=== PATIENT | female | born 1960 | race Caucasian/White ===

== ENCOUNTER → 2020-12-27 09:37 | Outpatient (CLI) | payer OTHER, SELFPAY ==
[2020-12-27 09:00] VITALS: BMI 38.2
[2020-12-27 12:27] LABS: Absolute Lymphocyte Count 1.72 X10^3/uL (0.83-4.51); Absolute Neutrophil Count 3.2 X10^3/uL (2.0-7.7); Basophil# 0.05 X10^3/uL; Basophil% 0.9 % (0-1); Eosinophil# 0.16 X10^3/uL; Eosinophils% 2.9 % (0-5); Hematocrit 40.9 % (37-47); Hemoglobin 12.9 g/dL (12.0-15.0); Lymphocyte # 1.72 X10^3/ul (4.0); Lymphocyte % 31.7 % (19-41); Mean Corp Hgb Conc 31.5 g/dL (32-36); Mean Corpuscular Hgb 28.5 pg (27.0-32.0); Mean Corpuscular Volume 90.3 fL (81-99); Monocyte# 0.29 X10^3/uL; Monocyte% 5.3 % (0-10); NRBC Flagged by Analyzer 0 % (0-5); Platelet Count 280 K/mm3 (150-450); RBC Distribution Width CV 13.6 % (11.6-14.6); RBC Distribution Width SD 45.6 fl (35.1-43.9); Red Blood Count 4.53 M/mm3 (4.2-5.4); White Blood Count 5.4 K/mm3 (4.4-11.0)
[2020-12-27 12:46] LABS: ALB/GLOB Ratio 0.9 RATIO (0.9-2.4); AST(SGOT) 40 U/L (15-37); Alanine Aminotransfer ALT/SGPT 67 U/L (13-56); Albumin, Serum 3.7 g/dL (3.2-5.0); Alkaline Phosphatase 114 U/L (45-117); Anion Gap 5 (5-15); BUN 12 mg/dL (7-18); BUN/Creat Ratio 16.4 RATIO (10-20); Calcium,Total 9.3 mg/dL (8.5-10.1); Chloride 104 mmol/L (98-107); Cholesterol 201 mg/dL (200); Creatinine, Serum 0.73 mg/dL (0.55-1.02); EST Glomerular Filtration Rate 86 mL/min (>60); Est Glom Filt Rate - Afr Amer 104 mL/min (>60); Globulin 4.3 g/dL (2.2-4.2); Glucose 92 mg/dL (74-106); High Density Lipoprotein 61 mg/dL; Potassium 3.9 mmol/L (3.5-5.1); Sodium Level 138 mmol/L (136-145); Triglycerides 152 mg/dL; Very Low Density Lipoprotein 30 mg/dL (5-40)
== END ==
PROVIDERS: PCP Internal Medicine; Visit Provider Internal Medicine
DX: I10 Essential (primary) hypertension (principal); K22.70 Barrett's esophagus without dysplasia
CPT/HCPCS: 36415; 80053; 80061; 85025

== ENCOUNTER → 2021-01-24 07:02 | Outpatient (CLI) | payer OTHER, BC, SELFPAY ==
[2020-12-27 09:00] VITALS: BMI 38.2
--- NOTE | 2021-01-24 07:10 | BI_ITS ---
MAMMOGRAPHY - BILATERAL SCREENING REASON FOR EXAM: Screening mammogram., 60 years old. Routine annual screening examination. PERTINENT HISTORY: Non-contributory. TECHNIQUE: Digital bilateral breast elenita (3D mammographic acquisition) in the CC and MLO projections. 2-D mediolateral oblique (MLO) and craniocaudad (CC) views of both breasts were obtained. CAD: Full Field Digital Mammography with Computer Added Detection was performed. COMPARISON: Comparison is made with prior abdomen examination dated 10/23/2019 and 08/14/2018. FINDINGS: Breast Composition: The breasts are heterogeneously dense, which may obscure small masses. There are no dominant masses or suspicious calcifications. Stable benign-appearing bilateral axillary lymph nodes. No other significant abnormalities are identified. There has been no significant change since the prior study. BI/SCRN MAMM (CAD)W/ELENITA BILAT IMPRESSION: Stable bilateral screening mammogram. Yearly follow-up mammogram recommended. (A) ASSESSMENT CATEGORY: BIRADS Category 2: Benign. A letter regarding these results will be sent to the patient by the facility within 30 days. Approximately 10% of breast cancers are not detected by mammography. A normal mammogram should not delay biopsy of a clinically suspicious abnormality. [id number] Electronically Signed: Etienne Fernando MD at 8:14 EDT , Service support ,
== END ==
PROVIDERS: PCP Internal Medicine; Referring Provider Internal Medicine; Visit Provider Internal Medicine
DX: Z12.31 Encounter for screening mammogram for malignant neoplasm of breast (principal)
CPT/HCPCS: 77063; 77067

== ENCOUNTER → 2021-02-02 09:13 | Outpatient (CLI) | payer OTHER, BC, SELFPAY ==
[2021-02-02 08:55] VITALS: BMI 38.2
--- NOTE | 2021-02-02 10:10 | EKG12_ITS ---
Test Reason : HYPERTENSION Blood Pressure : / mmHG Vent. Rate : 100 BPM Atrial Rate : 100 BPM P-R Int : 148 ms QRS Dur : 094 ms QT Int : 360 ms P-R-T Axes : 061 032 057 degrees QTc Int : 464 ms Normal sinus rhythm Low voltage QRS Incomplete right bundle branch block Nonspecific T wave abnormality Abnormal ECG Confirmed by KEILA PARISI, MARCY ([id number]), online editor KUSUM HARVEY ([id number]) on 02/04/2021 11:08:44 AM Referred By: Maria Elena Abdalla Confirmed By:MARCY PEDRAZA MD
== END ==
PROVIDERS: PCP Internal Medicine; Referring Provider Internal Medicine; Visit Provider Internal Medicine
DX: I10 Essential (primary) hypertension (principal); R06.02 Shortness of breath
CPT/HCPCS: 36415; 83880; 93005

== ENCOUNTER → 2021-02-17 06:20 | Outpatient (CLI) | payer OTHER, BC, SELFPAY ==
[2021-02-02 08:55] VITALS: BMI 38.2
--- NOTE | 2021-02-17 13:43 | STRESSREP_ITS ---
Stress Test Report Date: 02/17/2021 Procedure: Exercise tolerance test/imaging study Indications: Abnormal EKG Consent: Per the patient Procedure: The patient exercised on a Oscar protocol for 5 minutes and 32 seconds achieving a peak heart rate of 173 bpm (108% predicted maximal heart rate) with a peak blood pressure 159 mmHg and a peak MET capacity of 7 METs. The baseline ECG demonstrated normal sinus rhythm, poor R wave progression in the anterior leads. The peak exercise ECG demonstrated no significant ischemic changes. EKG during recovery revealed no significant ischemic changes [There were no cardiac dysrhythmias pretest, during exercise, or recovery]. The functional capacity was considered normal for age. There was [no complaint of chest discomfort during exercise or recovery]. The examination was discontinued secondary to shortness of breath. Impression: 1. Technically adequate (percent predicted maximal heart rate greater than 85%) exercise tolerance test 2. Stress test is negative for exercise-induced EKG changes of ischemia 3. The test test is negative for exercise-induced chest pain 4. Functional capacity is normal for age 5. Nuclear images pending Myocardial perfusion imaging study: Technique: The patient was injected with 14.2 mCi of technetium 99m Cardiolite and subsequently rest SPECT Cardiolite nuclear imaging was obtained in the horizontal long, vertical long, and short axis views. The patient exercised on a Oscar protocol. Please see above for details. The patient was injected with 44.6 mCi of technetium 99m Cardiolite and subsequently stress SPECT Cardiolite nuclear imaging was obtained in the horizontal long, vertical long, and short axis views. A gated Cardiolite study at peak stress was obtained. Interpretation: Rest and stress SPECT Cardiolite nuclear imaging status post realignment, normalization, and attenuation correction, demonstrates overall normal myocardial radioisotope uptake. The gated Cardiolite study demonstrates no significant regional wall motion abnormalities. The reported LVEF is 66%. Impression: 1. There is no evidence of significant ischemia or infarction. 2. The gated Cardiolite study reports an LVEF of 66%. This note was generated with [employer] software. It may contain incorrect words, spelling, and punctuation that were not noted in checking the note before signing.
== END ==
PROVIDERS: PCP Internal Medicine; Referring Provider Internal Medicine; Visit Provider Internal Medicine
DX: I10 Essential (primary) hypertension (principal); R94.31 Abnormal electrocardiogram [ECG] [EKG]
CPT/HCPCS: 78452; 93017; A9500; A4216

== ENCOUNTER → 2021-03-08 16:24 | Outpatient (CLI) | payer OTHER, BC, SELFPAY ==
[2021-03-08 15:27] VITALS: BMI 38.5
--- NOTE | 2021-03-08 16:28 | RAD_ITS ---
STUDY: X-RAY CHEST REASON FOR EXAM: Female, 60 years old. Shortness of breath TECHNIQUE: PA and lateral views of the chest. COMPARISON: None. FINDINGS: The lungs are clear and expanded. There is no demonstrated pleural abnormality. Normal size heart. Normal mediastinum and pino. Normal visualized pulmonary arteries. There is atherosclerotic tortuosity of the aortic arch and descending thoracic aorta. There are diffuse degenerative changes of the visualized thoracic spine. Normal visualized ribs, clavicles, and shoulders. There is no demonstrated abnormality of the visualized soft tissue structures of the upper abdomen. RAD/Chest PA and Lateral IMPRESSION: Degenerative changes, as described above. No demonstrated acute cardiopulmonary process. Electronically Signed: Ayah Hughes MD at 5:43 EDT Tel , Service support ,
== END ==
PROVIDERS: PCP Internal Medicine; Referring Provider Internal Medicine; Visit Provider Internal Medicine
DX: R06.02 Shortness of breath (principal)
CPT/HCPCS: 71046

== ENCOUNTER → 2021-03-10 09:13 | Outpatient (CLI) | payer OTHER, BC, SELFPAY ==
[2021-02-02 08:55] VITALS: BMI 38.2
== END ==
PROVIDERS: PCP Internal Medicine; Referring Provider Internal Medicine; Visit Provider Internal Medicine
DX: G47.10 Hypersomnia, unspecified (principal)
CPT/HCPCS: 95806

== ENCOUNTER → 2021-03-17 09:00 | Outpatient (CLI) | payer OTHER, BC, SELFPAY ==
[2021-03-08 15:27] VITALS: BMI 38.5
== END ==
PROVIDERS: PCP Internal Medicine; Visit Provider Nurse Practitioner Family
DX: Z46.89 Encounter for fitting and adjustment of other specified devices (principal)

== ENCOUNTER → 2021-04-12 | Outpatient (CLI) | payer OTHER, BC, SELFPAY ==
[2021-04-12 15:30] VITALS: BMI 38.5
[2021-04-12 16:13] LABS: Bacteria 0 SEEN /hpf (None Seen); Mucous, Urine 0 SEEN /hpf (<or=2+); Red Blood Cells-Urine 0 SEEN /hpf (0-5); Squamous Epithelial Cells - UA 0 SEEN /hpf (5-10)
[2021-04-12 17:13] LABS: Color, Urine Yellow (Yellow); Glucose, Dipstick Normal (Normal); Ketone-Dipstick Negative (Negative); Leukocyte Esterase-Dipstick 100 /ul (Negative); Nitrite-Dipstick Negative (Negative); Occult Blood-Urine Negative /ul (Negative); Protein-Dipstick Negative (Negative); Specific Gravity, Urine 1.005 (1.002-1.030); Urine Bilirubin Dipstick Negative (Negative); Urine Clarity Clear (Clear); Urine Urobilinogen Normal (Normal)
[2021-04-12 17:22] LABS: White Blood Cells 10-25 SEEN /hpf (0-5)
== END | disposition home or self-care (01) ==
LOC: LABSPEC 16:12
PROVIDERS: PCP Internal Medicine; Referring Provider Internal Medicine; Visit Provider Internal Medicine
DX: R30.0 Dysuria (principal)
CPT/HCPCS: 81001

== ENCOUNTER → 2021-05-16 07:43 | Outpatient (CLI) | payer OTHER, BC, SELFPAY ==
[2021-05-16 10:23] LABS: Anion Gap 4 (5-15); BUN 12 mg/dL (7-18); BUN/Creat Ratio 19.1 RATIO (10-20); Calcium,Total 9.3 mg/dL (8.5-10.1); Chloride 107 mmol/L (98-107); Creatinine, Serum 0.63 mg/dL (0.55-1.02); EST Glomerular Filtration Rate 102 mL/min (>60); Est Glom Filt Rate - Afr Amer 124 mL/min (>60); Glucose 93 mg/dL (74-106); Potassium 4.1 mmol/L (3.5-5.1); Sodium Level 139 mmol/L (136-145)
== END ==
PROVIDERS: PCP Internal Medicine; Referring Provider Internal Medicine; Visit Provider Internal Medicine
DX: I10 Essential (primary) hypertension (principal)
CPT/HCPCS: 36415; 80048

== ENCOUNTER → 2021-07-23 10:55 | Outpatient (CLI) | payer OTHER, BC, SELFPAY ==
[2021-07-23 11:41] LABS: Absolute Lymphocyte Count 2.01 X10^3/uL (0.83-4.51); Absolute Neutrophil Count 2.9 X10^3/uL (2.0-7.7); Basophil# 0.06 X10^3/uL; Basophil% 1.1 % (0-1); Eosinophil# 0.14 X10^3/uL; Eosinophils% 2.5 % (0-5); Hematocrit 40.7 % (37-47); Hemoglobin 13.8 g/dL (12.0-15.0); Lymphocyte # 2.01 X10^3/ul (0.83-4.51); Lymphocyte % 36.3 % (19-41); Mean Corp Hgb Conc 33.9 g/dL (32-36); Mean Corpuscular Hgb 29.9 pg (27.0-32.0); Mean Corpuscular Volume 88.1 fL (81-99); Mean Platelet Vol. 9.2 fl (6.2-12.0); Monocyte# 0.36 X10^3/uL; Monocyte% 6.5 % (0-10); NRBC Flagged by Analyzer 0 % (0-5); Neutrophil # 2.93 X10^3/uL (2.7-7.7); Neutrophil % 53.1 % (47-70); Platelet Count 265 K/mm3 (150-450); RBC Distribution Width CV 13.5 % (11.6-14.6); RBC Distribution Width SD 43.6 fl (35.1-43.9); Red Blood Count 4.62 M/mm3 (4.2-5.4); White Blood Count 5.5 K/mm3 (4.4-11.0)
[2021-07-23 11:47] LABS: ALB/GLOB Ratio 0.9 RATIO (0.9-2.4); AST(SGOT) 21 U/L (15-37); Alanine Aminotransfer ALT/SGPT 43 U/L (13-56); Albumin, Serum 3.7 g/dL (3.2-5.0); Alkaline Phosphatase 102 U/L (45-117); Anion Gap 6 (5-15); BUN 9 mg/dL (7-18); Calcium,Total 9.5 mg/dL (8.5-10.1); Chloride 107 mmol/L (98-107); Creatinine, Serum 0.69 mg/dL (0.55-1.02); EST Glomerular Filtration Rate 91 mL/min (>60); Est Glom Filt Rate - Afr Amer 111 mL/min (>60); Globulin 4.2 g/dL (2.2-4.2); Glucose 92 mg/dL (74-106); Lipase 158 U/L (73-393); Potassium 3.9 mmol/L (3.5-5.1); Protein, Total 7.9 g/dL (6.4-8.2); Sodium Level 141 mmol/L (136-145)
== END ==
PROVIDERS: PCP Internal Medicine
DX: R10.11 Right upper quadrant pain (principal); R11.0 Nausea
CPT/HCPCS: 36415; 80053; 83690; 85025

== ENCOUNTER → 2021-08-04 08:22 | Outpatient (CLI) | payer OTHER, BC, SELFPAY ==
--- NOTE | 2021-08-04 08:24 | CT_ITS ---
STUDY: CT ABDOMEN AND PELVIS WITH CONTRAST REASON FOR EXAM: Female, 60 years old. 2-3 year history of right upper quadrant abdominal pain. RADIATION DOSAGE (If Supplied By Facility): CTDIvol = ( 15.57 ) mGy, DLP = ( 1009.16 ) mGycm TECHNIQUE: Transaxial images were obtained from the dome of the diaphragm to the symphysis pubis with oral contrast. Oral and amp; IV Readi-CAT and amp; 100mL Isovue-300 was administered. Sagittal and coronal images were reconstructed. Individualized dose optimization techniques were used for this CT. COMPARISON: None. FINDINGS: Minimal increased markings in the posterior medial segment of the right lower lobe suggestive of a either atelectasis and/or scarring. The visualized portions of the heart are within normal limits. There is decreased attenuation of the liver consistent with steatosis. Normal gallbladder and extrahepatic biliary system. Normal spleen. Normal pancreas. Normal bilateral adrenal glands. Normal right kidney. Normal left kidney. Normal visualized stomach. Normal small intestine. Normal colon. The appendix is visualized and appears normal. There is scattered atherosclerotic calcification of the abdominal aorta, without a demonstrated aneurysm. Normal inferior vena cava. Normal retroperitoneum. Normal urinary bladder. There is a small umbilical hernia containing fat. Normal osseous structures. CT/Abdomen/Pelvis WITH Contrast IMPRESSION: Diffuse fatty infiltration of the liver. Electronically Signed: Etienne Fernando MD at 9:50 EST , Service support ,
== END ==
PROVIDERS: PCP Internal Medicine; Referring Provider Internal Medicine Gastroenterology; Visit Provider Internal Medicine Gastroenterology
DX: R10.84 Generalized abdominal pain (principal); R14.0 Abdominal distension (gaseous)
CPT/HCPCS: 74177; Q9967

== ENCOUNTER → 2022-01-25 | Outpatient (CLI) | payer OTHER, BC, SELFPAY ==
--- NOTE | 2022-01-25 08:21 | BI_ITS ---
MAMMOGRAPHY - BILATERAL SCREENING REASON FOR EXAM: Female, 61 years old. Routine annual screening examination. PERTINENT HISTORY: Grandmother with breast cancer. TECHNIQUE: Digital bilateral breast elenita (3D mammographic acquisition) in the CC and MLO projections. 2-D mediolateral oblique (MLO) and craniocaudad (CC) views of both breasts were obtained. CAD: Full Field Digital Mammography with Computer Added Detection was performed. COMPARISON: Comparison is made with prior study dated 01/24/2021. FINDINGS: Breast Composition: The breasts are heterogeneously dense, which may obscure small masses. There are no dominant masses or suspicious calcifications. Stable small benign-appearing bilateral axillary lymph nodes. No other significant abnormalities are identified. There has been no significant change since the prior study. BI/SCRN MAMM (CAD)W/ELENITA BILAT IMPRESSION: Stable bilateral screening mammogram. Yearly follow-up mammogram recommended. (A) ASSESSMENT CATEGORY: BIRADS Category 2: Benign. A letter regarding these results will be sent to the patient by the facility within 30 days. Approximately 10% of breast cancers are not detected by mammography. A normal mammogram should not delay biopsy of a clinically suspicious abnormality. [id number] Electronically Signed: Etienne Fernando MD at 9:25 EDT ,
== END | disposition home or self-care (01) ==
LOC: OPBI 08:20
PROVIDERS: PCP Internal Medicine; Visit Provider Internal Medicine
DX: Z12.31 Encounter for screening mammogram for malignant neoplasm of breast (principal)
CPT/HCPCS: 77063; 77067

== ENCOUNTER → 2022-06-14 | Outpatient (CLI) | payer OTHER, BC, SELFPAY ==
[2022-06-14 12:42] LABS: Absolute Lymphocyte Count 1.65 X10^3/uL (0.83-4.51); Absolute Neutrophil Count 2.9 X10^3/uL (2.0-7.7); Basophil# 0.05 X10^3/uL; Eosinophil# 0.12 X10^3/uL; Eosinophils% 2.4 % (0-5); Hematocrit 42.8 % (37-47); Hemoglobin 14.2 g/dL (12.0-15.0); Lymphocyte # 1.65 X10^3/ul (0.83-4.51); Lymphocyte % 32.8 % (19-41); Mean Corp Hgb Conc 33.2 g/dL (32-36); Mean Corpuscular Hgb 30.7 pg (27.0-32.0); Mean Corpuscular Volume 92.4 fL (81-99); Mean Platelet Vol. 9.2 fl (6.2-12.0); Monocyte# 0.33 X10^3/uL; Monocyte% 6.6 % (0-10); NRBC Flagged by Analyzer 0 % (0-5); Neutrophil # 2.86 X10^3/uL (2.7-7.7); Neutrophil % 56.8 % (47-70); Platelet Count 257 K/mm3 (150-450); RBC Distribution Width CV 13.9 % (11.6-14.6); RBC Distribution Width SD 46.7 fl (35.1-43.9); Red Blood Count 4.63 M/mm3 (4.2-5.4)
[2022-06-14 13:02] LABS: ALB/GLOB Ratio 0.9 RATIO (0.9-2.4); AST(SGOT) 12 U/L (15-37); Alanine Aminotransfer ALT/SGPT 35 U/L (13-56); Albumin, Serum 3.9 g/dL (3.2-5.0); Alkaline Phosphatase 94 U/L (45-117); Anion Gap 8 (5-15); BUN 10 mg/dL (7-18); BUN/Creat Ratio 14.7 RATIO (10-20); Calcium,Total 9.9 mg/dL (8.5-10.1); Chloride 104 mmol/L (98-107); Cholesterol 235 mg/dL (200); Creatinine, Serum 0.68 mg/dL (0.55-1.02); EST Glomerular Filtration Rate 93 mL/min (>60); Est Glom Filt Rate - Afr Amer 112 mL/min (>60); Globulin 4.2 g/dL (2.2-4.2); Glucose 98 mg/dL (74-106); High Density Lipoprotein 60 mg/dL; Potassium 4.3 mmol/L (3.5-5.1); Protein, Total 8.1 g/dL (6.4-8.2); Sodium Level 139 mmol/L (136-145); Triglycerides 175 mg/dL; Very Low Density Lipoprotein 35 mg/dL (5-40)
== END | disposition home or self-care (01) ==
LOC: BIMLAB 10:26
PROVIDERS: PCP Internal Medicine; Referring Provider Internal Medicine; Visit Provider Internal Medicine
DX: I10 Essential (primary) hypertension (principal)
CPT/HCPCS: 36415; 80053; 80061; 85025

== ENCOUNTER → 2022-08-07 | Outpatient (CLI) | payer OTHER, BC, SELFPAY ==
[2022-08-07 13:13] LABS: Thyroid Stim Hormone (TSH) 2.22 uIU/mL (0.358-3.74)
[2022-08-08 15:55] LABS: ANTINUCLEAR ANTIBODIES DIRECT Negative (Negative)
== END | disposition home or self-care (01) ==
PROVIDERS: PCP Internal Medicine; Visit Provider Internal Medicine
DX: K58.9 Irritable bowel syndrome, unspecified (principal); L85.3 Xerosis cutis; Z13.29 Encounter for screening for other suspected endocrine disorder
CPT/HCPCS: 36415; 84439; 84443; 86038; 86225; 86235

== ENCOUNTER → 2022-10-25 | Outpatient (CLI) | payer OTHER, BC, SELFPAY ==
[2022-10-25 12:16] LABS: Absolute Lymphocyte Count 1.42 X10^3/uL (0.83-4.51); Absolute Neutrophil Count 3.1 X10^3/uL (2.0-7.7); Basophil# 0.05 X10^3/uL; Hematocrit 42.1 % (37-47); Hemoglobin 13.9 g/dL (12.0-15.0); Lymphocyte # 1.42 X10^3/ul (0.83-4.51); Lymphocyte % 28.7 % (19-41); Mean Corpuscular Hgb 30.3 pg (27.0-32.0); Mean Corpuscular Volume 91.7 fL (81-99); Mean Platelet Vol. 9.2 fl (6.2-12.0); Monocyte% 6.1 % (0-10); NRBC Flagged by Analyzer 0 % (0-5); Neutrophil # 3.07 X10^3/uL (2.7-7.7); Platelet Count 277 K/mm3 (150-450); RBC Distribution Width CV 13.4 % (11.6-14.6); RBC Distribution Width SD 45.8 fl (35.1-43.9); Red Blood Count 4.59 M/mm3 (4.2-5.4)
[2022-10-25 12:30] LABS: Anion Gap 6 (5-15); BUN 14 mg/dL (7-18); BUN/Creat Ratio 19.1 RATIO (10-20); Calcium,Total 9.7 mg/dL (8.5-10.1); Chloride 106 mmol/L (98-107); Creatinine, Serum 0.73 mg/dL (0.55-1.02); EST Glomerular Filtration Rate 85 mL/min (>60); Est Glom Filt Rate - Afr Amer 103 mL/min (>60); Glucose 102 mg/dL (74-106); Potassium 4.2 mmol/L (3.5-5.1); Sodium Level 139 mmol/L (136-145)
== END | disposition home or self-care (01) ==
LOC: BIMLAB 08:56
PROVIDERS: PCP Internal Medicine; Referring Provider Internal Medicine; Visit Provider Internal Medicine
DX: I10 Essential (primary) hypertension (principal)
CPT/HCPCS: 36415; 80048; 85025

== ENCOUNTER → 2023-03-15 | Outpatient (CLI) | payer OTHER, BC, SELFPAY ==
--- NOTE | 2023-03-15 10:00 | BI_ITS ---
MAMMOGRAPHY - BILATERAL SCREENING REASON FOR EXAM: Female, 62 years old. Routine annual screening examination. PERTINENT HISTORY: Grandmother with breast cancer. TECHNIQUE: Digital bilateral breast elenita (3D mammographic acquisition) in the CC and MLO projections. 2-D mediolateral oblique (MLO) and craniocaudad (CC) views of both breasts were obtained. CAD: Full Field Digital Mammography with Computer Added Detection was performed. COMPARISON: Comparison is made with prior study January 25, 2022 and January 24, 2021. FINDINGS: Breast Composition: The breasts are heterogeneously dense, which may obscure small masses. There are no dominant masses or suspicious calcifications. Stable benign appearing bilateral axillary lymph nodes. No other significant abnormalities are identified. There has been no significant change since the prior study. BI/SCRN MAMM (CAD)W/ELENITA BILAT IMPRESSION: Stable bilateral screening mammogram. Yearly follow-up mammogram recommended. (A) ASSESSMENT CATEGORY: BIRADS Category 2: Benign. A letter regarding these results will be sent to the patient by the facility within 30 days. Approximately 10% of breast cancers are not detected by mammography. A normal mammogram should not delay biopsy of a clinically suspicious abnormality. [id number] Electronically Signed: Etienne Fernando MD at 12:20 EDT ,
--- NOTE | 2023-03-15 10:06 | BD_ITS ---
STUDY: DUAL ENERGY X-RAY ABSORPTIOMETRY / DXA REASON FOR EXAM: Female, 62 years old. Post menopausal TECHNIQUE: Bone Mineral Density (BMD) measurements of lumbar spine and bilateral hips were obtained. COMPARISON: None. FINDINGS: Lumbar Spine (L1-L4): g/cm2 (1.028) / T-score (-0.2) / Z-score (1.5) Findings are suggestive of normal bone density with a low fracture risk. Left Femur Total: g/cm2 (0.927) / T-score (-0.1) / Z-score (1.0) Left Femoral Neck: g/cm2 (0.736) / T-score (-1.0) / Z-score (0.4) Right Femur Total: g/cm2 (0.962) / T-score (0.2) / Z-score (1.3) Right Femoral Neck: g/cm2 (0.795) / T-score (-0.5) / Z-score (1.0) BD/Dexa Bone Density Study IMPRESSION: The patient is considered normal as outlined below according to World Morales Organization (WHO) criteria with a low fracture risk. Reference Information: The T-score is the number of standard deviations above or below the standard which is normal for young adults at their peak bone mineral density. The World Health Organization (WHO) interprets the T-scores as follows: Above -1 Normal bone density Between -1 and -2.5 Osteopenia Equal to / or below -2.5 Osteoporosis As a practical clinical guideline, osteopenia may be graded as follows: Mild -1 through -1.5 Moderate -1.6 through -2.0 Severe -2.1 through -2.4 The Z-score is the number of standard deviations above or below age-matched controls. A Z-score of less than -1.5 would be considered abnormal. References: 1. NIH Osteoporosis and Related Bone Diseases www osteo.org 2. International Society for Clinical Densitometry www iscd.org 3. National Osteoporosis Foundation www nof.org Electronically Signed: Etienne Fernando MD at 10:00 EDT ,
== END | disposition home or self-care (01) ==
LOC: OPBD 09:58
PROVIDERS: PCP Internal Medicine; Referring Provider Internal Medicine; Visit Provider Internal Medicine
DX: Z12.31 Encounter for screening mammogram for malignant neoplasm of breast (principal); Z78.0 Asymptomatic menopausal state
CPT/HCPCS: 77063; 77067; 77080

== ENCOUNTER → 2023-06-14 | Outpatient (CLI) | payer OTHER, BC, SELFPAY ==
[2023-06-14 10:07] LABS: Absolute Lymphocyte Count 1.71 X10^3/uL (0.83-4.51); Absolute Neutrophil Count 3.5 X10^3/uL (2.0-7.7); Basophil# 0.06 X10^3/uL; Eosinophil# 0.14 X10^3/uL; Eosinophils% 2.4 % (0-5); Hematocrit 40.2 % (37-47); Lymphocyte # 1.71 X10^3/ul (0.83-4.51); Lymphocyte % 29.6 % (19-41); Mean Corp Hgb Conc 32.3 g/dL (32-36); Mean Corpuscular Hgb 29.8 pg (27.0-32.0); Mean Corpuscular Volume 92.2 fL (81-99); Mean Platelet Vol. 9.3 fl (6.2-12.0); Monocyte# 0.37 X10^3/uL; Monocyte% 6.4 % (0-10); NRBC Flagged by Analyzer 0 % (0-5); Neutrophil # 3.49 X10^3/uL (2.7-7.7); Neutrophil % 60.4 % (47-70); Platelet Count 265 K/mm3 (150-450); RBC Distribution Width CV 13.6 % (11.6-14.6); RBC Distribution Width SD 46.5 fl (35.1-43.9); Red Blood Count 4.36 M/mm3 (4.2-5.4); White Blood Count 5.8 K/mm3 (4.4-11.0)
[2023-06-14 11:34] LABS: AST(SGOT) 16 U/L (15-37); Alanine Aminotransfer ALT/SGPT 35 U/L (13-56); Albumin, Serum 3.8 g/dL (3.2-5.0); Alkaline Phosphatase 91 U/L (45-117); Anion Gap 6 (5-15); BUN 16 mg/dL (7-18); BUN/Creat Ratio 23.8 RATIO (10-20); Calcium,Total 9.3 mg/dL (8.5-10.1); Chloride 107 mmol/L (98-107); Cholesterol 212 mg/dL (200); Creatinine, Serum 0.67 mg/dL (0.55-1.02); EST Glomerular Filtration Rate 94 mL/min (>60); Est Glom Filt Rate - Afr Amer 114 mL/min (>60); Globulin 3.9 g/dL (2.2-4.2); Glucose 102 mg/dL (74-106); High Density Lipoprotein 61 mg/dL; Protein, Total 7.7 g/dL (6.4-8.2); Sodium Level 139 mmol/L (136-145); Triglycerides 165 mg/dL; Very Low Density Lipoprotein 33 mg/dL (5-40)
== END | disposition home or self-care (01) ==
LOC: MTLAB 07:39
PROVIDERS: PCP Internal Medicine; Referring Provider Internal Medicine; Visit Provider Internal Medicine
DX: I10 Essential (primary) hypertension (principal)
CPT/HCPCS: 36415; 80053; 80061; 85025

== ENCOUNTER → 2023-09-19 | Outpatient (CLI) | payer OTHER, SELFPAY ==
--- OUTSIDE RECORDS SUMMARY | 2023-09-19 07:59 | XMS RPT_ITS | CCD ---
Author Name Unknown Address [address] [place] [address] Organization [facility] Care Team Providers Care Supervisor Uranium Processing Name Role Phone Amanda Alvarado Unavailable Unavailable Benita Valencia Unavailable Unavailable Jasiel Mann Attending Unavailable Benita Valencia Primary Care Unavailable Maria Elena Abdalla MD Primary Care Provider [phone] LONNY ACEVEDO Referring Unavailable MARIA ELENA ABDALLA Primary Care Unavailable LONNY ACEVEDO Referring Unavailable MARIA ELENA ABDALLA Primary Care Unavailable Allergies Allergy Classification Reported Allergen(s) Allergy Type Date of Onset Reaction(s) Facility (3 sources) Sulfonamides (Antibiotic); Translations: [SULFA (SULFONAMIDE ANTIBIOTICS)] Propensity to adverse reactions to drug 0 [facility] Work Phone: Medications Completed/Discontinued Medications Medication Drug Class(es) Dates Sig (Normalized) Sig (Original) [id number] 200 actuat albuterol 0.09 mg/actuat metered dose inhaler (2 sources) beta2-Adrenergic Agonist Start: 02-21-2021 take 2 puff(s) by inhalation every four hours as needed albuterol HFA (PROVENTIL HFA, VENTOLIN HFA) 90 mcg/actuation inhaler Indications: Mild intermittent asthma with acute exacerbation Inhale 2 Puffs as instructed every 4 hours as needed. 8 g 0 02/21/2021 Active Problems Active Problems Problem Classification Problem Date Documented Da te Episodic/Chronic Anxiety disorders (2 sources) Mixed anxiety and depressive disorder; Translations: [Anxiety disorder, unspecified] 07-30-2013 Chronic Esophageal disorders (2 sources) Woodall's esophagus; Translations: [Woodall's esophagus without dysplasia] Onset: 05-18-2019 06-21-2020 Chronic Genitourinary symptoms and ill-defined conditions (2 sources) Female stress incontinence; Translations: [Stress incontinence (female) (male)] 08-12-2018 Chronic Menopausal disorders (2 sources) Menopausal symptom; Translations: [Menopausal and female climacteric states] Onset: 08-12-2018 08-12-2018 Chronic Miscellaneous mental health disorders (4 sources) Lack or loss of sexual desire; Translations: [Hypoactive sexual desire disorder] Onset: 10-17-2019 08-12-2018 Chronic Nutritional deficiencies (2 sources) Vitamin D deficiency; Translations: [Vitamin D deficiency, unspecified] Onset: 07-18-2018 08-12-2018 Chronic Other gastrointestinal disorders (1 source) Dysphagia; Translations: [Dysphagia, unspecified] Episodic Other gastrointestinal disorders (2 sources) Dysphagia, unspecified; Translations: [Dysphagia, unspecified type] Onset: 10-19-2022 Episodic Other nutritional; endocrine; and metabolic disorders (2 sources) Obesity; Translations: [Other obesity due to excess calories] Onset: 03-23-2019 03-23-2019 Chronic Other nutritional; endocrine; and metabolic disorders (2 sources) Weight gain; Translations: [Abnormal weight gain] 08-12-2018 Episodic Unclassified (3 sources) Encntr screen mammogram for malignant neoplasm of breast / Z12.31(ICD-10) Onset: 07-27-2017 Past or Other Problems Problem Classification Problem Date Documented Date Episodic/Chronic Other connective tissue disease (2 sources) Tibialis posterior tendinitis ; Translations: [Posterior tibial tendinitis, unspecified leg] Onset: 11-13-2011 11-13-2011 Episodic Other lower respiratory disease (2 sources) Snoring; Translations: [Snoring] Onset: 08-12-2018 08-12-2018 Episodic Other screening for suspected conditions (not mental disorders or infectious disease) (5 sources) Encounter for screening for cardiovascular disorders; Translations: [Patient encounter status] Onset: 08-06-2018 08-06-2018 Episodic Unclassified (1 source) Encntr screen mammogram for malignant neoplasm of breast; Translations: [Encntr screen mammogram for malignant neoplasm of breast] Onset: 07-27-2017 Results Test Name Value Interpretation Reference Range Facil ity Encounters Encounter Date Encounter Type Care Provider Facility Start: 10-19-2022 End: 10-20-2022 ambulatory Reba Dumont [facility] [employer] [employer]PER[employer] Work Phone: [facility] Speech Therapy Procedures Date Procedure Procedure Detail Performing Clinician Start: 10-19-2022 End: 10-19-2022 Radiologic exam swallow function contrast study Lonny Acevedo MD Work Phone: Start: 10-23-2019 Mammography Reba Guadalupe ana lilia Dumont [facility]-[employer] SUPERVIS[employer] Work Phone: Start: 06-04-2019 Colonoscopy Reba Yimedhat ana lilia Dumont [facility] Work Phone: Plan of Treatment Date Care Activity Detail Author Start: 08-12-2028 Urine microalbumin profile DTA P,TDAP,TD (2 - Td or Tdap) [facility] Start: 04-19-2025 HPV TESTING HPV TESTING [facility] Start: 04-19-2023 PAP TESTING PAP TESTING [facility] Start: 06-04-2022 Colonoscopy COLONOSCOPY [facility] Start: 06-04-2022 COLORECTAL CANCER SCREENING COLORECTAL CANCER SCREENING [facility] Start: 05-18-2022 Influenza vaccination INFLUENZA (#1) [facility] Start: 05-16-2022 DIABETES SCREEN DIABETES SCREEN [facility] Start: 03-31-2022 LIPID SCREEN LIPID SCREEN [facility] Start: 10-23-2021 Mammography MAMMOGRAM [facility] Start: 2009 SHINGRIX VACCINE (1 of 2) SHINGRIX V ACCINE (1 of 2) [facility] Start: 2004 COLOGUARD (FIT-DNA) COLOGUARD (FIT-D NA) [facility] Start: [address] [facility] Start: 2004 FECAL OCCULT BLOOD FECAL OCCULT BLOO D [facility] Start: 2004 SIGMOIDOSCOPY SIGMOIDOSCOPY [facility] Start: 1977 HIV SCREENING HIV SCREENING [facility] Immunizations Immunization Date Immunization Notes Care Provider Latisha reed 08-12-2018 influenza, injectabl e, quadrivalent, contains preservative Reba Dumont [facility]PER[employer] Work Phone: [facility] 08-12-2018 tetanus toxoid, redu nghia diphtheria toxoid, and acellular pertussis vaccine, adsorbed Reba Dumont [facility] Work Phone: [facility] 12-28-2011 hepatitis B vaccine, adult dosage Reba Dumont [facility] Work Phone: [facility] Work Phone: 08-17-2009 pneumococcal polysaccharide vaccine, 23 valent eRba Dumont [facility] Work Phone: [facility] Work Phone: 09-17-2007 hepatitis A vaccine, pediatric/adolescent dosage, 2 dose schedule Reba Dumont [facility] Work Phone: [facility] Work Phone: 09-17-2007 hepatitis B vaccine, adult dosage Reba Dumont [facility] Work Phone: [facility] Work Phone: Payers Date Payer Category Payer Unknown [employer] [id number] 2020-Present [phone] [facility] [id number] [place] [address] PPO [id number] 2020 Unknown [id number] 1960 Unknown [id number] Unknown [id number] Unknown [id number] Social History Date Type Detail Facility Start: 05-02-2019 [facility] Work Phone: End: 09-17-1977 History of tobacco use Current smoker [facility] Work Phone: End: 09-17-1977 History of tobacco use Cigarette Smoker [facility] Work Phone: Start: 05-02-2019 Tobacco use and exposure Smokeless tobacco non-user [facility] Work Phone: Start: 09-07-2020 Alcohol intake Current drinke r of alcohol (finding) [facility] Start: 05-02-2019 Tobacco Comment 1/2 year in her teen s [facility] Start: 04-11-2011 Alcohol Comment social Reyes [facility] Start: 1960 Sex Assigned At Not on file C [facility] Clinical Notes 08-12-2018 to 10-19-2022 RT Jorge(R) - 10/19/2022 1:00 PM Tucker Dumont CCC-PIPE FITTER SUPERVISOR - 10/19/2022 12:59 PM EST Note Date & Type Note Facility 10-19-2022 Note HNO ID: [id number] Author: EDUARDO Patel) Service: Radiology Author Type: Technologist Type: Progress Notes Filed: 10/19/2022 3:03 PM Note Text: Radiology Service Progress Note PATIENT NAME: Renetta Gill DATE OF SERVICE: October 19, 2022 TIME: 3:02 PM PATIENT IDENTITY VERIFICATION COMPLETED USING TWO (2) IDENTIFIERS: Name and Date of confirmed by patient verbally. FALL SCREENING: Has the patient had 2 falls in the last year or 1 fall with injury or currently using an Ambulatory Assistive Device (Walker, Cane, Wheelchair, Crutches, etc.)? No PATIENT GENDER DATA: Female. status: : No status: NO. PATIENT RELEVANT IMPLANT DATA REVIEWED: Not Applicable RADIOLOGY DEPARTMENT: General X-ray: Exam(s) Completed: GI/ Procedure(s): Esophogram with barium contrast and Modified barium swallow with barium contrast PERIPHERAL IV DATA: Not applicable SIGNED BY: RT Jorge(Vega) October 19, 2022 3:02 PM [facility] 10-19-2022 Note HNO ID: [id number] Author: Reba Dumont CCC-PIPE FITTER SUPERVISOR Service: ? Author Type: Speech Language Pathologist Type: Progress Notes Filed: 10/19/2022 1:57 PM Note Text: Start of Care Date: 10/19/22 Onset Date: 09/17/22 Patient Identified by Name and Date of : Yes [facility] MODIFIED BARIUM SWALLOW PLAN OF CARE: Impression: Evidence of: -Functional oropharyngeal phases of swallow, without identified risk for aspiration An elevated risk for aspiration: No Swallow Efficiency: Preserved Esophagram completed this date. Please see radiological report for complete details. RECOMMENDATION: Diet Recommendations: Regular Consistency, Thin Liquids IDDSI Level 0 Swallowing Precautions Recommendations: -Self-monitoring, -Anti-Reflux precautions Results and Recommendations Discussed With: Patient SUBJECTIVE: Renetta Gill is a 62 year old female seen today for a Modified Barium Swallow (MBS) Study. dysphagia -pt is reporting choking at 'odd times' -admits to intermittent choking episodes throughout the day with / without PO intake -denies the following: reflux symptoms, emesis, heartburn (medicated), unexpected weight loss -admits to frequent / consistent nausea; Woodall's Esophagus -s/p EGD X1 year per patient Patient Goals: Determine current swallowing skills OBJECTIVE: MEASURES WITH LEVEL OF FUNCTION: Swallow Position Of Patient During Assessment: Standing Consistencies Presented: Thin Liquids IDDSI Level 0, Pureed IDDSI Level 4, Soft and Bite-Sized IDDSI Level 6, Solid Instrumental Swallow Assessment Type: Modified Barium Swallow Study Modified Barium Swallow Views: Lateral position MBS Consistencies Tested: Thin Barium Liquids, Pureed with Barium Paste, Soft and Bite-Sized with Barium Paste, Solid with Barium Paste Oral Phase: Lip Closure: No labial escape/anterior loss of bolus Tongue Control During Bolus Hold: Cohesive bolus between tongue to palatal seal Bolus Preparation/Mastication: Timely and efficient mastication skills Bolus Transport/Lingual Motion: Brisk tongue motion for A-P movement of the bolus Oral Residue: Trace residue lining oral structures Initiation Of Pharyngeal Swallow: Bolus head at posterior angle of ramus Pharyngeal Phase: Soft Palate Elevation: No bolus between soft palate/pharyngeal wall Laryngeal Elevation: Complete superior movement of thyroid cartilage with contact of arytenoids to epiglottic petiole Anterior Hyoid Excursion: Complete anterior movement Epiglottic Movement: Complete inversion Laryngeal Vestibular Closure/Height of the Swallow: Complete - no air/contrast in laryngeal vestibule Pharyngeal Stripping Wave: Complete Pharyngoesophageal Segment Opening: Complete distension and complete duration/no obstruction of flow of bolus Tongue Base Retraction: No bolus between tongue base and posterior pharyngeal wall Pharyngeal Residue: Complete pharyngeal clearance Esophageal Clearance In An Upright Position: Esophageal retention (mildly delayed; appears to clear with additional 'dry' swallow while in an upright position) Penetration-Aspiration Scale for MBSS: Level 1-Material does not enter airway Education: Education Learning Preferences: Explanation Barriers: None Learning/Educational Needs: MBSs results Education Provided: Yes, see treatment interventions for education provided Education Provided To: Patient Education Mode/Type: Explanation/Discussion, Video Response to Education/Teach Back: States/Identifies TREATMENT: Performed Modified Barium Swallowing Study (06446). -Education regarding findings from today's Modified Barium Swallowing study (fluoroscopic study) were provided to the patient through verbal / written instruction, images and/or demonstration. Patient appeared to be able to demonstrate understanding of education provided this date. Billing: Modified Barium Swallow ([id number]) Total time: 30 minutes Reba Dumont CCC-PIPE FITTER SUPERVISOR [facility] 10-19-2022 History of Present illness Narrative Radiology Service Progress Note PATIENT NAME: Renetta Gill DATE OF SERVICE: October 19, 2022 TIME: 3:02 PM PATIENT IDENTITY VERIFICATION COMPLETED USING TWO (2) IDENTIFIERS: Name and Date of confirmed by patient verbally. FALL SCREENING: Has the patient had 2 falls in the last year or 1 fall with injury or currently using an Ambulatory Assistive Device (Walker, Cane, Wheelchair, Crutches, etc.)? No PATIENT GENDER DATA: Female. status: : No status: NO. PATIENT RELEVANT IMPLANT DATA REVIEWED: Not Applicable RADIOLOGY DEPARTMENT: General X-ray: Exam(s) Completed: GI/ Procedure(s): Esophogram with barium contrast and Modified barium swallow with barium contrast PERIPHERAL IV DATA: Not applicable SIGNED BY: RT Jorge(R) October 19, 2022 3:02 PM documented in this encounter [facility] 10-19-2022 History of Present illness Narrative Start of Care Date: 10/19/22 Onset Date: 09/17/22 Patient Identified by Name and Date of : Yes [facility] MODIFIED BARIUM SWALLOW PLAN OF CARE: Impression: Evidence of: -Functional oropharyngeal phases of swallow, without identified risk for aspiration An elevated risk for aspiration: No Swallow Efficiency: Preserved Esophagram completed this date. Please see radiological report for complete details. RECOMMENDATION: Diet Recommendations: Regular Consistency, Thin Liquids IDDSI Level 0 Swallowing Precautions Recommendations: -Self-monitoring, -Anti-Reflux precautions Results and Recommendations Discussed With: Patient SUBJECTIVE: Renetta Gill is a 62 year old female seen today for a Modified Barium Swallow (MBS) Study. dysphagia -pt is reporting choking at 'odd times' -admits to intermittent choking episodes throughout the day with / without PO intake -denies the following: reflux symptoms, emesis, heartburn (medicated), unexpected weight loss -admits to frequent / consistent nausea; Woodall's Esophagus -s/p EGD X1 year per patient Patient Goals: Determine current swallowing skills OBJECTIVE: MEASURES WITH LEVEL OF FUNCTION: Swallow Position Of Patient During Assessment: Standing Consistencies Presented: Thin Liquids IDDSI Level 0, Pureed IDDSI Level 4, Soft and Bite-Sized IDDSI Level 6, Solid Instrumental Swallow Assessment Type: Modified Barium Swallow Study Modified Barium Swallow Views: Lateral position MBS Consistencies Tested: Thin Barium Liquids, Pureed with Barium Paste, Soft and Bite-Sized with Barium Paste, Solid with Barium Paste Oral Phase: Lip Closure: No labial escape/anterior loss of bolus Tongue Control During Bolus Hold: Cohesive bolus between tongue to palatal seal Bolus Preparation/Mastication: Timely and efficient mastication skills Bolus Transport/Lingual Motion: Brisk tongue motion for A-P movement of the bolus Oral Residue: Trace residue lining oral structures Initiation Of Pharyngeal Swallow: Bolus head at posterior angle of ramus Pharyngeal Phase: Soft Palate Elevation: No bolus between soft palate/pharyngeal wall Laryngeal Elevation: Complete superior movement of thyroid cartilage with contact of arytenoids to epiglottic petiole Anterior Hyoid Excursion: Complete anterior movement Epiglottic Movement: Complete inversion Laryngeal Vestibular Closure/Height of the Swallow: Complete - no air/contrast in laryngeal vestibule Pharyngeal Stripping Wave: Complete Pharyngoesophageal Segment Opening: Complete distension and complete duration/no obstruction of flow of bolus Tongue Base Retraction: No bolus between tongue base and posterior pharyngeal wall Pharyngeal Residue: Complete pharyngeal clearance Esophageal Clearance In An Upright Position: Esophageal retention (mildly delayed; appears to clear with additional 'dry' swallow while in an upright position) Penetration-Aspiration Scale for MBSS: Level 1-Material does not enter airway Education: Education Learning Preferences: Explanation Barriers: None Learning/Educational Needs: MBSs results Education Provided: Yes, see treatment interventions for education provided Education Provided To: Patient Education Mode/Type: Explanation/Discussion, Video Response to Education/Teach Back: States/Identifies TREATMENT: Performed Modified Barium Swallowing Study (60426). -Education regarding findings from today's Modified Barium Swallowing study (fluoroscopic study) were provided to the patient through verbal / written instruction, images and/or demonstration. Patient appeared to be able to demonstrate understanding of education provided this date. Billing: Modified Barium Swallow ([id number]) Total time: 30 minutes Reba Dumont CCC-PIPE FITTER SUPERVISOR documented in this encounter [facility] 08-18-2021 Note Patient Outreach (AM [facility]) RENETTA GILL ([id number]) 1960 F Date Time Provider Department 08/18/21 CAROL ORELLANAG During your visit today, we recorded the following information about you: Carol Orellana MA 08/18/2021 10:22 AM Signed POPULATION HEALTH NAVIGATION OUTREACH Action/FYI pcp field updated Contact made with patient or family member? NO Pt identified by name and : NO Outreach Outcome/Action PCP field updated Reason for Outreach Attribution: Provider Off-boarding Carol Orellana MA August 18, 2021 10:21 AM Allergies As of Date: 08/18/2021 Noted Allergy Reaction SULFA (SULFONAMIDE ANTIBIOTICS) 08/25/2010 4 - Hives Date Reviewed: 02/21/2021 Reviewed by: Lisa Navas APRN.ELECTRONIC EQUIPMENT REPAIRER - Fully Assessed Reason for Visit: Population Health Navigation Outreach [0900] Cmt: Offboarding Dashboard Refresh [id number] Prescriptions as of 08/18/2021 - triamterene-hydroCHLOROthiazide 37.5-25 mg per capsule Take 1 capsule by mouth once daily. - ipratropium bromide (ATROVENT) 42 mcg (0.06 %) nasal spray Use 2 Sprays in the nose twice daily. for 1 week - albuterol HFA (PROVENTIL HFA, VENTOLIN HFA) 90 mcg/actuation inhaler Inhale 2 Puffs as instructed every 4 hours as needed. - sertraline (ZOLOFT) 25 mg tablet Take 1 tablet by mouth once daily. - traZODone (DESYREL) 50 mg tablet Take 1 tablet by mouth daily at bedtime. TAKE ONE(1) TABLET AT BEDTIME PO PRN INSOMNIA - hyoscyamine SR (LEVBID) 0.375 mg 12 hr tablet Take 1 tablet by mouth twice daily. - cholecalciferol (VITAMIN D) 1,000 unit tab tablet Take 2 tablets by mouth once daily. - pantoprazole DR (PROTONIX) 40 mg tablet Take 40 mg by mouth twice daily. - magnesium oxide (MAG-OX) 400 mg (241.3 mg magnesium) tablet Take 1 tablet by mouth once daily. - ubidecarenone Q-10 (CO Q-10) 10 mg cap Take 1 capsule by mouth once daily. - Niacin-Inositol 400 mg niacin (500 mg) cap Take 1 tablet by mouth once daily. Problem List As Of Date 08/18/2021 Noted Resolved Posterior tibial tendinitis [M76.829] 11/13/2011 Hypercholesteremia [E78.00] 08/12/2018 Anxiety and depression [F41.9, F32.A] Pain in joint, pelvic region and thigh [M25.559]10/19/2014 11/05/2014 Symptomatic menopausal or female climacteric st* 08/12/2018 Encounter for screening mammogram for malignant*08/06/2018 menopause clinically in her 50s [N95.1] 08/12/2018 Weight gain [R63.5] Snoring [R06.83] 08/12/2018 HSDD [F52.0] Female genuine stress incontinence [N39.3] Hormone replacement therapy (HRT) [Z79.890] 08/12/2018 03/25/2019 Vitamin D deficiency [E55.9] 07/18/2018 Class 2 obesity due to excess calories without *03/23/2019 Woodall esophagus [K22.70] 05/2019 Chronic insomnia [F51.04] 10/17/2019 Encounter Status:Closed by CAROL ORELLANA on 08/18/21 [facility] 08-18-2021 Note HNO ID: [id number] Author: Carol Orellana MA Service: ? Author Type: Dba Developer Type: Progress Notes Filed: 08/18/2021 10:22 AM Note Text: POPULATION HEALTH NAVIGATION OUTREACH Action/FYI pcp field updated Contact made with patient or family member? NO Pt identified by name and : NO Outreach Outcome/Action PCP field updated Reason for Outreach Attribution: Provider Off-boarding Carol Orellana MA August 18, 2021 10:21 AM [facility] 07-21-2021 Note HNO ID: [id number] Author: Asia Tello RDMS Service: ? Author Type: Talent Development Consultant Type: Progress Notes Filed: 07/21/2021 8:34 AM Note Text: Radiology Service Progress Note PATIENT NAME: Renetta Gill DATE OF SERVICE: July 21, 2021 TIME: 8:34 AM PATIENT IDENTITY VERIFICATION COMPLETED USING TWO (2) IDENTIFIERS: Name and Date of confirmed by patient verbally. FALL SCREENING: Has the patient had 2 falls in the last year or 1 fall with injury or currently using an Ambulatory Assistive Device (Walker, Cane, Wheelchair, Crutches, etc.)? No PATIENT GENDER DATA: Female. status: : No status: N/A PATIENT RELEVANT IMPLANT DATA REVIEWED: Not Applicable RADIOLOGY DEPARTMENT: Ultrasound PERIPHERAL IV DATA: Not applicable SIGNED BY: Asia Tello RDMS RVT July 21, 2021 8:34 AM [facility] 02-21-2021 Note HNO ID: [id number] Author: Lisa Navas APRN.CNP Service: ? Author Type: Nurse Practitioner Type: Progress Notes Filed: 02/21/2021 9:56 AM Note Text: Subjective The history is provided by the patient. No japanese interpreter was used. URI She complains of chest tightness, cough, difficulty breathing, frequent throat clearing, hoarse voice and shortness of breath. There is no wheezing. This is a new problem. The current episode started in the past 7 days. The problem occurs constantly. The problem has been gradually worsening. The cough is productive of sputum and productive. Associated symptoms include ear pain, malaise/fatigue, nasal congestion, postnasal drip, rhinorrhea, sneezing, a sore throat and trouble swallowing. Pertinent negatives include no appetite change, dyspnea on exertion, ear congestion, fever or headaches. Her symptoms are aggravated by any activity and change in weather. Her symptoms are alleviated by nothing. She reports no improvement on treatment. Risk factors: denies exposure to ill persons, COVID vaccinated Her past medical history is significant for asthma. There is no history of COPD, emphysema or pneumonia. Review of Systems Constitutional: Positive for fatigue and malaise/fatigue. Negative for activity change, appetite change, chills, diaphoresis and fever. HENT: Positive for congestion, ear pain, hoarse voice, postnasal drip, rhinorrhea, sneezing, sore throat and trouble swallowing. Negative for sinus pressure and sinus pain. Eyes: Positive for discharge (watery) and itching. Negative for photophobia, pain and redness. Respiratory: Positive for cough and shortness of breath. Negative for wheezing. Cardiovascular: Negative for dyspnea on exertion. Gastrointestinal: Negative. Neurological: Negative for dizziness, light-headedness, numbness and headaches. All other systems reviewed and are negative. triamterene-hydroCHLOROthiazide 37.5-25 mg per capsule Take 1 capsule by mouth once daily. ipratropium bromide (ATROVENT) 42 mcg (0.06 %) nasal spray Use 2 Sprays in the nose twice daily. for 1 week amoxicillin-clavulanic acid (AUGMENTIN) 875-125 mg per tablet Take 1 tablet by mouth every 12 hours for 10 days. albuterol HFA (PROVENTIL HFA, VENTOLIN HFA) 90 mcg/actuation inhaler Inhale 2 Puffs as instructed every 4 hours as needed. sertraline (ZOLOFT) 25 mg tablet Take 1 tablet by mouth once daily. traZODone (DESYREL) 50 mg tablet Take 1 tablet by mouth daily at bedtime. TAKE ONE(1) TABLET AT BEDTIME PO PRN INSOMNIA hyoscyamine SR (LEVBID) 0.375 mg 12 hr tablet Take 1 tablet by mouth twice daily. cholecalciferol (VITAMIN D) 1,000 unit tab tablet Take 2 tablets by mouth once daily. pantoprazole DR (PROTONIX) 40 mg tablet Take 40 mg by mouth twice daily. magnesium oxide (MAG-OX) 400 mg (241.3 mg magnesium) tablet Take 1 tablet by mouth once daily. ubidecarenone Q-10 (CO Q-10) 10 mg cap Take 1 capsule by mouth once daily. Niacin-Inositol 400 mg niacin (500 mg) cap Take 1 tablet by mouth once daily. ALLERGIES Allergen Reactions - Sulfa (Sulfonamide * Hives ACTIVE PROBLEM LIST Posterior Tibial Tendinitis Anxiety and Depression Encounter for Screening Mammogram for Malignant Neoplasm of Breast menopause clinically in her 50s Weight Gain Snoring HSDD Female Genuine Stress Incontinence Vitamin D Deficiency Class 2 Obesity Due to Excess Calories Without Serious Comorbidity With Body Mass Index (Bmi) of 37.0 to 37.9 in Adult [place] Esophagus Chronic Insomnia BP 123/90 Pulse 112 Temp 36.7 ?C (98.1 ?F) (Tympanic) Resp 18 Wt 88.5 kg (195 lb) SpO2 94% BMI 38.08 kg/m2 Physical Exam Vitals reviewed. Constitutional: Appearance: Normal appearance. She is well-developed. She is not toxic-appearing. Comments: HENT: Head: Normocephalic. Right Ear: Hearing, ear canal and external ear normal. Tympanic membrane is erythematous. Tympanic membrane is not injected, retracted or bulging. Left Ear: Hearing, ear canal and external ear normal. Tympanic membrane is erythematous. Tympanic membrane is not injected, retracted or bulging. Nose: Mucosal edema, congestion and rhinorrhea present. Right Sinus: No maxillary sinus tenderness or frontal sinus tenderness. Left Sinus: No maxillary sinus tenderness or frontal sinus tenderness. Mouth/Throat: Mouth: Mucous membranes are moist. Pharynx: Uvula midline. Posterior oropharyngeal erythema present. No oropharyngeal exudate. Tonsils: No tonsillar exudate or tonsillar abscesses. 2+ on the right. 2+ on the left. Eyes: Conjunctiva/sclera: Conjunctivae normal. Cardiovascular: Rate and Rhythm: Normal rate. Pulmonary: Effort: Pulmonary effort is normal. Breath sounds: Normal breath sounds. Abdominal: Palpations: Abdomen is soft. Musculoskeletal: General: Normal range of motion. Cervical back: Normal range of motion. Lymphadenopathy: Head: Right side of h (more content not included)... [facility] documented as of this encounter (statuses as of 10/19/2022) [facility]11-[facility] History of Past illness Narrative* Problem Noted Date Resolved Date Hormone replacement therapy (HRT) 08/12/2018 03/25/2019 Pain in joint, pelvic region and thigh 5 11/05/2014 Hypercholesteremia 08/12/2018 Symptomatic menopausal or female climacteric sta [place] 08/12/2018 documented as of this encounter (statuses as of 10/20/2022) [facility] Dysphagia, unspecified type- Primary documented in this encounter [facility] Summary Purpose Family History No Family History Records FoundNo Family History Records FoundNo Family History Records FoundNo Family History Records FoundNo Family History Records Found Advance Directives No Advanced Directives Records FoundNo Advanced Directives Records FoundNo Advanced Directives Records FoundNo Advanced Directives Records FoundNo Advanced Directives Records Found Additional Source Comments INFORMATION SOURCE (unrecogn ized section and content) DATE CREATED AUTHOR AUTHOR'S ORGANIZ ATION 01/13/2019 [facility] DATE CREATED AUTHOR AUTHOR'S ORGANIZ ATION 06/21/2019 [facility] DATE CREATED AUTHOR AUTHOR'S ORGANIZ ATION 11/05/2021 [facility] DATE CREATED AUTHOR AUTHOR'S ORGANIZ ATION 10/20/2022 [facility] Source Comments (unrecognize d section and content) In the event this informatio n is protected by the Federal Confidentiality of Alcohol and Drug Abuse Patient Records regulations: The Federal rules restrict any use of the information to criminally investigate or prosecute any alcohol or drug abuse patient.[facility] the event this information is protected by the Federal Confidentiality of Alcohol and Drug Abuse Patient Records regulations: The Federal rules restrict any use of the information to criminally investigate or prosecute any alcohol or drug abuse patient.[facility] Reason for Visit (unrecogniz ed section and content) Specialty Diagnoses / Procedures Referred By Contac t Referred To Contact Radiology / SPEECH THERAPY Diagnoses MODIFIED BARIUM SWALLOW W SPEECH, Procedures TX SPEECH LANG VOICE COMMJ &/AUDITORY PROC IND SPEECH THERAPISTS Lonny Jefferson MD [address] [place] [address] Hosp, Speech [place] [address] [place] [address] Referral ID Status Reason Start Date Expiration Date V isits Requested Visits Authorized [id number] Authorized 10/19/2022 09/16/2023 60 60 Care Teams (unrecognized sec tion and content) 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 [place] [address] PCP - General Internal Medicine 08/16/21 FOR RECORDS PERTAINING TO PATIENTS WHO ARE OR HAVE BEEN ENROLLED IN A CHEMICAL DEPENDENCY/SUBSTANCEABUSE PROGRAM, SOME INFORMATION MAY BE OMITTED. This clinical summary was aggregated from multiple sources. Caution should be exercised in using it in the provision of clinical care. This summary normalizes information from multiple sources, and as a consequence, information in this document may materially change the coding, format and clinical context of patient data. In addition, data may be omitted in some cases. CLINICAL DECISIONS SHOULD BE BASED ON THE PRIMARY CLINICAL RECORDS. [email or web address] [facility]. provides no warranty or guarantee of the accuracy or completeness of information in this document.
[2023-09-19 10:56] LABS: Erythrocyte Sedimentation Rate 15 mm/hr (0-30)
[2023-09-19 10:58] LABS: Absolute Lymphocyte Count 1.84 X10^3/uL (0.83-4.51); Absolute Neutrophil Count 3.5 X10^3/uL (2.0-7.7); Basophil# 0.05 X10^3/uL; Basophil% 0.8 % (0-1); Eosinophil# 0.13 X10^3/uL; Eosinophils% 2.2 % (0-5); Hematocrit 41.1 % (37-47); Hemoglobin 13.4 g/dL (12.0-15.0); Lymphocyte # 1.84 X10^3/ul (0.83-4.51); Mean Corp Hgb Conc 32.6 g/dL (32-36); Mean Corpuscular Hgb 29.4 pg (27.0-32.0); Mean Corpuscular Volume 90.1 fL (81-99); Mean Platelet Vol. 9.6 fl (6.2-12.0); Monocyte# 0.39 X10^3/uL; Monocyte% 6.6 % (0-10); NRBC Flagged by Analyzer 0 % (0-5); Neutrophil # 3.51 X10^3/uL (2.7-7.7); Neutrophil % 59.2 % (47-70); Platelet Count 296 K/mm3 (150-450); RBC Distribution Width CV 13.4 % (11.6-14.6); Red Blood Count 4.56 M/mm3 (4.2-5.4); White Blood Count 5.9 K/mm3 (4.4-11.0)
[2023-09-19 11:56] LABS: AST(SGOT) 18 U/L (15-37); Alanine Aminotransfer ALT/SGPT 36 U/L (13-56); Albumin, Serum 3.8 g/dL (3.2-5.0); Alkaline Phosphatase 98 U/L (45-117); Amylase 26 U/L (25-115); Anion Gap 6 (5-15); BUN 13 mg/dL (7-18); Calcium,Total 9.6 mg/dL (8.5-10.1); Chloride 106 mmol/L (98-107); Creatinine, Serum 0.68 mg/dL (0.55-1.02); EST Glomerular Filtration Rate 92 mL/min (>60); Est Glom Filt Rate - Afr Amer 111 mL/min (>60); Globulin 3.9 g/dL (2.2-4.2); Glucose 99 mg/dL (74-106); Protein, Total 7.7 g/dL (6.4-8.2); Sodium Level 138 mmol/L (136-145)
== END | disposition home or self-care (01) ==
PROVIDERS: PCP Internal Medicine; Referring Provider Internal Medicine Gastroenterology; Visit Provider Internal Medicine Gastroenterology
DX: R10.9 Unspecified abdominal pain (principal)
CPT/HCPCS: 36415; 80053; 82150; 85025; 85652

== ENCOUNTER → 2023-12-03 | Outpatient (CLI) | payer BC, SELFPAY ==
--- NOTE | 2023-12-03 08:36 | CT_ITS ---
STUDY: CT ABDOMEN AND PELVIS WITH CONTRAST REASON FOR EXAM: Female, 63 years old. Unspecified abdominal pain. Chronic right upper quadrant pain. RADIATION DOSAGE (If Supplied By Facility): CTDIvol = ( 16.05 ) mGy, DLP = ( 1064.13 ) mGycm TECHNIQUE: Transaxial images were obtained from the dome of the diaphragm to the symphysis pubis without oral contrast. 100ML ISOVUE 370 was administered. Sagittal and coronal images were reconstructed. Individualized dose optimization techniques were used for this CT. COMPARISON: Comparison is made with prior study dated August 04, 2021. FINDINGS: The visualized lung bases are unremarkable. The visualized portions of the heart are within normal limits. There is decreased attenuation of the liver consistent with steatosis. Normal gallbladder and extrahepatic biliary system. Normal spleen. Normal pancreas. Normal bilateral adrenal glands. Normal right kidney. Normal left kidney. Normal visualized stomach. Normal small intestine. Normal colon. The appendix is visualized and appears normal. There is scattered atherosclerotic calcification of the abdominal aorta, without a demonstrated aneurysm. Normal inferior vena cava. Normal retroperitoneum. Normal urinary bladder. There is a small umbilical hernia containing fat. There are mild degenerative changes of the visualized lumbar spine. Mild levoconvex scoliosis. CT/Abdomen/Pelvis WITH Contrast IMPRESSION: Fatty infiltration of the liver. Electronically Signed: Etienne Fernando MD at 13:45 EDT ,
--- OUTSIDE RECORDS SUMMARY | 2023-12-03 08:58 | XMS RPT_ITS | CCD ---
Author Name Unknown Address [address] [place] [address] Organization [facility] Care Team Providers Care [employer] Ins[employer] Supervisor Name Role Phone ChristianoAmanda Unavailable Unavailable Benita Valencia Unavailable Unavailable Jasiel Mann Attending Unavailable Benita Valencia Primary Care Unavailable Maria Elena Abdalla MD Primary Care Provider LONNY ACEVEDO Referring Unavailable MARIA ELENA ABDALLA Primary Care Unavailable LONNY ACEVEDO Referring Unavailable MARIA ELENA ABDALLA Primary Care Unavailable MARIA ELENA ABDALLA Primary Care Unavailable MARK ZAMORA Referring Unavailable NATY MILTON Attending Unavailable Allergies Allergy Classification Reported Allergen(s) Allergy Type Date of Onset Reaction(s) Facility (7 sources) Sulfonamides (Antibiotic); Translations: [SULFA (SULFONAMIDE ANTIBIOTICS)] Propensity to adverse reactions to drug 0 [facility] [place] [facility] Work Phone: Medications Completed/Discontinued Medications Medication Drug Class(es) Dates Sig (Normalized) Sig (Original) [id number] 200 actuat albuterol 0.09 mg/actuat metered dose inhaler (5 sources) beta2-Adrenergic Agonist Start: 02-21-2021 take 2 puff(s) by inhalation every four hours as needed albuterol HFA (PROVENTIL HFA, VENTOLIN HFA) 90 mcg/actuation inhaler Indications: Mild intermittent asthma with acute exacerbation Inhale 2 Puffs as instructed every 4 hours as needed. 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] Onset: 05-18-2019 06-21-2020 Chronic Genitourinary symptoms and ill-defined conditions (5 sources) Female stress incontinence; Translations: [Stress incontinence (female) (male)] 08-12-2018 Chronic Menopausal disorders (5 sources) Menopausal symptom; Translations: [Menopausal and female climacteric states] Onset: 08-12-2018 08-12-2018 Chronic Miscellaneous mental health disorders (10 sources) Lack or loss of sexual desire; Translations: [Hypoactive sexual desire disorder] Onset: 10-17-2019 08-12-2018 Chronic Nutritional deficiencies (5 sources) Vitamin D deficiency; Translations: [Vitamin D deficiency, unspecified] Onset: 07-18-2018 08-12-2018 Chronic Other and unspecified benign neoplasm (2 sources) Gastric polyp; Translations: [Polyp of stomach and duodenum] 09-24-2023 Episodic Other and unspecified benign neoplasm (1 source) Polyp of stomach and duodenum; Translations: [Gastric polyp] Onset: 11-29-2023 Episodic Other gastrointestinal disorders (1 source) Dysphagia; Translations: [Dysphagia, unspecified] Episodic Other gastrointestinal disorders (2 sources) Dysphagia, unspecified; Translations: [Dysphagia, unspecified type] Onset: 10-19-2022 Episodic Other nutritional; endocrine; and metabolic disorders (2 sources) Obesity; Translations: [Other obesity due to excess calories] Onset: 03-23-2019 03-23-2019 Chronic Other nutritional; endocrine; and metabolic disorders (3 sources) Obesity caused by energy imbalance; Translations: [Other obesity due to excess calories] Onset: 03-23-2019 03-23-2019 Chronic Other nutritional; endocrine; and metabolic disorders (5 sources) Weight gain; Translations: [Abnormal weight gain] 08-12-2018 Episodic Unclassified (3 sources) Encntr screen mammogram for malignant neoplasm of breast / Z12.31(ICD-10) Onset: 07-27-2017 Past or Other Problems Problem Classification Problem Date Documented Date Episodic/Chronic Other connective tissue disease (5 sources) Tibialis posterior tendinitis ; Translations: [Posterior tibial tendinitis, unspecified leg] Onset: 11-13-2011 11-13-2011 Episodic Other lower respiratory disease (5 sources) Snoring; Translations: [Snoring] Onset: 08-12-2018 08-12-2018 Episodic Other screening for suspected conditions (not mental disorders or infectious disease) (8 sources) Encounter for screening for cardiovascular disorders; Translations: [Patient encounter status] Onset: 08-06-2018 08-06-2018 Episodic Unclassified (1 source) Encntr screen mammogram for malignant neoplasm of breast; Translations: [Encntr screen mammogram for malignant neoplasm of breast] Onset: 07-27-2017 Results Test Name Value Interpretation Reference Range Facil ity Vital Signs Date Time Vital Sign Value Performing Clinician Lisa litsol 11-29-2023 14:20-0400 Body temperature 96.8 [degF] Mark Zamora MD Work Phone: [facility] 11-29-2023 14:20-0400 Diastolic blood pressure 84 mm[Hg] Mark Zamora MD Work Phone: [facility] 11-29-2023 14:20-0400 Heart rate 100 /min Mark Zamora MD Work Phone: [facility] 11-29-2023 14:20-0400 Respiratory rate 17 /min Mark Zamora MD Work Phone: [facility] 11-29-2023 14:20-0400 SaO2% (BldA) [Mass fraction] 96 % Mark Zamora MD Work Phone: [facility] 11-29-2023 14:20-0400 Systolic blood pressure 134 mm[Hg] Mark Zamora MD Work Phone: [facility] Encounters Encounter Date Encounter Type Care Provider Facility Start: 11-29-2023 ambulatory MARIA ELENA Gonzalez lity:[facility] Start: 11-29-2023 End: 11-29-2023 Subsequent hospital visit by physician Mark Zamora MD Work Phone: [facility] Endoscopy - ENDO Procedures Date Procedure Procedure Detail Performing Clinician Start: 10-19-2022 End: 10-19-2022 Radiologic exam swallow function contrast study Lonny Acevedo MD Work Phone: Start: 10-23-2019 Mammography Reba sung Tim [facility] Work Phone: Start: 06-04-2019 Colonoscopy Reba sung Tim [facility] Work Phone: Start: 03-31-2017 Lipid 1996 panel - S seda or Plasma Mark Zamora MD Work Phone: Plan of Treatment Date Care Activity Detail Author Start: 08-12-2028 Urine microalbumin profile [facility] Start: 04-19-2025 HPV TESTING HPV TESTING [facility] Start: 04-19-2025 Screening for malignant neoplasm of cervix HPV Testing [facility] Start: 05-18-2023 Covid-19 Vaccine () Covid-19 Vaccine () [facility] Start: 05-18-2023 Influenza vaccination [facility] Start: 04-19-2023 PAP TESTING PAP TESTING [facility] Start: 04-19-2023 Screening for malignant neoplasm of cervix Pap Testing [facility] Start: 06-04-2022 Colonoscopy COLONOSCOPY [facility] Start: 06-04-2022 COLORECTAL CANCER SCREENING COLORECTAL CANCER SCREENING [facility] Start: 06-04-2022 Screening for malignant neoplasm of colon [facility] Start: 05-18-2022 Influenza vaccination INFLUENZA (#1) [facility] Start: 05-16-2022 DIABETES SCREEN DIABETES SCREEN [facility] Start: 05-16-2022 Diabetes Screening Diabetes Screening [facility] Start: 03-31-2022 Lipid panel Lipid Screening [facility] Start: 03-31-2022 LIPID SCREEN LIPID SCREEN [facility] Start: 10-23-2021 Mammography MAMMOGRAM [facility] Start: 10-23-2021 Screening for malignant neoplasm of breast Mammogram Screening [facility] Start: 2019 RSV Vaccine (1 - 1-dose 60+ series) RSV Vaccine (1 - 1-dose 60+ series) [facility] Start: 2009 SHINGRIX VACCINE (1 of 2) SHINGRIX VACCINE (1 of 2) [facility] Start: 2004 COLOGUARD (FIT-DNA) COLOGUARD (FIT-DNA) [facility] Start: [address] COLONOGRAPHY [facility] Start: 2004 FECAL OCCULT BLOOD FECAL OCCULT BLOOD [facility] Start: 2004 Screening for malignant neoplasm of colon [facility] Start: 2004 SIGMOIDOSCOPY SIGMOIDOSCOPY [facility] Start: 1977 HIV SCREENING HIV SCREENING [facility] Start: 1977 HIV screening HIV Screening [facility] End: 09-24-2024 EGD - THERAPEUTIC, EUS, OR TUBE INTERVENTIONS EGD - THERAPEUTIC, EUS, OR TUBE INTERVENTIONS Endoscopy Routine Gastric polyp 1 Occurrences starting 09/24/2023 until 09/24/2024 [place] Work Phone: Immunizations Immunization Date Immunization Notes Care Provider Latisha reed 08-22-2020 influenza virus vacc ine, unspecified formulation Mark Zamora MD Work Phone: [facility] 08-12-2018 influenza, injectabl e, quadrivalent, contains preservative Reba Dumont [facility] Work Phone: [facility] 08-12-2018 tetanus toxoid, redu nghia diphtheria toxoid, and acellular pertussis vaccine, adsorbed Reba Dumont [facility] Work Phone: [facility] 12-28-2011 hepatitis B vaccine, adult dosage Reba Dumont [facility] Work Phone: [facility] Work Phone: 08-17-2009 pneumococcal polysaccharide vaccine, 23 valent Reba Dumont [facility] Work Phone: [facility] Work Phone: 09-17-2007 hepatitis A vaccine, pediatric/adolescent dosage, 2 dose schedule Reba Dumont [facility] Work Phone: [facility] Work Phone: 09-17-2007 hepatitis B vaccine, adult dosage Reba Dumont [facility] Work Phone: [facility] Work Phone: Payers Date Payer Category Payer Private Health Insurance [facility] SELECT [id number] 2022-2023 [address] [place] [address] EPO [id number] 2020 Unknown [employer] PPO [id number] 2020-Present [phone] [address] [place] [address] PPO [id number] 2020 Unknown [id number] 1960 Unknown [id number] Unknown [id number] Unknown [id number] Social History Date Type Detail Facility Start: 05-02-2019 [facility] Work Phone: End: 09-17-1977 History of tobacco use Current smoker [facility] Work Phone: End: 09-17-1977 History of tobacco use Cigarette Smoker [facility] Work Phone: Start: 05-02-2019 Tobacco use and exposure Smokeless tobacco non-user [facility] Work Phone: Start: 09-07-2020 Alcohol intake Current drinke r of alcohol (finding) [facility] Start: 05-02-2019 Tobacco Comment 1/2 year in her teen s [facility] Start: 04-11-2011 Alcohol Comment social Clerajendra [facility] Start: 1960 Sex Assigned At Not on file C [facility] Start: 08-21-2020 End: 09-07-2020 History of Social function [facility] Start: 08-21-2020 End: 09-07-2020 Tobacco use panel [facility] Adult Depression Screening Assessment 0 [facility] Start: 06-07-2020 Sexual orientation Heterosexual (erik stubbs) [facility] Clinical Notes 08-12-2018 to 11-29-2023 Mark Zamora MD - 11/29/2023 3:00 PM Silva Juarez RN - 11/29/2023 2:15 PM EDTTelephone Encounter - FelixTracy sanfordfrancois Ferrari - 11/08/2023 2:57 PM Denton De La Cruz RT(R) - 10/19/2022 1:00 PM EST Note Date & Type Note Facility 11-29-2023 History and physi janneth note PROCEDURAL SEDATION HISTORY AND PHYSICAL EXAM SERVICE DATE: 11/29/2023 SERVICE TIME: 2:23 PM Subjective HPI: This is a 63 year old female who presents for Endoscopic Ultrasound PAST ANESTHESIA HISTORY: No history of adverse event PAST MEDICAL HISTORY Diagnosis Date 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 Acevedo - repeat EGD May 2020 Female genuine stress incontinence Hormone replacement therapy (HRT) 08/12/2018 HSDD 07/2018 try vag DHEA Hypercholesteremia 2014 nomal in 2016 menopause age 49 after ablation 07/2010 high FSH and E2 under 25 Migraines Other and unspecified hyperlipidemia Hyperlipidemia, 2013 normal in 2016 Other forms of migraine, without mention of intractable migraine without mention of status migrainosus Ocular migraine Snoring 08/12/2018 Vitamin D deficiency 07/2018 28.6 Weight gain PAST SURGICAL HISTORY Procedure Laterality Date CESSAREAN DELIVERY ONLY x3, 1984, 1985, 1990 COLONOSCOPY COLONOSCOPY 06/04/2019 Dr. Acevedo; tubular adenoma x 2; repeat may 2022 IRIDOTOMY/IRIDECTOMY BY LASER 08/03/2014 Laser Peripheral Iridotomy (LPI) ou LAPAROSCOPIC TUBAL LIGATION/RING/CLIP 2002 JAYY 2006 PAST SURGICAL HISTORY OF 2009 uterine ablation for heavy bleeding at [facility] TOOTH EXTRACTION x4 of 3rd molar TREATMENT - MISSED D&C x2 Prior to Admission medications as of 11/29/23 1419 Medication Sig Last Dose Taking amlodipine besylate (AMLODIPINE ORAL) Take by mouth. 11/28/2023 Yes LISINOPRIL ORAL Take by mouth. 11/28/2023 Yes sertraline (ZOLOFT) 25 mg tablet Take 1 tablet by mouth once daily. 11/28/2023 Yes traZODone (DESYREL) 50 mg tablet Take 1 tablet by mouth daily at bedtime. TAKE ONE(1) TABLET AT BEDTIME PO PRN INSOMNIA 11/28/2023 Yes hyoscyamine SR (LEVBID) 0.375 mg 12 hr tablet Take 1 tablet by mouth twice daily. 11/28/2023 at [address] (PROTONIX) 40 mg tablet Take 40 mg by mouth twice daily. 11/28/2023 Yes triamterene-hydroCHLOROthiazide 37.5-25 mg per capsule Take 1 capsule by mouth once daily. ipratropium bromide (ATROVENT) 42 mcg (0.06 %) nasal spray Use 2 Sprays in the nose twice daily. for 1 week albuterol HFA (PROVENTIL HFA, VENTOLIN HFA) 90 mcg/actuation inhaler Inhale 2 Puffs as instructed every 4 hours as needed. Unknown cholecalciferol (VITAMIN D) 1,000 unit tab tablet Take 2 tablets by mouth once daily. magnesium oxide (MAG-OX) 400 mg (241.3 mg magnesium) tablet Take 1 tablet by mouth once daily. ubidecarenone Q-10 (CO Q-10) 10 mg cap Take 1 capsule by mouth once daily. Niacin-Inositol 400 mg niacin (500 mg) cap Take 1 tablet by mouth once daily. ALLERGIES Allergen Reactions Sulfa (Sulfonamide * Hives Objective PHYSICAL EXAM: The remainder of the physical exam is noncontributory. AIRWAY: Airway Visualization of Uvula: Yes Mouth opening greater than 2 fingerbreadths: Yes Neck Full Range of Motion: Yes LUNGS: Lungs clear to auscultation CARDIAC: Regular rhythm,Regular rate Assessment/Plan ASA Class: ASA Class:: Patient with mild systemic disease - Emergency Procedure Active Problems: * No active hospital problems. * Resolved Problems: * No resolved hospital problems. * Medication and Non-Pharmacologic VTE Prophylaxis/Anticoagulants VTE Prophylaxis: VTE prophylaxis appropriate Provisional Diagnosis/Treatment Plan: Submucosal gastric lesion SEDATION GOAL: Anesthesia SIGNATURE: Mark Zamora MD PATIENT NAME: Renetta Gill DATE: November 29, 2023 TIME: 2:23 PM documented in this encounter [facility] 11-29-2023 Nurse Note PATIENT EDUCATION TOPIC: PROCEDURE / SURGERY: Pre Procedure Teaching: Protocols PATIENT NAME: Renetta Gill PATIENT LOCATION: Room/bed info not found READINESS TO LEARN COGNITIVE ABILITY: Alert and oriented MOTIVATION TO LEARN: Interested FAMILY SUPPORT: None - Unavailable/disinterested INSTRUCTION PROVIDED TO: Patient PATIENT LEARNS BEST BY: Individual Instruction FACTORS AFFECTING LEARNING: None PHYSICAL LIMITATIONS AFFECTING LEARNING: None LEARNING RESPONSE DIAGNOSIS: ADULT: gastric polyp PATIENT/FAMILY RESPONSE: Verbalizes understanding of: PRE-PROCEDURE INSTRUCTIONS-Correct action to take to follow pre-procedure instructions METHOD OF INSTRUCTION: Individual instruction FOLLOW-UP PLAN: Complete - No need for follow-up Patient instructed to call with any further issues INSTRUCTIONAL AIDS USED: NA SUPPLEMENTAL MATERIAL PROVIDED TO PATIENT: None REFERRAL (RECOMMENDATION): None documented in this encounter [facility] 11-08-2023 Miscellaneous Notes Formattin g of this note might be different from the original. Spoke to patient, appointment scheduled. Instructions sent on [employer]. Attempted to call patient regarding scheduling EUS, no answer, left message for patient to call back to schedule. Lorin Tyson Asst II Spoke with pt. EGD/EUS procedure explained in details. Patient verbalized understanding and agreed to proceed. Spoke with Merari at Dr. Acevedo, she will fax most recent OV note which will be scanned into pt's chart. Lorin, please schedule EUS as indicated below. Thank you, Linette Nugent, MICHELLE Schedule patient for EGD and radial EUS in 2 months. Explain the procedure to the patient in detail including potential complications. Mark Zamora MD Pt referred for EUS to evaluate gastric submucosal structure. 09/13/[address] Acevedo: A single 3 mm benign appearing polyp in gastric body. 1.5-2 cm submucosal mild prominence in the greater curve of the mid body. Pathology NA. Pt does not take Anticoagulation. Dr. Zamora, please advise regarding EUS. Thank you, Linette Nugent, RN Linette, Do you have any information on this patient for EUS from Dr. Acevedo office? Lorin Hernandez Adm Asst II Voicemail received from patient to schedule her EUS with Dr. Zamora. Please call her at [phone]. documented in this encounter [facility] 10-19-2022 Note HNO ID: [id number] Author: RT Jorge(R) Service: Radiology Author Type: Technologist Type: Progress [...] RT Jorge(R) October 19, 2022 3:02 PM [facility] 10-19-2022 Note HNO ID: [id number] Author: Reba Alexis Gilbert, CCC-TRIM M[facility]TER Service: ? Author Type: Speech Language Pathologist Type: Progress Notes Filed: 10/19/2022 1:57 PM Note Text: Start of Care Date: 10/19/22 Onset Date: 09/17/22 Patient Identified by Name and Date of : Yes [facility] MODIFIED BARIUM SWALLOW [...] States/Identifies TREATMENT: Performed Modified Barium Swallowing Study (22103). -Education regarding findings from today's Modified Barium Swallowing study (fluoroscopic study) were provided to the patient through verbal / written instruction, images and/or demonstration. Patient appeared to be able to demonstrate understanding of education provided this date. Billing: Modified Barium Swallow ([id number]) Total time: 30 minutes Reba Dumont CCC-[facility] 10-19-2022 History of Presen t illness Narrative Radiology Service Progress Note PATIENT [...] 2022 3:02 PM documented in this encounter [facility] 10-19-2022 History of Presen t illness Narrative Start of Care Date: 10/19/22 Onset Date: 09/17/22 Patient Identified by Name and Date of : Yes [facility] MODIFIED BARIUM SWALLOW [...] States/Identifies TREATMENT: Performed Modified Barium Swallowing Study (82784). -Education regarding findings from today's Modified Barium Swallowing study (fluoroscopic study) were provided to the patient through verbal / written instruction, images and/or demonstration. Patient appeared to be able to demonstrate understanding of education provided this date. Billing: Modified Barium Swallow ([id number]) Total time: 30 minutes Reba Dumont CCC-[facility] documented in this encounter [facility] documented as of this encounter (statuses as of 10/19/2022) [facility]11-26-2018 History of Past illness Narrative* Problem Noted Date Resolved Date Hormone replacement therapy (HRT) 08/12/2018 03/25/2019 Pain in joint, pelvic region and thigh 5 11/05/2014 Hypercholesteremia 08/12/2018 Symptomatic menopausal or female climacteric sta delroy 08/12/2018 documented as of this encounter (statuses as of 10/20/2022) [facility] History of Past illness Narrative* Problem Noted Date Diagnosed Date Resolved Date Hormone replacement therapy (HRT) 08/12/2018 03/25/2019 Pain in joint, pelvic region and thigh 10/19/2014 11/05/2014 Hypercholesteremia 8 Symptomatic menopausal or fe male climacteric states 08/12/2018 documented as of this encounter (statuses as of 11/08/2023) [facility] History of Past illness Narrative* Problem Noted Date Diagnosed Date Resolved Date Hormone replacement therapy (HRT) 08/12/2018 03/25/2019 Pain in joint, pelvic region and thigh 10/19/2014 11/05/2014 Hypercholesteremia 8 Symptomatic menopausal or fe male climacteric states 08/12/2018 documented as of this encounter (statuses as of 11/22/2023) [facility] History of Past illness Narrative* Problem Noted Date Diagnosed Date Resolved Date Hormone replacement therapy (HRT) 08/12/2018 03/25/2019 Pain in joint, pelvic region and thigh 10/19/2014 11/05/2014 Hypercholesteremia 8 Symptomatic menopausal or fe male climacteric states 08/12/2018 documented as of this encounter (statuses as of 11/30/2023) [facility] Diagnosis Dysphagia, unspecified type- Primary documented in this encounter [facility] note* Diagnosis Gastric polyp- Primary Benign neoplasm of stomach documented in this encounter [facility] note* Diagnosis Gastric polyp Benign neoplasm of stomach documented in this encounter [facility] for referral (narrative)* Outpatient Procedure (Routine) - Pending Review Specialty Diagnoses / Procedures Referred By Contjonathan Referred To Contact [facility] Diagnoses Gastric polyp Procedures EGD - THERAPEUTIC, EUS, OR TUBE INTERVENTIONS EDG US EXAM SURGICAL ALTER STOM DUODENUM/[place] [address] [place] [address] [address] Referral ID Status Reason Start Date Expiration Date Visits Requested Visits Authorized [id number] Pending Review Auto-Generat ed Referral 09/24/2023 09/24/2024 1 1 [facility] for visit Narrative* Outpatient Procedure (Routine) - Authorized Specialty Diagnoses / Procedures Referred By Contjonathan guy Referred To Contact [facility] Diagnoses Gastric polyp Procedures EGD - THERAPEUTIC, EUS, OR TUBE INTERVENTIONS EDG US EXAM SURGICAL ALTER STOM DUODENUM/[place] [address] [place] [address] [facility] [address] [place] [id number] Referral ID Status Reason Start Date Expiration Date Visits Requested Visits Authorized [id number] Authorized Auto-Generat ed Referral 11/10/2023 09/16/2024 1 1 [facility] Summary Purpose Family History No Family History [...] DATE CREATED AUTHOR AUTHOR'S ORGANIZ ATION 01/13/2019 [facility] DATE CREATED AUTHOR AUTHOR'S ORGANIZ ATION 06/21/2019 [facility] Reference Lab DATE CREATED AUTHOR AUTHOR'S ORGANIZ ATION 10/20/2022 [facility] DATE CREATED AUTHOR AUTHOR'S ORGANIZ ATION 11/16/2023 [facility] DATE CREATED AUTHOR AUTHOR'S ORGANIZ ATION 12/01/2023 [facility] Source Comments (unrecognize d section and content) In the event this informatio n is protected by the Federal Confidentiality of Alcohol and Drug Abuse Patient Records regulations: The Federal rules restrict any use of the information to criminally investigate or prosecute any alcohol or drug abuse patient.[facility] the event this information is protected by the Federal Confidentiality of Alcohol and Drug Abuse Patient Records regulations: The Federal rules restrict any use of the information to criminally investigate or prosecute any alcohol or drug abuse patient.[facility] the event this information is protected by the Federal Confidentiality of Alcohol and Drug Abuse Patient Records regulations: The Federal rules restrict any use of the information to criminally investigate or prosecute any alcohol or drug abuse patient.[facility] the event this information is protected by the Federal Confidentiality of Alcohol and Drug Abuse Patient Records regulations: The Federal rules restrict any use of the information to criminally investigate or prosecute any alcohol or drug abuse patient.[facility] the event this information is protected by the Federal Confidentiality of Alcohol and Drug Abuse Patient Records regulations: The Federal rules restrict any use of the information to criminally investigate or prosecute any alcohol or drug abuse patient.[facility] Reason for Visit (unrecogniz ed section and content) Specialty Diagnoses / Procedures Referred By Contac t Referred To Contact Radiology / SPEECH THERAPY Diagnoses MODIFIED BARIUM SWALLOW W SPEECH, Procedures TX SPEECH LANG VOICE COMMJ &/AUDITORY PROC IND SPEECH THERAPISTS Lonny Jefferson MD [address] [facility] [address] [place] [address] Hosp, Speech [facility] [address] [place] [address] Referral ID Status Reason Start Date Expiration Date V isits Requested Visits Authorized [id number] Authorized 10/19/2022 09/16/2023 60 60 Reason Comments Appointment EUS Care Teams (unrecognized sec tion and content) [employer] Supervisor Relationship Specialty Start Date End Date Maria Elena Abdalla MD [address] [place] [address] PCP - General Internal Medicine 08/16/21 [employer] Supervisor Relationship Specialty Start Date End Date Maria Elena Abdalla MD [address] [place] [address] PCP - General Internal Medicine 08/16/21 [employer] Supervisor Relationship Specialty Start Date End Date Maria Elena Abdalla MD [address] [place], [place] [address] PCP - General Internal Medicine 08/16/21 [employer] Supervisor Relationship Specialty Start Date End Date Maria Elena Abdalla MD [address] [place], [place] [id number] PCP - General Internal Medicine 08/16/21 FOR [...] BE BASED ON THE PRIMARY CLINICAL RECORDS. [employer] provides no warranty or guarantee of the accuracy or completeness of information in this document.
[2023-12-03 09:02] LABS: CREATININE FINGERSTICK < 1.0 mg/dL (0.55-1.02); EGFR FINGERSTICK > 60.0000 mL/min (>60)
== END | disposition home or self-care (01) ==
LOC: CT 08:35
PROVIDERS: PCP Internal Medicine; Referring Provider Internal Medicine Gastroenterology; Visit Provider Internal Medicine Gastroenterology
DX: R10.9 Unspecified abdominal pain (principal)
CPT/HCPCS: 74177; Q9967

== ENCOUNTER 2024-02-19 10:30 | Outpatient (RCR) | payer BC, SELFPAY ==
--- NOTE | 2024-01-01 14:06 | HP.PTEVAL ---
Patient's Visit Information Visit Information Visit Information: SARA HILL is a 63 year old F referred to Physical Therapy by Dr. Maria Elena Abdalla MD with a diagnosis of L gluteal pain. Date of Evaluation: 01/01/24 Physical Therapist: Joshua Roberts, PT, ATC Visit Plan Frequency: 2x /Week Duration: 4-6 Weeks Plan: L hamstring DTR, stick rollout, graston, stretching, strengthening, core stab ex's, bike, and HEP Subjective Subjective: Pt reports she was cleaning her house approximately one month ago when experienced a severe pain in her L lower glute region near the bone she sits on. Pt notes she was given a muscle relaxant to take which she started last night, and has not noticed any improvements at this time. Pt reports the pain starts near my butt bone and extends down the posterior aspect of her left thigh. Pt reports tingling and numbness down the back of her L leg as well that has been present since last summer when she was attempting to climb into a bunk bed and injured her L IT band. Pt denies any diagnostic tests recently. Pt reports occasional sleep difficulty secondary to pain. Pt denies LBP at this time. Pt reports she has stairs at home that she must negotiate in order to feed her dog. Pt reports she has to negotiate them one step at a time secondary to pain and feeling like she doesnt have the control in her L LE. 6/10 pain while sitting here at rest. 10/10 pain at worst (when she is performing house duties or laundry). Pain L glute pain: Pain Intensity (Out of 10): 6 Pain Intensity Range: 10 Objective Objective: Neuro: L L4 dermatome is hyposensitive to light touch. B patellar reflex= 1/3 Palpation: Pt is very tender on the L ischial tuberosity, as well as along the distribution of L PEÑA and IT band regions ROM: R knee 0-135 degrees, L knee 0-125 degrees MMT: R knee flex= 43, ext= 50 #F; L knee flex= 12, ext= 30 #F Special tests: pos 90/90 test of L LE (45 degree lag) Balance/Special Test Scores Lower Extremity Functional Score: 23 Goals Goal 1:: Decrease L hamstring pain x 50% to aid with sleep Goal Time Frame: 4-6 Weeks Goal 2:: Increase L hamstring flexibility x 20 degrees to aid with decreasing pain Goal Time Frame: 4-6 Weeks Goal 3:: Increase L knee flexion strength x 10 #F to aid with stair negotiation Goal Time Frame: 4-6 Weeks Goal 4:: I with HEP Goal Time Frame: 4-6 Weeks Rehabilitation Potential Physical Therapy Diagnosis: Pt has L gluteal pain, limited knee flexion strength, and limited knee extension flexibility secondary to L hamstring strain. Rehabilitation Potential: Good Anticipated Interventions Patient/Client Instruction: Educate patient on: Condition and Plan of Care For the Purpose of:: To improve self management Therapeutic Exercise to Include: Strength training, Endurance training, Flexibilty training, Passive ROM, Active ROM and Dynamic Lumbar Stabilization For the Purpose of:: To decrease pain, To increase ROM and To improve muscle performance and motor function Manual Therapy Techniques to Include: Soft tissue mobilization For the Purpose of:: To decrease pain and To improve muscle performance and motor function Cryotherapy (ice pack, ice massage): Yes For the Purpose of:: To decrease pain Text: Thank you for the opportunity to evaluate your patient. For Medicare and Medicare HMO plans, please review the plan of care and approve it. It will need to be FAXED BACK to us at [phone] for Medicare purposes. For Medicare only, by signing this I certify the plan of care. Please let me know if there are questions or concerns regarding this plan of care. Physician Signature: Date:
--- NOTE | 2024-01-29 15:09 | HP.PTREVAL ---
Re-Evaluation Intro: Dr. Maria Elena Abdalla MD, It has been my pleasure to treat SARA HILL over the last 7 visits for L gluteal pain. Please see the progress note below for an update on the physical therapy plan of care! Subjective Subjective: PATIENT REPORTS THE PAIN ISN'T CONSTANT IT WAS BUT IT IS DEFINATELY STILL THERE. SHE REPORTS SHE IS VERY FRUSTRATED. SHE STATES SHE IS STILL WAKING UP IN A LOT OF PAIN. SHE STATES SHE DID SOME WEEDING SUNDAY AND A COUPLE HOURS LATER SHE HAD A LOT OF PAIN. Objective Objective/Function: Patient is making slow progress toward set PT goals and is appropriate and agreeable to continue PT per POC below. Upon exam, patient remains very tender on the L ischial tuberosity, as well as along the distribution of L Hamstrings and IT band regions ROM: L knee 0-126 degrees. L hip flex 115 deg compared to R 123 deg. Patient with c/o pain in the L buttock region with L knee and hip flexion ROM testing. MMT: R knee flex= 43, ext= 50 #F (From eval); L knee flex= 16.8, ext= 31 #F Special tests: pos 90/90 test of L LE (41 degree lag) Lumbar Mvmt Loss: flex - Mod ext - min R SG - Mod L SG - min patient c/o increased L buttock pain with lumbar flex and R SG testing. Core Strength: poor Plan Plan Plan: US TO L HS INSERTION REGION X 6 L HS DTR/GRASTON/STICK ROLLOUT L HIP STRETCHING AND STRENGTHENING DYNAMIC LUMBAR STABILIZATION/STRENGTHENING BIKE WRITTEN HEP WITH PICTURES Balance/Gait/Functional tests Balance/Special Test Scores Lower Extremity Functional Score: 23 Goals Goals Goal 1:: Decrease L hamstring pain x 50% to aid with sleep Goal Time Frame: 4-6 Weeks Goal 2:: Increase L hamstring flexibility x 20 degrees to aid with decreasing pain Goal Time Frame: 4-6 Weeks Goal 3:: Increase L knee flexion strength x 10 #F to aid with stair negotiation Goal Time Frame: 4-6 Weeks Goal 4:: I with HEP Goal Time Frame: 4-6 Weeks Anticipated Interventions Anticipated Interventions Patient/Client Instruction: Educate patient on: Condition and Plan of Care For the Purpose of:: To improve self management Therapeutic Exercise to Include: Strength training, Endurance training, Flexibilty training, Passive ROM, Active ROM and Dynamic Lumbar Stabilization For the Purpose of:: To decrease pain, To increase ROM and To improve muscle performance and motor function Manual Therapy Techniques to Include: Soft tissue mobilization For the Purpose of:: To decrease pain and To improve muscle performance and motor function Cryotherapy (ice pack, ice massage): Yes Thermo therapy (hot pack): Yes Ultrasound (thermal/non thermal): Yes (1.5 w/cm2 x 8 min to L buttock tender regions.) For the Purpose of:: To decrease pain Re-Evaluation Ending Re-evaluation ending: Please do not hesitate to contact me at [phone] by phone or if you have questions or concerns regarding this new plan of care! Sincerely, Lurdes Blanco, PT, Cert MDT
--- NOTE | 2024-02-19 11:45 | HP.PTREVAL ---
Re-Evaluation Intro: Dr. Maria Elena Couch MD, It has been my pleasure to treat SARA HILL over the last 11 visits for L gluteal pain. Please see the progress note below for an update on the physical therapy plan of care! Subjective Subjective: IT IS VERY MUCH IMPROVED. IT IS ISOLATED BUT WHEN IT HITS IT IS VERY PAINFUL. Sunday AT 3 AM THE PAIN HIT AND WOKE ME UP. I WAS UP FOR ABOUT AN HOUR. PATIENT RATES THAT PAIN 10/10. SHE STATES SHE RESTED SUNDAY AND YESTERDAY IT WASN'T TOO BAD - ABOUT 4/10 MOST OF THE DAY AND 3/10 TODAY. PATIENT REPORTS SHE LIKES THE EX'S BUT SHE ISN'T SURE IF PHYSICAL THERAPY IS ALL THAT SHE NEEDS. Objective Objective/Function: *Physician re-assessment recommended based on increased LLE weakness upon exam today and episode of 10/10 pain Sunday. Patient agreeable. Patient is reporting improvement and scored better on the LEFS questionnaire today but her L LE strength is worse/more pain limited today. Transfers sit to supine and reverse are painful and guarded. ROM: L knee 0-126 degrees. L hip flex 115 deg (same as last re-check). Patient with c/o pain in the L buttock region with L knee and hip flexion ROM testing. MMT: R knee flex= 43, ext= 50 #F (From eval); L knee flex= 5.9, ext= 18.9 #F Special tests: Patient is only able to flex knee through approx 45 deg in standing against gravity and with c/o pain. Lumbar Mvmt Loss: flex - Mod ext - min R SG - Mod L SG - min patient c/o increased L buttock pain with lumbar flex ROM testing only - and NW as a result. Core Strength: poor. Plan Plan Plan: HOLD PT PENDING RE-ASSESSMENT. PATIENT AGREEABLE. PATIENT PLANS TO CONTACT DR. COUCH FOR FOLLOW UP. Balance/Gait/Functional tests Balance/Special Test Scores Lower Extremity Functional Score: 33 Goals Goals Goal 1:: Decrease L hamstring pain x 50% to aid with sleep Goal Time Frame: 4-6 Weeks Goal Progress: Not Progressing Goal 2:: Increase L hamstring flexibility x 20 degrees to aid with decreasing pain Goal Time Frame: 4-6 Weeks Goal Progress: Not Progressing Goal 3:: Increase L knee flexion strength x 10 #F to aid with stair negotiation Goal Time Frame: 4-6 Weeks Goal Progress: Not Progressing Goal 4:: I with HEP Goal Time Frame: 4-6 Weeks Goal Progress: Progressing Anticipated Interventions Anticipated Interventions Patient/Client Instruction: Educate patient on: Condition and Plan of Care For the Purpose of:: To improve self management Therapeutic Exercise to Include: Strength training, Endurance training, Flexibilty training, Passive ROM, Active ROM and Dynamic Lumbar Stabilization For the Purpose of:: To decrease pain, To increase ROM and To improve muscle performance and motor function Manual Therapy Techniques to Include: Soft tissue mobilization For the Purpose of:: To decrease pain and To improve muscle performance and motor function Cryotherapy (ice pack, ice massage): Yes Thermo therapy (hot pack): Yes Ultrasound (thermal/non thermal): Yes (1.5 w/cm2 x 8 min to L buttock tender regions.) For the Purpose of:: To decrease pain Re-Evaluation Ending Re-evaluation ending: Please do not hesitate to contact me at [phone] by phone or if you have questions or concerns regarding this new plan of care! Sincerely, Lurdes Blanco, PT, Cert MDT
== END 2024-02-19 19:00 | disposition home or self-care (01) ==
LOC: PT 10:30
PROVIDERS: PCP Internal Medicine; Referring Provider Internal Medicine; Visit Provider Internal Medicine
DX: M79.18 Myalgia, other site (principal); M54.50 Low back pain, unspecified
CPT/HCPCS: 97110; 97161; 97530

== ENCOUNTER → 2024-03-21 | Outpatient (CLI) | payer BC, SELFPAY ==
--- NOTE | 2024-03-21 13:58 | MRI_ITS ---
STUDY: MRI LEFT HIP REASON FOR EXAM: Female, 63 years old. pain ischial tuberosity, rule out other concerns. -- patient concerned with cancer, son had NHL, LT HIP TECHNIQUE: Standardized fat and water weighted pulse sequences were obtained in all 3 orthogonal planes. COMPARISON: X-ray 03/04/2024 FINDINGS: Normal hip joint without articular joint space narrowing. Normal acetabulum. Normal labrum. Normal femoral head. Normal femoral neck and intratrochanteric region. Mild gluteal tendinosis and peritendinitis. There is no trochanteric, iliopsoas or iliopectineal bursitis. Normal superior and inferior pubic rami. Normal pubic symphysis. Normal ischial tuberosity. Moderate tendinosis and peritendinitis of the hamstring origins. Normal visualized iliac wing, sacroiliac joint, and sacral ala. Normal visualized soft tissue structures of the pelvis. MRI/Lower Ext Joint Only (Routine) IMPRESSION: Moderate tendinosis and peritendinitis of the hamstring origin. Electronically Signed: Nabil Clifton MD at 17:32 EDT ,
== END | disposition home or self-care (01) ==
LOC: MRI 13:54
PROVIDERS: PCP Internal Medicine; Referring Provider Orthopaedic Surgery Sports Medicine; Visit Provider Orthopaedic Surgery Sports Medicine
DX: S76.302A Unspecified injury of muscle, fascia and tendon of the posterior muscle group at thigh level, left thigh, initial encounter (principal)
CPT/HCPCS: 73721

== ENCOUNTER → 2024-05-09 | Outpatient (CLI) | payer BC, SELFPAY ==
[2024-05-09 15:12] LABS: Absolute Lymphocyte Count 1.77 X10^3/uL (0.83-4.51); Absolute Neutrophil Count 3.1 X10^3/uL (2.0-7.7); Basophil# 0.05 X10^3/uL; Basophil% 0.9 % (0-1); Eosinophil# 0.12 X10^3/uL; Eosinophils% 2.2 % (0-5); Hematocrit 37.9 % (37-47); Hemoglobin 12.6 g/dL (12.0-15.0); Lymphocyte # 1.77 X10^3/ul (0.83-4.51); Lymphocyte % 33.1 % (19-41); Mean Corp Hgb Conc 33.2 g/dL (32-36); Mean Corpuscular Hgb 30.2 pg (27.0-32.0); Mean Corpuscular Volume 90.9 fL (81-99); Mean Platelet Vol. 9.4 fl (6.2-12.0); Monocyte# 0.34 X10^3/uL; Monocyte% 6.4 % (0-10); NRBC Flagged by Analyzer 0 % (0-5); Neutrophil # 3.05 X10^3/uL (2.7-7.7); Neutrophil % 57.2 % (47-70); Platelet Count 248 K/mm3 (150-450); RBC Distribution Width CV 13.9 % (11.6-14.6); RBC Distribution Width SD 46.5 fl (35.1-43.9); Red Blood Count 4.17 M/mm3 (4.2-5.4); White Blood Count 5.3 K/mm3 (4.4-11.0)
[2024-05-09 15:50] LABS: AST(SGOT) 17 U/L (15-37); Alanine Aminotransfer ALT/SGPT 36 U/L (13-56); Albumin, Serum 3.8 g/dL (3.2-5.0); Alkaline Phosphatase 97 U/L (45-117); Anion Gap 7 (5-15); BUN 13 mg/dL (7-18); BUN/Creat Ratio 16.7 RATIO (10-20); Calcium,Total 9.4 mg/dL (8.5-10.1); Chloride 106 mmol/L (98-107); Cholesterol 224 mg/dL (200); Creatinine, Serum 0.78 mg/dL (0.55-1.02); EST Glomerular Filtration Rate 79 mL/min (>60); Est Glom Filt Rate - Afr Amer 96 mL/min (>60); Globulin 3.9 g/dL (2.2-4.2); Glucose 111 mg/dL (74-106); High Density Lipoprotein 61 mg/dL; Protein, Total 7.7 g/dL (6.4-8.2); Sodium Level 139 mmol/L (136-145); Triglycerides 268 mg/dL; Very Low Density Lipoprotein 54 mg/dL (5-40)
== END | disposition home or self-care (01) ==
LOC: BIMLAB 14:14
PROVIDERS: PCP Internal Medicine; Referring Provider Internal Medicine; Visit Provider Internal Medicine
DX: I10 Essential (primary) hypertension (principal)
CPT/HCPCS: 36415; 80053; 80061; 85025

== ENCOUNTER → 2024-08-08 | Outpatient (CLI) | payer BC, SELFPAY | END | disposition home or self-care (01) | LOC: OPBI 12:03 | PROVIDERS: PCP Internal Medicine; Referring Provider Internal Medicine; Visit Provider Internal Medicine | DX: Z12.31 Encounter for screening mammogram for malignant neoplasm of breast (principal) | CPT/HCPCS: 77063; 77067 ==

== ENCOUNTER → 2024-09-05 | Outpatient (CLI) | payer MEDICARE, SELFPAY ==
[2024-09-05 15:48] LABS: Anion Gap 5 (5-15); BUN 10 mg/dL (7-18); BUN/Creat Ratio 16.1 RATIO (10-20); Calcium,Total 9.6 mg/dL (8.5-10.1); Chloride 106 mmol/L (98-107); Cholesterol 217 mg/dL (200); Creatinine, Serum 0.62 mg/dL (0.55-1.02); EST Glomerular Filtration Rate 102 mL/min (>60); Est Glom Filt Rate - Afr Amer 124 mL/min (>60); Glucose 85 mg/dL (74-106); High Density Lipoprotein 62 mg/dL; Sodium Level 138 mmol/L (136-145); Triglycerides 117 mg/dL; Very Low Density Lipoprotein 23 mg/dL (5-40)
== END | disposition home or self-care (01) ==
LOC: BIMLAB 11:08
PROVIDERS: PCP Internal Medicine; Referring Provider Internal Medicine; Visit Provider Internal Medicine
DX: I10 Essential (primary) hypertension (principal); E78.5 Hyperlipidemia, unspecified
CPT/HCPCS: 36415; 80048; 80053; 80061

== ENCOUNTER 2025-03-03 09:00 | Outpatient (RCR) | payer MEDICARE, SELFPAY ==
--- NOTE | 2025-02-05 10:00 | HP.PTEVAL ---
Patient's Visit Information Visit Information Visit Information: SRAA HILL is a 64 year old F referred to Physical Therapy by CHIKA Saldaña with a diagnosis of R shoulder strain. Date of Evaluation: 02/05/25 Physical Therapist: Major Ervin DPT Visit Plan Frequency: 2x /Week Duration: 4 Weeks Plan: 1) wand/anahy AAROM progressing to AROM 2) US to anterior shoulder biceps/suprapinatus region, for initial visits 3)DFM to biceps as needed 4) once ROM as been restored add in iso progressing to concentric RTC/biceps strengthening, HEP at IE: wand chest press, wand flex, wand ER/ Subjective Subjective: Pt. is here today for her initial evaluation with diagnosis of R shoulder strain. Pt. reports being dragged down by her dog and had increased pain. Pt. reports having pain randomly throughout the day. Pt. reports not having much relief. No issues with sleeping. Pt. has not tried icing. She does go to an aquatic exercise class. She has been able to participate but at a reduced level. Pt. is hopeful to reduce symptoms in order to get back to all recreational activities without limitations. Pain R shoulder: Pain Intensity (Out of 10): 6 Pain Intensity Range: 0 and 8 Objective Objective: POSTURE: Pt. has fairly normal in stance. Normal head positioning. PALAPTION: pt. has marked tenderness along biceps in bicipial groove. No posterior shoulder pain noted. NEURO: Pt. has normal sensation throughout R UE, normal DTR noted. ROM: AROM: R shoulder: flexion 160deg mild increase NW, abd 90deg increase NE, functional ER C6 increase NW, ER L5 increase NW. Passively: flexion 170deg NE, abd 170deg NE, ER at 90deg 60deg increase NW, IR 50deg increase NW. MMT: Pt. has marked R sided weakness, not myotomal in nature. Pt. has increased pain with flexion and ER most notably. Special Tests R Shoulder Empty Can - SS: Positive R Shoulder Neer - Impingement: Positive R Shoulder Saldana Enrrique - Impingement: Positive R Shoulder Speeds Test - Labrum/Biceps: Positive Comments: + horn blowers Balance/Special Test Scores Quick DASH Score: 59.0900 Goals Goal 1:: LTG: Pt. to be I with HEP. Goal Time Frame: 4-6 Weeks Goal 2:: STG: Pt. to have decrease pain at rest to 0/10. Goal Time Frame: 2 Weeks Goal 3:: LTG: Pt. to have full R shoulder ROM with 0-2/10 pain. Goal Time Frame: 2-4 Weeks Goal 4:: LTG: Pt. to have symmetrical strength between BUEs. Goal Time Frame: 4-6 Weeks Goal 5:: LTG: pt. to complete all ADls without increase in symptoms. Goal Time Frame: 4-6 Weeks Rehabilitation Potential Physical Therapy Diagnosis: Pt. has signs and symptoms consistent with R shoulder strain due to mechanical trauma. Pt. has signs suggesting biceps involvement, but difficult to fully rule out supraspinatus. Pt. has marked hypomobility and weakness as well as pain and would benefit from PT to address the above limitations. Rehabilitation Potential: Good Anticipated Interventions Patient/Client Instruction: Educate patient on: Condition, Plan of Care, Risk Factors and Benefits of Fitness Program For the Purpose of:: To facilitate caregiver knowledge, To improve self management, To prevent re-injury, To improve ability to perform tasks related to life management and To improve tolerance to ADL's Therapeutic Exercise to Include: Strength training, Power training, Endurance training, Passive ROM, Active ROM and Scapular Strength/Stabilization For the Purpose of:: To decrease pain, To decrease swelling/inflammation, To increase ROM, To improve nutrient delivery to tissue, To increase oxygenation perfusion, To improve muscle performance and motor function and To improve ability to perform ADL's Manual Therapy Techniques to Include: Passive ROM and Soft tissue mobilization For the Purpose of:: To decrease pain, To decrease swelling/inflammation, To increase ROM, To improve nutrient delivery to tissue, To increase oxygenation perfusion and To improve muscle performance and motor function Ultrasound (thermal/non thermal): Yes For the Purpose of:: To decrease pain, To decrease swelling/inflammation and To increase ROM Text: Thank you for the opportunity to evaluate your patient. For Medicare and Medicare HMO plans, please review the plan of care and approve it. It will need to be FAXED BACK to us at [phone] for Medicare purposes. For Medicare only, by signing this I certify the plan of care. Please let me know if there are questions or concerns regarding this plan of care. Physician Signature: Date:
== END 2025-03-03 19:00 | disposition home or self-care (01) ==
LOC: PT 09:00
PROVIDERS: PCP Internal Medicine; Referring Provider Physician Assistant; Visit Provider Physician Assistant
DX: S46.911D Strain of unspecified muscle, fascia and tendon at shoulder and upper arm level, right arm, subsequent encounter (principal); S46.211D Strain of muscle, fascia and tendon of other parts of biceps, right arm, subsequent encounter
CPT/HCPCS: 97035; 97110; 97161

== ENCOUNTER → 2025-04-11 | Outpatient (CLI) | payer MEDICARE, SELFPAY ==
--- NOTE | 2025-04-11 08:03 | MRI_ITS ---
PROCEDURE: UPPER EXT JOINT ONLY(ROUTINE) 04/11/2025 REASON FOR EXAM: PULLING INJURY ON THE ARM TECHNIQUE: T1, T2, PD, UPPER EXT JOINT ONLY(right) multiplanar and multisequence images were obtained without IV contrast administration. COMPARISON: COMPARISON: February 04, 2025 x-ray FINDINGS: Bone Marrow: There is no bony contusion or occult fracture. AC joint: There is moderate AC joint hypertrophy without evidence of separation. There is a type 2 acromion. Rotator cuff: There is no muscular atrophy. There is moderate distal supraspinatus, infraspinatus, and subscapularis tendinopathy without full-thickness tear or retraction. The teres minor appears intact. Labrum: The labrum appears intact. Biceps tendon: The biceps tendon is present in the biceps tendon groove, with intact anchors. Effusion: There is fluid in the subacromial subdeltoid bursa, with bursitis. There is no significant effusion. MRI/Upper Ext Joint Only(Routine) IMPRESSION: There is moderate distal supraspinatus, infraspinatus, and subscapularis tendin opathy without full-thickness tear or retraction. There is fluid in the subacromial subdeltoid bursa, with bursitis. Reading Location: [facility]
--- OUTSIDE RECORDS SUMMARY | 2025-04-11 08:04 | XMS RPT_ITS | CCD ---
Author Organization [facility] CliniSyfl Care Team Providers Care Associate Counsel Name Role Phone Amanda Alvarado Unavailable Unavailable Benita Valencia Unavailable Unavailable Mars Ruiz Attending Unavailable Benita Valencia Primary Care Unavailable Dr. Danay Abdalla Primary Care Provider 1(33 0) Rm, Dr. Arredondo Attending Provider 1(330)2 Dr. Danay Abdalla Referring Provider 1(330)2 Dr. Danay Abdalla Primary Care Provider 1(33 0) Dr. Danay Abdalla Attending Provider 1(330)2 Dr. Danay Abdalla Referring Provider 1(330)2 Dr. Danay Abdalla Primary Care Provider 1(33 0) Dr. Danay Abdalla Attending Provider 1(330)2 Dr. Danay Abdalla Referring Provider 1(330)2 Danay Abdalla MD Primary Care Provider 1(3 30) LONNY MONTANO Referring Unavailable DANAY ABDALLA Primary Care Unavailable LONNY MONTANO Referring Unavailable DANAY ABDALLA Primary Care Unavailable Dr. Danay Abdalla Primary Care Provider 1(33 0) Dr. Danay Abdalla Attending Provider 1(330)2 Dr. Danay Abdalla Referring Provider 1(330)2 Dr. Danay Abdalla Primary Care Provider 1(33 0) Dr. Danay Abdalla Referring Provider 1(330)2 CHIKA Cochran Attending Provider Dr. Danay Abdalla Attending Provider 1(330)2 Dr. Danay Abdalla Primary Care Provider 1(33 0) Dr. Danay Abdalla Attending Provider 1(330)2 Dr. Danay Abdalla Referring Provider 1(330)2 CHIKA Cochran Attending Provider NATY MILTON Attending Unavailable OLEGHE, EFEWONGBE B Primary Care Unavailable PERRI, KHALED Referring Unavailable OLEGHE, EFEWONGBE B Primary Care Unavailable PERRI, KHALED Referring Unavailable PERRI, KHALED Attending Unavailable Dr. Danay Abdalla MD Primary Care Provider Dr. Danay Abdalla MD Attending Provider 1(33 0) Dr. Danay Abdalla MD Referring Provider [phone] Franky Cochran Attending Provider Dr. Cristino Mccallum MD Attending Provider Franky Cochran Referring Provider Franky Cochran Referring Provider Arnoldo Wiseman MD Attending Provider Oleghe, Efewongbe Primary Care Unavailable Franky Cochran Referring Unavailable Franky Cochran Attending Unavailable Arnoldo Wiseman Referring Unavailable Arnoldo Wiseman Attending Unavailable Oleghe, Efewongbe Primary Care Unavailable Oleghe, Efewongbe Attending Unavailable Oleghe, Efewongbe Primary Care Unavailable Oleghe, Efewongbe Referring Unavailable Oleghe, Efewongbe Primary Care Unavailable Oleghe, Efewongbe Referring Unavailable Oleghe, Efewongbe Attending Unavailable Oleghe, Efewongbe Primary Care Unavailable Oleghe, Efewongbe Referring Unavailable Oleghe, Efewongbe Attending Unavailable Oleghe, Efewongbe Primary Care Unavailable Cristino Mccallum Attending Unavailable Oleghe, Efewongbe Attending Unavailable Oleghe, Efewongbe Primary Care Unavailable Oleghe, Efewongbe Referring Unavailable Oleghe, Efewongbe Primary Care Unavailable Oleghe, Efewongbe Referring Unavailable Oleghe, Efewongbe Attending Unavailable Franky Cochran Attending Unavailable Oleghe, Efewongbe Primary Care Unavailable Oleghe, Efewongbe Referring Unavailable Arnoldo Wiseman Attending Unavailable Oleghe, Efewongbe Primary Care Unavailable Oleghe, Efewongbe Referring Unavailable Franky Cochran Attending Unavailable Oleghe, Efewongbe Primary Care Unavailable Oleghe, Efewongbe Referring Unavailable Oleghe, Efewongbe Primary Care Unavailable Cristino Mccallum Attending Unavailable Oleghe, Efewongbe Primary Care Unavailable Oleghe, Efewongbe Referring Unavailable Franky Cochran Attending Unavailable Oleghe, Efewongbe Attending Unavailable Oleghe, Efewongbe Primary Care Unavailable Oleghe, Efewongbe Referring Unavailable Allergies Allergy Classification Reported Allergen(s) Allergy Type Date of Onset Reaction(s) Facility (20 sources) Sulfonamides (Antibiotic); Translations: [SULFA (SULFONAMIDE ANTIBIOTICS)] Allergy to substance 08-25-2010 [facility] Work Phone: Medications Current Medications Medication Drug Class(es) Dates Sig (Normalized) Sig (Original) [id number] 200 actuat albuterol 0.09 mg/actuat metered dose inhaler (20 sources) beta2-Adrenergic Agonist Start: 02-23-2025 Albuterol Sulfate (Ventolin Hfa) 90 mcg/actuation HFA aerosol inhaler Active 2 NMA INHALATION EVERY 6 HOURS as needed for shortness of breath or wheezing 8.5 0 February 23, 2025 12:00am Start: 03-09-2021 Albuterol Sulf ate 90 mcg/actuation aerosol powdr breath activated Active 2 NMA INHALATION EVERY 6 HOURS as needed for shortness of breath 1 0 March 09, 2021 12:00am Start: 03-09-2021 Albuterol Sulf ate Active 2 INH INHALATION EVERY 6 HOURS March 09, 2021 12:00am Start: 02-21-2021 take 2 puff(s) by in halation every four hours as needed albuterol HFA (PROVENTIL HFA, VENTOLIN HFA) 90 mcg/actuation inhaler Indications: Mild intermittent asthma with acute exacerbation Inhale 2 Puffs as instructed every 4 hours as needed. 8 g 0 02/21/2021 Active Comment on above: Inhale 2 Puffs as in structed every 4 hours as needed. 12 hr hyoscyamine sulfate 0.375 mg extended release oral tablet (20 sources) Start: take 1 tablet by mouth once daily Hyoscyamine Sulfate 0.375 mg tablet extended release 12 hr Active 0.375 mg PO daily December 05, 2024 10:49am Start: 12-27-2020 End: 12-05-2024 take 1 tablet by mouth every twelve hours Hyoscyamine Sulfate 0.375 mg tablet extended release 12 hr Discontinued 0.375 mg PO Q12H December 27, 2020 12:00am December 05, 2024 10:50am Start: 06-21-2020 take 1 tablet by amy th twice daily hyoscyamine SR (LEVBID) 0.375 mg 12 hr tablet Indications: Irritable bowel syndrome, unspecified type Take 1 tablet by mouth twice daily. 0 06/21/2020 Active Comment on above: Take 1 tablet by amy th twice daily. levoFLOXacin 500 mg oral tablet (1 source) Quinolone Antimicrobial Start: 03-17-20 take 1 tablet by mouth every twenty-four hours Levofloxacin 500 mg tablet Active 500 mg PO Q24H 7 0 March 17, 2025 12:00am pantoprazole 20 mg delayed release oral tablet (20 sources) Proton Pump Inhibitor Start: 08-07-20 take 2 tablets by mouth twice daily Pantoprazole 20 mg tablet,delayed release (DR/EC) Active 40 mg PO TWICE A DAY August 07, 2022 11:04am Start: 08-07-2022 take 40 mg by mouth twice jesus alberto y Pantoprazole Active 40 MG PO TWICE A DAY August 07, 2022 11:04am Start: 12-27-2020 End: 08-07-2022 take 1 tablet by mouth twice daily Pantoprazole 20 mg tablet,delayed release (DR/EC) Discontinued 20 mg PO TWICE A DAY December 27, 2020 12:00am August 07, 2022 11:04am Start: 09-25-2019 take 1 tablet by amy th twice daily pantoprazole DR (PROTONIX) 40 mg tablet Take 40 mg by mouth twice daily. 0 09/25/2019 Active Comment on above: Take 40 mg by mouth twice daily. sertraline 100 mg oral tablet (20 sources) Serotonin Reuptake Inhibitor Start: 02-27-2024 take 1 tablet by mouth once daily Sertraline 100 mg tablet Active 100 mg PO DAILY 90 3 February 27, 2024 9:25am Start: 09-24-2023 End: 02-27-2024 Sertraline 100 mg tablet Discontinued 100 mg PO DAILY 90 September 24, 2023 9:26am February 27, 2024 9:26am Take 50 mg daily x 2 weeks then increase to 100 mg daily Start: 06-21-2020 End: 09-24-2023 take 1 tablet by mouth once daily Sertraline 25 mg tablet Discontinued 25 mg PO DAILY 90 November 16, 2022 12:36pm February 23, 2023 8:32am Comment on above: Take 1 tablet by amy once daily. Completed/Discontinued Medications Medication Drug Class(es) Dates Sig (Normalized) Sig (Original) amLODIPine 5 mg oral tablet (20 sources) Dihydropyridine Calcium Channel [place] Start: 04-12-2021 End: 01-28-2024 take 1 tablet by mouth once daily Amlodipine 5 mg tablet Discontinued 5 mg PO DAILY January 25, 2022 1:15pm February 23, 2023 8:32am Start: 03-08-2021 End: 04-12-2021 take 1 tablet by mouth once daily Amlodipine 10 mg tablet Discontinued 10 mg PO DAILY 30 March 30, 2021 11:56am April 12, 2021 3:40pm amlodipine besyl ate (AMLODIPINE ORAL) Take by mouth. 0 Active Comment on above: Take by mouth. amoxicillin 875 mg / clavulanate 125 mg oral tablet (8 sources) Penicillin-class Antibacterial Start: 01-31-2023 End: 02-23-2023 Amoxicillin-Pot Clavulanate 875-125 mg tablet Discontinued 1 {tbl} PO TWICE A DAY 20 January 31, 2023 12:00am February 23, 2023 8:18am Start: 01-31-2023 End: 02-23-2023 take 1 tablet by mouth twice daily Amoxicillin-Pot Clavulanate Discontinued 1 TABLET PO TWICE A DAY January 31, 2023 12:00am February 23, 2023 8:18am azithromycin 250 mg oral tablet (4 sources) Macrolide Antimicrobial Start: 02-23-2025 End: 03-17-2025 Azithromycin 250 mg tablet Discontinued 250 mg PO .COMPLEX 12 0 February 23, 2025 12:00am March 17, 2025 8:57am 2 tablets (500 mg) on day 1, then 1 tablet daily on days 2 through 11 baclofen 10 mg oral tablet (20 sources) gamma-Aminobutyri c Acid-ergic Agonist Start: 08-07-2022 End: 10-25-2022 take 1 tablet by mouth three times daily as needed for muscle spasms Baclofen 10 mg tablet Discontinued 0 .ROUTE .COMPLEX 90 September 25, 2022 11:37am October 25, 2022 9:16am TAKE 1 TABLET BY MOUTH THREE TIMES A DAY NEEDED FOR MUSCLE SPASM benzonatate 200 mg oral capsule (7 sources) Non-narcotic Antitussive Start: 11-13-2023 End: 12-26-2023 take 1 capsule by mouth three times daily as needed for cough Benzonatate 200 mg capsule Discontinued 200 mg PO THREE TIMES A DAY as needed for cough 20 November 13, 2023 1:00am December 26, 2023 9:06am 24 hr buPROPion hydrochloride 150 mg extended release oral tablet (7 sources) Aminoketone Start: 06-20-2023 End: 09-24-2023 take 1 tablet by mouth once daily in the morning Bupropion Hcl (Wellbutrin Xl) 150 mg tablet extended release 24 hr Discontinued 150 mg PO EVERY MORNING 60 2 June 20, 2023 12:00am September 24, 2023 9:05am cholecalciferol 0.025 mg oral tablet (7 sources) Vitamin D Start: 10-17-2019 take 2 tablets by mouth once daily cholecalciferol (VITAMIN D) 1,000 unit tab tablet Take 2 tablets by mouth once daily. 0 10/17/2019 Active Comment on above: Take 2 tablets by [facility] once daily. clobetasol propionate 0.0005 mg/mg topical ointment (8 sources) Corticosteroid Start: 02-23-2023 End: 09-05-2024 Clobetasol 0.05 % ointment Discontinued 1 NMA TOPICAL TWICE A DAY as needed for Dermatitis 30 14 2 February 23, 2023 12:00am September 05, 2024 11:50am cyclobenzaprine hydrochloride 10 mg oral tablet (6 sources) Muscle Relaxant Start: 12-26-2023 End: 02-27-2024 take 1 tablet by mouth twice daily as needed for muscle spasms Cyclobenzaprine 10 mg tablet Discontinued 10 mg PO TWICE A DAY as needed for muscle spasm 30 1 December 26, 2023 12:00am February 27, 2024 9:08am doxycycline hyclate 100 mg oral tablet (12 sources) Tetracycline-clas s Drug Start: 12-27-2020 End: 02-02-2021 take 1 tablet by mouth twice daily Doxycycline Hyclate 100 mg tablet Discontinued 100 mg PO TWICE A DAY 14 0 December 27, 2020 12:00am February 02, 2021 8:53am Flucelvax Quad (flu vac qs (6 ms up) CD) 60 mcg (15 mcg x (1 source) Start: 08-19-2021 End: 08-19-2021 inject 15 ug by intramuscular injection once Flucelvax Quad (flu vac qs (6 ms up) CD) 60 mcg (15 mcg x Discontinued 60 MCG IM ONCE 0.5 August 19, 2021 9:31am August 19, 2021 10:53am hydroCHLOROthiazide 25 mg / triamterene 37.5 mg oral tablet (19 sources) Potassium-sparing Diuretic, Thiazide Diuretic Start: 02-02-2021 End: 03-08-2021 Triamterene-Banner chlorothiazid 37.5-25 mg tablet Discontinued 1 {tbl} PO EVERY MORNING 30 February 02, 2021 12:00am March 08, 2021 3:56pm Start: 02-02-2021 End: 03-08-2021 take 1 tablet by mouth once daily in the morning Triamterene-Hydrochlorothiazid Discontin ued 1 TABLET PO EVERY MORNING February 02, 2021 12:00am March 08, 2021 3:56pm take 1 capsule by mouth once daily triamterene-hydroCHLOROthiazide 37.5-25 mg per capsule Take 1 capsule by mouth once daily. 0 Active Comment on above: Take 1 capsule by mo [facility] once daily. inositol 100 mg / niacin 400 mg oral capsule (7 sources) Nicotinic Acid take 1 tablet by mouth once daily Niacin-Inositol 400 mg niacin (500 mg) cap Take 1 tablet by mouth once daily. 0 Active Comment on above: Take 1 tablet by [facility] once daily. ipratropium bromide 0.042 mg/actuat metered dose nasal spray (7 sources) Anticholinergic Start: 02-22-20 ipratropium bromide (ATROVENT) 42 mcg (0.06 %) nasal spray Indications: Acute non-recurrent sinusitis, unspecified location Use 2 Sprays in the nose twice daily. for 1 week 1 Bottle 0 02/21/2021 Active Comment on above: Use 2 Sprays in the nose twice daily. for 1 week lisinopril 20 mg oral tablet (20 sources) Angiotensin Converting Enzyme Inhibitor Start: 04-12-20 End: 02-04-20 take 1 tablet by mouth once daily Lisinopril 20 mg tablet Discontinued 20 mg PO DAILY 90 January 28, 2024 9:10am February 03, 2025 9:04pm LISINOPRIL ORAL Take by mouth. 0 Active Comment on above: Take by mouth. magnesium oxide 400 mg oral tablet (7 sources) Start: 2017 take 1 tablet by mouth once daily magnesium oxide (MAG-OX) 400 mg (241.3 mg magnesium) tablet Indications: Insomnia, unspecified type Take 1 tablet by mouth once daily. 30 tablet 11 08/12/2018 Active Comment on above: Take 1 tablet by [facility] once daily. methylPREDNISolone 4 mg oral tablet (20 sources) Corticosteroid Start: 2022 End: 2023 take 1 tablet by mouth once Methylprednisolone (Medrol (Joseph)) 4 mg tablets,dose pack Discontinued 0 PO per package directions November 13, 2023 1:00am December 26, 2023 9:06am PO PER PKG DIR predniSONE 20 mg oral tablet (12 sources) Start: 2020 End: 2020 take 2 tablets by mouth once daily Prednisone 20 mg tablet Discontinued 40 mg PO DAILY 10 March 08, 2021 12:00am April 12, 2021 3:30pm Start: 03-08-2021 End: 04-12-2021 take 40 mg by mouth once daily Prednisone Discontinued 40 MG PO DAILY March 08, 2021 12:00am April 12, 2021 3:30pm traZODone hydrochloride 50 mg oral tablet (20 sources) Serotonin Reuptake Inhibitor Start: 06-21-2020 End: 01-05-2025 take 1 tablet by mouth once daily as needed Trazodone 50 mg tablet Discontinued 50 mg PO DAILY as needed for insomnia 90 3 February 21, 2024 1:58pm January 05, 2025 9:30am Comment on above: Take 1 tablet by amy th daily at bedtime. TAKE ONE(1) TABLET AT BEDTIME PO PRN INSOMNIA triamcinolone acetonide 1 mg/ml topical cream (11 sources) Corticosteroid Start: 06-14-2022 End: 02-23-2023 Triamcinolone Acetonide 0.1 % cream Discontinued 1 NMA TOPICAL TWICE A DAY 80 1 June 14, 2022 12:00am February 23, 2023 8:36am ubidecarenone 10 mg oral capsule (7 sources) Start: 08-12-2018 take 1 capsule by mouth once daily ubidecarenone Q-10 (CO Q-10) 10 mg cap Take 1 capsule by mouth once daily. 30 capsule 11 08/12/2018 Active Comment on above: Take 1 capsule by mo [facility] once daily. Problems Active Problems Problem Classification Problem Date Documented Da te Episodic/Chronic Abdominal pain (13 sources) Abdominal pain; Translations: [Unspecified abdominal pain] Episodic Allergic reactions (13 sources) Allergic contact dermatitis; Translations: [Allergic contact dermatitis, unspecified cause] Episodic Anxiety disorders (20 sources) Mixed anxiety and depressive disorder; Translations: [Anxiety disorder, unspecified] Onset: 11-28-2024 07-30-2013 Chronic Chronic obstructive pulmonary disease and bronchiectasis (12 sources) Bronchitis; Translations: [Bronchitis, not specified as acute or chronic] 03-08-2021 Episodic Disorders of lipid metabolism (20 sources) Hyperlipidemia; Translations: [Hyperlipidemia, unspecified] Onset: 12-05-2024 Chronic Esophageal disorders (20 sources) Woodall's esophagus; Translations: [Woodall's esophagus without dysplasia] Onset: 05-18-2019 Chronic Essential hypertension (20 sources) Hypertensive disorder; Translations: [Essential (primary) hypertension] Onset: 11-28-2024 Chronic Genitourinary symptoms and ill-defined conditions (7 sources) Female stress incontinence; Translations: [Stress incontinence (female) (male)] 08-12-2018 Chronic Genitourinary symptoms and ill-defined conditions (12 sources) Dysuria; Translations: [Dysuria] 04-12-2021 Episodic Immunizations and screening for infectious disease (7 sources) Needs influenza immunization; Translations: [Encounter for immunization] 06-20-2023 Episodic Menopausal disorders (7 sources) Menopausal symptom; Translations: [Menopausal and female climacteric states] Onset: 08-12-2018 08-12-2018 Chronic Miscellaneous mental health disorders (14 sources) Lack or loss of sexual desire; Translations: [Hypoactive sexual desire disorder] Onset: 10-17-2019 08-12-2018 Chronic Mood disorders (1 source) Mood disorders; Translations: [Depression, unspecified] Onset: 11-28-2024 Nonmalignant breast conditions (12 sources) Mastodynia; Translations: [Pain of right breast] 05-20-2021 Episodic Nutritional deficiencies (7 sources) Vitamin D deficiency; Translations: [Vitamin D deficiency, unspecified] Onset: 07-18-2018 08-12-2018 Chronic Other and unspecified benign neoplasm (4 sources) Gastric polyp; Translations: [Polyp of stomach and duodenum] 09-24-2023 Episodic Other and unspecified benign neoplasm (1 source) Polyp of stomach and duodenum; Translations: [Gastric polyp] Onset: 11-29-2023 Episodic Other connective tissue disease (6 sources) Pain in buttock; Translations: [Myalgia, other site] 02-27-2024 Episodic Other connective tissue disease (6 sources) Calcific tendinitis of right shoulder; Translations: [Calcific tendinitis of right shoulder] 03-17-2025 Episodic Other connective tissue disease (2 sources) Calcific tendinitis of right shoulder; Translations: [Calcific tendinitis of right shoulder] Onset: 03-17-2025 Episodic Other gastrointestinal disorders (11 sources) Irritable bowel syndrome; Translations: [Irritable bowel syndrome without diarrhea] 02-28-2022 Chronic Other gastrointestinal disorders (4 sources) Irritable bowel syndrome without diarrhea; Translations: [Irritable bowel syndrome] Chronic Other gastrointestinal disorders (3 sources) Swallowing problem; Translations: [Dysphagia, unspecified] 10-25-2022 Episodic Other gastrointestinal disorders (5 sources) Dysphagia, unspecified; Translations: [Dysphagia, unspecified] Onset: 10-19-2022 Episodic Other gastrointestinal disorders (1 source) Dysphagia; Translations: [Dysphagia, unspecified] Episodic Other gastrointestinal disorders (7 sources) Swallowing finding; Translations: [Dysphagia, unspecified] 10-25-2022 Episodic Other injuries and conditions due to external causes (6 sources) Hamstring injury; Translations: [Unspecified injury of muscle, fascia and tendon of the posterior muscle group at thigh level, left thigh, initial encounter] 03-04-2024 Episodic Other injuries and conditions due to external causes (1 source) Unspecified injury of shoulder and upper arm, unspecified arm, initial encounter; Translations: [Unspecified injury of shoulder and upper arm, unspecified arm, initial encounter] Onset: 02-04-2025 Episodic Other liver diseases (12 sources) Steatosis of liver; Translations: [Fatty (change of) liver, not elsewhere classified] 12-05-2024 Chronic Other lower respiratory disease (12 sources) Dyspnea; Translations: [Shortness of breath] 02-02-2021 Episodic Other nervous system disorders (7 sources) Disturbance of attention; Translations: [Attention and concentration deficit] 06-20-2023 Chronic Other nervous system disorders (1 source) Attention and concentration deficit; Translations: [Attention or concentration deficit] 09-24-2023 Chronic Other non-traumatic joint disorders (7 sources) Hip pain; Translations: [Pain in left hip] 09-24-2023 Episodic Other non-traumatic joint disorders (1 source) Pain in left hip; Translations: [Pain in joint, pelvic region and thigh] 09-24-2023 Episodic Other non-traumatic joint disorders (8 sources) Pain in right shoulder; Translations: [Right shoulder pain] Onset: 03-17-2025 03-03-2025 Episodic Other nutritional; endocrine; and metabolic disorders (2 sources) Obesity; Translations: [Other obesity due to excess calories] Onset: 03-23-2019 03-23-2019 Chronic Other nutritional; endocrine; and metabolic disorders (5 sources) Obesity caused by energy imbalance; Translations: [Other obesity due to excess calories] Onset: 03-23-2019 03-23-2019 Chronic Other nutritional; endocrine; and metabolic disorders (7 sources) Weight gain; Translations: [Abnormal weight gain] 08-12-2018 Episodic Other skin disorders (2 sources) Dry skin; Translations: [Xerosis cutis] 08-07-2022 Episodic Other skin disorders (2 sources) Xerosis cutis; Translations: [Keratoderma, acquired] Episodic Other skin disorders (8 sources) Xeroderma; Translations: [Xerosis cutis] 08-07-2022 Episodic Other upper respiratory disease (1 source) Pain in throat; Translations: [Pain in throat] Onset: 02-23-2025 Episodic Other upper respiratory infections (9 sources) Sinusitis; Translations: [Chronic sinusitis, unspecified] 02-23-2023 Chronic Other upper respiratory infections (9 sources) Acute maxillary sinusitis; Translations: [Acute maxillary sinusitis, unspecified] 01-31-2023 Episodic Residual codes; unclassified (12 sources) Hypersomnia; Translations: [Hypersomnia, unspecified] 02-02-2021 Chronic Residual codes; unclassified (17 sources) Obstructive sleep apnea syndrome; Translations: [Obstructive sleep apnea (adult) (pediatric)] 02-28-2022 Chronic Residual codes; unclassified (4 sources) Obstructive sleep apnea (adult) (pediatric); Translations: [Obstructive sleep apnea (adult)(pediatric)] Onset: 11-28-2024 Chronic Residual codes; unclassified (12 sources) History of vaccination; Translations: [Personal history of other drug therapy] 05-20-2021 Episodic Skin and subcutaneous tissue infections (12 sources) Abscess of axilla; Translations: [Cutaneous abscess of limb, unspecified] 02-02-2021 Episodic Spondylosis; intervertebral disc disorders; other back problems (18 sources) Backache; Translations: [Dorsalgia, unspecified] Episodic Sprains and strains (20 sources) Strain of muscle, fascia and tendon of other parts of biceps, right arm, initial encounter; Translations: [Strain of right biceps] Onset: 02-04-2025 02-04-2025 Episodic Unclassified (3 sources) Encntr screen mammogram for malignant neoplasm of breast / Z12.31(ICD-10) Onset: 07-27-2017 Unclassified (5 sources) S46.911A - Strain of unspecified muscle, fascia and tendon at shoulder and upper arm level, right arm, initial encounter,S46.211A - Strain of muscle, fascia and tendon of other parts of biceps, right arm, initial encounter Unclassified (3 sources) Strain of right shoulder Unclassified (3 sources) Strain of right biceps Unclassified (1 source) Cough, unspecified; Translations: [Cough, unspecified] Onset: 03-17-2025 Past or Other Problems Problem Classification Problem Date Documented Date Episodic/Chronic Other connective tissue disease (7 sources) Tibialis posterior tendinitis ; Translations: [Posterior tibial tendinitis, unspecified leg] Onset: 11-13-2011 11-13-2011 Episodic Other connective tissue disease (1 source) Myalgia, other site; Translations: [Myalgia, other site] Onset: 11-28-2024 Episodic Other lower respiratory disease (7 sources) Snoring; Translations: [Snoring] Onset: 08-12-2018 08-12-2018 Episodic Other screening for suspected conditions (not mental disorders or infectious disease) (20 sources) Encounter for screening for cardiovascular disorders; Translations: [Patient encounter status] Onset: 08-06-2018 Episodic Unclassified (1 source) Encntr screen mammogram for malignant neoplasm of breast; Translations: [Encntr screen mammogram for malignant neoplasm of breast] Onset: 07-27-2017 Results Test Name Value Interpretation Reference Range Facility Chest PA and Lateralon 03-17 Chest PA and Lateral [facility] [address] [place] [address] [id number] Chest PA and Lateral MR#: [id number] Acct: [id number] Name: RENETTA GILL Rep #: [id number] : [id number] F 64 From: Camilo Beasley MD PCP: Dr. Danay Abdalla MD Status: DEP AMB Study: Chest PA and Lateral Date of Exam: 03/17/25 Exam# [id number] Ordering Dr: Franky Rose PA PROCEDURE: CHEST PA AND LATERAL 03/17/2025 REASON FOR EXAM: COUGH TECHNIQUE: CHEST PA AND LATERAL FINDINGS: Hardware: None Heart: The heart size is normal. Mediastinum: The mediastinal contour is unremarkable. Lungs: The lungs are clear. Bones: Degenerative changes are identified within the thoracic spine. RAD/Chest PA and Lateral IMPRESSION: No acute pulmonary process Reading Location: [id number] CC: Dr. 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 Arnoldo martinez MD Age/Sex: 64/F Location: [facility] Status: Signed Intake Vital Signs 02/04/25 08:51 03/17/25 08:35 Height 5 ft 5 ft Weight: 192 lb BMI 37.5 Intake Visit Reasons: RIGHT SHOULDER Chief Complaint: right shoulder injury Accompanied by: Is patient in pain?: Yes Pain scale (1-10): 3 Allergies Sulfa (Sulfonamide Antibiotics) Allergy (Mild, Verified 03/17/25 08:37) Rash Medications ???Medication ???Instructions ???Recorded ???Confirmed ???Type albuterol sulfate 90 mcg/actuation 2 inh inhalation Q6H PRN shortne ss 03/09/21 03/17/25 Rx breath activated powder inhaler of breath #1 ea pantoprazole 20 mg tablet,delayed 40 mg PO BID 08/07/22 03/17/25 Hi story release amlodipine 5 mg tablet 5 mg PO DAILY #90 tabs 01/28/24 Rx sertraline 100 mg tablet 100 mg PO DAILY #90 tabs 02/27/24 03/17/25 Rx hyoscyamine sulfate 0.375 mg 0.375 mg PO QDAY 12/05/24 03/17/25 History tablet,extended release,12 hr trazodone 50 mg tablet 50 mg PO DAILY PRN insomnia #90 03/17/25 Rx tabs lisinopril 20 mg tablet 20 mg PO DAILY #90 tabs 02/03/25 0 03/17/25 Rx albuterol sulfate 90 mcg/actuation 2 puff inhalation Q6H PRN 03/17/25 Rx aerosol inhaler (Ventolin HFA) shortness of breath or wheezing #8.5 grams azithromycin 250 mg tablet 250 mg PO .COMPLEX #12 tabs 03/17/25 Rx Have you fallen in the past year?: No PFSH Medical History Calcific tendinitis of right shoulder Right shoulder pain Strain of right biceps Right shoulder strain Health care maintenance Left hamstring injury Fatty liver Left buttock pain Anxiety and depression Flu vaccine need Attention deficit Left hip pain Sinusitis Acute maxillary sinusitis, unspecified Abnormal colonoscopy Hyperlipidemia Swallowing problem Back pain Dry skin Screening for thyroid disorder Contact dermatitis, allergic GERMAIN (obstructive sleep apnea) Breast cancer screening COVID-19 vaccine series completed Breast pain, right Abdominal pain Dysuria Bronchitis Abnormal EKG Axillary abscess Hypersomnolence Hypertension Shortness of breath Woodall esophagus IBS (irritable bowel syndrome) Head ache Essential hypertension Glaucoma Surgical History History of tubal ligation Family History Grandmother Breast cancer Father Cancer Sister Cancer Mother Heart disease Brother Heart disease Other Colon cancer Social History Smoking Status: Former smoker alcohol intake: current alcohol intake frequency: 0-2 drinks per day Alcohol type: wine substance use type: does not use HPI RIGHT SHOULDER Details: This documentation accurately reflects the service provided and the decisions made by me, Dr. Arnoldo Wiseman MD 03/17/25 0806. Part of today???s visit was documented by [ ], acting as scribe. RENETTA GILL is a 64 year old F here today for right shoulder pain. The dog on the leash pulled on the shoulder. 70 pound dog. arm 'screaming' at her with activity. lateral and anterior. 3 months. worse at night. RHD. work - retired. PT - 6 weeeks. worse after 3 weeks. US therapy seemed to help. Enjoys swimming, but sometimes makes it worse. Supplemental Info [facility] Imaging Services [address] [place] [address] Shoulder min 2 Views MR#: [id number] Acct: [id number] Name: RENETTA GILL Rep #: [id number] : 1960 F 64 From: Etienne Fernando MD PCP: Dr. Danay Abdalla MD Status: DEP AMB Study: Shoulder min 2 Views Date of Exam: 02/04/25 Exam# [id number] Ordering Dr: Franky Rose PA PROCEDURE: SHOULDER MIN 2 VIEWS 02/04/2025 REASON FOR EXAM: SHOULDER INJURY, DOG PULLED ON ARM WHILE WALKING ON A LEASH TECHNIQUE: Four views of the right shoulder were obtained. COMPARISON: None FINDINGS: Bones: No fracture. Joints: Unremarkable Soft tissues: There is evidence of calcific tendinitis overlying the greater tuberosity of the proximal humerus. Other: RAD/Shoulder min 2 Views IMPRESSION: Calcific tendinitis. Electronically Signed By: Etienne Fernando MD o (more content not included)... Normal [facility] Urgent Care Visit Reporton 0 03-17-2025 Urgent Care Visit Report [facility] [address], [address] [place] [address] OFFICE VISIT Date of Service: 03/17/25 MR#: [id number] Acct: [id number] Name: RENETTA GILL Rep #: [id number] : 1960 Provider: CHIKA Saldaña Age/Sex: 64/F Location: [facility] Status: Signed Intake Vital Signs 03/17/25 08:35 03/17/25 08:57 Height 5 ft Weight: 192 lb BMI 37.5 BP 122/76 H Position Sitting Respiration 18 Pulse 91 Temp 97.8 F Temp Source Oral Pulse Oximetry (%) 96 Oxygen Delivery Method room air Intake Visit Reasons: DEEP Cough Accompanied by: Allergies Sulfa (Sulfonamide Antibiotics) Allergy (Mild, Verified 03/17/25 09:02) Rash Medications ???Medication ???Instructions ???Recorded ???Confirmed ???Type albuterol sulfate 90 mcg/actuation 2 inh inhalation Q6H PRN shortne ss 03/09/21 03/17/25 Rx breath activated powder inhaler of breath #1 ea pantoprazole 20 mg tablet,delayed 40 mg PO BID 08/07/22 03/17/25 Hi story release amlodipine 5 mg tablet 5 mg PO DAILY #90 tabs 01/28/24 Rx sertraline 100 mg tablet 100 mg PO DAILY #90 tabs 02/27/24 03/17/25 Rx hyoscyamine sulfate 0.375 mg 0.375 mg PO QDAY 12/05/24 03/17/25 History tablet,extended release,12 hr trazodone 50 mg tablet 50 mg PO DAILY PRN insomnia #90 03/17/25 Rx tabs lisinopril 20 mg tablet 20 mg PO DAILY #90 tabs 02/03/25 0 03/17/25 Rx albuterol sulfate 90 mcg/actuation 2 puff inhalation Q6H PRN 03/17/25 Rx aerosol inhaler (Ventolin HFA) shortness of breath or wheezing #8.5 grams levofloxacin 500 mg tablet 500 mg PO Q24H #7 tabs 03/17/25 Rx Have you fallen in the past year?: No Nurse's Note: Patient has a deep cough that has been going on for about a month. Patient states she was seen here for this before and was given AB and she took them all.Patient states she is having to use her inhaler more. Patient states she has lots of mucus. [facility] Medical History Calcific tendinitis of right shoulder Right shoulder pain Strain of right biceps Right shoulder strain Health care maintenance Left hamstring injury Fatty liver Left buttock pain Anxiety and depression Flu vaccine need Attention deficit Left hip pain Sinusitis Acute maxillary sinusitis, unspecified Abnormal colonoscopy Hyperlipidemia Swallowing problem Back pain Dry skin Screening for thyroid disorder Contact dermatitis, allergic GERMAIN (obstructive sleep apnea) Breast cancer screening COVID-19 vaccine series completed Breast pain, right Abdominal pain Dysuria Bronchitis Abnormal EKG Axillary abscess Hypersomnolence Hypertension Shortness of breath Woodall esophagus IBS (irritable bowel syndrome) Head ache Essential hypertension Glaucoma Surgical History History of tubal ligation Family History Grandmother Breast cancer Father Cancer Sister Cancer Mother Heart disease Brother Heart disease Other Colon cancer Social History Smoking Status: Former smoker alcohol intake: current alcohol intake frequency: 0-2 drinks per day Alcohol type: wine substance use type: does not use HPI HPI Details: RENETTA GILL, is a 64 F who presents to the office today for f/u of 02/23/2025 evaluation at [facility] for approximately 1-month history of persistent sinus pressure w/ irritated throat, moist productive purulent cough w/ chest congestion/ nasal congestion. Still no complaints of fever, chills, PEÑA, myalgias, fatigue, nausea, and diarrhea. Patient notes no complaints of chest pain or shortness of breath or dyspnea on exertion. No close contacts recently dx???d w/ similar URI complaints. Continues antihistamine and decongestant use of minimal assist. 11-day course of azithromycin prescribed on 02/23/2025 helped initially, but symptoms returned several days after completing. Non-smoker. No other associated symptoms and no other alleviating/aggravating factors. ROS Const Constitutional: No other (As above) Exam Const General: cooperative, healthy appearing and no acute distress Orientation: alert, awake and oriented x3 HENMT Head: normal to inspection Ears: hearing grossly normal bilaterally, external ears normal, TM's normal bilaterally and EAC's normal Nose: external nose normal, nares normal, septum normal and no nasal discharge Face and sinus: normal facial exam, L>R maxillary sinus palpable tender, and face symmetric Mouth: oral mucosae normal, lip normal, tongue normal and oropharynx normal Throat: posterio (more content not included)... Normal [facility] Urgent Care Visit Reporton 0 02-23-2025 Urgent Care Visit Report [facility] [address], [address] [place] [address] OFFICE VISIT Date of Service: 02/23/25 MR#: [id number] Acct: [id number] Name: RENETTA GILL Rep #: [id number] : 1960 Provider: CHIKA Saldaña Age/Sex: 64/F Location: [facility] Status: Signed Intake Vital Signs 02/04/25 08:51 02/23/25 08:46 Height 5 ft BP 122/80 H Position Sitting Pulse 98 Temp 98.4 F Temp Source Oral Pulse Oximetry (%) 97 Oxygen Delivery Method room air Intake Visit Reasons: Cough Accompanied by: Self Allergies Sulfa (Sulfonamide Antibiotics) Allergy (Mild, Verified 02/23/25 08:28) Rash Medications ???Medication ???Instructions ???Recorded ???Confirmed ???Type albuterol sulfate 90 mcg/actuation 2 inh inhalation Q6H PRN shortne ss 03/09/21 02/23/25 Rx breath activated powder inhaler of breath #1 ea pantoprazole 20 mg tablet,delayed 40 mg PO BID 08/07/22 02/23/25 Hi story release amlodipine 5 mg tablet 5 mg PO DAILY #90 tabs 01/28/24 Rx sertraline 100 mg tablet 100 mg PO DAILY #90 tabs 02/27/24 02/23/25 Rx hyoscyamine sulfate 0.375 mg 0.375 mg PO QDAY 12/05/24 02/23/25 History tablet,extended release,12 hr trazodone 50 mg tablet 50 mg PO DAILY PRN insomnia #90 02/23/25 Rx tabs lisinopril 20 mg tablet 20 mg PO DAILY #90 tabs 02/03/25 0 02/23/25 Rx albuterol sulfate 90 mcg/actuation 2 puff inhalation Q6H PRN 02/23/25 Rx aerosol inhaler (Ventolin HFA) shortness of breath or wheezing #8.5 grams azithromycin 250 mg tablet 250 mg PO .COMPLEX #12 tabs 02/23/25 Rx Have you fallen in the past year?: No Nurse's Note: Patient has a cough and drainage and throat hurts with bilateral ear pressure. Patient states this has been going on since sun. [facility] Medical History (Updated 02/04/25 @ 09:17 by Franky FARR, PA) Strain of right biceps Right shoulder strain Health care maintenance Left hamstring injury Fatty liver Left buttock pain Anxiety and depression Flu vaccine need Attention deficit Left hip pain Sinusitis Acute maxillary sinusitis, unspecified Abnormal colonoscopy Hyperlipidemia Swallowing problem Back pain Dry skin Screening for thyroid disorder Contact dermatitis, allergic GERMAIN (obstructive sleep apnea) Breast cancer screening COVID-19 vaccine series completed Breast pain, right Abdominal pain Dysuria Bronchitis Abnormal EKG Axillary abscess Hypersomnolence Hypertension Shortness of breath Woodall esophagus IBS (irritable bowel syndrome) Head ache Essential hypertension Glaucoma Surgical History History of tubal ligation Family History Grandmother Breast cancer Father Cancer Sister Cancer Mother Heart disease Brother Heart disease Other Colon cancer Social History Smoking Status: Former smoker alcohol intake: current alcohol intake frequency: 0-2 drinks per day Alcohol type: wine substance use type: does not use HPI HPI Details: RENETTA GILL, is a 64 F who presents to the office today for initial evaluation in the [facility] for approximately 5-6 day history of persistent sinus pressure, sore throat, moist productive purulent cough with nasal congestion and irritated throat. No complaints of fever, chills, PEÑA, myalgias, fatigue, nausea, and diarrhea. Patient notes no complaints of chest pain or shortness of breath or dyspnea on exertion. Several close contacts recently dx???d w/ similar URI complaints. Mucinex D of minimal assist. Non-smoker. No other associated symptoms and no other alleviating/aggravating factors. ROS Const Constitutional: No other (As above) Exam Const General: cooperative, healthy appearing and no acute distress Orientation: alert, awake and oriented x3 HENMT Head: normal to inspection Ears: hearing grossly normal bilaterally, external ears normal, TM's normal bilaterally and EAC's normal Nose: external nose normal, nares normal, septum normal and clear nasal discharge Face and sinus: normal facial exam, sinuses nontender and face symmetric Mouth: oral mucosae normal, lip normal, tongue normal and oropharynx normal Throat: posterior oropharynx normal, tonsils normal, uvula midline and no postnasal drainage Eyes General: appearance normal, both eyes and all related structures Neck Neck: normal visual inspection, full ROM, no lymphadenopathy, no meningeal signs and supple Neck mass: No Thyroid: thyroid normal Lymphatic: no lymphadenopathy noted Chest Chest palpation inspection: normal inspection of the chest Resp Effort Inspection: normal respiratory effort, able t (more content not included)... Normal [facility] Inital Evaluation (1) - PTon 02-05-2025 Inital Evaluation (1) - PT [facility] Physical Therapy [facility] [address] [place] [address] / REHABILITATION SERVICES INITIAL EVALUATION MR#: [id number] Acct: [id number] Name: RENETTA GILL Rep #: [id number] : 1960 64 From: Major LEIVAT Referring Dr.: CHIKA Saldaña Status: REG R CR Insurance: [employer] MEDICARE SELF PAY INSURANCE Patient's Visit Information Visit Information Visit Information: RENETTA GILL is a 64 year old F referred to Physical Therapy by CHIKA Saldaña with a diagnosis of R shoulder strain. Date of Evaluation: 02/05/25 Physical Therapist: Major Ervin DPT Visit Plan Frequency: 2x /Week Duration: 4 Weeks Plan: 1) denzel/anahy AARLORENZO progressing to AROM 2) US to anterior shoulder biceps/suprapinatus region, for initial visits 3)DFM to biceps as needed 4) once ROM as been restored add in iso progressing to concentric RTC/biceps strengthening, HEP at IE: wand chest press, wand flex, wand ER/ Subjective Subjective: Pt. is here today for her initial evaluation with diagnosis of R shoulder strain. Pt. reports being dragged down by her dog and had increased pain. Pt. reports having pain randomly throughout the day. Pt. reports not having much relief. No issues with sleeping. Pt. has not tried icing. She does go to an aquatic exercise class. She has been able to participate but at a reduced level. Pt. is hopeful to reduce symptoms in order to get back to all recreational activities without limitations. Pain R shoulder: Pain Intensity (Out of 10): 6 Pain Intensity Range: 0 and 8 Objective Objective: POSTURE: Pt. has fairly normal in stance. Normal head positioning. PALAPTION: pt. has marked tenderness along biceps in bicipial groove. No posterior shoulder pain noted. NEURO: Pt. has normal sensation throughout R UE, normal DTR noted. ROM: AROM: R shoulder: flexion 160deg mild increase NW, abd 90deg increase NE, functional ER C6 increase NW, ER L5 increase NW. Passively: flexion 170deg NE, abd 170deg NE, ER at 90deg 60deg increase NW, IR 50deg increase NW. MMT: Pt. has marked R sided weakness, not myotomal in nature. Pt. has increased pain with flexion and ER most notably. Special Tests R Shoulder Empty Can - SS: Positive R Shoulder Neer - Impingement: Positive R Shoulder Saldana Enrrique - Impingement: Positive R Shoulder Speeds Test - Labrum/Biceps: Positive Comments: + horn gabby Balance/Special Test Scores Quick DASH Score: 59.0900 Goals Goal 1:: LTG: Pt. to be I with HEP. Goal Time Frame: 4-6 Weeks Goal 2:: STG: Pt. to have decrease pain at rest to 0/10. Goal Time Frame: 2 Weeks Goal 3:: LTG: Pt. to have full R shoulder ROM with 0-2/10 pain. Goal Time Frame: 2-4 Weeks Goal 4:: LTG: Pt. to have symmetrical strength between BUEs. Goal Time Frame: 4-6 Weeks Goal 5:: LTG: pt. to complete all ADls without increase in symptoms. Goal Time Frame: 4-6 Weeks Rehabilitation Potential Physical Therapy Diagnosis: Pt. has signs and symptoms consistent with R shoulder strain due to mechanical trauma. Pt. has signs suggesting biceps involvement, but difficult to fully rule out supraspinatus. Pt. has marked hypomobility and weakness as well as pain and would benefit from PT to address the above limitations. Rehabilitation Potential: Good Anticipated Interventions Patient/Client Instruction: Educate patient on: Condition, Plan of Care, Risk Factors and Benefits of Fitness Program For the Purpose of:: To facilitate caregiver knowledge, To improve self management, To prevent re- injury, To improve ability to perform tasks related to life management and To improve tolerance to ADL's Therapeutic Exercise to Include: Strength training, Power training, Endurance training, Passive ROM, Active ROM and Scapular Strength/Stabilization For the Purpose of:: To decrease pain, To decrease swelling/inflammation, To increase ROM, To improve nutrient delivery to tissue, To increase oxygenation perfusion, To improve muscle performance and motor function and To improve ability to perform ADL's Manual Therapy Techniques to Include: Passive ROM and Soft tissue mobilization For the Purpose of:: To decrease pain, To decrease swelling/inflammation, To increase ROM, To improve nutrient delivery to tissue, To increase oxygenation perfusion and To improve muscle performance and motor function Ultrasound (thermal/non thermal): Yes For the Purpose of:: To decrease pain, To decrease swelling/inflammation and To increase ROM Text: Thank you for the opportunity to evaluate your patient. For Medicare and Medicare HMO plans, please review the plan of care and approve it. It will need to be FAXED BACK to us at [phone] for Medicare purposes. For Medicare only, by signing this I certify the plan of care. Please let me know if there are questions or concerns r (more content not included)... Normal [facility] Shoulder min 2 Viewson 02-04 Shoulder min 2 Views [facility] Imaging Services [address] [place] [address] Shoulder min 2 Views MR#: [id number] Acct: [id number] Name: RENETTA GILL Rep #: [id number] : 1960 F 64 From: Etienne ballard MD PCP: Dr. Danay Abdalla MD Status: DEP AMB Study: Shoulder min 2 Views Date of Exam: 02/04/25 Exam# [id number] Ordering Dr: Franky Rose PA PROCEDURE: SHOULDER MIN 2 VIEWS 02/04/2025 REASON FOR EXAM: SHOULDER INJURY, DOG PULLED ON ARM WHILE WALKING ON A LEASH TECHNIQUE: Four views of the right shoulder were obtained. COMPARISON: None FINDINGS: Bones: No fracture. Joints: Unremarkable Soft tissues: There is evidence of calcific tendinitis overlying the greater tuberosity of the proximal humerus. Other: RAD/Shoulder min 2 Views IMPRESSION: Calcific tendinitis. Reading Location: [facility] CC: Dr. 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: Signed Normal [facility] Urgent Care Visit Reporton 0 02-04-2025 Urgent Care Visit Report [facility] [address], [address] [place] [address] OFFICE VISIT Date of Service: 02/04/25 MR#: [id number] Acct: [id number] Name: RENETTA GILL Rep #: [id number] : 1960 Provider: CHIKA Saldaña Age/Sex: 64/F Location: [facility] Status: Signed Intake Vital Signs 12/05/24 10:47 02/04/25 09:06 Height 5 ft Weight: 194 lb BMI 37.8 BP 104/66 122/68 H Blood Pressure Location Lt brachial Lt brachial Position Sitting Sitting Respiration 16 15 Pulse 89 90 Pulse Source Monitor NIBP Temp 96.5 F L 98.4 F Temp Source Temporal Oral Pulse Oximetry (%) 96 97 Oxygen Delivery Method room air room air Intake Visit Reasons: R SHOULDER PAIN Chief Complaint: right shoulder injury Casing Soaker Required: No Is patient in pain?: Yes Allergies Sulfa (Sulfonamide Antibiotics) Allergy (Mild, Verified 02/04/25 09:07) Rash Is last menstrual period known: No Post menopausal: Yes Patient : No Have you fallen in the past year?: Yes Nurse's Note: dragged by dog 2 weeks ago injuring right shoulder. pain worsening since that time. decreased ROM d/t pain. denies hx injury, denies additional injuries. [facility] Medical History (Updated 02/04/25 @ 09:17 by Franky FARR PA) Strain of right biceps Right shoulder strain Health care maintenance Left hamstring injury Fatty liver Left buttock pain Anxiety and depression Flu vaccine need Attention deficit Left hip pain Sinusitis Acute maxillary sinusitis, unspecified Abnormal colonoscopy Hyperlipidemia Swallowing problem Back pain Dry skin Screening for thyroid disorder Contact dermatitis, allergic GERMAIN (obstructive sleep apnea) Breast cancer screening COVID-19 vaccine series completed Breast pain, right Abdominal pain Dysuria Bronchitis Abnormal EKG Axillary abscess Hypersomnolence Hypertension Shortness of breath Woodall esophagus IBS (irritable bowel syndrome) Head ache Essential hypertension Glaucoma Surgical History History of tubal ligation Family History Grandmother Breast cancer Father Cancer Sister Cancer Mother Heart disease Brother Heart disease Other Colon cancer Social History Smoking Status: Former smoker alcohol intake: current alcohol intake frequency: 0-2 drinks per day Alcohol type: wine substance use type: does not use HPI HPI Chief Complaint: right shoulder injury Details: RENETTA GILL, is a 64 F who presents to the office today for right shoulder/upper arm pain. Patient notes approximately 2 weeks ago while walking dog dog suddenly ran forward causing her to fall forward with outstretched arm holding leash of dog. Since the time of the incident she has had persistent moderate severe aching pain to the right anterior shoulder and proximal biceps region. She notes painful full active range of motion of the same though due to persistence of symptoms without improvement she is here for further evaluation. She has taken [id number] products to assist with symptoms. [id number]. PMH NC. No cervical or right elbow complaints. No other associated symptoms and no other alleviating/aggravating factors. ROS Const Constitutional: No other (As above) Exam Const General: cooperative, healthy appearing and no acute distress Orientation: alert and awake Chest Chest palpation inspection: normal inspection of the chest Resp Effort Inspection: normal respiratory effort and able to speak in complete sentences Cardio Rate: regular rate Pulses: radial pulses present Skin General: no rashes or lesions noted Neuro General: patient alert and patient awake Cognition: normal cognition Speech: speech normal Motor: muscle tone normal throughout Sensory Exam: no sensory deficits noted Extrem General: normal to inspection, full ROM (w/ pain to all (R ant. shoulder/ prox. biceps tender; neg. empty can)) and capillary refill normal Psych Appearance: grossly normal Mental Status: mental status grossly normal Mood: congruent mood Affect: normal affect Speech and Movement: speech and movement normal Attitude: cooperative Coding Level of Care Code Off vis,est,level 4 Diagnoses Right shoulder strain S46.911A Strain of right biceps S46.211A Assessment and Plan Assessment and Plan (1) Right shoulder strain: Status: Acute (2) Strain of right biceps: Status: Acute Plan: Right shoulder radiographs reveal no acute osseous pathology per my review, pending radiologist interpretation at time patient discharge. Rest, home range of motion exercises, NSAIDs as instructed today. PT referral placed to (more content not included)... Normal [facility] Internal Medicine Office Vis itogabriella 12-05-2024 Internal Medicine Office Visit [facility] [address] [place] [address] OFFICE VISIT Date of Service: 12/05/24 MR#: [id number] Acct: [id number] Name: RENETTA GILL Rep #: [id number] : 1960 Provider: Dr. Danay stockton MD Age/Sex: 64/F Location[place] [facility] Status: Signed Intake Vital Signs 09/05/24 10:48 12/05/24 10:47 Height 5 ft 5 ft Weight: 194 lb BMI 37.8 BP 104/66 Blood Pressure Location Lt brachial Position Sitting Respiration 16 Pulse 89 Pulse Source Monitor Temp 96.5 F L Temp Source Temporal Pulse Oximetry (%) 96 Oxygen Delivery Method room air Intake Visit Reasons: 3 M FU Chief Complaint: Follow-up chronic conditions Casing Soaker Required: No Accompanied by: Self Is patient in pain?: No Allergies Sulfa (Sulfonamide Antibiotics) Allergy (Mild, Verified 12/05/24 10:49) Rash Medications ???Medication ???Instructions ???Recorded ???Confirmed ???Type albuterol sulfate 90 mcg/actuation 2 inh inhalation Q6H PRN shortne ss 03/09/21 12/05/24 Rx breath activated powder inhaler of breath #1 ea pantoprazole 20 mg tablet,delayed 40 mg PO BID 08/07/22 12/05/24 Hi story release amlodipine 5 mg tablet 5 mg PO DAILY #90 tabs 01/28/24 Rx lisinopril 20 mg tablet 20 mg PO DAILY #90 tabs 01/28/24 0 12/05/24 Rx trazodone 50 mg tablet 50 mg PO DAILY PRN insomnia #90 12/05/24 Rx tabs sertraline 100 mg tablet 100 mg PO DAILY #90 tabs 02/27/24 12/05/24 Rx hyoscyamine sulfate 0.375 mg 0.375 mg PO QDAY 12/05/24 12/05/24 History tablet,extended release,12 hr Have you fallen in the past year?: No PFSH Medical History (Updated 12/05/24 @ 11:[address] Danay Abdalla MD) Health care maintenance Left hamstring injury Fatty liver Left buttock pain Anxiety and depression Flu vaccine need Attention deficit Left hip pain Sinusitis Acute maxillary sinusitis, unspecified Abnormal colonoscopy Hyperlipidemia Swallowing problem Back pain Dry skin Screening for thyroid disorder Contact dermatitis, allergic GERMAIN (obstructive sleep apnea) Breast cancer screening COVID-19 vaccine series completed Breast pain, right Abdominal pain Dysuria Bronchitis Abnormal EKG Axillary abscess Hypersomnolence Hypertension Shortness of breath Woodall esophagus IBS (irritable bowel syndrome) Head ache Essential hypertension Glaucoma Surgical History History of tubal ligation Family History Grandmother Breast cancer Father Cancer Sister Cancer Mother Heart disease Brother Heart disease Other Colon cancer Social History Smoking Status: Former smoker alcohol intake: current alcohol intake frequency: 0-2 drinks per day Alcohol type: wine substance use type: does not use HPI HPI Chief Complaint: Follow-up chronic conditions Details: RENETTA GILL, is a 64 F who presents to the office today for follow-up of her chronic conditions. Also has some concerns. She reports low back pain which is chronic/intermittent. No numbness or tingling down her extremity or change in bowel or bladder habit. She has been exercising more and feels better overall but pain still lingers. History of hypertension, blood pressure today is at 104/66 mmHg. As above, has been swimming at least 3 times weekly and exercising more overall. Denies lightheadedness, syncopal syncopal episodes. Other chronic medical conditions are stable. ROS Const Constitutional: No body ache, chills, excessive sweating, fatigue, fever(s), frequent falls, headache(s), snoring, weight change, sleep problems, abnormal sleep pattern or change in appetite Eyes Eyes: No blurry vision, change in vision, floaters, visual disturbances, eye pain or Light sensitivity ENT ENT: No abnormal hearing, ear or mastoid pain, tinnitus, balance problems, nosebleed/epistaxis, nasal congestion, headache(s), difficulty swallowing, neck pain or sore throat Resp Respiratory: No cough, excessive phlegm production, pain on inspiration, shortness of breath, snoring or wheezing Cardio Cardiology: No chest pain at rest, chest pain with exertion, leg pain with exertion, excessive sweating, shortness of breath, dyspnea on exertion, lightheadedness, orthopnea or palpitations Gastro GI: Positive for abdominal pain, diarrhea and nausea/dyspepsia; No change in bowel habits, constipation, cramping, heartburn, difficulty swallowing or vomiting Genitourinary-Female: No burning urination, painful urination, urinary incontinence, urinary frequency, urinary hesitancy, abnormal vaginal bleeding or pelvic pain Musc Musculoskeletal: Positive for back pain and stiffness (more content not included)... Normal [facility] Basic Metabolic Profile (BMP )on 09-05-2024 BUN/CRE 16.1 RATIO Normal 07-06 [facility] Comment on above: Performed By: #### L 500.2500, L500.4100 #### [facility] [address] [place], [address] CA,Total 9.6 mg/dL Normal 8.5-10.1 [facility] Comment on above: Performed By: #### L 500.2500, L500.4100 #### [facility] [address] [place], [address] Chloride [Moles/Vol] 106 mmol/L Normal 98-107 [facility] Comment on above: Performed By: #### L 500.2500, L500.4100 #### [facility] [address] [place], [address] CO2 [Moles/Vol] 27.0 mmol/L Normal 21.0-32.0 [facility] Comment on above: Performed By: #### L 500.2500, L500.4100 #### [facility] [address] [place], [address] Creatinine [Mass/Vol] 0.62 mg/dL Normal 0.55-1.02 [facility] Comment on above: Result Comment: The validity of the calculated GFR GFRAA in patients over 70 years has not been determined. Clinical correlation is essential. Performed By: #### L 500.2500, L500.4100 #### [facility] [address] [place], [address] EST GFR - AA 124 mL/min Normal >60 [facility] Comment on above: Result Comment: Afri can Liberian GFR Calc Performed By: #### L 500.2500, L500.4100 #### [facility] [address] [place], [address] GAP 5 Normal 5-15 [facility] Comment on above: Performed By: #### L 500.2500, L500.4100 #### [facility] [address] [place], [address] GFR/1.73 sq M.predicted among non-blacks MDRD (S/P/Bld) [Vol rate/Area] 102 mL/min/{1.73_m2} Normal >60 [facility] Comment on above: Result Comment: Non- GFR Calc Performed By: #### L 500.2500, L500.4100 #### [facility] [address] [place], [address] Glucose [Mass/Vol] 85 mg/dL Normal 74-106 [facility] Comment on above: Performed By: #### L 500.2500, L500.4100 #### [facility] [address] [place], [address] Potassium [Moles/Vol] 4.0 mmol/L Normal 3.5-5.1 [facility] Comment on above: Performed By: #### L 500.2500, L500.4100 #### [facility] [address] [place], [address] Sodium [Moles/Vol] 138 mmol/L Normal 136-145 [facility] Comment on above: Performed By: #### L 500.2500, L500.4100 #### [facility] [address] [place], [address] Urea nitrogen [Mass/Vol] 10 mg/dL Normal 7-18 [facility] Comment on above: Performed By: #### L 500.2500, L500.4100 #### [facility] [address] [place], [address] Comprehensive Metabolic Prof ilon 09-05-2024 ALB Normal 3.2-5.0 [facility] Comment on above: Result Comment: ERRO R Performed By: #### L 500.4050 #### [facility] [address] [place], [address] ALK P Normal 45-117 [facility] Comment on above: Result Comment: ERRO R Performed By: #### L 500.4050 #### [facility] [address] [place], [address] ALT Normal 13-56 [facility] Comment on above: Result Comment: ERRO R Performed By: #### L 500.4050 #### [facility] [address] [place], [address] AST Normal 15-37 [facility] Comment on above: Result Comment: ERRO R Performed By: #### L 500.4050 #### [facility] [address] [place], [address] BUN Normal 7-18 [facility] Comment on above: Result Comment: ERRO R Performed By: #### L 500.4050 #### [facility] [address] [place], [address] BUN/CRE Normal 10-20 [facility] Comment on above: Result Comment: ERRO R Performed By: #### L 500.4050 #### [facility] [address] [place], [address] CA,Total Normal 8.5-10.1 [facility] Comment on above: Result Comment: ERRO R Performed By: #### L 500.4050 #### [facility] [address] [place], [address] CL Normal 98-107 [facility] Comment on above: Result Comment: ERRO R Performed By: #### L 500.4050 #### [facility] [address] [place], [address] CO2 Normal 21.0-32.0 [facility] Comment on above: Result Comment: ERRO R Performed By: #### L 500.4050 #### [facility] [address] [place], [address] CREAT,SERUM Normal 0.55-1.02 [facility] Comment on above: Result Comment: ERRO R Performed By: #### L 500.4050 #### [facility] [address] [place], [address] EST GFR Normal >60 [facility] Comment on above: Result Comment: ERRO R Performed By: #### L 500.4050 #### [facility] [address] [place], [address] EST GFR - AA Normal >60 [facility] Comment on above: Result Comment: ERRO R Performed By: #### L 500.4050 #### [facility] [address] [place], [address] GAP Normal 5-15 [facility] Comment on above: Result Comment: ERRO R Performed By: #### L 500.4050 #### [facility] [address] [place], [address] GLU Normal 74-106 [facility] Comment on above: Result Comment: ERRO R Performed By: #### L 500.4050 #### [facility] [address] [place], [address] Potassium Normal 3.5-5.1 [facility] Comment on above: Result Comment: ERRO R Performed By: #### L 500.4050 #### [facility] [address] [place], [address] T BILI Normal 0.20-1.00 [facility] Comment on above: Result Comment: ERRO R Performed By: #### L 500.4050 #### [facility] [address] [place], [address] T PROT Normal 6.4-8.2 [facility] Comment on above: Result Comment: ERRO R Performed By: #### L 500.4050 #### [facility] [address] [place], [address] Comprehensive Metabolic Profil Normal 136-145 [facility] Comment on above: Result Comment: ERRO R Performed By: #### L 500.4050 #### [facility] [address] [place], [address] Internal Medicine Office Vis itogabriella 09-05-2024 Internal Medicine Office Visit [facility] [address] [place] [address] OFFICE VISIT Date of Service: 09/05/24 MR#: [id number] Acct: [id number] Name: RENETTA GILL Rep #: [id number] : 1960 Provider: Dr. Danay stockton MD Age/Sex: 63/F Location[place] [facility] Status: Signed Intake Vital Signs 05/09/24 13:48 09/05/24 10:48 Height 5 ft 5 ft Weight: 202 lb BMI 39.4 BP 124/86 H Blood Pressure Location Lt brachial Position Sitting Respiration 17 Pulse 97 Pulse Source Monitor Temp 97.8 F Temp Source Temporal Pulse Oximetry (%) 96 Oxygen Delivery Method room air Intake Visit Reasons: 4 M FU Chief Complaint: 4 M FU Is patient in pain?: No Allergies Sulfa (Sulfonamide Antibiotics) Allergy (Mild, Verified 09/05/24 10:49) Rash Medications ???Medication ???Instructions ???Recorded ???Confirmed ???Type hyoscyamine sulfate 0.375 mg 0.375 mg PO Q12H 12/27/20 09/05/24 History tablet,extended release,12 hr albuterol sulfate 90 mcg/actuation 2 inh inhalation Q6H PRN shortness 03/09/21 09/05/24 Rx breath activated powder inhaler of breath #1 ea pantoprazole 20 mg tablet,delayed 40 mg PO BID 08/07/22 09/05/24 History release amlodipine 5 mg tablet 5 mg PO DAILY #90 tabs 01/28/24 09/05/24 Rx lisinopril 20 mg tablet 20 mg PO DAILY #90 tabs 01/28/24 09/05/24 Rx trazodone 50 mg tablet 50 mg PO DAILY PRN insomnia #90 02/21/24 09/05/24 Rx tabs sertraline 100 mg tablet 100 mg PO DAILY #90 tabs 02/27/24 09/05/24 Rx Have you fallen in the past year?: No PFSH Medical History Health care maintenance Left hamstring injury Fatty liver Left buttock pain Anxiety and depression Flu vaccine need Attention deficit Left hip pain Sinusitis Acute maxillary sinusitis, unspecified Abnormal colonoscopy Hyperlipidemia Swallowing problem Back pain Dry skin Screening for thyroid disorder Contact dermatitis, allergic GERMAIN (obstructive sleep apnea) Breast cancer screening COVID-19 vaccine series completed Breast pain, right Abdominal pain Dysuria Bronchitis Abnormal EKG Axillary abscess Hypersomnolence Hypertension Shortness of breath Woodall esophagus IBS (irritable bowel syndrome) Head ache Essential hypertension Glaucoma Surgical History History of tubal ligation Family History Grandmother Breast cancer Father Cancer Sister Cancer Mother Heart disease Brother Heart disease Other Colon cancer Social History Smoking Status: Former smoker alcohol intake: current alcohol intake frequency: 0-2 drinks per day Alcohol type: wine substance use type: does not use HPI HPI Chief Complaint: 4 M FU Details: RENETTA GILL, is a 63 F who presents to the office today for follow-up of her chronic conditions. No acute concerns at this time. Had reported left hip area/buttock pain for a few months however she states that weeks ago, she had a "click" and the pain resolved. Has had no further concerns since then. History of hypertension, blood pressure today at 120/86 mmHg. Recently started exercising, swimming. Taking her medication as prescribed. No chest pain, palpitation or shortness of breath. History of hyperlipidemia, triglycerides elevated at last check. As above, has not recently started making some dietary and lifestyle changes. Currently not on any medication. Other chronic medical conditions are stable. ROS Const Constitutional: No body ache, chills, excessive sweating, fatigue, fever(s), frequent falls, headache(s), snoring, weight change, sleep problems, abnormal sleep pattern or change in appetite Eyes Eyes: No blurry vision, change in vision, floaters, visual disturbances, eye pain or Light sensitivity ENT ENT: No abnormal hearing, ear or mastoid pain, tinnitus, balance problems, nosebleed/epistaxis, nasal congestion, headache(s), neck pain or sore throat Resp Respiratory: No cough, excessive phlegm production, pain on inspiration, shortness of breath, snoring or wheezing Cardio Cardiology: No chest pain at rest, chest pain with exertion, excessive sweating, shortness of breath, dyspnea on exertion, lightheadedness, orthopnea or palpitations Gastro GI: No abdominal pain, change in bowel habits, constipation, cramping, diarrhea, nausea/dyspepsia or vomiting Genitourinary-Female: No burning urination, painful urination, urinary incontinence, urinary frequency, urinary hesitancy, abnormal vaginal bleeding or pelvic pain Musc Musculoskeletal: No abnormal gait, joint pain, back pain, limited range of motion, loss of height, muscle cramps, ne (more content not included)... Normal [facility] Lipid Profileon 09-05-2024 Cholesterol [Mass/Vol] 217 mg/dL High 200 [facility] Comment on above: Result Comment: <200 mg/dL Desirable 200-240 mg/dL Borderline >240 mg/dL High Risk Performed By: #### L 500.2500, L500.4100 #### [facility] [address] [place], [address] Cholesterol in HDL [Mass/Vol] 62 mg/dL Normal [facility] Comment on above: Result Comment: The drugs N-Acetylcysteine and Metamizole may falsely depress this assay. Reference Range HDL <40 mg/dL Low HDL Cholesterol HDL >or= 60 mg/dL High HDL Cholesterol Performed By: #### L 500.2500, L500.4100 #### [facility] [address] [place], [address] Cholesterol in LDL [Mass/Vol] 132 mg/dL High 0-130 [facility] Comment on above: Performed By: #### L 500.2500, L500.4100 #### [facility] [address] [place], [address] Cholesterol in VLDL [Mass/Vol] 23 mg/dL Normal 5-40 [facility] Comment on above: Performed By: #### L 500.2500, L500.4100 #### [facility] [address] [place], [address] Triglyceride [Mass/Vol] 117 mg/dL Normal [facility] Comment on above: Result Comment: The drugs N-Acetylcysteine and Metamizole may falsely depress this assay. Serum Triglycerides Reference Interval Normal <150 mg/dL Borderline high 150 - 199 mg/dL High 200 - 499 mg/dL Very High > or = 500 mg/dL Performed By: #### L 500.2500, L500.4100 #### [facility] [address] [place], [address] SCRN MAMM (CAD)W/ELENITA BILATo n 08-08-2024 SCRN MAMM (CAD)W/ELENITA BILAT [facility] Services [address] [place] [address] SCRN MAMM (CAD)W/ELENITA BILAT MR#: [id number] Acct: [id number] Name: RENETTA GILL Rep #: [id number] : 1960 F 63 From: Etienne ballard MD PCP: Dr. Danay Abdalla MD Status: [facility] Study: SCRN MAMM (CAD)W/ELENITA BILAT Date of Exam: 07/19 11/10 Exam# [id number] Ordering [place]: [place] [id number] MAMMOGRAPHY - BILATERAL SCREENING REASON FOR EXAM: Female, 63 years old. Routine annual screening examination. PERTINENT HISTORY: Grandmother with breast cancer. TECHNIQUE: Digital bilateral breast elenita (3D mammographic acquisition) in the CC and MLO projections. 2-D mediolateral oblique (MLO) and craniocaudad (CC) views of both breasts were obtained. CAD: Full Field Digital Mammography with Computer Added Detection was performed. COMPARISON: Comparison is made with prior study dated March 15, 2023 and January 25, 2022. FINDINGS: Breast Composition: The breasts are heterogeneously dense, which may obscure small masses. There are no dominant masses or suspicious calcifications. Stable small benign-appearing bilateral axillary lymph nodes. No other significant abnormalities are identified. There has been no significant change since the prior study. BI/SCRN MAMM (CAD)W/ELENITA BILAT IMPRESSION: Stable bilateral screening mammogram. Yearly follow-up mammogram recommended. (A) ASSESSMENT CATEGORY: BIRADS Category 2: Benign. A letter regarding these results will be sent to the patient by the facility within 30 days. Approximately 10% of breast cancers are not detected by mammography. A normal mammogram should not delay biopsy of a clinically suspicious abnormality. [id number] Electronically Signed: Etienne Fernando MD at 14:09 EST , CC: Dr. Danay Abdalla MD [employer] Supervisor: Signed Normal [facility] CBC W/Diff, Automatedon 04-18 Absolute Lymph 1.77 X10 3/uL Normal 0.83-4.51 [facility] Comment on above: Performed By: #### L 500.4050, L500.4100, L100.0100 #### [facility] [address] [place], [address] Absolute Neut 3.1 X10 3/uL Normal 2.0-7.7 [facility] Comment on above: Performed By: #### L 500.4050, L500.4100, L100.0100 #### [facility] [address] [place], [address] Basophils/100 WBC (Bld) 0.9 % Normal 0-1 [facility] Comment on above: Performed By: #### L 500.4050, L500.4100, L100.0100 #### [facility] [address] [place], [address] Eosinophils/100 WBC (Bld) 2.2 % Normal 0-5 [facility] Comment on above: Performed By: #### L 500.4050, L500.4100, L100.0100 #### [facility] [address] [place], [address] Erythrocyte distribution width (RBC) [Ratio] 13.9 % Normal 11.6-14.6 [facility] Comment on above: Performed By: #### L 500.4050, L500.4100, L100.0100 #### [facility] [address] [place], [address] Hematocrit (Bld) [Volume fraction] 37.9 % Normal 37-47 [facility] Comment on above: Performed By: #### L 500.4050, L500.4100, L100.0100 #### [facility] [address] [place], [address] Hemoglobin (Bld) [Mass/Vol] 12.6 g/dL Normal 12.0-15.0 [facility] Comment on above: Performed By: #### L 500.4050, L500.4100, L100.0100 #### [facility] [address] [place], [address] IG% 0.200 Normal 0.0-0.9 [facility] Comment on above: Result Comment: IG% - Immature Granulocytes (promyelocytes, myelocytes and metamyelocytes) > 1% indicates that a LEFT SHIFT is Present. Performed By: #### L 500.4050, L500.4100, L100.0100 #### [facility] [address] [place], [address] Lymphocytes/100 WBC (Bld) 33.1 % Normal 19-41 [facility] Comment on above: Performed By: #### L 500.4050, L500.4100, L100.0100 #### [facility] [address] [place], [address] MCH (RBC) [Entitic mass] 30.2 pg Normal 27.0-32.0 [facility] Comment on above: Performed By: #### L 500.4050, L500.4100, L100.0100 #### [facility] [address] [place], [address] MCHC (RBC) [Mass/Vol] 33.2 g/dL Normal 32-36 [facility] Comment on above: Performed By: #### L 500.4050, L500.4100, L100.0100 #### [facility] [address] [place], [address] MCV (RBC) [Entitic vol] 90.9 fL Normal 81-99 [facility] Comment on above: Performed By: #### L 500.4050, L500.4100, L100.0100 #### [facility] [address] [place], [address] Monocytes/100 WBC (Bld) 6.4 % Normal 0-10 [facility] Comment on above: Performed By: #### L 500.4050, L500.4100, L100.0100 #### [facility] [address] [place], [address] Neutrophils/100 WBC (Bld) 57.2 % Normal 47-70 [facility] Comment on above: Performed By: #### L 500.4050, L500.4100, L100.0100 #### [facility] [address] [place], [address] Nucleated RBC (Bld) [#/Vol] 0 10*3/uL Normal 0-5 [facility] Comment on above: Performed By: #### L 500.4050, L500.4100, L100.0100 #### [facility] [address] [place], [address] Platelet mean volume (Bld) [Entitic vol] 9.4 fL Normal 6.2-12.0 [facility] Comment on above: Performed By: #### L 500.4050, L500.4100, L100.0100 #### [facility] [address] [place], [address] Platelets (Bld) [#/Vol] 248 10*3/uL Normal 150-450 [facility] Comment on above: Performed By: #### L 500.4050, L500.4100, L100.0100 #### [facility] [address] [place], [address] RBC (Bld) [#/Vol] 4.17 10*6/uL Low 4.2-5.4 [facility] Comment on above: Performed By: #### L 500.4050, L500.4100, L100.0100 #### [facility] [address] [place], [address] RDW SD 46.5 fl High 35.1-43.9 [facility] Comment on above: Performed By: #### L 500.4050, L500.4100, L100.0100 #### [facility] [address] [place], [address] WBC (Bld) [#/Vol] 5.3 10*3/uL Normal 4.4-11.0 [facility] Comment on above: Performed By: #### L 500.4050, L500.4100, L100.0100 #### [facility] [address] [place], [address] [facility] 05-09-2024 Albumin [Mass/Vol] 3.8 g/dL Normal 3.2-5.0 [facility] Comment on above: Performed By: #### L 500.4050, L500.4100, L100.0100 #### [facility] [address] [place], [address] Albumin/Globulin [Mass ratio] 1.0 {ratio} Normal 0.9-2.4 [facility] Comment on above: Performed By: #### L 500.4050, L500.4100, L100.0100 #### [facility] [address] [place], [address] ALK P 97 U/L Normal 45-117 [facility] Comment on above: Performed By: #### L 500.4050, L500.4100, L100.0100 #### [facility] [address] [place], [address] ALT [Catalytic activity/Vol] 36 U/L Normal 13-56 [facility] Comment on above: Performed By: #### L 500.4050, L500.4100, L100.0100 #### [facility] [address] [place], [address] AST [Catalytic activity/Vol] 17 U/L Normal 15-37 [facility] Comment on above: Performed By: #### L 500.4050, L500.4100, L100.0100 #### [facility] [address] [place], [address] Bilirubin [Mass/Vol] 0.30 mg/dL Normal 0.20-1.00 [facility] Comment on above: Result Comment: For patients on eltrombopag therapy, use of Dimension [place] TBIL is not recommended. Performed By: #### L 500.4050, L500.4100, L100.0100 #### [facility] [address] [place], [address] BUN/CRE 16.7 RATIO Normal 10-20 [facility] Comment on above: Performed By: #### L 500.4050, L500.4100, L100.0100 #### [facility] [address] [place], [address] CA,Total 9.4 mg/dL Normal 8.5-10.1 [facility] Comment on above: Performed By: #### L 500.4050, L500.4100, L100.0100 #### [facility] [address] [place], [address] Chloride [Moles/Vol] 106 mmol/L Normal 98-107 [facility] Comment on above: Performed By: #### L 500.4050, L500.4100, L100.0100 #### [facility] [address] [place], [address] CO2 [Moles/Vol] 26.0 mmol/L Normal 21.0-32.0 [facility] Comment on above: Performed By: #### L 500.4050, L500.4100, L100.0100 #### [facility] [address] [place], [address] Creatinine [Mass/Vol] 0.78 mg/dL Normal 0.55-1.02 [facility] Comment on above: Result Comment: The validity of the calculated GFR GFRAA in patients over 70 years has not been determined. Clinical correlation is essential. Performed By: #### L 500.4050, L500.4100, L100.0100 #### [facility] [address] [place], [address] EST GFR - AA 96 mL/min Normal >60 [facility] Comment on above: Result Comment: Afri can [place] GFR Calc Performed By: #### L 500.4050, L500.4100, L100.0100 #### [facility] [address] [place], [address] GAP 7 Normal 5-15 [facility] Comment on above: Performed By: #### L 500.4050, L500.4100, L100.0100 #### [facility] [address] [place], [address] GFR/1.73 sq M.predicted among non-blacks MDRD (S/P/Bld) [Vol rate/Area] 79 mL/min/{1.73_m2} Normal >60 [facility] Comment on above: Result Comment: Non- GFR Calc Performed By: #### L 500.4050, L500.4100, L100.0100 #### [facility] [address] [place], [address] Globulin (S) [Mass/Vol] 3.9 g/dL Normal 2.2-4.2 [facility] Comment on above: Performed By: #### L 500.4050, L500.4100, L100.0100 #### [facility] [address] [place], [address] Glucose [Mass/Vol] 111 mg/dL High 74-106 [facility] Comment on above: Result Comment: Fast ing Glucose result from 100 to 125 mg/dL suggests IMPAIRED HOMEOSTASIS per A.D.A. criteria. Performed By: #### L 500.4050, L500.4100, L100.0100 #### [facility] [address] [place], [address] Potassium [Moles/Vol] 4.0 mmol/L Normal 3.5-5.1 [facility] Comment on above: Performed By: #### L 500.4050, L500.4100, L100.0100 #### [facility] [address] [place], [address] Sodium [Moles/Vol] 139 mmol/L Normal 136-145 [facility] Comment on above: Performed By: #### L 500.4050, L500.4100, L100.0100 #### [facility] [address] [place], [address] T PROT 7.7 g/dL Normal 6.4-8.2 [facility] Comment on above: Performed By: #### L 500.4050, L500.4100, L100.0100 #### [facility] [address] [place], [address] Urea nitrogen [Mass/Vol] 13 mg/dL Normal 7-18 [facility] Comment on above: Performed By: #### L 500.4050, L500.4100, L100.0100 #### [facility] [address] [place], [address] Internal Medicine Office Vis iton 05-09-2024 Internal Medicine Office Visit [facility] [address] [place] [address] OFFICE VISIT Date of Service: 05/09/24 MR#: [id number] Acct: [id number] Name: RENETTA GILL Rep #: [id number] : 1960 Provider: Dr. Danay stockton MD Age/Sex: 63/F Location: [facility] Status: Signed Intake Vital Signs 12/26/23 09:08 02/27/24 09:09 05/09/24 13:48 Height 5 ft 5 ft 5 ft Weight: 202 lb BMI 39.4 BP 124/88 H Blood Pressure Location Lt brachial Position Sitting Respiration 17 Pulse 95 Pulse Source Monitor Temp 97.6 F L Temp Source Temporal Pulse Oximetry (%) 98 Oxygen Delivery Method room air Intake Visit Reasons: 3 m fu Chief Complaint: 3 m fu Is patient in pain?: No Allergies Sulfa (Sulfonamide Antibiotics) Allergy (Mild, Verified 05/09/24 13:49) Rash Medications ???Medication ???Instructions ???Recorded ???Confirmed ???Type hyoscyamine sulfate 0.375 mg 0.375 mg PO Q12H 12/27/20 05/09/24 History tablet,extended release,12 hr albuterol sulfate 90 mcg/actuation 2 inh inhalation Q6H PRN shortness 03/09/21 05/09/24 Rx breath activated powder inhaler of breath #1 ea pantoprazole 20 mg tablet,delayed 40 mg PO BID 08/07/22 05/09/24 History release clobetasol 0.05 % topical ointment 1 applic topical BID PRN 02/23/23 05/09/24 Rx Dermatitis 2 weeks #30 grams amlodipine 5 mg tablet 5 mg PO DAILY #90 tabs 01/28/24 05/09/24 Rx lisinopril 20 mg tablet 20 mg PO DAILY #90 tabs 01/28/24 05/09/24 Rx trazodone 50 mg tablet 50 mg PO DAILY PRN insomnia #90 02/21/24 05/09/24 Rx tabs sertraline 100 mg tablet 100 mg PO DAILY #90 tabs 02/27/24 05/09/24 Rx PFSH Medical History (Updated 05/09/24 @ 14:[address] Danay Abdalla MD) Health care maintenance Left hamstring injury Fatty liver Left buttock pain Anxiety and depression Flu vaccine need Attention deficit Left hip pain Sinusitis Acute maxillary sinusitis, unspecified Abnormal colonoscopy Hyperlipidemia Swallowing problem Back pain Dry skin Screening for thyroid disorder Contact dermatitis, allergic GERMAIN (obstructive sleep apnea) Breast cancer screening COVID-19 vaccine series completed Breast pain, right Abdominal pain Dysuria Bronchitis Abnormal EKG Axillary abscess Hypersomnolence Hypertension Shortness of breath [place] esophagus IBS (irritable bowel syndrome) Head ache Essential hypertension Glaucoma Surgical History History of tubal ligation Family History Grandmother Breast cancer Father Cancer Sister Cancer Mother Heart disease Brother Heart disease Other Colon cancer Social History Smoking Status: Former smoker alcohol intake: current alcohol intake frequency: 0-2 drinks per day Alcohol type: wine substance use type: does not use HPI HPI Chief Complaint: 3 m fu Details: RENETTA GILL, is a 63 F who presents to the office today for follow-up of her chronic medical conditions. No acute concerns at this time. Initial blood pressure was 124/88 however with rest, came down to 100/70. She states that at home, her diastolics have been in the 70s with occasional readings in the 80s. Has been trying to make lifestyle and dietary changes. No chest pain, palpitation or shortness of breath. Had reported left buttock area for some time however she states that about 2 weeks ago, got up from a sitting position, had a click and since then has had little to no pain. Other chronic medical conditions are stable. ROS Const Constitutional: No body ache, chills, excessive sweating, fatigue, fever(s), frequent falls, headache(s), snoring, weight change, sleep problems, abnormal sleep pattern or change in appetite Eyes Eyes: No blurry vision, change in vision, eye pain or Light sensitivity ENT ENT: No abnormal hearing, ear or mastoid pain, tinnitus, nasal congestion, headache(s), neck pain or sore throat Resp Respiratory: No cough, shortness of breath, snoring or wheezing Cardio Cardiology: No chest pain at rest, chest pain with exertion, excessive sweating, shortness of breath, dyspnea on exertion, lightheadedness, orthopnea or palpitations Gastro GI: No abdominal pain, change in bowel habits, constipation, cramping, diarrhea, nausea/dyspepsia or vomiting Genitourinary-Female: No burning urination, painful urination, urinary incontinence, urinary frequency, abnormal vaginal bleeding or pelvic pain Musc Musculoskeletal: No abnormal gait, joint pain, back pain, limited range of motion, neck pain, numbness or tingling Skin Skin: No dry skin, redness, lesions, itchy eyes, rash or wounds Neuro Neurology: No abnormal gait, abnormal h (more content not included)... Normal [facility] Lipid Profileon 05-09-2024 Cholesterol [Mass/Vol] 224 mg/dL High 200 [facility] Comment on above: Result Comment: <200 mg/dL Desirable 200-240 mg/dL Borderline >240 mg/dL High Risk Performed By: #### L 500.4050, L500.4100, L100.0100 #### [facility] [address] [place], [address] Cholesterol in HDL [Mass/Vol] 61 mg/dL Normal [facility] Comment on above: Result Comment: The drugs N-Acetylcysteine and Metamizole may falsely depress this assay. Reference Range HDL <40 mg/dL Low HDL Cholesterol HDL >or= 60 mg/dL High HDL Cholesterol Performed By: #### L 500.4050, L500.4100, L100.0100 #### [facility] [address] [place], [address] Cholesterol in LDL [Mass/Vol] 109 mg/dL Normal 0-130 [facility] Comment on above: Performed By: #### L 500.4050, L500.4100, L100.0100 #### [facility] [address] [place], [address] Cholesterol in VLDL [Mass/Vol] 54 mg/dL High 5-40 [facility] Comment on above: Performed By: #### L 500.4050, L500.4100, L100.0100 #### [facility] [address] [place], [address] Triglyceride [Mass/Vol] 268 mg/dL High [facility] Comment on above: Result Comment: The drugs N-Acetylcysteine and Metamizole may falsely depress this assay. Serum Triglycerides Reference Interval Normal <150 mg/dL Borderline high 150 - 199 mg/dL High 200 - 499 mg/dL Very High > or = 500 mg/dL Performed By: #### L 500.4050, L500.4100, L100.0100 #### [facility] [address] [place], [place], [address] ANES POSTPROC EVALon 024 ANES POSTPROC EVAL HNO ID: [id number] Author: BRODY DAMON DO Service: Anesthesiology Author Type: Anesthesiologist Type: Anesthesia Postprocedure Evaluation Filed: 12/27/2023 14:04 Note Text: POST ANESTHESIA EVALUATION NOTE : 1960 Procedure Summary Date: 12/27/23 Room / Location: [facility] - ENDO Anesthesia Start: 1318 Anesthesia Stop: 1355 Procedure: EGD - THERAPEUTIC, EUS, OR TUBE INTERVENTIONS Diagnosis: Gastric polyp Scheduled Providers: Tricia Zamora MD; Nadia Martínez APRN.[employer]; Brody Damon DO Responsible Provider: Brody Damon DO Anesthesia Type: MAC ASA Status: 2 Anesthesia Type: MAC Last Vitals Vitals Value Taken Time BP 116/81 12/27/23 1400 Temp 12/27/23 1403 Pulse 95 12/27/23 1403 Resp 15 12/27/23 1403 SpO2 93 % 12/27/23 1403 Vitals shown include unfiled device data. Post Anesthesia Patient Status Patient Evaluation: PACU. Anticipated Disposition: phase 2 then home. Neurological Status: aware and responsive. Pulmonary Status: breathing comfortably on room air Airway Control: returned to baseline unsupported. Cardiovascular Status: stable. Pain Management: clinically adequate - multimodal analgesia pain management approach Postoperative Hydration: acceptable. Intraoperative Events: no significant anesthesia events Post Operative Nausea/Vomiting Status: no significant post operative nausea or vomiting Recommendation: continue current plan of care. Anesthesia Observations No Documentation SIGNATURE: Brody Damon DO PATIENT NAME: Renetta Gill DATE: December 27, 2023 TIME: 2:03 PM CSN: [id number] Normal [facility] ANES PRE-OPon 12-27-2023 ANES PRE-OP HNO ID: [id number] Author: BRODY DAMON DO Service: Anesthesiology Author Type: Anesthesiologist Type: Anesthesia Preprocedure Evaluation Filed: 12/27/2023 13:12 Note Text: ANESTHESIOLOGY DAY OF SURGERY NOTE : 1960 Procedure Information Date/Time: 12/27/23 1330 Scheduled providers: Tricia Zamora MD; Nadia Martínez APRN.[employer]; Brody Damon DO Procedure: EGD - THERAPEUTIC, EUS, OR TUBE INTERVENTIONS Location: [facility] - ENDO Estimated body mass index is 38.08 kg/m? as calculated from the following: Height as of 04/19/20: 152.4 cm (5'). Weight as of 02/21/21: 88.5 kg (195 lb). Most recent hematocrit and potassium results: Hematocrit 42.2 05/16/2019 Potassium 4.3 05/16/2019 Relevant Problems No relevant active problems I - PHYSICAL EVALUATION AIRWAY Patient intubated: No. Tracheostomy tube not present Mallampati: II. TM distance: >3 FB. Neck ROM: full ROM without neurological symptoms. Mouth opening: adequate. Short neck: no. Thick neck: no DENTAL Normal dental observations. Dental findings: teeth intact. Additional exam findings: no II - ANESTHESIA PLAN ASA Score: 2 Anesthetic Plan: MAC The patient is not a current smoker. NPO Status: adequate [place] Monitoring Plan Monitoring plan: standard ASA. Post Procedure Analgesic Plan Postoperative analgesic plan: multimodal analgesia. Informed Consent Anesthetic risks, benefits, alternatives, personnel and consent discussed: yes. Patient / Responsible Constitution Party agrees to proceed: yes Patient / Surrogate agrees to blood products: Yes Potential Anesthesia issues that may suggest increased risk of complications or contraindication to planned procedure: none. Vitals Value Taken Time BP 133/86 12/27/23 1308 Pulse 89 12/27/23 1308 Resp 19 12/27/23 1308 Temp 36.7 ?C (98.1 ?F) 12/27/23 1308 SpO2 97 % 12/27/23 1308 Outpatient Medications as of 12/27/2023 Medication Sig - amlodipine besylate (AMLODIPINE ORAL) Take by mouth. - LISINOPRIL ORAL Take by mouth. - sertraline (ZOLOFT) 25 mg tablet Take 1 tablet by mouth once daily. - traZODone (DESYREL) 50 mg tablet Take 1 tablet by mouth daily at bedtime. TAKE ONE(1) TABLET AT BEDTIME PO PRN INSOMNIA - hyoscyamine SR (LEVBID) 0.375 mg 12 hr tablet Take 1 tablet by mouth twice daily. - pantoprazole DR (PROTONIX) 40 mg tablet Take 40 mg by mouth twice daily. - triamterene-hydroCHLORO thiazide 37.5-25 mg per capsule Take 1 capsule by mouth once daily. - ipratropium bromide (ATROVENT) 42 mcg (0.06 %) nasal spray Use 2 Sprays in the nose twice daily. for 1 week - albuterol HFA (PROVENTIL HFA, VENTOLIN HFA) 90 mcg/actuation inhaler Inhale 2 Puffs as instructed every 4 hours as needed. - cholecalciferol (VITAMIN D) 1,000 unit tab tablet Take 2 tablets by mouth once daily. - magnesium oxide (MAG-OX) 400 mg (241.3 mg magnesium) tablet Take 1 tablet by mouth once daily. - ubidecarenone Q-10 (CO Q-10) 10 mg cap Take 1 capsule by mouth once daily. - Niacin-Inositol 400 mg niacin (500 mg) cap Take 1 tablet by mouth once daily. No current facility-administered medications on file as of 12/27/2023. I have interviewed and examined the patient. I have reviewed the medical record and/or the pre-anesthesia evaluation, pertinent labs, and test results. This contains updated information obtained within 48 hours of Surgery/Procedure. SIGNATURE: Brody Damon DO PATIENT NAME: Renetta Gill DATE: December 27, 2023 TIME: 1:11 PM CSN: [id number] [facility] EGD Study observation Narrat ivthomas 12-27-2023 [facility] NURSING PROGon 12-27-2023 NURSING PROG HNO ID: [id number] Author: JAMEE LOPEZ RN Service: Nursing Author Type: Registered Nurse Type: Nursing Progress Note Filed: 12/27/2023 14:30 Note Text: PATIENT EDUCATION TOPIC: PROCEDURE / SURGERY: Post Procedure Teaching: Home-Going Discharge Instructions PATIENT NAME: Renetta Gill PATIENT LOCATION: Room/bed info not found READINESS TO LEARN COGNITIVE ABILITY: Alert and oriented MOTIVATION TO LEARN: Eager FAMILY SUPPORT: Unable to assess - Family not present INSTRUCTION PROVIDED TO: Patient PATIENT LEARNS BEST BY: Written Instruction - Hand-outs Verbal Instruction FACTORS AFFECTING LEARNING: None PHYSICAL LIMITATIONS AFFECTING LEARNING: None LEARNING RESPONSE DIAGNOSIS: ADULT: Post-EUS PATIENT/FAMILY RESPONSE: Verbalizes understanding of: POST-PROCEDURE INSTRUCTIONS-Correct actions to take to reduce post procedure complications METHOD OF INSTRUCTION: Written instruction - handouts Verbal instruction FOLLOW-UP PLAN: Patient instructed to call with any further issues INSTRUCTIONAL AIDS USED: NA SUPPLEMENTAL MATERIAL PROVIDED TO PATIENT: None REFERRAL (RECOMMENDATION): None Electronically Signed By: Jamee Lopez [facility] NURSING PROG HNO ID: [id number] Author: AILEEN MALHOTRA RN Service: Nursing Author Type: Registered Nurse Type: Nursing Progress Note Filed: 12/27/2023 12:50 Note Text: PATIENT EDUCATION TOPIC: PROCEDURE / SURGERY: Procedure/Surgery: EGD/EUS PATIENT NAME: Renetta Gill PATIENT LOCATION: Room/bed info not found READINESS TO LEARN COGNITIVE ABILITY: Alert and oriented MOTIVATION TO LEARN: Interested FAMILY SUPPORT: High - Very involved in pt care INSTRUCTION PROVIDED TO: Patient PATIENT LEARNS BEST BY: Individual Instruction FACTORS AFFECTING LEARNING: None PHYSICAL LIMITATIONS AFFECTING LEARNING: None LEARNING RESPONSE DIAGNOSIS: ADULT: PATIENT/FAMILY RESPONSE: Verbalizes understanding of: PRE-PROCEDURE INSTRUCTIONS-Correct action to take to follow pre-procedure instructions METHOD OF INSTRUCTION: Individual instruction FOLLOW-UP PLAN: Complete - No need for follow-up INSTRUCTIONAL AIDS USED: NA SUPPLEMENTAL MATERIAL PROVIDED TO PATIENT: None REFERRAL (RECOMMENDATION): None Electronically Signed By: Aileen Malhotra [facility] Upper EUSon 12-27-2023 Upper EUS [facility] Patient Name: Renetta Gill Procedure Date: 12/27/2023 1:05 PM Date of : 1960 Admit Type: Outpatient Age: 63 Room: [place] [address] Gender: Female Note Status: Finalized Attending MD: Tricia Zamora MD, [id number] Procedure: Upper EUS Indications: Suspected gastric neoplasm, Submucosal tumor versus extrinsic mass found on endoscopy, 09/13/[address] Montano: A single 3 mm benign appearing polyp in gastric body. 1.5-2 cm submucosal mild prominence in the greater curve of the mid body. Providers: Tricia Zamora MD Patient Profile: This is a 63 year old female. Refer to note in patient chart for documentation of history and physical. Referring Physician: Tricia Zamora MD (Referring MD) Medicines: Monitored Anesthesia Care Complications: No immediate complications. Procedure: Pre-Anesthesia Assessment: - Prior to the procedure, a History and Physical was performed, and patient medications and allergies were reviewed. The patient's tolerance of previous anesthesia was also reviewed. The risks and benefits of the procedure and the sedation options and risks were discussed with the patient. All questions were answered, and informed consent was obtained. Prior Anticoagulants: The patient has taken no anticoagulant or antiplatelet agents. ASA Grade Assessment: III - A patient with severe systemic disease. After reviewing the risks and benefits, the patient was deemed in satisfactory condition to undergo the procedure. After obtaining informed consent, the endoscope was passed under direct vision. Throughout the procedure, the patient's blood pressure, pulse, and oxygen saturations were monitored continuously. The Endosonoscope was introduced through the mouth, and advanced to the second part of duodenum. After obtaining informed consent, the endoscope was passed under direct vision. Throughout the procedure, the patient's blood pressure, pulse, and oxygen saturations were monitored continuously.The upper GI endoscopy was accomplished without difficulty. The patient tolerated the procedure well. Moderate Sedation: MAC anesthesia was administered by the anesthesia team. Total Procedure Duration: 0 hours 18 minutes 3 seconds Findings: ENDOSONOGRAPHIC FINDING: : There was extrinsic compression in the greater curve of the stomach. There was extrinsic compression in the greater curve of the stomach. Endosonographic examination showed this compression to be due to an enlarged liver. There is no evidence of gastric mucosa lesion seen. The is bulging in upper gastric body, greater curvature related to the liver. No evidence of intramural mass. There was no sign of significant endosonographic abnormality in the left lobe of the liver. Homogeneous parenchyma was identified. A polyp was identified endosonographically in the gallbladder body. Normal retroflexion. Impression: - Extrinsic compression was noted in the greater curve of the stomach. - Normal retroflexion. - Extrinsic compression was noted in the greater curve of the stomach due to an enlarged liver. - There was no evidence of significant pathology in the left lobe of the liver. - No specimens collected. Recommendation: - Discharge patient to home (ambulatory). - Resume regular diet. - Continue present medications. - I anticipate no further need for intervention. - Observe patient's clinical course following today's procedure with therapeutic intervention. Procedure Code(s): --- Professional --- 89927, Esophagogastroduodenosc opy, flexible, transoral; with endoscopic ultrasound examination limited to the esophagus, stomach or duodenum, and adjacent structures Diagnosis Code(s): --- Professional --- K31.89, Other diseases of stomach and duodenum R16.0, Hepatomegaly, not elsewhere classified K92.9, Disease of digestive system, unspecified CPT copyright 2020 [employer]. All rights reserved. The codes documented in this report are preliminary and upon drill setup operator review may be revised to meet current compliance requirements. Attending Participation: I personally performed the entire procedure. Scope In: 1:26:33 PM Scope Out: 1:44:36 PM MD Tricia Dunlap MD 12/27/2023 2:07:06 PM This report has been signed electronically by Tricia Zamora MD Number of Addenda: 0 Note Initiated On: 12/27/2023 1:05 PM Estimated Blood Loss: Estimated blood loss: none. [facility] Tele[facility] (GASTNO) RENETTA GILL ([id number]) 1960 F Date Time Provider Department 12/04/23 TRICIA ZAMORA During your visit today, we recorded the following information about you: Linette Nugent RN 12/04/2023 10:37 AM Signed ----- Message from Tricia Zamora MD sent at 12/03/2023 5:24 PM EDT ----- She was scheduled for EGD+radial EUS 11/29/2023. The patient had breakfast including eggs, potatoes and sausage at 8 in the morning the day of her procedure. Anesthesia will not clear her for MAC sedation. Lorin: Please reschedule her procedure in 1 month. MD David Mancini Adm AssLorin guy II 12/04/2023 11:49 AM Signed Spoke with patient rescheduled EUS for , 01/17/2024 at [facility]. Went over prep and sent via my chart. Lorin Tyson Asst II Allergies As of Date: 12/04/2023 Noted Allergy Reaction SULFA (SULFONAMIDE ANTIBIOTICS) 08/25/2010 4 - Hives Date Reviewed: 11/29/2023 Reviewed by: Aileen Malhotra, MICHELLE - Fully Assessed Reason for Visit: Procedure [88] Cmt: Needs to reschedule EGD and EUS Primary Visit Diagnosis:Gastric polyp [K31.7] Order(s):EGD - THERAPEUTIC, EUS, OR TUBE INTERVENTIONS [GI2] Order #: [id number] FUTURE Prescriptions as of 12/04/2023 - amlodipine besylate (AMLODIPINE ORAL) Take by mouth. - LISINOPRIL ORAL Take by mouth. - triamterene-hydroCHLORO thiazide 37.5-25 mg per capsule Take 1 capsule [...] once daily. Problem List As Of Date 12/04/2023 Noted Resolved Posterior tibial tendinitis [M76.829] 11/13/2011 [...] Chronic insomnia [F51.04] 10/17/2019 Encounter Status:Closed by LORIN ROSS II on 12/04/23 [facility] Basophil percentageOrdered B y: Lonny Montano on 12-03-2023 Basophil percentage < 1.0 mg/dL 0.55-1.02 [facility] No Panel InformationOrdered By: Lonny Montano on 12-03-2023 Bedside Estimated GFR (eGFR) > 60.0000 mL/min >60 [facility] HISTORY PHYSICALon HISTORY PHYSICAL HNO ID: [id number] Author: TRICIA ZAMORA MD Service: Gastroenterology Author Type: Physician Type: H&P Filed: 11/29/2023 14:24 Note Text: PROCEDURAL SEDATION HISTORY AND PHYSICAL EXAM SERVICE DATE: 11/29/2023 SERVICE TIME: 2:23 PM Subjective HPI: This is a 63 year old female who presents for Endoscopic Ultrasound PAST ANESTHESIA HISTORY: No history of adverse event PAST MEDICAL HISTORY Diagnosis Date 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 Montano - repeat EGD May 2020 Female genuine [...] 1984, 1985, 1990 COLONOSCOPY COLONOSCOPY 06/04/2019 Dr. Montano; tubular adenoma x 2; repeat may 2022 IRIDOTOMY/IRIDECTOMY BY LASER 08/03/2014 Laser Peripheral Iridotomy (LPI) ou LAPAROSCOPIC TUBAL LIGATION/RING/CLIP 2002 JAYY 2006 PAST SURGICAL HISTORY OF 2009 uterine ablation for heavy bleeding at [facility] TOOTH EXTRACTION x4 of 3rd molar TREATMENT - MISSED DANDC x2 Prior to Admission medications as of [...] mg by mouth twice daily. 11/28/2023 Yes triamterene-hydroCHLORO thiazide 37.5-25 mg per capsule Take 1 capsule [...] hospital problems. * Medication and Non-Pharmacologic VTE Prophylaxis/Anticoagula nts VTE Prophylaxis: VTE prophylaxis appropriate Provisional Diagnosis/Treatment Plan: Submucosal gastric lesion SEDATION GOAL: Anesthesia SIGNATURE: Tricia Zamora MD PATIENT NAME: Renetta Gill DATE: November 29, 2023 TIME: 2:23 PM Normal [facility] NURSING PROGon 11-29-2023 NURSING PROG HNO ID: [id number] Author: OLIVIA TORRES RN Service: ? Author Type: Registered Nurse Type: Nursing Progress Note Filed: 11/29/2023 14:15 Note Text: PATIENT EDUCATION TOPIC: PROCEDURE / SURGERY: Pre Procedure Teaching: Protocols PATIENT NAME: Renetta Gill PATIENT LOCATION: Room/bed info not found READINESS TO LEARN COGNITIVE ABILITY: Alert and oriented MOTIVATION TO LEARN: Interested FAMILY SUPPORT: None - Unavailable/disinterest ed INSTRUCTION PROVIDED TO: Patient PATIENT LEARNS BEST [...] PROVIDED TO PATIENT: None REFERRAL (RECOMMENDATION): None Electronically Signed By: Olivia Torres [facility] - Microbiology an d Antimicrobial susceptibilityon 11-13-2023 SARS-CoV-2 (COVID-19) RNA LORA+probe Ql (Unsp spec) Not detected [facility] No Panel Informationon 11-13 Influenza Types A,B Rapid (Clinic) Not detected [facility] Absolute lymphocyte countOrd ered By: Lonny Montano on 09-19-2023 Lymphocytes Auto (Unsp spec) [#/Vol] 1.84 10*3/uL 0.83-4.51 [facility] Basophil percentageOrdered B y: Lonny Montano on 09-19-2023 Amylase [Catalytic activity/Vol] 26 U/L 25-115 [facility] Basophils/100 WBC (Bld) 0.8 % 0-1 [facility] Bilirubin [Mass/Vol] 0.50 mg/dL 0.20-1.00 [facility] Comment on above: For patients on eltr ombopag therapy, use of Dimension [place] TBIL is not recommended. Chloride [Moles/Vol] 106 mmol/L 98-107 [facility] Eosinophils/100 WBC (Bld) 2.2 % 0-5 [facility] Glucose [Mass/Vol] 99 mg/dL 74-106 [facility] Neutrophils (Bld) [#/Vol] 3.5 10*3/uL 2.0-7.7 [facility] Neutrophils/100 WBC (Bld) 59.2 % 47-70 [facility] Potassium [Moles/Vol] 4.0 mmol/L 3.5-5.1 [facility] Protein [Mass/Vol] 7.7 g/dL 6.4-8.2 [facility] Sodium [Moles/Vol] 138 mmol/L 136-145 [facility] WBC (Bld) [#/Vol] 5.9 10*3/uL 4.4-11.0 [facility] Blood erythrocytes count (nu mber/volume)Ordered By: Lonny Montano on 09-19-2023 RBC (Bld) [#/Vol] 4.56 10*6/uL 4.2-5.4 [facility] Blood hemoglobin measurement (mass/volume)Ordered By: Lonny Montano on 09-19-2023 Hemoglobin (Bld) [Mass/Vol] 13.4 g/dL 12.0-15.0 [facility] Blood lymphocytes/100 leukoc ytesOrdered By: Lonny Montano on 09-19-2023 Lymphocytes/100 WBC (Bld) 31.0 % 19-41 [facility] Blood monocytes/100 leukocyt esOrdered By: Lonny Montano on 09-19-2023 Monocytes/100 WBC (Bld) 6.6 % 0-10 [facility] Blood platelet mean volumeOr dered By: Lonny Montano on 09-19-2023 Platelet mean volume (Bld) [Entitic vol] 9.6 fL 6.2-12.0 [facility] Determination of erythrocyte mean corpuscular volume (MCV)Ordered By: Lonny Montano on 09-19-2023 MCV (RBC) [Entitic vol] 90.1 fL 81-99 [facility] Erythrocyte sedimentation ra teOrdered By: Lonny Montano on 09-19-2023 ESR (Bld) [Velocity] 15 mm/h 0-30 [facility] Hematocrit Auto (Bld) [Volum e fraction]Ordered By: Lonny Montano on 09-19-2023 Hematocrit (Bld) [Volume fraction] 41.1 % 37-47 [facility] Laboratory - Chemistry and C hemistry - challengeOrdered By: Lonny Montano on 09-19-2023 ALP [Catalytic activity/Vol] 98 U/L 45-117 [facility] ALT [Catalytic activity/Vol] 36 U/L 13-56 [facility] CO2 [Moles/Vol] 26.0 mmol/L 21.0-32.0 [facility] Globulin (S) [Mass/Vol] 3.9 g/dL 2.2-4.2 [facility] Urea nitrogen/Creatinine [Mass ratio] 19.0 mg/mg 10-20 [facility] Laboratory - Hematology and Cell countsOrdered By: Lonny Montano on 09-19-2023 Erythrocyte distribution width (RBC) [Entitic vol] 44.0 fL 35.1-43.9 [facility] Erythrocyte distribution width (RBC) [Ratio] 13.4 % 11.6-14.6 [facility] Immature granulocytes/100 WBC (Bld) 0.200 % 0.0-0.9 [facility] Comment on above: IG% - Immature Granu locytes (promyelocytes, myelocytes and metamyelocytes) > 1% indicates that a LEFT SHIFT is Present. MCH (RBC) [Entitic mass] 29.4 pg 27.0-32.0 [facility] Nucleated RBC/100 WBC (Bld) [Ratio] 0 % 0-5 [facility] MCHC Auto (RBC) [Mass/Vol]Or dered By: Lonny Montano on 09-19-2023 MCHC (RBC) [Mass/Vol] 32.6 g/dL 32-36 [facility] No Panel InformationOrdered By: Lonny Mnotano on 09-19-2023 Estimated GFR (MDRD) Amer 111 mL/min >60 [facility] Comment on above: GFR Calc Estimated GFR (MDRD) Non-Af Amer 92 mL/min >60 [facility] Comment on above: Non- GFR Calc Platelets bldOrdered By: Prakash Montano on 09-19-2023 Platelets (Bld) [#/Vol] 296 10*3/uL 150-450 [facility] Serum or plasma albumin jena urement (mass/volume)Ordered By: Lonny Montano on 09-19-2023 Albumin [Mass/Vol] 3.8 g/dL 3.2-5.0 [facility] Serum or plasma albumin/glob ulin mass ratioOrdered By: Lonny Montano on 09-19-2023 Albumin/Globulin [Mass ratio] 1.0 {ratio} 0.9-2.4 [facility] Serum or plasma calcium jena urement (mass/volume)Ordered By: Lonny Montano on 09-19-2023 Calcium [Mass/Vol] 9.6 mg/dL 8.5-10.1 [facility] Serum or plasma creatinine m easurement (mass/volume)Ordered By: Lonny Montano on 09-19-2023 Creatinine [Mass/Vol] 0.68 mg/dL 0.55-1.02 [facility] Comment on above: The validity of the calculated GFR & GFRAA in patients over 70 years has not been determined. Clinical correlation is essential. Serum or plasma urea nitroge n measurement (mass/volume)Ordered By: Lonny Montano on 09-19-2023 Urea nitrogen [Mass/Vol] 13 mg/dL 7-18 [facility] Thin prep Papanicolaou smear with manual screeningOrdered By: Lonny Montano on 09-19-2023 Thin prep Papanicolaou smear with manual screening 18 U/L 15-37 [facility] Thin prep Papanicolaou smear with manual screening 6 5-15 [facility] CNPNon 09-14-2023 CNPN Telephone (GASTNO) RENETTA GILL ([id number]) 1960 F Date Time Provider Department 09/14/23 TRICIA ZAMORA During your visit today, we recorded the following information about you: FelixLisa sanford Vega 09/14/2023 12:13 PM Signed Voicemail received from patient to schedule her EUS with Dr. Zamora. Please call her at [phone]. Lorin Ross II 09/21/2023 10:36 AM Signed Linette, Do you have any information on this patient for EUS from Dr. Montano office? Linette Swan II, MICHELLE 09/21/2023 2:38 PM Signed Pt referred for EUS to evaluate gastric submucosal structure. 09/13/[address] Montano: A single 3 mm benign appearing polyp in gastric body. 1.5-2 cm submucosal mild prominence in the greater curve of the mid body. Pathology NA. Pt does not take Anticoagulation. Dr. Zamora, please advise regarding EUS. Thank you, MICHELLE Garcia Khaled, MD 09/23/2023 10:00 PM Signed Schedule patient for EGD and radial EUS in 2 months. Explain the procedure to the patient in detail including potential complications. MD Jovanna Mancini Dawn, RN 09/24/2023 3:24 PM Signed Spoke with pt. EGD/EUS procedure explained in details. Patient verbalized understanding and agreed to proceed. Spoke with Merari at Dr. Montano, she will fax most recent OV note which will be scanned into pt's chart. Lorin, please schedule EUS as indicated below. Thank you, MICHELLE Garcia Linda II 10/18/2023 11:22 AM Signed Attempted to call patient regarding scheduling EUS, no answer, left message for patient to call back to schedule. Lorin Castro II Lisa Harman 11/08/2023 2:58 PM Signed Spoke to patient, appointment scheduled. Instructions sent on Plixi. 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 Problem List As Of Date 09/14/2023 Noted Resolved Posterior tibial tendinitis [M76.829] 11/13/2011 [...] Chronic insomnia [F51.04] 10/17/2019 Encounter Status:Closed by LISA HARMAN on 11/08/23 Normal [facility] Absolute lymphocyte countOrd ered By: Dr. Abdalla on 10-25-2022 Lymphocytes Auto (Unsp spec) [#/Vol] 1.42 10*3/uL 0.83-4.51 [facility] Basophil percentageOrdered B y: Dr. Abdalla on 10-25-2022 Basophils/100 WBC (Bld) 1.0 % 0-1 [facility] Chloride [Moles/Vol] 106 mmol/L 98-107 [facility] Eosinophils/100 WBC (Bld) 2.0 % 0-5 [facility] Glucose [Mass/Vol] 102 mg/dL 74-106 [facility] Comment on above: Fasting Glucose resu lt from 100 to 125 mg/dL suggests IMPAIRED HOMEOSTASIS per A.D.A. criteria. Neutrophils (Bld) [#/Vol] 3.1 10*3/uL 2.0-7.7 [facility] Neutrophils/100 WBC (Bld) 62.0 % 47-70 [facility] Potassium [Moles/Vol] 4.2 mmol/L 3.5-5.1 [facility] Sodium [Moles/Vol] 139 mmol/L 136-145 [facility] WBC (Bld) [#/Vol] 5.0 10*3/uL 4.4-11.0 [facility] Blood erythrocytes count (nu mber/volume)Ordered By: Dr. Abdalla on 10-25-2022 RBC (Bld) [#/Vol] 4.59 10*6/uL 4.2-5.4 [facility] Blood hemoglobin measurement (mass/volume)Ordered By: Dr. Abdalla on 10-25-2022 Hemoglobin (Bld) [Mass/Vol] 13.9 g/dL 12.0-15.0 [facility] Blood lymphocytes/100 leukoc ytesOrdered By: Dr. Abdalla on 10-25-2022 Lymphocytes/100 WBC (Bld) 28.7 % 19-41 [facility] Blood monocytes/100 leukocyt esOrdered By: Dr. Abdalla on 10-25-2022 Monocytes/100 WBC (Bld) 6.1 % 0-10 [facility] Blood platelet mean volumeOr dered By: Dr. Abdalla on 10-25-2022 Platelet mean volume (Bld) [Entitic vol] 9.2 fL 6.2-12.0 [facility] Determination of erythrocyte mean corpuscular volume (MCV)Ordered By: Dr. Abdalla on 10-25-2022 MCV (RBC) [Entitic vol] 91.7 fL 81-99 [facility] Hematocrit Auto (Bld) [Volum e fraction]Ordered By: Dr. Abdalla on 10-25-2022 Hematocrit (Bld) [Volume fraction] 42.1 % 37-47 [facility] Laboratory - Chemistry and C hemistry - challengeOrdered By: Dr. Abdalla on 10-25-2022 CO2 [Moles/Vol] 27.0 mmol/L 21.0-32.0 [facility] Urea nitrogen/Creatinine [Mass ratio] 19.1 mg/mg 10-20 [facility] Laboratory - Hematology and Cell countsOrdered By: Dr. Abdalla on 10-25-2022 Erythrocyte distribution width (RBC) [Entitic vol] 45.8 fL 35.1-43.9 [facility] Erythrocyte distribution width (RBC) [Ratio] 13.4 % 11.6-14.6 [facility] Immature granulocytes/100 WBC (Bld) 0.200 % 0.0-0.9 [facility] Comment on above: IG% - Immature Granu locytes (promyelocytes, myelocytes and metamyelocytes) > 1% indicates that a LEFT SHIFT is Present. MCH (RBC) [Entitic mass] 30.3 pg 27.0-32.0 [facility] Nucleated RBC/100 WBC (Bld) [Ratio] 0 % 0-5 [facility] MCHC Auto (RBC) [Mass/Vol]Or dered By: Dr. Abdalla on 10-25-2022 MCHC (RBC) [Mass/Vol] 33.0 g/dL 32-36 [facility] No Panel InformationOrdered By: Dr. Abdalla on 10-25-2022 Estimated GFR (MDRD) Amer 103 mL/min >60 [facility] Comment on above: GFR Calc Estimated GFR (MDRD) Non-Af Amer 85 mL/min >60 [facility] Comment on above: Non- GFR Calc Platelets bldOrdered By: Dr. Abdalla on 10-25-2022 Platelets (Bld) [#/Vol] 277 10*3/uL 150-450 [facility] Serum or plasma calcium jena urement (mass/volume)Ordered By: Dr. Abdalla on 10-25-2022 Calcium [Mass/Vol] 9.7 mg/dL 8.5-10.1 [facility] Serum or plasma creatinine m easurement (mass/volume)Ordered By: Dr. Abdalla on 10-25-2022 Creatinine [Mass/Vol] 0.73 mg/dL 0.55-1.02 [facility] Comment on above: The validity of the calculated GFR & GFRAA in patients over 70 years has not been determined. Clinical correlation is essential. Serum or plasma urea nitroge n measurement (mass/volume)Ordered By: Dr. Abdalla on 10-25-2022 Urea nitrogen [Mass/Vol] 14 mg/dL 7-18 [facility] Thin prep Papanicolaou smear with manual screeningOrdered By: Dr. Abdalla on 10-25-2022 Thin prep Papanicolaou smear with manual screening 6 5-15 [facility] CNTHERAPYon 10-19-2022 CNTHERAPY OT/PT/Speech Visit (SPMBME) RENETTA GILL ([id number]) 1960 F Date Time Provider Department 10/19/22 1:00 PM [facility] Date Time Provider Department Center 10/19/2022 1:00 PM [id number] [facility] [place] Reason for Visit: Speech Instrumental Swallow Eval [3660] Speech Discharge [3488] Primary Visit Diagnosis:Dysphagia, unspecified type [R13.10] Allergies As of Date: 10/19/2022 Noted Allergy Reaction SULFA (SULFONAMIDE ANTIBIOTICS) 08/25/2010 4 - Hives Date Reviewed: 02/21/2021 Reviewed by: Lisa Navas APRN.LINOLEUM LAYER HELPER - Fully Assessed Prescriptions as of 10/19/2022 - triamterene-hydroCHLORO thiazide 37.5-25 mg per capsule Take 1 capsule [...] Take 1 tablet by mouth once daily. Letter Text [facility] XR ESOPHAGRAMon 10-19-2022 XR ESOPHAGRAM * * *Final Report* * * DATE OF EXAM: Oct 19 2022 2:10PM MDX 5378 - XR ESOPHAGRAM / PROCEDURE REASON: R13.10 DYSPHAGIA, UNSPECIFIED * * * * Physician Interpretation * * * * XR ESOPHAGRAM INDICATION: R13.10 DYSPHAGIA, UNSPECIFIED TECHNIQUE: A biphasic study was performed using gas crystals with thick barium followed by thin barium. Fluoroscopic Radiation Summary: Plane A, Air Kerma: 54.7 mGy Dose Area Product (DAP): 7157.8 mGy*cm^2 Fluoro time: 0:48 min:sec FINDINGS: There is normal esophageal peristalsis, distensibility, and mucosal pattern. No masses, ulcerations, or strictures are seen. No extrinsic compression is seen. No hiatal hernia or gastroesophageal reflux is noted. IMPRESSION: Negative. Dimension Quar[employer] Supervisor: LUIS DANIEL Transcribe Date/Time: Oct 19 2022 3:36P Dictated by : ABDULAZIZ NUNES MD This examination was interpreted and the report reviewed and electronically signed by: ABDULAZIZ NUNES MD on Oct 19 2022 3:40PM EST [id number] [facility] XR MOD BARIUM SWALLOW W SPEE Brittany 10-19-2022 XR MOD BARIUM SWALLOW W SPEECH * * *Final Report* * * DATE OF EXAM: Oct 19 2022 2:05PM MDX 5377 - XR MOD BARIUM SWALLOW W SPEECH / PROCEDURE REASON: R13.10 DYSPHAGIA, UNSPECIFIED * * * * Physician Interpretation * * * * MODIFIED ESOPHAGRAM WITH VIDEO BY SPEECH PATHOLOGY Fluoroscopy was provided for an oropharyngeal phase swallowing examination performed by Speech Pathology. The exam is recorded for review. Please refer to the Speech Pathologist's report. Fluoroscopic Radiation Summary: Plane A, Air Kerma: 26.1 mGy Dose Area Product (DAP): 3301.9 mGy*cm^2 Fluoro time: 1:24 min:sec INDICATION: R13.10 DYSPHAGIA, UNSPECIFIED RESULT: See speech pathology notes. IMPRESSION: See speech pathology notes. [employer]ension [employer]ar[employer] Supervisor: LUIS DANIEL Transcribe Date/Time: Oct 19 2022 3:35P Dictated by : ABDULAZIZ NUNES MD This examination was interpreted and the report reviewed and electronically signed by: ABDULAZIZ NUNES MD on Oct 19 2022 3:36PM EST [id number] [facility] XR MODIFIED BARIUM SWALLOW W SPEECH THERAPYon 10-19-2022 [facility] Basophil percentageOrdered B y: Dr. Abdalla on 08-07-2022 Basophil percentage Not Reportable [facility] Laboratory - Chemistry and C hemistry - challengeOrdered By: Dr. Abdalla on 08-07-2022 Free T4 [Mass/Vol] 1.00 ng/dL 0.76-1.46 [facility] No Panel InformationOrdered By: Dr. Abdalla on 08-07-2022 Anti-Nuclear Antibody Screen Negative Negative [facility] Comment on above: Performed at: [address] [id number] Director: Delonte Diggs PhD, Phone: [phone] [employer] B Antibody Not Reportable [facility] WARP DRESSER Antibody Not Reportable [facility] Thyroid Stimulating Hormone (TSH) 2.22 uIU/mL 0.358-3.74 [facility] Serum DNA double strand anti body assay (units/volume)Ordered By: Dr. Abdalla on 08-07-2022 DNA double strand Ab Qn (S) Not Reportable [facility] Serum Briseida-1 antibody assay (u nits/volume)Ordered By: Dr. Abdalla on 08-07-2022 Briseida-1 extractable nuclear Ab Qn (S) Not Reportable [facility] Serum Scl-70 extractable nuc lear antibody assay (units/volume)Ordered By: Dr. Abdalla on 08-07-2022 SCL-70 extractable nuclear Ab Qn (S) Not Reportable [facility] Serum Marinelli extractable nucl ear antibody detectionOrdered By: Dr. Abdalla on 08-07-2022 Marinelli extractable nuclear Ab Ql (S) Not Reportable [facility] Absolute lymphocyte counton 06-14-2022 Lymphocytes Auto (Unsp spec) [#/Vol] 1.65 10*3/uL 0.83-4.51 [facility] Work Phone: Basophil percentageon 2021 Basophils/100 WBC (Bld) 1.0 % 0-1 [facility] Work Phone: Bilirubin [Mass/Vol] 0.50 mg/dL 0.20-1.00 [facility] Work Phone: Comment on above: For patients on eltr ombopag therapy, use of Dimension [place] TBIL is not recommended. Chloride [Moles/Vol] 104 mmol/L 98-107 [facility] Work Phone: Cholesterol [Mass/Vol] 235 mg/dL <200 [facility] Work Phone: Comment on above: <200 mg/dL Desirable 200-240 mg/dL Borderline >240 mg/dL High Risk Eosinophils/100 WBC (Bld) 2.4 % 0-5 [facility] Work Phone: [phone] Glucose [Mass/Vol] 98 mg/dL 74-106 [facility] Work Phone: [phone] Neutrophils (Bld) [#/Vol] 2.9 10*3/uL 2.0-7.7 [facility] Work Phone: [phone] Neutrophils/100 WBC (Bld) 56.8 % 47-70 [facility] Work Phone: [phone] Potassium [Moles/Vol] 4.3 mmol/L 3.5-5.1 [facility] Work Phone: [phone] Protein [Mass/Vol] 8.1 g/dL 6.4-8.2 [facility] Work Phone: [phone] Sodium [Moles/Vol] 139 mmol/L 136-145 [facility] Work Phone: [phone] Triglyceride [Mass/Vol] 175 mg/dL <199 [facility] Work Phone: [phone] Comment on above: The drugs N-Acetylcy steine and Metamizole may falsely depress this assay.Serum Triglycerides Reference Interval Normal <150 mg/dL Borderline high 150 - 199 mg/dL High 200 - 499 mg/dL Very High > or = 500 mg/dL WBC (Bld) [#/Vol] 5.0 10*3/uL 4.4-11.0 [facility] Work Phone: [phone] Blood erythrocytes count (nu mber/volume)on 06-14-2022 RBC (Bld) [#/Vol] 4.63 10*6/uL 4.2-5.4 [facility] Work Phone: [phone] Blood hemoglobin measurement (mass/volume)on 06-14-2022 Hemoglobin (Bld) [Mass/Vol] 14.2 g/dL 12.0-15.0 [facility] Work Phone: [phone] Blood lymphocytes/100 leukoc yteson 06-14-2022 Lymphocytes/100 WBC (Bld) 32.8 % 19-41 [facility] Work Phone: Blood monocytes/100 leukocyt eson 06-14-2022 Monocytes/100 WBC (Bld) 6.6 % 0-10 [facility] Work Phone: Blood platelet mean volumeon 06-14-2022 Platelet mean volume (Bld) [Entitic vol] 9.2 fL 6.2-12.0 [facility] Work Phone: Determination of erythrocyte mean corpuscular volume (MCV)on 06-14-2022 MCV (RBC) [Entitic vol] 92.4 fL 81-99 [facility] Work Phone: [phone] Hematocrit Auto (Bld) [Volum e fraction]on 06-14-2022 Hematocrit (Bld) [Volume fraction] 42.8 % 37-47 [facility] Work Phone: Laboratory - Chemistry and C hemistry - challengeon 06-14-2022 ALP [Catalytic activity/Vol] 94 U/L 45-117 [facility] Work Phone: ALT [Catalytic activity/Vol] 35 U/L 13-56 [facility] Work Phone: CO2 [Moles/Vol] 27.0 mmol/L 21.0-32.0 [facility] Work Phone: Globulin (S) [Mass/Vol] 4.2 g/dL 2.2-4.2 [facility] Work Phone: Urea nitrogen/Creatinine [Mass ratio] 14.7 mg/mg 10-20 [facility] Work Phone: Laboratory - Hematology and Cell countson 06-14-2022 Erythrocyte distribution width (RBC) [Entitic vol] 46.7 fL 35.1-43.9 [facility] Work Phone: Erythrocyte distribution width (RBC) [Ratio] 13.9 % 11.6-14.6 [facility] Work Phone: Immature granulocytes/100 WBC (Bld) 0.400 % 0.0-0.9 [facility] Work Phone: Comment on above: IG% - Immature Granu locytes (promyelocytes, myelocytes and metamyelocytes) > 1% indicates that a LEFT SHIFT is Present. MCH (RBC) [Entitic mass] 30.7 pg 27.0-32.0 [facility] Work Phone: Nucleated RBC/100 WBC (Bld) [Ratio] 0 % 0-5 [facility] Work Phone: [phone] MCHC Auto (RBC) [Mass/Vol]on 06-14-2022 MCHC (RBC) [Mass/Vol] 33.2 g/dL 32-36 [facility] Work Phone: No Panel Informationon 06-14 Estimated GFR (MDRD) Amer 112 mL/min >60 [facility] Work Phone: Comment on above: GFR Calc Estimated GFR (MDRD) Non-Af Amer 93 mL/min >60 [facility] Work Phone: Comment on above: Non- GFR Calc Platelets bldon 06-14-2022 Platelets (Bld) [#/Vol] 257 10*3/uL 150-450 [facility] Work Phone: [phone] Serum or plasma albumin jena urement (mass/volume)on 06-14-2022 Albumin [Mass/Vol] 3.9 g/dL 3.2-5.0 [facility] Work Phone: [phone] Serum or plasma albumin/glob ulin mass ratioon 06-14-2022 Albumin/Globulin [Mass ratio] 0.9 {ratio} 0.9-2.4 [facility] Work Phone: [phone] Serum or plasma calcium jena urement (mass/volume)on 06-14-2022 Calcium [Mass/Vol] 9.9 mg/dL 8.5-10.1 [facility] Work Phone: [phone] Serum or plasma cholesterol in HDL measurement (mass/volume)on 06-14-2022 Cholesterol in HDL [Mass/Vol] 60 mg/dL >40 [facility] Work Phone: Comment on above: The drugs N-Acetylcy steine and Metamizole may falsely depress this assay. Reference Range HDL <40 mg/dL Low HDL Cholesterol HDL >or= 60 mg/dL High HDL Cholesterol Serum or plasma cholesterol in VLDL measurement (mass/volume)on 06-14-2022 Cholesterol in VLDL [Mass/Vol] 35 mg/dL 5-40 [facility] Work Phone: Serum or plasma creatinine m easurement (mass/volume)on 06-14-2022 Creatinine [Mass/Vol] 0.68 mg/dL 0.55-1.02 [facility] Work Phone: Comment on above: The validity of the calculated GFR & GFRAA in patients over 70 years has not been determined. Clinical correlation is essential. Serum or plasma low density lipoprotein (LDL) cholesterol measurement (mass/volume)on 06-14-2022 Cholesterol in LDL [Mass/Vol] 140 mg/dL 0-130 [facility] Work Phone: Serum or plasma urea nitroge n measurement (mass/volume)on 06-14-2022 Urea nitrogen [Mass/Vol] 10 mg/dL 7-18 [facility] Work Phone: Thin prep Papanicolaou smear with manual screeningon 06-14-2022 Thin prep Papanicolaou smear with manual screening 12 U/L 15-37 [facility] Work Phone: [phone] Thin prep Papanicolaou smear with manual screening 8 5-15 [facility] Work Phone: Celiac Comp Panelon 05-18-20 19 Gliad Deamidated IgA NOTI Normal <20 [facility] Reference Lab Comment on above: Performed By: #### C BCDIF, WSR, AMYL, CMP #### [facility] Routine Lab [address], [place] [address] #### CELCMP #### See report for performing lab information. Gliad Deamidated IgG NOTI Normal <20 [facility] Reference [facility] Comment on above: Performed By: #### C BCDIF, WSR, AMYL, CMP #### [facility] [place] [facility] Routine Lab [address] [address] #### CELCMP #### See report for performing lab information. Transglutaminase IgG NOTI Normal <20 [facility] Comment on above: Performed By: #### C BCDIF, WSR, AMYL, CMP #### [facility] [place] [facility] Routine Lab [address] [address] #### CELCMP #### See report for performing lab information. Endomysial IgA Abs NOTI Abnormal <1:10 [facility] Reference Lab Comment on above: Performed By: #### C BCDIF, WSR, AMYL, CMP #### [facility] [place] [facility] Routine Lab [address] [place] [address] #### CELCMP #### See report for performing lab information. Transglutaminase IgA 9 Units Normal <20 [facility] Comment on above: Performed By: #### C BCDIF, WSR, AMYL, CMP #### [facility] [place] [facility] Routine Lab [address] [place] [address] #### CELCMP #### See report for performing lab information. Amylaseon 05-16-2019 Amylase [Catalytic activity/Vol] 41 U/L Normal 30-104 [facility] Reference Lab Comment on above: Performed By: #### C BCDIF, WSR, AMYL, CMP #### [facility] [place] [facility] Routine Lab [address] [place] [address] #### CELCMP #### See report for performing lab information. CBC and Differentialon 05-16 Abs Baso 0.05 k/uL Normal <0.11 [facility] Lab Comment on above: Performed By: #### C BCDIF, WSR, AMYL, CMP #### [facility] [place] [facility] Routine Lab [address] [place], [place] [address] #### CELCMP #### See report for performing lab information. Abs Gem 0.31 k/uL Normal <0.87 [facility] Lab Comment on above: Performed By: #### C BCDIF, WSR, AMYL, CMP #### [facility] [place] [facility] Routine Lab [address] [address] #### CELCMP #### See report for performing lab information. Abs Neut 3.05 k/uL Normal 1.45-7.50 [facility] Lab Comment on above: Performed By: #### C BCDIF, WSR, AMYL, CMP #### [facility] [place] [facility] Routine Lab [address] [place] [address] #### CELCMP #### See report for performing lab information. Absolute nRBC <0.01 Normal <0.01 [facility] Lab Comment on above: Performed By: #### C BCDIF, WSR, AMYL, CMP #### [facility] [place] [facility] Routine Lab [address] [place] [address] #### CELCMP #### See report for performing lab information. Basophils/100 WBC (Bld) 0.9 % Normal [facility] Comment on above: Performed By: #### C BCDIF, WSR, AMYL, CMP #### [facility] [place] [facility] Routine Lab [address] [place] [address] #### CELCMP #### See report for performing lab information. DTYPE ADIFF Normal [facility] Comment on above: Performed By: #### C BCDIF, WSR, AMYL, CMP #### [facility] [place] [facility] Routine Lab [address] [place] [address] #### CELCMP #### See report for performing lab information. Eosinophils (Bld) [#/Vol] 0.11 10*3/uL Normal <0.46 [facility] Comment on above: Performed By: #### C BCDIF, WSR, AMYL, CMP #### [facility] [place] [facility] Routine Lab [address] [address] #### CELCMP #### See report for performing lab information. Eosinophils/100 WBC (Bld) 2.1 % Normal [facility] Comment on above: Performed By: #### C BCDIF, WSR, AMYL, CMP #### [facility] [place] [facility] Routine Lab [address] [place] [address] #### CELCMP #### See report for performing lab information. Erythrocyte distribution width (RBC) [Ratio] 13.6 % Normal 11.5-15.0 [facility] Comment on above: Performed By: #### C BCDIF, WSR, AMYL, CMP #### [facility] [place] [facility] Routine Lab [address] [place] [address] #### CELCMP #### See report for performing lab information. Hematocrit (Bld) [Volume fraction] 42.2 % Normal 36.0-46.0 [facility] Comment on above: Performed By: #### C BCDIF, WSR, AMYL, CMP #### [facility] [place] [facility] Routine Lab [address] [place] [address] #### CELCMP #### See report for performing lab information. Hemoglobin (Bld) [Mass/Vol] 13.6 g/dL Normal 11.5-15.5 [facility] Comment on above: Performed By: #### C BCDIF, WSR, AMYL, CMP #### [facility] [place] [facility] Routine Lab [address] [place] [address] #### CELCMP #### See report for performing lab information. Lymphocytes (Bld) [#/Vol] 1.81 10*3/uL Normal 1.00-4.00 [facility] Comment on above: Performed By: #### C BCDIF, WSR, AMYL, CMP #### [facility] [place] [facility] Routine Lab [address] [place], [place] [address] #### CELCMP #### See report for performing lab information. Lymphocytes/100 WBC (Bld) 33.9 % Normal [facility] Comment on above: Performed By: #### C BCDIF, WSR, AMYL, CMP #### [facility] [place] [facility] Routine Lab [address] [place] [address] #### CELCMP #### See report for performing lab information. MCH (RBC) [Entitic mass] 29.2 pG Normal 26.0-34.0 [facility] Comment on above: Performed By: #### C BCDIF, WSR, AMYL, CMP #### [facility] [place] [facility] Routine Lab [address] [place] [address] #### CELCMP #### See report for performing lab information. MCHC (RBC) [Mass/Vol] 32.2 g/dL Normal 30.5-36.0 [facility] Reference Lab Comment on above: Performed By: #### C BCDIF, WSR, AMYL, CMP #### [facility] [place] [facility] Routine Lab [address] [place] [address] #### CELCMP #### See report for performing lab information. MCV (RBC) [Entitic vol] 90.8 fL Normal 80.0-100.0 [facility] Comment on above: Performed By: #### C BCDIF, WSR, AMYL, CMP #### [facility] [place] [facility] Routine Lab [address] [place], [place] [address] #### CELCMP #### See report for performing lab information. Monocytes/100 WBC (Bld) 5.8 % Normal [facility] Comment on above: Performed By: #### C BCDIF, WSR, AMYL, CMP #### [facility] [place] [facility] Routine Lab [address] [place], [place] [address] #### CELCMP #### See report for performing lab information. Neutrophils/100 WBC (Bld) 57.3 % Normal [facility] Comment on above: Performed By: #### C BCDIF, WSR, AMYL, CMP #### [facility] [place] [facility] Routine Lab [address] [address] #### CELCMP #### See report for performing lab information. NRBCs 0.0 /100 WBC Normal 0 [facility] Comment on above: Performed By: #### C BCDIF, WSR, AMYL, CMP #### [facility] [place] [facility] Routine Lab [address] [place] [address] #### CELCMP #### See report for performing lab information. Platelet mean volume (Bld) [Entitic vol] 9.9 fL Normal 9.0-12.7 [facility] Lab Comment on above: Performed By: #### C BCDIF, WSR, AMYL, CMP #### [facility] [place] [facility] Routine Lab [address] [place] [address] #### CELCMP #### See report for performing lab information. Platelets (Bld) [#/Vol] 265 10*3/uL Normal 150-400 [facility] Lab Comment on above: Performed By: #### C BCDIF, WSR, AMYL, CMP #### [facility] [place] [facility] Routine Lab [address] [place] [address] #### CELCMP #### See report for performing lab information. RBC (Bld) [#/Vol] 4.65 10*6/uL Normal 3.90-5.20 [facility] Reference Lab Comment on above: Performed By: #### C BCDIF, WSR, AMYL, CMP #### [facility] [place] [facility] Routine Lab [address] [place] [address] #### CELCMP #### See report for performing lab information. WBC (Bld) [#/Vol] 5.34 10*3/uL Normal 3.70-11.00 [facility] Reference Lab Comment on above: Performed By: #### C BCDIF, WSR, AMYL, CMP #### [facility] [place] [facility] Routine Lab [address] [address] #### CELCMP #### See report for performing lab information. Celiac Comp Panelon 05-16-20 19 IgA [Mass/Vol] 333 mg/dL Normal 78-391 [facility] Lab Comment on above: Performed By: #### C BCDIF, WSR, AMYL, CMP #### [facility] [place] [facility] Routine Lab [address] [address] #### CELCMP #### See report for performing lab information. Celiac Category PENDING Normal [facility] Lab Comment on above: Performed By: #### C BCDIF, WSR, AMYL, CMP #### [facility] [place] [facility] Routine Lab [address] [place] [address] #### CELCMP #### See report for performing lab information. CELIAC PANEL COMMENT PENDING Normal [facility] Reference Lab Comment on above: Performed By: #### C BCDIF, WSR, AMYL, CMP #### [facility] [place] [facility] Routine Lab [address] [place] [address] #### CELCMP #### See report for performing lab information. CELIAC PANEL INTRP PENDING Normal [facility] Reference Lab Comment on above: Performed By: #### C BCDIF, WSR, AMYL, CMP #### [facility] [place] [facility] Routine Lab [address] [address] #### CELCMP #### See report for performing lab information. Celiac RiskHaplotype PENDING Normal Negative [facility] Reference Lab Comment on above: Performed By: #### C BCDIF, WSR, AMYL, CMP #### [facility] [place] [facility] Routine Lab [address] [address] #### CELCMP #### See report for performing lab information. HLA-DQA1 Genotype PENDING Normal [facility] Reference Lab Comment on above: Performed By: #### C BCDIF, WSR, AMYL, CMP #### [facility] [place] [facility] Routine Lab [address] [address] #### CELCMP #### See report for performing lab information. HLA-DQB1 Genotype PENDING Normal [facility] Reference Lab Comment on above: Performed By: #### C BCDIF, WSR, AMYL, CMP #### [facility] [place] [facility] Routine Lab [address] [place] [address] #### CELCMP #### See report for performing lab information. Comp Metabolic Panelon 05-16 Albumin [Mass/Vol] 4.3 g/dL Normal 3.9-4.9 [facility] Reference Lab Comment on above: Performed By: #### C BCDIF, WSR, AMYL, CMP #### [facility] [place] [facility] Routine Lab [address] [place] [address] #### CELCMP #### See report for performing lab information. ALP [Catalytic activity/Vol] 93 U/L Normal 34-123 [facility] Reference Lab Comment on above: Performed By: #### C BCDIF, WSR, AMYL, CMP #### [facility] [place] [facility] Routine Lab [address] [place], [place] [address] #### CELCMP #### See report for performing lab information. ALT [Catalytic activity/Vol] 58 U/L High 7-38 [facility] Reference Lab Comment on above: Performed By: #### C BCDIF, WSR, AMYL, CMP #### [facility] [place] [facility] Routine Lab [address] [phone] #### CELCMP #### See report for performing lab information. Anion gap [Moles/Vol] 12 mmol/L Normal 9-18 [facility] Reference Lab Comment on above: Performed By: #### C BCDIF, WSR, AMYL, CMP #### [facility] [place] [facility] Routine Lab [address] [address] #### CELCMP #### See report for performing lab information. AST [Catalytic activity/Vol] 36 U/L High 13-35 [facility] Reference Lab Comment on above: Performed By: #### C BCDIF, WSR, AMYL, CMP #### [facility] [place] [facility] Routine Lab [address] [address] #### CELCMP #### See report for performing lab information. Bilirubin Ql (U) 0.2 mg/dL Normal 0.2-1.3 [facility] Reference Lab Comment on above: Performed By: #### C BCDIF, WSR, AMYL, CMP #### [facility] [place] [facility] Routine Lab [address] [place] [address] #### CELCMP #### See report for performing lab information. Calcium [Mass/Vol] 10.1 mg/dL Normal 8.5-10.2 [facility] Reference Lab Comment on above: Performed By: #### C BCDIF, WSR, AMYL, CMP #### [facility] [place] [facility] Routine Lab [address] [place] [address] #### CELCMP #### See report for performing lab information. Chloride [Moles/Vol] 101 mmol/L Normal 97-105 [facility] Reference Lab Comment on above: Performed By: #### C BCDIF, WSR, AMYL, CMP #### [facility] [place] [facility] Routine Lab [address] [place] [address] #### CELCMP #### See report for performing lab information. CO2 [Moles/Vol] 27 mmol/L Normal 22-30 [facility] Reference Lab Comment on above: Performed By: #### C BCDIF, WSR, AMYL, CMP #### [facility] [place] [facility] Routine Lab [address] [place] [address] #### CELCMP #### See report for performing lab information. Creatinine [Mass/Vol] 0.71 mg/dL Normal 0.58-0.96 [facility] Reference Lab Comment on above: Performed By: #### C BCDIF, WSR, AMYL, CMP #### [facility] [place] [facility] Routine Lab [address] [phone] #### CELCMP #### See report for performing lab information. eGFR- Amer. >60 Normal [facility] Reference Lab Comment on above: Performed By: #### C BCDIF, WSR, AMYL, CMP #### [facility] [place] [facility] Routine Lab [address] [place] [address] #### CELCMP #### See report for performing lab information. GFR/1.73 sq M predicted among non-blacks MDRD (S/P/Bld) [Vol rate/Area] mL/min/{1.73_m2} Normal [facility] Comment on above: Performed By: #### C BCDIF, WSR, AMYL, CMP #### [facility] [place] [facility] Routine Lab [address] [place] [phone] #### CELCMP #### See report for performing lab information. Glucose [Mass/Vol] 103 mg/dL High 74-99 [facility] Reference Lab Comment on above: Performed By: #### C BCDIF, WSR, AMYL, CMP #### [facility] [place] [facility] Routine Lab [address] [place] [phone] #### CELCMP #### See report for performing lab information. Potassium [Moles/Vol] 4.3 mmol/L Normal 3.7-5.1 [facility] Reference Lab Comment on above: Performed By: #### C BCDIF, WSR, AMYL, CMP #### [facility] [place] [facility] Routine Lab [address] [place] [phone] #### CELCMP #### See report for performing lab information. Protein [Mass/Vol] 7.2 g/dL Normal 6.3-8.0 [facility] Reference Lab Comment on above: Performed By: #### C BCDIF, WSR, AMYL, CMP #### [facility] [place] [facility] Routine Lab [phone] #### CELCMP #### See report for performing lab information. Sodium [Moles/Vol] 140 mmol/L Normal 136-144 [facility] Reference Lab Comment on above: Performed By: #### C BCDIF, WSR, AMYL, CMP #### [facility] [place] [facility] Routine Lab [address] [place], [place] [address] #### CELCMP #### See report for performing lab information. Urea nitrogen [Mass/Vol] 15 mg/dL Normal 7-21 [facility] Reference Lab Comment on above: Performed By: #### C BCDIF, WSR, AMYL, CMP #### [facility] [place] [facility] Routine Lab [address] [phone] #### CELCMP #### See report for performing lab information. Sed Rate Westergrenon 2018 Sed Rate Westergren 10 mm/hr Normal 0-20 [facility] Reference Lab Comment on above: Performed By: #### C BCDIF, WSR, AMYL, CMP #### [facility] [place] [facility] Routine Lab [facility] [phone] #### CELCMP #### See report for performing lab information. CT CARDIAC SCORINGon 019 CT CARDIAC SCORING Patient Name: RENETTA BERMUDEZ STUDY: CT CARDIAC SCORING; 01/01/2019 8:51 am INDICATION: Z13.6 Encounter for screening for cardiovascular disorders. COMPARISON: CT chest 03/17/2011 ACCESSION NUMBER(S): [id number] ORDERING CLINICIAN: MARS RUIZ TECHNIQUE: Using prospective ECG gating, CT scan of the coronary arteries was performed without intravenous contrast. Coronary calcium scoring was performed according to the method of Agatston. FINDINGS: The score and distribution of calcium in the coronary arteries is as follows: LM: 0. LAD: 0. LCx: 0. RCA: 0. Total: 0. The visualized segments of the lungs are normally expanded. Mild patchy infiltrate or atelectasis medial right lung base. Mild patchy infiltrate or atelectasis in the anterolateral right lung base. The visualized mid/lower ascending thoracic aorta measures 3.6 cm in diameter. The heart is borderline enlarged. Trace pericardial effusion. No gross evidence of mediastinal or hilar lymphadenopathy is identified. Fatty liver. IMPRESSION: 1. Coronary artery calcium score of 0*. 2. Mild patchy infiltrates or atelectasis right lung base. 3. Additional findings as above. *Coronary artery calcium scoring may be helpful in predicting the risk for future coronary heart disease events. According to the [employer] Clinical Expert Consensus Task Force, such testing provides important prognostic information in patients with more than one coronary heart disease risk factor. The coronary artery calcium score correlates with the annual risk of a non-fatal myocardial infarction or coronary heart disease . Coronary artery score Annual Risk 0-99 0.4% 100-399 1.3% >400 2.4% These three breakpoints correspond to lower, intermediate and high risk states for future coronary events. Such information should be used, along with appropriate clinical judgment, to make decisions regarding the intensity of risk factor management strategies to treat blood lipids and to modify other non-lipid coronary risk factors. Reference: Fenwick P et al. Circulation. 2007; 115:402-426 Electronically signed by: DO Sveta GARCIA [facility] DIGITAL MAMM SCREENING W/ MARGE Dimas 07-27-2017 DIGITAL MAMM SCREENING W/ ELENITA Name: RENETTA BERMUDEZ STUDY:DIGITAL MAMM SCREENING W/ ELENITA; 07/27/2017 8:25 am ORDERING CLINICIAN:AMANDA ALVARADO INDICATION:Screening. COMPARISON:07/11/2014, 04/11/2011 FINDINGS:2D and tomosynthesis images were reviewed at 1 mm slice thickness. The breast tissue is heterogeneously dense, which may obscure smallmasses. No suspicious masses or calcifications are identified. IMPRESSION:No mammographic evidence of malignancy. BI-RADS CATEGORY:Category: 1 - Negative.Recommendation : 1 Year Screening.Patient letter sent SNORM Electronically signed by: MD Sveta VELASQUEZ [facility] Vital Signs Date Time Vital Sign Value Performing Clinician Lisa rosioy 03-17-2025 09:04-0400 Body height 152.[address] Danay Abdalla MD Work Phone: [facility] 03-17-2025 08:57-0400 Body temperature 97.8 [degF] Dr. Danay Abdalla MD Work Phone: [facility] 03-17-2025 08:57-0400 Diastolic blood pressure 76 mm[Hg] Dr. Danay Abdalla MD Work Phone: [facility] 03-17-2025 08:57-0400 Heart rate 91 /min Dr. Danay Abdalla MD Work Phone: [facility] 03-17-2025 08:57-0400 Respiratory rate 18 /min Dr. Danay Abdalla MD Work Phone: [facility] 03-17-2025 08:57-0400 SaO2% (BldA) [Mass fraction] 96 % Dr. Danay Abdalla MD Work Phone: [facility] 03-17-2025 08:57-0400 Systolic blood pressure 122 mm[Hg] Dr. Danay Abdalla MD Work Phone: [facility] 03-17-2025 08:35-0400 Body height 152.[address] Danya Abdalla MD Work Phone: [facility] 03-17-2025 08:35-0400 Body mass index (BMI) [Ratio] 37.5 kg/m2 Dr. Danay Abdalla MD Work Phone: [facility] 03-17-2025 08:35-0400 Body weight 87.[address] Danay Abdalla MD Work Phone: [facility] 02-23-2025 08:46-0400 Body temperature 98.4 [degF] Dr. Danay Abdalla MD Work Phone: [facility] 02-23-2025 08:46-0400 Diastolic blood pressure 80 mm[Hg] Dr. Danay Abdalla MD Work Phone: [facility] 02-23-2025 08:46-0400 Heart rate 98 /min Dr. Danay Abdalla MD Work Phone: [facility] 02-23-2025 08:46-0400 SaO2% (BldA) [Mass fraction] 97 % Dr. Danay Abdalla MD Work Phone: [facility] 02-23-2025 08:46-0400 Systolic blood pressure 122 mm[Hg] Dr. Danay Abdalla MD Work Phone: [facility] 02-04-2025 09:06-0400 Body temperature 98.4 [degF] Dr. Danay Abdalla MD Work Phone: [facility] 02-04-2025 09:06-0400 Diastolic blood pressure 68 mm[Hg] Dr. Danay Abdalla MD Work Phone: [facility] 02-04-2025 09:06-0400 Heart rate 90 /min Dr. Danay Abdalla MD Work Phone: [facility] 02-04-2025 09:06-0400 Respiratory rate 15 /min Dr. Danay Abdalla MD Work Phone: [facility] 02-04-2025 09:06-0400 SaO2% (BldA) [Mass fraction] 97 % Dr. Danay Abdalla MD Work Phone: [facility] 02-04-2025 09:06-0400 Systolic blood pressure 122 mm[Hg] Dr. Danay Abdalla MD Work Phone: [facility] 02-04-2025 08:51-0400 Body height 152.[address] Danay Abdalla MD Work Phone: [facility] 12-05-2024 10:47-0400 Body mass index (BMI) [Ratio] 37.8 kg/m2 Dr. Danay Abdalla MD Work Phone: [facility] 12-05-2024 10:47-0400 Body temperature 96.5 [degF] Dr. Danay Abdalla MD Work Phone: [facility] 12-05-2024 10:47-0400 Body weight 87.[address] Danay Abdalla MD Work Phone: [facility] 12-05-2024 10:47-0400 Diastolic blood pressure 66 mm[Hg] Dr. Danay Abdalla MD Work Phone: [facility] 12-05-2024 10:47-0400 Heart rate 89 /min Dr. Danay Abdalla MD Work Phone: [facility] 12-05-2024 10:47-0400 Respiratory rate 16 /min Dr. Danay Abdalla MD Work Phone: [facility] 12-05-2024 10:47-0400 SaO2% (BldA) [Mass fraction] 96 % Dr. Danay Abdalla MD Work Phone: [facility] 12-05-2024 10:47-0400 Systolic blood pressure 104 mm[Hg] Dr. Danay Abdalla MD Work Phone: [facility] 12-27-2023 14:30-0400 Diastolic blood pressure 80 mm[Hg] Tricia Zamora MD Work Phone: [facility] 12-27-2023 14:30-0400 Heart rate 84 /min Tricia Zamora MD Work Phone: [facility] 12-27-2023 14:30-0400 Respiratory rate 15 /min Tricia Zamora MD Work Phone: [facility] 12-27-2023 14:30-0400 SaO2% (BldA) [Mass fraction] 97 % Tricia Zamora MD Work Phone: [facility] 12-27-2023 14:30-0400 Systolic blood pressure 115 mm[Hg] Tricia Zamora MD Work Phone: [facility] 12-27-2023 13:55-0400 Body temperature 96.8 [degF] Tricia Zamora MD Work Phone: [facility] 11-29-2023 14:20-0400 Body temperature 96.8 [degF] Tricia Zamora MD Work Phone: [facility] 11-29-2023 14:20-0400 Diastolic blood pressure 84 mm[Hg] Tricia Zamora MD Work Phone: [facility] 11-29-2023 14:20-0400 Heart rate 100 /min Tricia Zamora MD Work Phone: [facility] 11-29-2023 14:20-0400 Respiratory rate 17 /min Tricia Zamora MD Work Phone: [facility] 11-29-2023 14:20-0400 SaO2% (BldA) [Mass fraction] 96 % Tricia Zamora MD Work Phone: [facility] 11-29-2023 14:20-0400 Systolic blood pressure 134 mm[Hg] Tricia Zamora MD Work Phone: [facility] 11-13-2023 08:36-0500 Body height 152.[address] Danay Abdalla Work Phone: [facility] 11-13-2023 08:36-0500 Body mass index (BMI) [Ratio] 39 kg/m2 Dr. Danay Abdalla Work Phone: [facility] 11-13-2023 08:36-0500 Body temperature 97.9 [degF] Dr. Danay Abdalla Work Phone: [facility] 11-13-2023 08:36-0500 Body weight 90.[address] Danay Abdalla Work Phone: [facility] 11-13-2023 08:36-0500 Diastolic blood pressure 90 mm[Hg] Dr. Danay Abdalla Work Phone: [facility] 11-13-2023 08:36-0500 Heart rate 113 /min Dr. Danay Abdalla Work Phone: [facility] 11-13-2023 08:36-0500 Respiratory rate 14 /min Dr. Danay Abdalla Work Phone: [facility] 11-13-2023 08:36-0500 SaO2% (BldA) [Mass fraction] 96 % Dr. Danay Abdalla Work Phone: [facility] 11-13-2023 08:36-0500 Systolic blood pressure 132 mm[Hg] Dr. Danay Abdalla Work Phone: [facility] 09-24-2023 08:06-0500 Body mass index (BMI) [Ratio] 39.4 kg/m2 Dr. Danay Abdalla Work Phone: [facility] 09-24-2023 08:06-0500 Body temperature 97.4 [degF] Dr. Danay Abdalla Work Phone: [facility] 09-24-2023 08:06-0500 Body weight 91.[address] Danay Abdalla Work Phone: [facility] 09-24-2023 08:06-0500 Diastolic blood pressure 82 mm[Hg] Dr. Danay Abdalla Work Phone: [facility] 09-24-2023 08:06-0500 Heart rate 102 /min Dr. Danay Abdalla Work Phone: [facility] 09-24-2023 08:06-0500 Respiratory rate 18 /min Dr. Danay Abdalla Work Phone: [facility] 09-24-2023 08:06-0500 SaO2% (BldA) [Mass fraction] 98 % Dr. Danay Abdalla Work Phone: [facility] 09-24-2023 08:06-0500 Systolic blood pressure 112 mm[Hg] Dr. Danay Abdalla Work Phone: [facility] 02-23-2023 08:19-0400 Body height 1676.[address] Danay Abdalla Work Phone: [facility] 02-23-2023 08:19-0400 Body mass index (BMI) [Ratio] 0.3 kg/m2 Dr. Danay Abdalla Work Phone: [facility] 02-23-2023 08:19-0400 Body temperature 96.7 [degF] Dr. Danay Abdalla Work Phone: [facility] 02-23-2023 08:19-0400 Body weight 89.[address] Danay Abdalla Work Phone: [facility] 02-23-2023 08:19-0400 Diastolic blood pressure 76 mm[Hg] Dr. Danay Abdalla Work Phone: [facility] 02-23-2023 08:19-0400 Heart rate 97 /min Dr. Danay Abdalla Work Phone: [facility] 02-23-2023 08:19-0400 Respiratory rate 18 /min Dr. Danay Abdalla Work Phone: [facility] 02-23-2023 08:19-0400 SaO2% (BldA) [Mass fraction] 97 % Dr. Danay Abdalla Work Phone: [facility] 02-23-2023 08:19-0400 Systolic blood pressure 104 mm[Hg] Dr. Danay Abdalla Work Phone: [facility] 01-31-2023 09:43-0400 Body temperature 97.4 [degF] Dr. Danay Abdalla Work Phone: [facility] 01-31-2023 09:43-0400 Diastolic blood pressure 78 mm[Hg] Dr. Danay Abdalla Work Phone: [facility] 01-31-2023 09:43-0400 Heart rate 110 /min Dr. Danay Abdalla Work Phone: [facility] 01-31-2023 09:43-0400 Respiratory rate 16 /min Dr. Danay Abdalla Work Phone: [facility] 01-31-2023 09:43-0400 SaO2% (BldA) [Mass fraction] 96 % Dr. Danay Abdalla Work Phone: [facility] 01-31-2023 09:43-0400 Systolic blood pressure 128 mm[Hg] Dr. Danay Abdalla Work Phone: [facility] 10-25-2022 08:17-0500 Body height 165.[address] Danay Abdalla Work Phone: [facility] 10-25-2022 08:17-0500 Body mass index (BMI) [Ratio] 32.1 kg/m2 Dr. Danay Abdalla Work Phone: [facility] 10-25-2022 08:17-0500 Body temperature 97.1 [degF] Dr. Danay Abdalla Work Phone: [facility] 10-25-2022 08:17-0500 Body weight 87.[address] Danay Abdalla Work Phone: [facility] 10-25-2022 08:17-0500 Diastolic blood pressure 82 mm[Hg] Dr. Danay Abdalla Work Phone: [facility] 10-25-2022 08:17-0500 Heart rate 98 /min Dr. Danay Abdalla Work Phone: [facility] 10-25-2022 08:17-0500 Respiratory rate 16 /min Dr. Danay Abdalla Work Phone: [facility] 10-25-2022 08:17-0500 SaO2% (BldA) [Mass fraction] 98 % Dr. Danay Abdalla Work Phone: [facility] 10-25-2022 08:17-0500 Systolic blood pressure 114 mm[Hg] Dr. Danay Abdalla Work Phone: [facility] 08-07-2022 08:11-0500 Body height 165.[address] Danay Abdalla Work Phone: [facility] Work Phone: 08-07-2022 08:11-0500 Body mass index (BMI) [Ratio] 32.4 kg/m2 Dr. Danay Abdalla Work Phone: [facility] 08-07-2022 08:11-0500 Body temperature 96.9 [degF] Dr. Danay Abdalla Work Phone: [facility] 08-07-2022 08:11-0500 Body weight 88.[address] Danay Abdalla Work Phone: [facility] 08-07-2022 08:11-0500 Diastolic blood pressure 90 mm[Hg] Dr. Danay Abdalla Work Phone: [facility] 08-07-2022 08:11-0500 Heart rate 93 /min Dr. Danay Abdalla Work Phone: [facility] 08-07-2022 08:11-0500 Respiratory rate 16 /min Dr. Danay Abdalla Work Phone: [facility] 08-07-2022 08:11-0500 SaO2% (BldA) [Mass fraction] 99 % Dr. Danay Abdalla Work Phone: [facility] 08-07-2022 08:11-0500 Systolic blood pressure 118 mm[Hg] Dr. Danay Abdalla Work Phone: [facility] 06-14-2022 09:30-0400 Body height 165.[address] Danay Abdalla Work Phone: [facility] Work Phone: 06-14-2022 09:30-0400 Body mass index (BMI) [Ratio] 32.1 kg/m2 Dr. Danay Abdalla Work Phone: [facility] Work Phone: 06-14-2022 09:30-0400 Body temperature 97.6 [degF] Dr. Danay Abdalla Work Phone: [facility] Work Phone: 06-14-2022 09:30-0400 Body weight 87.[address] Danay Abdalla Work Phone: [facility] Work Phone: 06-14-2022 09:30-0400 Diastolic blood pressure 84 mm[Hg] Dr. Danay Abdalla Work Phone: [facility] Work Phone: 06-14-2022 09:30-0400 Heart rate 91 /min Dr. Danay Abdalla Work Phone: [facility] Work Phone: 06-14-2022 09:30-0400 Respiratory rate 18 /min Dr. Danay Abdalla Work Phone: [facility] Work Phone: 06-14-2022 09:30-0400 SaO2% (BldA) [Mass fraction] 98 % Dr. Danay Abdalla Work Phone: [facility] Work Phone: 06-14-2022 09:30-0400 Systolic blood pressure 130 mm[Hg] Dr. Danay Abdalla Work Phone: [facility] Work Phone: 02-28-2022 09:19-0400 Body mass index (BMI) [Ratio] 32.4 kg/m2 Dr. Danay Abdalla Work Phone: [facility] Work Phone: 02-28-2022 09:19-0400 Body temperature 98.2 [degF] Dr. Danay Abdalla Work Phone: [facility] Work Phone: 02-28-2022 09:19-0400 Body weight 88.[address] Danay Abdalla Work Phone: [facility] Work Phone: 02-28-2022 09:19-0400 Diastolic blood pressure 72 mm[Hg] Dr. Danay Abdalla Work Phone: [facility] Work Phone: 02-28-2022 09:19-0400 Heart rate 82 /min Dr. Danay Abdalla Work Phone: [facility] Work Phone: 02-28-2022 09:19-0400 Respiratory rate 14 /min Dr. Danay Abdalla Work Phone: [facility] Work Phone: 02-28-2022 09:19-0400 SaO2% (BldA) [Mass fraction] 99 % Dr. Danay Abdalla Work Phone: [facility] Work Phone: 02-28-2022 09:19-0400 Systolic blood pressure 110 mm[Hg] Dr. Danay Abdalla Work Phone: [facility] Work Phone: 11-22-2021 07:38-0500 Body height 165.[address] Danay Abdalla Work Phone: [facility] Work Phone: 11-22-2021 07:38-0500 Body mass index (BMI) [Ratio] 32.8 kg/m2 Dr. Danay Abdalla Work Phone: [facility] Work Phone: 11-22-2021 07:38-0500 Body temperature 96.4 [degF] Dr. Danay Abdalla Work Phone: [facility] Work Phone: 11-22-2021 07:38-0500 Body weight 89.[address] Danay Abdalla Work Phone: [facility] Work Phone: 11-22-2021 07:38-0500 Diastolic blood pressure 70 mm[Hg] Dr. Danay Abdalla Work Phone: [facility] Work Phone: 11-22-2021 07:38-0500 Heart rate 102 /min Dr. Danay Abdalla Work Phone: [facility] Work Phone: 11-22-2021 07:38-0500 Respiratory rate 16 /min Dr. Danay Abdalla Work Phone: [facility] Work Phone: 11-22-2021 07:38-0500 SaO2% (BldA) [Mass fraction] 96 % Dr. Danay Abdalla Work Phone: [facility] Work Phone: 11-22-2021 07:38-0500 Systolic blood pressure 102 mm[Hg] Dr. Danay Abdalla Work Phone: [facility] Work Phone: Encounters Encounter Date Encounter Type Care Provider Facility Start: 04-11-2025 ambulatory Arnoldo Wiseman Facility :[facility] Start: 03-17-2025 End: 03-17-[address] Arnoldo Wiseman MD -[facility] Work Phone: Start: 03-17-2025 End: 03-17-[address] Danay Abdalla MD Work Phone: -[facility] Start: 03-03-2025 ambulatory Danay Abdalla Facili ty:[facility] Start: 03-03-2025 Registered Recurring Franky FARR -Physical Therapy Work Phone: Start: 02-23-2025 End: 02-23-2025 Patient encounter procedure Franky F[facility] -[facility] Work Phone: Start: 02-23-2025 End: 02-23-[address] Danay Abdalla MD Work Phone: [facility] Work Phone: Start: 02-13-2025 Registered Recurring Franky FARR -Physical Therapy Work Phone: Start: 02-04-2025 End: 02-04-[address] Cristino Mccallum MD -[facility] Start: 02-04-2025 End: 02-04-[address] Danay Abdalla MD Work Phone: [facility] Work Phone: Start: 12-05-2024 End: 12-05-[address] Danay Abdalla MD -[facility] Work Phone: Start: 12-05-2024 End: 12-05-2024 ambulatory Danay Abdalla [facility] Start: 09-05-2024 End: 09-05-2024 ambulatory [facility] Facility[facility] Start: 09-05-2024 End: 09-05-2024 ambulatory [facility] Facility:[facility] Start: 08-08-2024 End: 08-08-2024 ambulatory [facility] Facility:[facility] Start: 05-09-2024 Encounter for genera l adult medical examination without abnormal findings [facility] Start: 05-09-[address] Danay Abdalla MD Work Phone: [facility] Start: 05-09-2024 End: 05-09-2024 ambulatory [facility] Facility[facility] Start: 05-09-2024 End: 05-09-2024 ambulatory [facility] Facility:[facility] Start: 12-27-2023 ambulatory [facility]se[facility] Start: 12-27-2023 End: 12-27-2023 Subsequent hospital visit by physician Tricia Zamora MD Work Phone: [facility] - ENDO Comment on above: Gastric polyp [K31.7 ] Start: 12-04-2023 Telephone encounter Tricia jaime MD Work Phone: Gastroenterology Comment on above: Procedure (Needs to reschedule EGD and EUS) Start: 12-03-2023 End: 12-03-[address] Danay Abdalla Work Phone: [facility] Work Phone: Start: 12-03-2023 End: 12-03-[address] Danay Abdalla Work Phone: [facility]-Cat Scan, [facility] Work Phone: Start: 11-29-2023 ambulatory LAWANDAALEXPATRICIA CASTELLANOJEREMIAH Jhaveri ity:[facility] Start: 11-29-2023 End: 11-29-2023 Subsequent hospital visit by physician Tricia Zamora MD Work Phone: [facility] - ENDO Comment on above: Canceled (Pt cx: Res cheduled) Start: 11-22-2023 ambulatory Tricia Zamora MD Work Phone: [facility] - ENDO Start: 11-13-2023 End: 11-13-[address] Danay Abdalla Work Phone: [facility] Work Phone: Start: 09-24-2023 End: 09-24-[address] Danay Abdalla Work Phone: [facility] Work Phone: Start: 09-19-2023 End: 09-19-[address] Danay Abdalla Work Phone: [facility] Work Phone: Start: 09-14-2023 Telephone encounter Tricia jaime MD Work Phone: Gastroenterology Comment on above: Appointment (EUS ) Start: 03-15-2023 End: 03-15-[address] Danay Abdalla Work Phone: [facility] Work Phone: Start: 03-15-2023 End: 03-15-[address] Danay Abdalla Work Phone: [facility]-Outpatient Bone Densitometry Work Phone: Start: 02-23-2023 End: 02-23-[address] Danay Abdalla Work Phone: [facility] Work Phone: Start: 01-31-2023 End: 01-31-[address] Danay Abdalla Work Phone: [facility] Work Phone: Start: 10-25-2022 End: 10-25-[address] Danay Abdalla Work Phone: [facility] Work Phone: Start: 10-25-2022 End: 10-25-[address] Danay Abdalla Work Phone: [facility] Start: 10-19-2022 End: 10-20-2022 ambulatory Laith Dumont [facility] Work Phone: [facility] Comment on above: Dysphagia, unspecifi ed type (Primary Dx) Start: 10-19-2022 End: 10-19-2022 Subsequent hospital visit by physician Gi/Gu 1 [facility] Work Phone: Radiology Comment on above: Dysphagia, unspecifi ed [R13.10] Start: 08-07-2022 End: 08-07-[address] Danay Abdalla Work Phone: [facility] Work Phone: Start: 08-07-2022 End: 08-07-[address] Danay Abdalla Work Phone: [facility] Start: 06-14-2022 End: 06-14-[address] Danay Abdalla Work Phone: [facility] Work Phone: Start: 06-14-2022 End: 06-14-[address] Danay Abdalla Work Phone: [facility] Start: 02-28-2022 End: 02-28-[address] Danay Abdalla Work Phone: [facility] Start: 01-25-2022 End: 01-25-[address] Danay Abdalla Work Phone: [facility] Start: 11-22-2021 End: 11-22-[address] Danay Abdalla Work Phone: [facility] Start: 01-01-2019 Patient encounter procedure Mars Ruiz [facility] Start: 07-27-2017 Ambulatory Amanda Alvarado Facility:[id number] Procedures Date Procedure Procedure Detail Performing Clinician Start: 03-17-2025 X-ray of chest, PA a nd lateral views Dr. Danay Abdalla MD Work Phone: Start: 02-04-2025 Plain X-ray of shoulder Dr. Danay Abdalla MD Work Phone: Start: 12-27-2023 Esophagoscp rig garcia soral hypopharynx crv chuck Zamora MD Work Phone: Start: 12-03-2023 Computed tomography of abdomen and pelvis with contrast Dr. Danay Abdalla Work Phone: Start: 03-15-2023 Dual energy X-ray absorptiometry Dr. Danay Abdalla Work Phone: Start: 03-15-2023 Screening mammography Bertha Abdalla Work Phone: Start: 10-19-2022 End: 10-19-2022 Radiologic exam swallow function contrast study Lonny Montano MD Work Phone: Start: 01-25-2022 Screening mammography Bertha Abdalla Work Phone: Start: 10-23-2019 Mammography Laith Dumont [facility] Work Phone: Start: 06-04-2019 Colonoscopy Laith Dumont [facility] Work Phone: Start: 03-31-2017 Lipid 1996 panel - S seda or Plasma Tricia Zamora MD Work Phone: Plan of Treatment Date Care Activity Detail Author Start: 08-12-2028 Urine microalbumin profile [facility] Start: 04-19-2025 HPV TESTING HPV TESTING [facility] Start: 04-19-2025 Screening for malign ant neoplasm of cervix HPV Testing [facility] Start: 03-17-2025 X-ray of chest, PA a nd lateral views Chest PA and Lateral [facility] Start: 03-17-2025 XR Chest PA and Lateral [facility] Start: 02-04-2025 Patient referral [facility] Work Phone: Start: 02-04-2025 Plain X-ray of shoulder Shoulder min 2 Views [facility] Start: 02-04-2025 XR Shoulder GE 2 Views [facility] Start: 09-24-2023 Patient referral [facility] Work Phone: Start: 05-18-2023 Covid-19 Vaccine ( season) Covid-19 Vaccine () [facility] Start: 05-18-2023 Influenza vaccination Influenza Vacc ine (#1) [facility] Start: 04-19-2023 PAP TESTING PAP TESTING [facility] Start: 04-19-2023 Screening for malign ant neoplasm of cervix Pap Testing [facility] Start: 06-04-2022 Colonoscopy COLONOSCOPY [facility] Start: 06-04-2022 COLORECTAL CANCER SCREENING COLORECTAL CANCER SCREENING [facility] Start: 06-04-2022 Screening for malign ant neoplasm of colon [facility] Start: 05-18-2022 Influenza vaccination INFLUENZA (#1) [facility] Start: 05-16-2022 DIABET[facility]CREEN [facility] Start: 05-16-2022 Diabetes Screening Diabetes Screenin g [facility] Start: 03-31-2022 Lipid panel Lipid Screening [facility] Start: 03-31-2022 LIPID SCREEN LIPID SCREEN [facility] Start: 10-23-2021 Mammography MAMMOGRAM [facility] Start: 10-23-2021 Screening for malign ant neoplasm of breast Mammogram Screening [facility] Start: 2019 RSV Vaccine (1 - 1-d ose 60+ series) RSV Vaccine (1 - 1-dose 60+ series) [facility] Start: 2009 SHINGRIX VACCINE (1 of 2) SHINGRIX VACCINE (1 of 2) [facility] Start: 2004 COLOGUARD (FIT-DNA) COLOGUARD (FIT-D NA) [facility] Start: [address] COLONOGRAPHY [facility] Start: 2004 FECAL OCCULT BLOOD FECAL OCCULT BLOO D [facility] Start: 2004 Screening for malign ant neoplasm of colon [facility] Start: 2004 SIGMOIDOSCOPY SIGMOIDOSCOPY [facility] Start: 1977 HIV SCREENING HIV SCREENING [facility] Start: 1977 HIV screening HIV Screening [facility] CBC W Auto Different ial panel - Blood [facility] Comprehensive metabo lic 1999 panel - Serum or Plasma [facility] End: 09-24-2024 EGD - THERAPEUTIC, EUS, OR TUBE INTERVENTIONS EGD - THERAPEUTIC, EUS, OR TUBE INTERVENTIONS Endoscopy Routine Gastric polyp 1 Occurrences starting 09/24/2023 until 09/24/2024 [facility] Work Phone: Comment on above: 1 Occurrences starti ng 09/24/2023 until 09/24/2024 End: 12-03-2024 EGD - THERAPEUTIC, EUS, OR TUBE INTERVENTIONS EGD - THERAPEUTIC, EUS, OR TUBE INTERVENTIONS Endoscopy Routine Gastric polyp 1 Occurrences starting 12/04/2023 until 12/03/2024 [facility] Work Phone: Comment on above: 1 Occurrences starti ng 12/04/2023 until 12/03/2024 Lipid 1995 panel - Serum or Plasma [facility] Lipid 1995 panel - Serum or Plasma [facility] MR Lower Extremity Joint [facility] Patient referral [facility] Work Phone: PCR test for SARS [facility] Immunizations Immunization Date Immunization Notes Care Provider Latisha reed 06-20-2023 influenza, injectabl e, quadrivalent, preservative free Dr. Danay Abdalla Work Phone: [facility] 08-22-2020 influenza virus vacc ine, unspecified formulation Tricia Zamora MD Work Phone: [facility] 08-12-2018 influenza, injectabl e, quadrivalent, contains preservative Laith Dumont [facility] Work Phone: [facility] 08-12-2018 tetanus toxoid, redu nghia diphtheria toxoid, and acellular pertussis vaccine, adsorbed Laith Dumont [facility] Work Phone: [facility] 12-28-2011 hepatitis B vaccine, adult dosage Laith Dumont [facility] Work Phone: [facility] Work Phone: 08-17-2009 pneumococcal polysaccharide vaccine, 23 valent [facility] Work Phone: [facility] Work Phone: 09-17-2007 hepatitis A vaccine, pediatric/adolescent dosage, 2 dose schedule Laith Dumont [facility] Work Phone: [facility] Work Phone: 09-17-2007 hepatitis B vaccine, adult dosage Laith Dmuont [facility] Work Phone: [facility] Work Phone: Payers Date Payer Category Payer Medicare [id number] 2024 Self-pay [id number] 2022 Private Health Insurance [facility] [id number] 2022-2023 [address] [place] [address] EPO [id number] 2020 Unknown [id number] 2020 Unknown [employer] PPO [id number] 2020-Present [phone] [address] [place] [address] PPO [id number] 1959 Unknown [id number] [id number]. 2.356 Medicare [id number] Private Health Insurance [employer] [id number] Unknown [id number] Unknown [id number] Unknown [id number]. 2.462 Unknown [id number] 2.840.1.502228.3.579. 2.462 Unknown [id number] 2.840.1.627666.3.579. 2.462 Unknown [id number] 2.840.1.594349.3.579. 2.462 Unknown [id number] 2.840.1.489171.3.579. 2.462 Unknown [id number] 2.840.1.395034.3.579. 2.462 Unknown [id number] 2.840.1.431857.3.579. 2.462 Unknown [id number] 2.840.1.424669.3.579. 2.462 Unknown [id number] 2.840.1.657819.3.579. 2.462 Unknown [id number] 2.840.1.618609.3.579. 2.462 Unknown [id number] 2.840.1.136539.3.579. 2.462 Unknown [id number] 2.840.1.847327.3.579. 2.462 Unknown [id number] 2.840.1.023045.3.579. 2.462 Unknown [id number] 2.840.1.377339.3.579. 2.462 Social History Date Type Detail Facility Start: 11-22-2021 End: 11-13-2023 Tobacco smoking status AKIS Unknown if ever smoked [facility] Start: 1960 Sex Assigned At Female [facility] Start: 05-02-2019 End: 03-17-2025 Tobacco smoking status NHIS Ex-smoker [facility] Work Phone: End: 09-17-1977 History of tobacco use Current smoker [facility] Work Phone: End: 09-17-1977 History of tobacco use Cigarette Smoker [facility] Work Phone: Start: 05-02-2019 Tobacco use and exposure Smokeless tobacco non-user [facility] Work Phone: Start: 09-07-2020 Alcohol intake Current drinke r of alcohol (finding) [facility] Start: 05-02-2019 Tobacco Comment 1/2 year in her teen s [facility] Start: 04-11-[address] [facility] Start: 1960 Sex Assigned At Not on file [facility] Start: 08-21-2020 End: 09-07-2020 History of Social function [facility] Start: 08-21-2020 End: 09-07-2020 Tobacco use panel [facility] Adult Depression Screening Assessment 0 [facility] Start: 06-07-2020 Sexual orientation Heterosexual (erik stubbs) [facility] Clinical Notes 08-12-2018 to 03-17-2025 Note Date & Type Note Facility 03-17-2025 Progress note [facility] 03-17-2025 Progress note Note Date/Time March 17, 2025 8:51am [facility] [address] [place] [address] OFFICE VISIT Date of Service: 03/17/25 MR#: [id number] Acct: [id number] Name: RENETTA GILL Rep #: [id number] : 1960 Provider: Dr. Albaro Wiseman MD Age/Sex: 64/F Location[facility] Status: Signed Intake Vital Signs 02/04/25 08:51 03/17/25 08:35 Height 5 ft 5 ft Weight: 192 lb BMI 37.5 Intake Visit Reasons: RIGHT SHOULDER Chief Complaint: right shoulder injury Accompanied by: Is patient in pain?: Yes Pain scale (1-10): 3 Allergies Sulfa (Sulfonamide Antibiotics) Allergy (Mild, Verified 03/17/25 08:37) Rash Medications ?Medication ?Instructions ?Recorded ?Confirmed ?Type albuterol sulfate 90 mcg/actuation 2 inh inhalation Q6 H PRN shortness 03/09/21 03/17/25 Rx breath activated powder inhaler of breath #1 ea pantoprazole 20 mg tablet,delayed 40 mg PO BID 2 03/17/25 History release amlodipine 5 mg tablet 5 mg PO DAILY #90 tabs 01/2703/17/25 Rx sertraline 100 mg tablet 100 mg PO DAILY #90 tabs 09/0903/17/25 Rx hyoscyamine sulfate 0.375 mg 0.375 mg PO QDAY 12/05/24 03/17/25 History tablet,extended release,12 hr trazodone 50 mg tablet 50 mg PO DAILY PRN insomnia #90 01/05/25 03/17/25 Rx tabs lisinopril 20 mg tablet 20 mg PO DAILY #90 tabs 01/1603/17/25 Rx albuterol sulfate 90 mcg/actuation 2 puff inhalation Q 6H PRN 02/23/25 03/17/25 Rx aerosol inhaler (Ventolin HFA) shortness of breath or wheezing #8.5 grams azithromycin 250 mg tablet 250 mg PO .COMPLEX #12 tabs 02/23/25 03/17/25 Rx Have you fallen in the past year?: No PFSH Medical History Calcific tendinitis of right shoulder Right shoulder pain Strain of right biceps Right shoulder strain Health care maintenance Left hamstring injury Fatty liver Left buttock pain Anxiety and depression Flu vaccine need Attention deficit Left hip pain Sinusitis Acute maxillary sinusitis, unspecified Abnormal colonoscopy Hyperlipidemia Swallowing problem Back pain Dry skin Screening for thyroid disorder Contact dermatitis, allergic GERMAIN (obstructive sleep apnea) Breast cancer screening COVID-19 vaccine series completed Breast pain, right Abdominal pain Dysuria Bronchitis Abnormal EKG Axillary abscess Hypersomnolence Hypertension Shortness of breath Woodall esophagus IBS (irritable bowel syndrome) Head ache Essential hypertension Glaucoma Surgical History History of tubal ligation Family History Grandmother Breast cancer Father Cancer Sister Cancer Mother Heart disease Brother Heart disease Other Colon cancer Social History Smoking Status: Former smoker alcohol intake: current alcohol intake frequency: 0-2 drinks per day Alcohol type: wine substance use type: does not use HPI RIGHT SHOULDER Details: This documentation accurately reflects the service provided and the decisions made by me, Dr. Arnoldo Wiseman MD 03/17/25 0806. Part of today?s visit was documented by [ ], acting as scribe. RENETTA GILL is a 64 year old F here today for right shoulder pain. The dog on the leash pulled on the shoulder. 70 pound dog. arm 'screaming' at her with activity. lateral and anterior. 3 months. worse at night. RHD. work - retired. PT - 6 weeeks. worse after 3 weeks. US therapy seemed to help. Enjoys swimming, but sometimes makes it worse. Supplemental Info [facility] Services [address] [place], [place] [id number] Shoulder min 2 Views MR#: [id number] Acct: [id number] Name: RENETTA GILL Rep #: [id number] : 1960 F 64 From: Etienne Fernando MD PCP: Dr. Danay Abdalla MD Status: DEP AMB Study: Shoulder min 2 Views Date of Exam: 02/04/25 Exam# [id number] Ordering Dr: Franky Rose PA PROCEDURE: SHOULDER MIN 2 VIEWS 02/04/2025 REASON FOR EXAM: SHOULDER INJURY, DOG PULLED ON ARM WHILE WALKING ON A LEASH TECHNIQUE: Four views of the right shoulder were obtained. COMPARISON: None FINDINGS: Bones: No fracture. Joints: Unremarkable Soft tissues: There is evidence of calcific tendinitis overlying the greater tuberosity of the proximal humerus. Other: RAD/Shoulder min 2 Views IMPRESSION: Calcific tendinitis. Reading Location: [facility]- I independently reviewed the imaging. Concur with radiologist report. Calcific tendonitis v. small area. mild. Coding Level of Care Code Off vis,est,level 4 Diagnoses Right shoulder pain M25.511 Right shoulder strain S46.911A Calcific tendinitis of right shoulder M75.31 Assessment and Plan Assessment and Plan (1) Right shoulder pain: Status: Acute Plan: 64-year-old female with ongoing right shoulder pain after injury following injury on the upper extremity. The concern here would be for SLAP tear or rotator cuff tear. The patient also has calcific tendinitis though that is not typically from an acute traction injury. Will order an MRI of the right shoulder, FU after that. Declined an injection and further PT. Patient counselled on non-operative and operative means of treating shoulder pain. Conservative options include but not limited to: 1. Rest and Activity Modification: Giving your shoulder time to heal by avoidingmovements that cause pain can help. This may involve limiting overhead activities or heavy lifting. 2. Physical Therapy: A physical therapist can guide you through exercises that strengthen the muscles around the shoulder, improve flexibility, and reduce strain on the rotator cuff tendon. 3. Ice and Heat Therapy: Applying ice to the shoulder can help reduce swelling and pain, especially after activity. Heat can be helpful to relax tense muscles and improve blood flow before exercises. 4. Anti-Inflammatory Medications: Szzs-gaz-gnkzlhy medications like ibuprofen ornaproxen can help reduce pain and inflammation in the tendon. 5. Corticosteroid Injections: If the pain is more severe, a steroid injection can reduce inflammation in the shoulder and provide relief for a longer period. 6. Platelet-Rich Plasma (PRP) Injection: This treatment involves using your own blood to promote healing in the tendon. The plasma is rich in growth factors that can encourage tissue repair. 7. TENS (Transcutaneous Electrical Nerve Stimulation): This therapy uses a smallelectrical current to help manage pain and promote healing by stimulating nerves. (2) Right shoulder strain: Status: Acute (3) Calcific tendinitis of right shoulder: Status: Acute Orders: Orders Upper Ext Joint Only(Routine) Today M25.511 - Pain in right shoulder, M75.31 -Calcific tendinitis of right shoulder, S46.911A - Strain of unspecified muscle, fascia and tendon at shoulder and upper arm level, right arm, initial encounter Clinical Quality Measures Falls Risk Screening/Assistive Devices Have you fallen in the past year?: No Ortho Exam General General: Yes no acute distress Neurologic: Yes alert and Yes oriented x3 Psychologic: Yes reasonable and appropriate Right Shoulder Skin/Wound: Yes CDI, No ecchymosis, No erythema and No swelling Testing: Positive Hawkin's, Neer's, Speed's, TTP Biceps, AROM-Forward Elevation 0-180, AROM-External Rotation at side 0-60, empty can and belly press normal; Negative TTP AC Joint, Drop Arm, Adel, cross arm or scapular winging SHOULDER: normal motor and sens to ax nerve, and MRU and AIN/PIN strength in fe 4+, er 4. 03/17/25 0851 <Electronically signed by Arnoldo quiroz MD> Date _ Arnoldo Wiseman MD Cosigner Signature: Date (if applicable) CC: ~ [facility] Work Phone: 1(486) 945-294603-21-2025 Evaluation note* Diagnosis Onset Date Resolution Status Admit Date Anxiety and depression chronic [facility] 2024 10:38am Back pain chronic December 05 10:38am Woodall's esophagus chronic December 05, 2024 10:38am Fatty liver chronic December 05 025 10:38am Hyperlipidemia chronic November 10:38am Hypertension chronic December 05, 2024 10:38am GERMAIN (obstructive sleep apnea) chroni c December 05, 2024 10:38am [facility] Work Phone: 1(308) 617-127003-21-2025 Evaluation note* Diagnosis Onset Date Resolution Status Admit Date Anxiety and depression chronic [facility] 2024 10:38am Back pain chronic December 05 10:38am Woodall's esophagus chronic December 05, 2024 10:38am Fatty liver chronic December 05, 025 10:38am Hyperlipidemia chronic November 10:38am Hypertension chronic December 05, 2024 10:38am GERMAIN (obstructive sleep apnea) chroni c December 05, 2024 10:38am Right shoulder strain acute February 04, 2025 8:47am Strain of right biceps acute 2024 8:47am [facility] Work Phone: 1(750) 280-395303-21-2025 Evaluation note* Diagnosis Onset Date Resolution Status Admit Date Anxiety and depression chronic [facility] 2024 10:38am Back pain chronic December 05 10:38am Woodall's esophagus chronic December 05, 2024 10:38am Fatty liver chronic December 05 10:38am Hyperlipidemia chronic November 10:38am Hypertension chronic December 05, 2024 10:38am GERMAIN (obstructive sleep apnea) chroni c December 05, 2024 10:38am Right shoulder strain acute February 04, 2025 8:47am Strain of right biceps acute 2024 8:47am Calcific tendinitis of right shoulder acute March 17, 2025 8 :25am Right shoulder pain acute March 17, 2025 8:25am Right shoulder strain acute Mar 8:25am [facility] Work Phone: 1(600) 269-245804-11-2024 Nurse Note* Jamee Lopez RN - 12/27/2023 2:29 PM EDT PATIENT EDUCATION TOPIC: PROCEDURE / SURGERY: Post Procedure Teaching: Home- Going Discharge Instructions PATIENT NAME: Renetta Gill PATIENT LOCATION: Room/bed info not found READINESS TO LEARN COGNITIVE ABILITY: Alert and oriented MOTIVATION TO LEARN: Eager FAMILY SUPPORT: Unable to assess - Family not present INSTRUCTION PROVIDED TO: Patient PATIENT LEARNS BEST BY: Written Instruction - Hand-outs Verbal Instruction FACTORS AFFECTING LEARNING: None PHYSICAL LIMITATIONS AFFECTING LEARNING: None LEARNING RESPONSE DIAGNOSIS: ADULT: Post-EUS PATIENT/FAMILY RESPONSE: Verbalizes understanding of: POST-PROCEDURE INSTRUCTIONS-Correct actions to take to reduce post procedure complications METHOD OF INSTRUCTION: Written instruction - handouts Verbal instruction FOLLOW-UP PLAN: Patient instructed to call with any further issues INSTRUCTIONAL AIDS USED: NA SUPPLEMENTAL MATERIAL PROVIDED TO PATIENT: None REFERRAL (RECOMMENDATION): None * Aileen Malhotra RN - 12/27/2023 12:49 PM EDT PATIENT EDUCATION TOPIC: PROCEDURE / SURGERY: Procedure/Surgery: EGD/EUS PATIENT NAME: Renetta Gill PATIENT LOCATION: Room/bed info not found READINESS TO LEARN COGNITIVE ABILITY: Alert and oriented MOTIVATION TO LEARN: Interested FAMILY SUPPORT: High - Very involved in pt care INSTRUCTION PROVIDED TO: Patient PATIENT LEARNS BEST BY: Individual Instruction FACTORS AFFECTING LEARNING: None PHYSICAL LIMITATIONS AFFECTING LEARNING: None LEARNING RESPONSE DIAGNOSIS: ADULT: PATIENT/FAMILY RESPONSE: Verbalizes understanding of: PRE-PROCEDURE INSTRUCTIONS-Correct action to take to follow pre-procedure instructions METHOD OF INSTRUCTION: Individual instruction FOLLOW-UP PLAN: Complete - No need for follow-up INSTRUCTIONAL AIDS USED: NA SUPPLEMENTAL MATERIAL PROVIDED TO PATIENT: None REFERRAL (RECOMMENDATION): None documented in this encounterOhio [facility] History and physical note * Tricia Zamora MD - 12/27/2023 1:30 PM EDT PROCEDURAL SEDATION HISTORY AND PHYSICAL EXAM SERVICE DATE: 12/27/2023 SERVICE TIME: 1:02 PM Subjective HPI: This is a 63 year old female who presents for Endoscopic ultrasound with fine needle aspiration PAST ANESTHESIA HISTORY: No history of adverse event PAST MEDICAL HISTORY Diagnosis Date 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 Montano - repeat EGD May 2020 Female genuine stress incontinence Hormone replacement therapy (HRT) 08/12/2018 HSDD 07/2018 try vag DHEA Hypercholesteremia 2014 nomal in 2017 menopause age 49 after ablation 07/2010 high FSH and E2 under 25 Migraines Other and unspecified hyperlipidemia Hyperlipidemia, 2014 normal in 2017 Other forms of migraine, without mention of intractable migraine without mention of status migrainosus Ocular migraine Snoring 08/12/2018 Vitamin D deficiency 07/2018 28.6 Weight gain PAST SURGICAL HISTORY Procedure Laterality Date CESSAREAN DELIVERY ONLY x3, 1984, 1984, 1990 COLONOSCOPY COLONOSCOPY 06/04/2019 Dr. Montano; tubular adenoma x 2; repeat may 2022 IRIDOTOMY/IRIDECTOMY BY LASER 08/03/2014 Laser Peripheral Iridotomy (LPI) ou LAPAROSCOPIC TUBAL LIGATION/RING/CLIP 2002 NIDIA2006 PAST SURGICAL HISTORY OF 2009 uterine ablation for heavy bleeding at [facility] TOOTH EXTRACTION x4 of 3rd molar TREATMENT - MISSED D&C x2 Prior to Admission medications as of 11/29/23 1419 Medication Sig Last Dose Taking amlodipine besylate (AMLODIPINE ORAL) Take by mouth. LISINOPRIL ORAL Take by mouth. triamterene-hydroCHLOROthiazide 37.5-25 mg per capsule Take 1 [...] Assessment/Plan ASA Class: ASA Class:: Patient with severe systemic disease Active Problems: * No active hospital problems. * Resolved Problems: * No resolved hospital problems. * Medication and Non-Pharmacologic VTE Prophylaxis/Anticoagulants VTE Prophylaxis: VTE prophylaxis appropriate Provisional Diagnosis/Treatment Plan: Gastric submucosal mass SEDATION GOAL: Anesthesia SIGNATURE: Tricia Zamora MD PATIENT NAME: Renetta Gill DATE: December 27, 2023 TIME: 1:02 PM Source Note - Tricia Zamora MD - 11/29/2023 3:00 PM EDT PROCEDURAL SEDATION HISTORY AND PHYSICAL EXAM SERVICE DATE: 11/29/2023 SERVICE TIME: 2:23 PM Subjective HPI: This is a 63 year old female who presents for Endoscopic Ultrasound PAST ANESTHESIA HISTORY: No history of adverse event PAST MEDICAL HISTORY Diagnosis Date 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 Montano - repeat EGD May 2020 Female genuine [...] 1984, 1985, 1990 COLONOSCOPY COLONOSCOPY 06/04/2019 Dr. Montano; tubular adenoma x 2; repeat may 2022 IRIDOTOMY/IRIDECTOMY BY LASER 08/03/2014 Laser Peripheral Iridotomy (LPI) ou LAPAROSCOPIC TUBAL LIGATION/RING/CLIP 2002 JAYY 2006 PAST SURGICAL HISTORY OF 2009 uterine ablation for heavy bleeding at [facility] TOOTH EXTRACTION x4 of 3rd molar TREATMENT [...] tablet by mouth twice daily. 11/28/[address] (PROTONIX) 40 mg tablet Take [...] Submucosal gastric lesion SEDATION GOAL: Anesthesia SIGNATURE: Tricia Zamora MD PATIENT NAME: Renetta Gill DATE: November 29, 2023 TIME: 2:23 PM documented in this encounterOhio State University [facility]03-19-2024 Miscellaneous Notes* Telephone Encounter - Lorin Ross II - 12/04/2023 11:49 AM EDT Spoke with patient rescheduled EUS for , 01/17/2024 at [facility]. Went over prep and sent via my chart. Lorin Tyson Asst II * Telephone Encounter - Linette Nugent RN - 12/04/2023 10:37 AM EDT ----- Message from Tricia Zamora MD sent at 12/03/2023 5:24 PM EDT ----- She was scheduled for EGD+radial EUS 11/29/2023. The patient had breakfast including eggs, potatoes and sausage at 8 in the morning the day of her procedure. Anesthesia will not clear her for MAC sedation. Lorin: Please reschedule her procedure in 1 month. 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 Montano - repeat EGD May 2020 Female genuine stress incontinence Hormone replacement therapy (HRT) 08/12/2018 HSDD 07/2018 try vag DHEA Hypercholesteremia 2014 nomal in 2017 menopause age 49 after ablation 07/2010 high FSH and E2 under 25 Migraines Other and unspecified hyperlipidemia Hyperlipidemia, 2014 normal in 2017 Other forms of migraine, without mention of intractable migraine without mention of status migrainosus Ocular migraine Snoring 08/12/2018 Vitamin D deficiency 07/2018 28.6 Weight gain PAST SURGICAL HISTORY Procedure Laterality Date CESSAREAN DELIVERY ONLY x3, 1984, 1985, 1990 COLONOSCOPY COLONOSCOPY 06/04/2019 Dr. Montano; tubular adenoma x 2; repeat may 2022 IRIDOTOMY/IRIDECTOMY BY LASER 08/03/2014 Laser Peripheral Iridotomy (LPI) ou LAPAROSCOPIC TUBAL LIGATION/RING/CLIP 2002 PAST SURGICAL HISTORY OF 2009 uterine ablation for heavy bleeding at [facility] TOOTH EXTRACTION x4 of 3rd molar TREATMENT [...] tablet by mouth twice daily. 11/28/[address] (PROTONIX) 40 mg tablet Take [...] Submucosal gastric lesion SEDATION GOAL: Anesthesia SIGNATURE: Tricia Zamora MD PATIENT NAME: Renetta Gill DATE: November 29, 2023 TIME: 2:23 PM documented in this encounterOhio State [facility]03-14-2024 Nurse Note* Olivia Torres RN - 11/29/2023 2:15 PM EDT PATIENT EDUCATION TOPIC: PROCEDURE / SURGERY: Pre [...] None REFERRAL (RECOMMENDATION): None documented in this encounterOhio State University [facility]02-22-2024 Miscellaneous Notes* Telephone Encounter - Lisa Harman - 11/08/2023 2:57 PM EST Spoke to patient, appointment scheduled. Instructions sent on [employer]. * Telephone Encounter - David Adm AsstLorin II - 10/18/2023 11:17 AM EST Attempted to call patient regarding scheduling EUS, no answer, left message for patient to call back to schedule. Lorin Hernandez Adm Asst II * Telephone Encounter - Linette Nugent RN - 09/24/2023 3:17 PM EST Spoke with pt. EGD/EUS procedure explained in details. Patient verbalized understanding and agreed to proceed. Spoke with Merari at Dr. Montano, she will fax most recent OV note which will be scanned into pt's chart. Lorin, please schedule EUS as indicated below. Thank you, Linette Nugent RN * Telephone Encounter - Tricia Zamora MD - 09/23/2023 9:50 PM EST Schedule patient for EGD and radial EUS in 2 months. Explain the procedure to the patient in detail including potential complications. Tricia Zamora MD * Telephone Encounter - Linette Nugent RN - 09/21/2023 2:07 PM EST Pt referred for EUS to evaluate gastric submucosal structure. 09/13/[address] Montano: A single 3 mm benign appearing polyp in gastric body. 1.5-2 cm submucosal mild prominence in the greater curve of the mid body. Pathology NA. Pt does not take Anticoagulation. Dr. Zamora, please advise regarding EUS. Thank you, Linette Nugent RN * Telephone Encounter - David CastroLorin II - 09/21/2023 10:36 AM EST Linette, Do you have any information on this patient for EUS from Dr. Montano office? Lorin Hernandez Asst II * Telephone Encounter - Lisa Harman - 09/14/2023 12:12 PM EST Voicemail received from patient to schedule her EUS with Dr. Zamora. Please call her at [phone]. documented in this encounterOhio State University [facility]02-02-2023 NoteHNO ID: [id number] Author: RT Jorge(Vega) Service: Radiology Author Type: Technologist Type: Progress [...] BY: RT Jorge(R) October 19, 2022 3:02 PM[id number] NoteHNO ID: [id number] Author: Laith Dumont CCC-GOLD CHARMER Service: ? Author Type: Speech Language Pathologist Type: Progress Notes Filed: 10/19/2022 1:57 PM Note Text: Start of Care Date: 10/19/22 Onset Date: 09/17/22 Patient Identified by Name and Date of : Yes [facility] MODIFIED BARIUM SWALLOW [...] States/Identifies TREATMENT: Performed Modified Barium Swallowing Study (63354). -Education regarding findings from today's Modified Barium Swallowing study (fluoroscopic study) were provided to the patient through verbal / written instruction, images and/or demonstration. Patient appeared to be able to demonstrate understanding of education provided this date. Billing: Modified Barium Swallow (68218) Total time: 30 minutes [facility]ith Dum[facility] History of Present illness Narrative* RT Jorge(Vega) - 10/19/2022 1:00 PM EST Radiology Service Progress Note PATIENT NAME: Renetta Gill DATE OF SERVICE: October 19, 2022 TIME: 3:02 PM PATIENT IDENTITY VERIFICATION COMPLETED USING TWO (2) IDENTIFIERS: Name and Date of confirmedby patient verbally. FALL SCREENING: Has the patient [...] RT Jorge(Vega) October 19, 2022 3:02 PM [facility] History of Present illness Narrative* Laith Dumont CCC-GOLD CHARMER - 10/19/2022 12:59 PM EST Start of Care Date: 10/19/22 Onset Date: 09/17/22 Patient Identified by Name and Date of : Yes [facility] MODIFIED BARIUM SWALLOW [...] Position: Esophageal retention (mildly delayed; appears to clearwith additional 'dry' swallow while in an upright position) Penetration-Aspiration Scale for MBSS: Level 1-Material does not enter airway Education: Education Learning Preferences: Explanation Barriers: None Learning/Educational Needs: MBSs results Education Provided: Yes, see treatment interventions for education provided Education Provided To: Patient Education Mode/Type: Explanation/Discussion, Video Response to Education/Teach Back: States/Identifies TREATMENT: Performed Modified Barium Swallowing Study (55826). -Education regarding findings from today's Modified Barium Swallowing study (fluoroscopic study) were provided to the patient through verbal / written instruction, images and/or demonstration. Patient appeared to be able to demonstrate understanding of education provided this date. Billing: Modified Barium Swallow (83371) Total time: 30 minutes Laith Dumont CCC-GOLD CHARMER documented [facility] this [facility] History of Past illness Narrative* Problem Noted Date Resolved Date Hormone replacement therapy (HRT) 08/12/2018 03/25/2019 Pain in joint, pelvic region and thigh 5 11/05/2014 Hypercholesteremia 08/12/2018 Symptomatic menopausal or female climacteric sta [place] 08/12/2018 documented as of this encounter (statuses as of 10/19/2022) [facility] History of Past illness Narrative* Problem Noted Date Resolved Date Hormone replacement therapy (HRT) 08/12/2018 03/25/2019 Pain in joint, pelvic region and thigh 5 11/05/2014 Hypercholesteremia 08/12/2018 Symptomatic menopausal or female climacteric sta [place] 08/12/2018 documented as of this encounter (statuses as of 10/20/2022) [facility] History of Past illness Narrative* Problem Noted Date Diagnosed Date Resolved Date Hormone replacement therapy (HRT) 08/12/2018 03/25/2019 Pain in joint, pelvic region and thigh 10/19/2014 11/05/2014 Hypercholesteremia 8 Symptomatic menopausal or fe male climacteric states 08/12/2018 documented as of this encounter (statuses as of 11/08/2023) [address]26-2018 History of Past illness Narrative* Problem Noted Date Diagnosed Date Resolved Date Hormone replacement therapy (HRT) 08/12/2018 03/25/2019 Pain in joint, pelvic region and thigh 10/19/2014 11/05/2014 Hypercholesteremia 8 Symptomatic menopausal or fe male climacteric states 08/12/2018 documented as of this encounter (statuses as of 11/22/2023) [address]26-2018 History of Past illness Narrative* Problem Noted Date Diagnosed Date Resolved Date Hormone replacement therapy (HRT) 08/12/2018 03/25/2019 Pain in joint, pelvic region and thigh 10/19/2014 11/05/2014 Hypercholesteremia 8 Symptomatic menopausal or fe male climacteric states 08/12/2018 documented as of this encounter (statuses as of 11/30/2023) [address]26-2018 History of Past illness Narrative* Problem Noted Date Diagnosed Date Resolved Date Hormone replacement therapy (HRT) 08/12/2018 03/25/2019 Pain in joint, pelvic region and thigh 10/19/2014 11/05/2014 Hypercholesteremia 8 Symptomatic menopausal or fe male climacteric states 08/12/2018 documented as of this encounter (statuses as of 12/04/2023) [address]26-2018 History of Past illness Narrative* Problem Noted Date Diagnosed Date Resolved Date Hormone replacement therapy (HRT) 08/12/2018 03/25/2019 Pain in joint, pelvic region and thigh 10/19/2014 11/05/2014 Hypercholesteremia 8 Symptomatic menopausal or fe male climacteric states 08/12/2018 documented as of this encounter (statuses as of 12/28/2023) [facility] Diagnosis Onset Date Resolution Status Breast cancer screening acut e Abdominal pain chronic Woodall's esophagus chronic Hypertension [facility] Work Phone: Evaluation note* Diagnosis Onset Date Resolution Status Woodall's esophagus chronic Hypertension chronic IBS (irritable bowel syndrome) chronic GERMAIN (obstructive sleep apnea) chronic Contact dermatitis, allergic chronic Hypertension chronic IBS (irritable bowel syndrome) chronic [facility] Work Phone: Evaluation note* Diagnosis Onset Date Resolution Status Contact dermatitis, allergic chronic Hypertension chronic IBS (irritable bowel syndrome) chronic Back pain acute Screening for thyroid disorder acute Swallowing problem acute Woodall's esophagus chronic Dry skin chronic Hyperlipidemia chronic Hypertension chronic [facility] Work Phone: Evaluation note* Diagnosis Dysphagia, unspecified type- Primary documented in this encounter [facility] note* Diagnosis Onset Date Resolution Status Back pain acute Screening for thyroid disorder acute Woodall's esophagus chronic Dry skin chronic Hyperlipidemia chronic Hypertension chronic Swallowing problem chronic Abnormal colonoscopy acute Hypertension chronic GERMAIN (obstructive sleep apnea) chronic Swallowing problem chronic [facility] Work Phone: Evaluation note* Diagnosis Onset Date Resolution Status Acute maxillary sinusitis, unspecified acute Breast cancer screening acut e Sinusitis acute Hyperlipidemia chronic Hypertension chronic GERMAIN (obstructive sleep apnea) chronic [facility] Work Phone: Evaluation note* Diagnosis Gastric polyp- Primary Benign neoplasm of stomach documented in this encounter [facility] note* Diagnosis Gastric polyp Benign neoplasm of stomach documented in this encounter [facility] note* Diagnosis Gastric polyp- Primary Benign neoplasm of stomach documented in this encounter [facility] note* Diagnosis Onset Date Resolution Status Anxiety and depression chron ic Attention deficit chronic Woodall's esophagus chronic Hypertension chronic IBS (irritable bowel syndrome) chronic Left hip pain chronic [facility] Work Phone: Evaluation note* Diagnosis Gastric polyp Benign neoplasm of stomach documented in this encounter [facility] for referral (narrative)* Outpatient Procedure (Routine) - Pending Review Specialty Diagnoses / Procedures Referred By Marzena t Referred To Contact [facility] Diagnoses Gastric polyp Procedures EGD - THERAPEUTIC, EUS, OR TUBE INTERVENTIONS EDG US EXAM SURGICAL ALTER STOM DUODENUM/[place] [address] [place] [address] [facility] [place] [address] Referral ID Status Reason Start Date Expiration Date Visits Requested Visits Authorized [id number] Pending Review Auto-Generat ed Referral 09/24/2023 09/24/2024 1 1 [facility] for referral (narrative)* Outpatient Procedure (Routine) - Authorized Specialty Diagnoses / Procedures Referred By Contac t Referred To Contact [facility] Diagnoses Gastric polyp Procedures EGD - THERAPEUTIC, EUS, OR TUBE INTERVENTIONS EDG US EXAM SURGICAL ALTER STOM DUODENUM/[place] [address] [place] [id number] [place] [phone] Referral ID Status Reason Start Date Expiration Date Visits Requested Visits Authorized [id number] Authorized Auto-Generat ed Referral 12/04/2023 12/03/2024 1 1 [facility] for referral (narrative)* Outpatient Procedure (Routine) - Closed Specialty Diagnoses / Procedures Referred By Contac t Referred To Contact [facility] Diagnoses Gastric polyp Procedures EGD - THERAPEUTIC, EUS, OR TUBE INTERVENTIONS EDG US EXAM SURGICAL ALTER STOM DUODENUM/[place] [address] [place] [id number] [place] [id number] Referral ID Status Reason Start Date Expiration Date V isits Requested Visits Authorized [id number] Closed Auto-Generate d Referral 12/04/2023 12/03/2024 1 1 [facility] for referral (narrative)No reason for referral information availableCommunity [facility] Services Work Phone: Reason for visit Narrative* Outpatient Procedure (Routine) - Authorized Specialty Diagnoses / Procedures [facility] To [facility] Diagnoses Gastric polyp Procedures EGD - THERAPEUTIC, EUS, OR TUBE INTERVENTIONS EDG US EXAM SURGICAL ALTER STOM DUODENUM/[place] [address] [place] [phone] [facility] [address] [place] [address] Referral ID Status Reason Start Date Expiration Date Visits Requested Visits Authorized [id number] Authorized Auto-Generat ed Referral 11/10/2023 09/16/2024 1 1 [facility] N[facility]ative* Outpatient Procedure (Routine) - Closed Specialty Diagnoses / Procedures Referred By Contac t Referred To Contact [facility] Diagnoses Gastric polyp Procedures EGD - THERAPEUTIC, EUS, OR TUBE INTERVENTIONS EDG US EXAM SURGICAL ALTER STOM DUODENUM/[place] [address] [place] [address] [facility] [address] [place] [address] Referral ID Status Reason Start Date Expiration Date V isits Requested Visits Authorized [id number] Closed Auto-Generate d Referral 12/04/2023 12/03/2024 1 1 [facility] Summary Purpose Family History No Family History Records Found Relationship Condition Age at Onset Recorded Date/T alexi Not Specified Malignant neoplasm of colon Unknown grandmother Malignant neoplasm of breast Unknown father Malignant neoplasm Unknown sister Malignant neoplasm Unknown mother Cardiac disease Unknown brother Cardiac disease Unknown Advance Directives No Advanced Directives Records FoundNo Advanced Directives Records FoundNo Advanced Directives Records FoundNo Advanced Directives Records FoundNo Advanced Directives Records FoundNo Advanced Directives Records FoundNo Advanced Directives Records Found Chief Complaint and Reason for Visit Chief Complaint 3 M FU SCREENING Reason for Visit Breast cancer screen ing Abdominal pain Woodall's esophagus Hypertension Chief Complaint 4 M FU RASH ON LT HAND Reason for Visit Woodall's esophagus Hypertension IBS (irritable bowel syndrome) GERMAIN (obstructive sleep apnea) Contact dermatitis, allergic Hypertension IBS (irritable bowel syndrome) Chief Complaint RASH ON LT HAND 5 M FU LABWORK Reason for Visit Contact dermatitis, allergic Hypertension IBS (irritable bowel syndrome) Back pain Screening for thyroid disorder Swallowing problem Woodall's esophagus Dry skin Hyperlipidemia Hypertension Chief Complaint 5 M FU LABWORK 4 M FU Reason for Visit Back pain Screening for thyroid disorder Woodall's esophagus Dry skin Hyperlipidemia Hypertension Swallowing problem Abnormal colonoscopy Hypertension GERMAIN (obstructive sleep apnea) Swallowing problem Chief Complaint HEAD CONGESTION/DRAI NAGE/SORE THROAT/SWELLING 4 M FU SCREENING Reason for Visit Acute maxillary sinu sitis, unspecified Breast cancer screening Sinusitis Hyperlipidemia Hypertension GERMAIN (obstructive sleep apnea) Chief Complaint 3 M FU COUGH/CONGESTION/PEÑA/SORE THROAT Unspecified abdominal pain Reason for Visit Anxiety and depressi on Attention deficit Woodall's esophagus Hypertension IBS (irritable bowel syndrome) Left hip pain Chief Complaint Admit Date 3 M FU December 05, 2024 10: 38am R SHOULDER PAIN February 04, 2025 8:47a m XRAY February 04, 2025 8:51a m Reason for Visit Admit Date Anxiety and depression December 05, 2024 10:38am Back pain December 05, 2024 10: 38am Woodall's esophagus December 05, 2024 10: 38am Fatty liver December 05, 2024 10: 38am Hyperlipidemia December 05, 2024 10: 38am Hypertension December 05, 2024 10: 38am GERMAIN (obstructive sleep apnea) November 10:38am Reason for Visit Admit Date Anxiety and depression December 05, 2024 10:38am Back pain December 05, 2024 10: 38am Woodall's esophagus December 05, 2024 10: 38am Fatty liver December 05, 2024 10: 38am Hyperlipidemia December 05, 2024 10: 38am Hypertension December 05, 2024 10: 38am GERMAIN (obstructive sleep apnea) November 10:38am Right shoulder strain February 04, 2025 8:4 7am Strain of right biceps February 04, 2025 8: 47am Chief Complaint Admit Date 3 M FU December 05, 2024 10: 38am R SHOULDER PAIN February 04, 2025 8:47a m XRAY February 04, 2025 8:51a m RT SHLD PAIN/RX HERE February 13, 2025 1:30 pm Cough February 23, 2025 8:17a m Chief Complaint Admit Date 3 M FU December 05, 2024 10: 38am R SHOULDER PAIN February 04, 2025 8:47a m XRAY February 04, 2025 8:51a m Cough February 23, 2025 8:17a m RT SHLD PAIN/RX HERE March 03, 2025 9:0 0am RIGHT SHOULDER March 17, 2025 8:25a m Reason for Visit Admit Date Anxiety and depression December 05, 2024 10:38am Back pain December 05, 2024 10: 38am Woodall's esophagus December 05, 2024 10: 38am Fatty liver December 05, 2024 10: 38am Hyperlipidemia December 05, 2024 10: 38am Hypertension December 05, 2024 10: 38am GERMAIN (obstructive sleep apnea) November 10:38am Right shoulder strain February 04, 2025 8:4 7am Strain of right biceps February 04, 2025 8: 47am Calcific tendinitis of right shoulder Ju 2024 8:25am Right shoulder pain March 17, 2025 8:25a m Right shoulder strain March 17, 2025 8:2 5am Chief Complaint Admit Date 3 M FU December 05, 2024 10: 38am R SHOULDER PAIN February 04, 2025 8:47a m XRAY February 04, 2025 8:51a m Cough February 23, 2025 8:17a m RT SHLD PAIN/RX HERE March 03, 2025 9:0 0am RIGHT SHOULDER March 17, 2025 8:25a m DEEP Cough March 17, 2025 8:56a m XRAY March 17, 2025 9:04a m Additional Source Comments INFORMATION SOURCE (unrecogn ized section and content) DATE CREATED AUTHOR 03/12/2018 [facility] DATE CREATED AUTHOR AUTHOR'S ORGANIZ ATION 01/13/2019 [facility] DATE CREATED AUTHOR AUTHOR'S ORGANIZ ATION 06/21/2019 [facility] DATE CREATED AUTHOR AUTHOR'S ORGANIZ ATION 10/20/2022 [facility] DATE CREATED AUTHOR AUTHOR'S ORGANIZ ATION 12/05/2023 [facility] DATE CREATED AUTHOR AUTHOR'S ORGANIZ ATION [facility]/20[facility] DATE CREATED AUTHOR AUTHOR'S ORGANIZ ATION 04/10/2025 [facility] Goals (unrecognized section and content) Goals may be documented in a n alternate sectionGoals may be documented in an alternate sectionGoals may be documented in an alternate sectionGoals may be documented in an alternate sectionGoals may be documented in an alternate sectionGoals may be documented in an alternate sectionGoals may be documented in an alternate sectionGoals may be documented in an alternate sectionGoals may be documented in an alternate sectionGoals may be documented in an alternate sectionGoals may be documented in an alternate sectionGoals may be documented in an alternate section Source Comments (unrecognize d section and content) In the event this informatio n is protected by the Federal Confidentiality of Alcohol and Drug Abuse Patient Records regulations: The Federal rules restrict any use of the information to criminally investigate or prosecute any alcohol or drug abuse patient.[facility] Center[facility] the event this information is protected by the Federal Confidentiality of Alcohol and Drug Abuse Patient Records regulations: The Federal rules restrict any use of the information to criminally investigate or prosecute any alcohol or drug abuse patient.[facility] CenterIn the event this information is protected by the Federal Confidentiality of Alcohol and Drug Abuse Patient Records regulations: The Federal rules restrict any use of the information to criminally investigate or prosecute any alcohol or drug abuse patient.[facility] CenterIn the event this information is protected by the Federal Confidentiality of Alcohol and Drug Abuse Patient Records regulations: The Federal rules restrict any use of the information to criminally investigate or prosecute any alcohol or drug abuse patient.[facility] CenterIn the event this information is protected by the Federal Confidentiality of Alcohol and Drug Abuse Patient Records regulations: The Federal rules restrict any use of the information to criminally investigate or prosecute any alcohol or drug abuse patient.[facility] CenterIn the event this information is protected by the Federal Confidentiality of Alcohol and Drug Abuse Patient Records regulations: The Federal rules restrict any use of the information to criminally investigate or prosecute any alcohol or drug abuse patient.[facility] CenterIn the event this information is protected by the Federal Confidentiality of Alcohol and Drug Abuse Patient Records regulations: The Federal rules restrict any use of the information to criminally investigate or prosecute any alcohol or drug abuse patient.[facility] Reason for Visit (unrecogniz ed section and content) Reason Comments Speech Instrumental Swallow Eval Speech Discharge Specialty Diagnoses / Procedures Referred By Marzena t Referred To Contact Radiology / SPEECH THERAPY Diagnoses MODIFIED BARIUM SWALLOW W SPEECH, Procedures TX SPEECH LANG VOICE COMMJ &/AUDITORY PROC IND SPEECH THERAPISTS Lonny Jefferson MD [address] [place] [address] Hosp, Speech [facility] [address] [place] [address] Referral ID Status Reason Start Date Expiration Date V isits Requested Visits Authorized [id number] Authorized 10/19/2022 09/16/2023 60 60 Reason Comments Appointment EUS Reason Comments Procedure Needs to reschedule EGD and EUS Care Teams (unrecognized sec tion and content) Associate Counsel Relationship Specialty Start Date End Date Danay Abdalla MD [address] [place] [address] PCP - General Internal Medicine 08/16/21 Associate Counsel Relationship Specialty Start Date End Date Danay Abdalla MD [address] [place], [place] [id number] PCP - General Internal Medicine 08/16/21 Team Status: Active Member Role Status Dates Dr. Danay Abdalla MD Primary Care Provider Active Team Status: Inactive Member Role Status Dates Dr. Danay Abdalla MD Primary Care P geovanna, Attending Provider, Referring Provider Active Team Status: Inactive Member Role Status Dates Dr. Danay Abdalla MD Primary Care Provider, Atten ding Provider Active Team Status: Inactive Member Role Status Dates Dr. Danay Abdalla MD Primary Care Provider, Refer ring Provider Active Franky FARR, PA Attending Provider Active Associate Counsel Relationship Specialty Start Date End Date Danay Abdalla MD [address] [place], [place] [address] PCP - General Internal Medicine 08/16/21 Associate Counsel Relationship Specialty Start Date End Date Danay Abdalla MD [address] [place], [place] [id number] PCP - General Internal Medicine 08/16/21 Associate Counsel Relationship Specialty Start Date End Date Danay Abdalla MD [address] [place] [address] PCP - General Internal Medicine 08/16/21 Associate Counsel Relationship Specialty Start Date End Date Danay Abdalla MD [address] [place], [place] [id number] PCP - General Internal Medicine 08/16/21 Team Status: Inactive Member Role Status Dates Dr. Danay Abdalla MD Primary Care Provider Active Dr. Lonny Montano MD Attending Provider, Referring Pro vider Active Associate Counsel Relationship Specialty Start Date End Date Danay Abdalla MD [address] [place] [address] PCP - General Internal Medicine 08/16/21 Team Status: Inactive Member Role Status Dates Dr. Danay Abdalla MD Primary Care Provider Active Start: December 05, 2024 End: December 05, 2024 Dr. Danay Abdalla MD Attending Provider Active Start: December 05, 2024 End: December 05, 2024 Dr. Danay Abdalla MD Referring Provider Active Start: December 05, 2024 End: December 05, 2024 Team Status: Active Member Role Status Dates Dr. Danay Abdalla MD Primary Care Provider Active Start: February 04, 2025 Dr. Danay Abdalla MD Referring Provider Active Start: February 04, 2025 Franky Rose PA, PA Attending Provider Active Start: February 04, 2025 Team Status: Inactive Member Role Status Dates Dr. Danay Abdalla MD Primary Care Provider Active Start: February 04, 2025 End: February 04, 2025 Dr. Cristino Mccallum MD Attending Provider Active S tart: February 04, 2025 End: February 04, 2025 Team Status: Inactive Member Role Status Dates Dr. Danay Abdalla MD Primary Care Provider Active Start: February 04, 2025 End: February 04, 2025 Dr. Danay Abdalla MD Referring Provider Active Start: February 04, 2025 End: February 04, 2025 Franky FARR PA Attending Provider Active Start: February 04, 2025 End: February 04, 2025 Team Status: Active Member Role Status Dates Dr. Danay Abdalla MD Primary Care Provider Active Start: February 13, 2025 Franky FARR PA Attending Provider Active Start: February 13, 2025 Franky FARR PA Referring Provider Active Start: February 13, 2025 Team Status: Inactive Member Role Status Dates Dr. Danay Abdalla MD Primary Care Provider Active Start: February 23, 2025 End: February 23, 2025 Dr. Danay Abdalla MD Referring Provider Active Start: February 23, 2025 End: February 23, 2025 Franky FARR PA Attending Provider Active Start: February 23, 2025 End: February 23, 2025 Team Status: Active Member Role/Relationship Status Dates Dr. Danay Abdalla MD Primary Care Provider Active Team Status: Inactive Member Role/Relationship Status Dates Dr. Danay Abdalla MD Primary Care Provider Active Start: December 05, 2024 End: December 05, 2024 Dr. Danay Abdalla MD Attending Provider Active Start: December 05, 2024 End: December 05, 2024 Dr. Danay Abdalla MD Referring Provider Active Start: December 05, 2024 End: December 05, 2024 Team Status: Inactive Member Role/Relationship Status Dates Dr. Danay Abdalla MD Primary Care Provider Active Start: February 04, 2025 End: February 04, 2025 Dr. Danay Abdalla MD Referring Provider Active Start: February 04, 2025 End: February 04, 2025 Franky FARR PA Attending Provider Active Start: February 04, 2025 End: February 04, 2025 Team Status: Inactive Member Role/Relationship Status Dates Dr. Danay Abdalla MD Primary Care Provider Active Start: February 04, 2025 End: February 04, 2025 Dr. Cristino Mccallum MD Attending Provider Active S tart: February 04, 2025 End: February 04, 2025 Team Status: Inactive Member Role/Relationship Status Dates Dr. Danay Abdalla MD Primary Care Provider Active Start: February 23, 2025 End: February 23, 2025 Dr. Danay Abdalla MD Referring Provider Active Start: February 23, 2025 End: February 23, 2025 CHIKA De León Attending Provider Active Start: February 23, 2025 End: February 23, 2025 Team Status: Active Member Role/Relationship Status Dates Dr. Danay Abdalla MD Primary Care Provider Active Start: March 03, 2025 CHIKA De León Attending Provider Active Start: March 03, 2025 CHIKA De León Referring Provider Active Start: March 03, 2025 Team Status: Inactive Member Role/Relationship Status Dates Dr. Danay Abdalla MD Primary Care Provider Active Start: March 17, 2025 End: March 17, 2025 Dr. Danay Abdalla MD Referring Provider Active Start: March 17, 2025 End: March 17, 2025 Arnoldo Wiseman MD Attending Provider Active St art: March 17, 2025 End: March 17, 2025 Team Status: Active Member Role/Relationship Status Dates Dr. Danay Abdalla MD Primary Care Provider Active Start: March 17, 2025 Dr. Danay Abdalla MD Referring Provider Active Start: March 17, 2025 CHIKA De León Attending Provider Active Start: March 17, 2025 Team Status: Inactive Member Role/Relationship Status Dates Dr. Danay Abdalla MD Primary Care Provider Active Start: March 17, 2025 End: March 17, 2025 Dr. Cristino Mccallum MD Attending Provider Active S tart: March 17, 2025 End: March 17, 2025 Team Status: Inactive Member Role/Relationship Status Dates Dr. Danay Abdalla MD Primary Care Provider Active Start: March 17, 2025 End: March 17, 2025 Dr. Danay Abdalla MD Referring Provider Active Start: March 17, 2025 End: March 17, 2025 CHIKA De León Attending Provider Active Start: March 17, 2025 End: March 17, 2025 FOR RECORDS PERTAINING TO PATIENTS WHO ARE [...] BE BASED ON THE PRIMARY CLINICAL RECORDS. [facility] [employer] [facility]. provides no warranty or guarantee of the accuracy or completeness of information in this document.
== END | disposition home or self-care (01) ==
PROVIDERS: PCP Internal Medicine; Referring Provider Orthopaedic Surgery Sports Medicine; Visit Provider Orthopaedic Surgery Sports Medicine
DX: S46.911A Strain of unspecified muscle, fascia and tendon at shoulder and upper arm level, right arm, initial encounter (principal); M25.511 Pain in right shoulder; M75.31 Calcific tendinitis of right shoulder; X58.XXXA Exposure to other specified factors, initial encounter
CPT/HCPCS: 73221

== ENCOUNTER → 2025-04-29 | Outpatient (CLI) | payer MEDICARE, SELFPAY ==
--- OUTSIDE RECORDS SUMMARY | 2025-04-29 09:16 | XMS RPT_ITS | CCD ---
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 Danay Abdalla Primary Care Provider [phone] Dr. Danay Abdalla Attending Provider [phone] Dr. Danay Abdalla Referring Provider [phone] CHIKA Cochran Attending Provider NATY MILTON Attending Unavailable RM, EFEWONGBE B Primary Care Unavailable PERRI, KHALED Referring Unavailable OLEGHCally, EFEWONGBE B Primary Care Unavailable PERRI, KHALED Referring Unavailable PERRI, KHALED Attending Unavailable Dr. Danay Abdalla MD Primary Care Provider Dr. Danay Abdalla MD Attending Provider [phone] Dr. Danay Abdalla MD Referring Provider [phone] Franky Cochran Attending Provider Dr. Cristino Mccallum MD Attending Provider Franky Cochran Referring Provider Franky Cochran Referring Provider Arnoldo Wiseman MD Attending Provider Dr. Danay Abdalla MD Primary Care Provider Dr. Danay Abdalla MD Referring Provider [phone] Arnoldo Wiseman MD Referring Provider Gabriela Watt Attending Provider Olerebecae, Efewongbe Attending Unavailable Oleghe, Efewongbe Primary Care Unavailable Oleghe, Efewongbe Referring Unavailable Oleghe, Efewongbe Attending Unavailable Oleghe, Efewongbe Primary Care Unavailable Oleghe, Efewongbe Referring Unavailable Oleghe, Efewongbe Referring Unavailable Oleghe, Efewongbe Primary Care Unavailable Franky Rose Attending Unavailable Oleghe, Efewongbe Primary Care Unavailable Cristino Mccallum Attending Unavailable Arnoldo Wiseman Attending Unavailable Oleghe, Efewongbe Primary Care Unavailable Oleghe, Efewongbe Referring Unavailable Oleghe, Efewongbe Attending Unavailable Oleghe, Efewongbe Primary Care Unavailable Oleghe, Efewongbe Referring Unavailable Oleghe, Efewongbe Attending Unavailable Oleghe, Efewongbe Primary Care Unavailable Oleghe, Efewongbe Referring Unavailable Oleghe, Efewongbe Referring Unavailable Franky Rose Attending Unavailable Oleghe, Efewongbe Primary Care Unavailable Oleghe, Efewongbe Primary Care Unavailable XenaCristino Attending Unavailable Oleghe, Efewongbe Referring Unavailable Oleghe, Efewongbe Primary Care Unavailable Arnoldo Wiseman Attending Unavailable Oleghe, Efewongbe Referring Unavailable Gabriela Villagran Attending Unavailable Oleghe, Efewongbe Primary Care Unavailable Oleghe, Efewongbe Primary Care Unavailable XenaCristino Attending Unavailable Oleghe, Efewongbe Attending Unavailable Oleghe, Efewongbe Primary Care Unavailable Oleghe, Efewongbe Referring Unavailable Franky Rose Attending Unavailable Oleghe, Efewongbe Primary Care Unavailable Oleghe, Efewongbe Referring Unavailable Franky Rose Attending Unavailable Oleghe, Efewongbe Primary Care Unavailable Franky Rose Referring Unavailable Arnoldo Wiseman Referring Unavailable Arnoldo Wiseman Attending Unavailable Oleghe, Efewongbe Primary Care Unavailable Oleghe, Efewongbe Attending Unavailable Oleghe, Efewongbe Primary Care Unavailable Oleghe, Efewongbe Referring Unavailable Allergies Allergy Classification Reported Allergen(s) Allergy Type Date of Onset Reaction(s) Facility (20 sources) Sulfonamides (Antibiotic); Translations: [SULFA (SULFONAMIDE ANTIBIOTICS)] Allergy to substance 08-25-2010 [facility] Work Phone: Medications Current Medications Medication Drug Class(es) Dates Sig (Normalized) Sig (Original) [id number] 200 actuat albuterol 0.09 mg/actuat metered dose inhaler (20 sources) beta2-Adrenergic Agonist Start: 06-09-2025 Albuterol Sulfate (Ventolin Hfa) 90 mcg/actuation HFA [...] Active 2 INH INHALATION EVERY 6 HOURS 1 March 09, 2021 12:00am Start: 02-21-2021 take [...] Start: 06-21-2020 take 1 tablet by amy twice daily hyoscyamine SR (LEVBID) 0.375 mg 12 hr tablet Indications: Irritable bowel syndrome, unspecified type Take 1 tablet by mouth twice daily. 0 06/21/2020 Active Comment on above: Take 1 tablet by amy twice daily. levoFLOXacin 500 mg oral tablet (5 sources) Quinolone Antimicrobial Start: 03-17-20 25 take 1 tablet by mouth every twenty-four [...] tablet Active 100 mg PO DAILY 90 February 27, 2024 9:25am Start: 09-24-2023 End: [...] above: Take 1 tablet by amy th once daily. Completed/Discontinued Medications Medication Drug Class(es) Dates Sig (Normalized) Sig (Original) amLODIPine 5 mg oral tablet (20 sources) Dihydropyridine Calcium Channel [place] Start: 04-12-2021 End: 04-06-2025 take 1 tablet by mouth once daily Amlodipine 5 mg tablet Discontinued 5 mg PO DAILY 90 January 28, 2024 9:10am April 06, 2025 6:33pm Start: 03-08-2021 End: 04-12-2021 take 1 tablet by mouth once daily Amlodipine 10 mg tablet Discontinued 10 mg PO DAILY 30 March 30, 2021 11:56am April 12, 2021 3:40pm amlodipine besyl ate (AMLODIPINE ORAL) Take by mouth. 0 Active Comment on above: Take by mouth. amoxicillin 875 mg / clavulanate 125 mg oral tablet (12 sources) Penicillin-class Antibacterial Start: 01-31-2023 End: 02-23-2023 Amoxicillin-Pot Clavulanate 875-125 mg tablet Discontinued 1 {tbl} PO TWICE A DAY January 31, 2023 12:00am February 23, 2023 8:18am Start: 01-31-2023 End: 02-23-2023 take 1 tablet by mouth twice daily Amoxicillin-Pot Clavulanate Discontinued 1 TABLET PO TWICE A DAY January 31, 2023 12:00am February 23, 2023 8:18am azithromycin 250 mg oral tablet (8 sources) Macrolide Antimicrobial Start: 02-23-2025 End: 03-17-2025 [...] MUSCLE SPASM benzonatate 200 mg oral capsule (11 sources) Non-narcotic Antitussive Start: 11-13-2023 End: 12-26-2023 take 1 capsule by mouth three times daily as needed for cough Benzonatate 200 mg capsule Discontinued 200 mg PO THREE TIMES A DAY as needed for cough 20 November 13, 2023 1:00am December 26, 2023 9:06am 24 hr buPROPion hydrochloride 150 mg extended release oral tablet (11 sources) Aminoketone Start: 06-20-2023 End: 09-24-2023 take [...] Comment on above: Take 2 tablets by [facility] once daily. clobetasol propionate 0.0005 mg/mg topical ointment (12 sources) Corticosteroid Start: 02-23-2023 End: 09-05-2024 Clobetasol 0.05 % ointment Discontinued 1 NMA TOPICAL TWICE A DAY as needed for Dermatitis 30 14 2 February 23, 2023 12:00am September 05, 2024 11:50am cyclobenzaprine hydrochloride 10 mg oral tablet (10 sources) Muscle Relaxant Start: 12-26-2023 End: 02-27-2024 take 1 tablet by mouth twice daily as needed for muscle spasms Cyclobenzaprine 10 mg tablet Discontinued 10 mg PO TWICE A DAY as needed for muscle spasm 30 1 December 26, 2023 12:00am February 27, 2024 9:08am doxycycline hyclate 100 mg oral tablet (16 sources) Tetracycline-clas s Drug Start: 12-27-2020 End: [...] mg / triamterene 37.5 mg oral tablet (20 sources) Potassium-sparing Diuretic, Thiazide Diuretic Start: 02-02-2021 End: 03-08-2021 Triamterene-[place] chlorothiazid 37.5-25 mg tablet Discontinued 1 {tbl} [...] on above: Take 1 capsule by mo [facility] once daily. inositol 100 mg / niacin 400 mg oral capsule (7 sources) Nicotinic Acid take 1 tablet by mouth once daily Niacin-Inositol 400 mg niacin (500 mg) cap Take 1 tablet by mouth once daily. 0 Active Comment on above: Take 1 tablet by amy once daily. ipratropium bromide 0.042 mg/actuat metered [...] Take 1 tablet by amy once daily. methylPREDNISolone 4 mg oral tablet (20 sources) Corticosteroid Start: 2022 End: 2023 take 1 tablet by mouth once Methylprednisolone (Medrol (Joseph)) 4 mg tablets,dose pack Discontinued 0 PO per package directions November 13, 2023 1:00am December 26, 2023 9:06am PO PER PKG DIR predniSONE 20 mg oral tablet (16 sources) Start: 2020 End: 2020 take 2 tablets by mouth once daily Prednisone 20 mg tablet Discontinued 40 mg PO DAILY March 08, 2021 12:00am April [...] PO DAILY as needed for insomnia 90 February 21, 2024 1:58pm January 05, 2025 9:30am Comment on above: Take 1 tablet by amy th daily at bedtime. TAKE ONE(1) TABLET AT BEDTIME PO PRN INSOMNIA triamcinolone acetonide 1 mg/ml topical cream (15 sources) Corticosteroid Start: 06-14-2022 End: 02-23-2023 Triamcinolone [...] on above: Take 1 capsule by mo ut once daily. Problems Active Problems Problem Classification Problem Date Documented Da te Episodic/Chronic Abdominal pain (17 sources) Abdominal pain; Translations: [Unspecified abdominal pain] Episodic Allergic reactions (17 sources) Allergic contact dermatitis; Translations: [Allergic contact dermatitis, unspecified cause] Episodic Anxiety disorders (20 sources) Mixed anxiety and depressive disorder; Translations: [Anxiety disorder, unspecified] Onset: 11-28-2024 07-30-2013 Chronic Chronic obstructive pulmonary disease and bronchiectasis (16 sources) Bronchitis; Translations: [Bronchitis, not specified as [...] 08-12-2018 Chronic Genitourinary symptoms and ill-defined conditions (16 sources) Dysuria; Translations: [Dysuria] 04-12-2021 Episodic Immunizations and screening for infectious disease (11 sources) Needs influenza immunization; Translations: [Encounter for immunization] 06-20-2023 Episodic Menopausal disorders (7 sources) Menopausal symptom; Translations: [Menopausal and female climacteric states] Onset: 08-12-2018 08-12-2018 Chronic Miscellaneous mental health disorders (14 sources) Lack or loss of sexual desire; Translations: [Hypoactive sexual desire disorder] Onset: 10-17-2019 08-12-2018 Chronic Mood disorders (1 source) Mood disorders; Translations: [Depression, unspecified] Onset: 11-28-2024 Nonmalignant breast conditions (16 sources) Mastodynia; Translations: [Pain of right breast] [...] Onset: 11-29-2023 Episodic Other connective tissue disease (10 sources) Pain in buttock; Translations: [Myalgia, other site] 02-27-2024 Episodic Other connective tissue disease (17 sources) Calcific tendinitis of right shoulder; Translations: [Calcific tendinitis of right shoulder] 03-17-2025 Episodic Other connective tissue disease (6 sources) Tendinosis of right shoulder; Translations: [Other specified disorders of tendon, right shoulder] 04-17-2025 Episodic Other connective tissue disease (6 sources) Bursitis of right shoulder; Translations: [Bursitis of right shoulder] 04-17-2025 Episodic Other connective tissue disease (1 source) Calcific tendinitis of right shoulder; Translations: [Calcific tendinitis of right shoulder] Onset: 04-17-2025 Episodic Other connective tissue disease (1 source) Other specified disorders of tendon, right shoulder; Translations: [Other specified disorders of tendon, right shoulder] Onset: 04-17-2025 Episodic Other connective tissue disease (1 source) Bursitis of right shoulder; Translations: [Bursitis of right shoulder] Onset: 04-17-2025 Episodic Other gastrointestinal disorders (15 sources) Irritable bowel syndrome; Translations: [Irritable bowel [...] Translations: [Dysphagia, unspecified] Episodic Other gastrointestinal disorders (11 sources) Swallowing finding; Translations: [Dysphagia, unspecified] 10-25-2022 Episodic Other injuries and conditions due to external causes (10 sources) Hamstring injury; Translations: [Unspecified injury of [...] encounter] Onset: 02-04-2025 Episodic Other liver diseases (16 sources) Steatosis of liver; Translations: [Fatty (change of) liver, not elsewhere classified] 12-05-2024 Chronic Other lower respiratory disease (16 sources) Dyspnea; Translations: [Shortness of breath] 02-02-2021 Episodic Other nervous system disorders (11 sources) Disturbance of attention; Translations: [Attention and concentration deficit] 06-20-2023 Chronic Other nervous system disorders (1 source) Attention and concentration deficit; Translations: [Attention or concentration deficit] 09-24-2023 Chronic Other non-traumatic joint disorders (11 sources) Hip pain; Translations: [Pain in left hip] 09-24-2023 Episodic Other non-traumatic joint disorders (1 source) Pain in left hip; Translations: [Pain in joint, pelvic region and thigh] 09-24-2023 Episodic Other non-traumatic joint disorders (18 sources) Pain in right shoulder; Translations: [Right shoulder pain] Onset: 04-17-2025 03-03-2025 Episodic Other non-traumatic joint disorders (6 sources) Disorder of shoulder; Translations: [Other specified joint disorders, right shoulder] 04-17-2025 Episodic Other non-traumatic joint disorders (1 source) Pain in unspecified knee; Translations: [Pain in unspecified knee] Onset: 04-22-2025 Episodic Other non-traumatic joint disorders (1 source) Other specified joint disorders, right shoulder; Translations: [Other specified joint disorders, right shoulder] Onset: 04-17-2025 Episodic Other nutritional; endocrine; and metabolic disorders [...] Translations: [Keratoderma, acquired] Episodic Other skin disorders (12 sources) Xeroderma; Translations: [Xerosis cutis] 08-07-2022 Episodic Other upper respiratory disease (1 source) Pain in throat; Translations: [Pain in throat] Onset: 02-23-2025 Episodic Other upper respiratory infections (13 sources) Sinusitis; Translations: [Chronic sinusitis, unspecified] 02-23-2023 Chronic Other upper respiratory infections (13 sources) Acute maxillary sinusitis; Translations: [Acute maxillary sinusitis, unspecified] 01-31-2023 Episodic Residual codes; unclassified (16 sources) Hypersomnia; Translations: [Hypersomnia, unspecified] 02-02-2021 Chronic Residual codes; unclassified (20 sources) Obstructive sleep apnea syndrome; Translations: [Obstructive sleep apnea (adult) (pediatric)] 02-28-2022 Chronic Residual codes; unclassified (4 sources) Obstructive sleep apnea (adult) (pediatric); Translations: [Obstructive sleep apnea (adult)(pediatric)] Onset: 11-28-2024 Chronic Residual codes; unclassified (16 sources) History of vaccination; Translations: [Personal history of other drug therapy] 05-20-2021 Episodic Skin and subcutaneous tissue infections (16 sources) Abscess of axilla; Translations: [Cutaneous abscess of limb, unspecified] 02-02-2021 Episodic Spondylosis; intervertebral disc disorders; other back problems (20 sources) Backache; Translations: [Dorsalgia, unspecified] Episodic Sprains and strains (20 sources) Strain of muscle, fascia and tendon of other parts of biceps, right arm, initial encounter; Translations: [Strain of right biceps] Onset: 02-04-2025 02-04-2025 Episodic Unclassified (3 sources) Encntr screen mammogram for malignant neoplasm of breast / Z12.31(ICD-10) Onset: 07-27-2017 Unclassified (9 sources) S46.911A - Strain of unspecified muscle, fascia and tendon at shoulder and upper arm level, right arm, initial encounter,S46.211A - Strain of muscle, fascia and tendon of other parts of biceps, right arm, initial encounter Unclassified (7 sources) Strain of right shoulder Unclassified (7 sources) Strain of right biceps Unclassified (1 [...] Test Name Value Interpretation Reference Range Facility Knee 4 or More Viewson 04-22 Knee 4 or More Views [facility] Imaging Services [address] [place] [id number] Knee 4 or More Views MR#: [id number] Acct: [id number] Name: RENETTA GILL Rep #: [id number] : 1960 F 64 From: Abdulaziz Sarah MD PCP: Dr. Danay Abdalla MD Status: DEP AMB Study: Knee 4 or More Views Date of Exam: 04/22/25 Exam# [id number] Ordering Dr: Gabriela Villagran PICTURE PAINTER-C PROCEDURE: KNEE 4 OR MORE VIEWS 04/22/2025 REASON FOR EXAM: ONGOING KNEE PAIN TECHNIQUE: KNEE 4 OR MORE VIEWS COMPARISON: None. FINDINGS: No evidence of acute fracture or dislocation. Mild degenerative changes of the knee. No knee joint effusion. RAD/Knee 4 or More Views IMPRESSION: No acute osseous abnormality. Mild osteoarthrosis. Reading Location: [id number] CC: PICTURE PAINTER-C Gabriela Villagran; Dr. Danay Abdalla MD Change Control Coordinator: Signed Normal [facility] Orthopedic Visit Reporton Orthopedic Visit Report [facility] [address] [place], [place] [id number] OFFICE VISIT Date of Service: 04/22/25 MR#: [id number] Acct: [id number] Name: RENETTA GILL Rep #: [id number] : 1960 Provider: MAYTE pennington Age/Sex: 64/F Location: [facility] Status: Signed Intake Vital Signs 03/17/25 09:04 04/22/25 07:59 Height 5 ft 5 ft Weight: 195 lb BMI 38.0 Intake Visit Reasons: RIGHT KNEE Chief Complaint: Right knee pain Accompanied by: Self Is patient in pain?: Yes Pain scale (1-10): 2 Allergies Sulfa (Sulfonamide Antibiotics) Allergy (Mild, Verified 04/22/25 08:04) Rash Medications ???Medication ???Instructions ???Recorded ???Confirmed ???Type pantoprazole 20 mg tablet,delayed 40 mg PO BID 08/07/22 04/22/25 Hi story release sertraline 100 mg tablet 100 mg PO DAILY #90 tabs 02/27/24 04/22/25 Rx hyoscyamine sulfate 0.375 mg 0.375 mg PO QDAY 12/05/24 04/22/25 History tablet,extended release,12 hr trazodone 50 mg tablet 50 mg PO DAILY PRN insomnia #90 04/22/25 Rx tabs lisinopril 20 mg tablet 20 mg PO DAILY #90 tabs 02/03/25 0 04/22/25 Rx amlodipine 5 mg tablet 5 mg PO DAILY #90 tabs 04/06/25 Rx Have you fallen in the past year?: No PFSH Medical History Bursitis of right shoulder Impingement of right shoulder Tendinosis of right rotator cuff Calcific tendinitis of right shoulder Right shoulder [...] use type: does not use HPI RIGHT KNEE Details: This documentation accurately reflects the service provided and the decisions made by me, Gabriela Villagran, PICTURE PAINTER-C 04/22/25 0759. Part of today???s visit was documented by Coreen Alberto MA, acting as scribe. RENETTA GILL is a 64 year old F here today for right knee. Patient is having pain in the right knee. The pain is in the medial of the knee cap and in the knee cap. The pain can be sharp, stabbing or sore at times. She states that she does have a little bit of swelling around the knee. Intermittent charley horse pain to posterior knee and lower legs, worse at night. Patient rates her pain as a 2 today. This has been going on since 03/20/2025. Patient states that she was packing her RV and she kept stepping up and down to pack things in the RV, later after that she couldn't move her right knee. She was unable to move, when she moved it, she had a sharp pain in the right knee. The pain was been gradually getting worse however the last 2 days she has noticed significant improvemnt in pain, swelling and ROM. No prior surgeries or injuries to this knee. Symptoms aggravated with prolonged walking and weightbearing activity, twisting motion. Symptoms improved with use of knee brace splinting. Initially noted sensation of instability, however this is significantly improved over the last several days. She did use a cane for short period of time after injuring, no longer using. Patient does swim 3 times a week and helps the knee feel less tight. Patient does take high blood pressure medication. Patient doesn't smoke, or do drugs. ROS Const All systems reviewed are unremarkable except as noted in H and other (A O x 3, no apparent distress. No recent illness.) ENT Denies dizziness Card Denies chest pain, Denies dyspnea, Denies edema and Reports other (No palpitations) Resp Denies cough, Denies dyspnea and Reports other (No recent URI) GI Reports system reviewed and no additional complaints, except as documented, Denies n (more content not included)... Normal [facility] Orthopedic Visit Reporton Orthopedic Visit Report [facility] [address] [place] [address] [address] [place] [address] OFFICE VISIT Date of Service: 04/17/25 MR#: [id number] Acct: [id number] Name: RENETTA GILL Rep #: [id number] : 1960 Provider: Dr. Arnoldo martinez MD Age/Sex: 64/F Location: [facility] Status: Signed with Addenda ADDENDUM by TASHA Orozco on 04/17/25 at 0843 Office Procedure Documentation entered by Coreen Orozco MA 04/17/25 08:43: Ortho Injections Injections Yes Subacromial Injection Right Is this a patient provided medication?: No Details: Obtained consent for injection. Under sterile conditions, injected the patients right shoulder with 2cc Kenalog, and 4cc Bupivacaine. The patient tolerated the injection well without any noted complication. Patient should call our office if redness develops, pain worsens or if they have any concerns. Office Meds Kenalog 40 mg/mL suspension for injection Performing Provider: Arnoldo Wiseman MD Performing Location: [facility] Administered by: Arnoldo Wiseman MD on 04/17/25 08:40 Dose Route Admin Location Dispensed Lot Number Expiration Date NDC Man ufacturer 40 mg intra-articular Rigth shoulder 1 mL [id number] 04/17/27 4203-3038-37 [facility] Date cc: * Signed Intake Vital Signs 07/01/25 09:04 Height 5 ft Intake Visit Reasons: RIGHT SHOULDER Chief Complaint: right shoulder injury Accompanied by: Self Allergies Sulfa (Sulfonamide Antibiotics) Allergy (Mild, Verified 04/17/25 08:21) Rash Medications ???Medication ???Instructions ???Recorded ???Confirmed ???Type albuterol sulfate 90 mcg/actuation 2 inh inhalation Q6H PRN shortne ss 03/09/21 04/17/25 Rx breath activated powder inhaler of breath #1 ea pantoprazole 20 mg tablet,delayed 40 mg PO BID 08/07/22 04/17/25 Hi story release sertraline 100 mg tablet 100 mg PO DAILY #90 tabs 02/27/24 04/17/25 Rx hyoscyamine sulfate 0.375 mg 0.375 mg PO QDAY 12/05/24 04/17/25 History tablet,extended release,12 hr trazodone 50 mg tablet 50 mg PO DAILY PRN insomnia #90 04/17/25 Rx tabs lisinopril 20 mg tablet 20 mg PO DAILY #90 tabs 02/03/25 0 04/17/25 Rx albuterol sulfate 90 mcg/actuation 2 puff inhalation Q6H PRN 04/17/25 Rx aerosol inhaler (Ventolin HFA) shortness of breath or wheezing #8.5 grams levofloxacin 500 mg tablet 500 mg PO Q24H #7 tabs 03/17/25 Rx amlodipine 5 mg tablet 5 mg PO DAILY #90 tabs 04/06/25 Rx Have you fallen in the past year?: Yes [facility] Medical History Bursitis of right shoulder Impingement of right shoulder Tendinosis of right rotator cuff Calcific tendinitis of right shoulder Right shoulder [...] made by me, Dr. Arnoldo Wiseman MD 04/17/25 0811. Part of today???s visit was documented by [ ], acting as scribe. RENETTA GILL is a 64 year old F here today for FU R shoulder MRI. Supplemental Info [facility] Imaging Services [address] [place] [address] Upper Ext Joint Only(Routine) MR#: [id number] Acct: [id number] Name: RENETTA GILL Rep #: [id number] : 1960 F 64 From: Brian Morse MD PCP: Dr. Danay Abdalla MD (more content not included)... Normal [facility] Magnetic resonance imaging r eportOrdered By: Brian Morse on 04-13-2025 Study report [facility] Imaging Services [address] [place] [address] Upper Ext Joint Only(Routine) MR#: [id number] Acct: [id number] Name: RENETTA GILL Rep #: [id number] : 1960 F 64 From: Argelia Morse MD PCP: Dr. Danay Abdalla MD Status: R EG CLI Study:Upper Ext Joint Only(Routine) Date of Exam: 04/11/25 Exam# [id number] Ordering Dr: Arnoldo Wiseman MD PROCEDURE: UPPER EXT JOINT ONLY(ROUTINE) 04/11/2025 REASON FOR EXAM: PULLING INJURY ON THE ARM TECHNIQUE: T1, T2, PD, UPPER EXT JOINT ONLY(right) multiplanar and multisequence images were obtained without IV contrast administration. COMPARISON: COMPARISON: February 04, 2025 x-ray FINDINGS: Bone Marrow: There is no bony contusion or occult fracture. AC joint: There is moderate AC joint hypertrophy without evidence of separation. There is a type 2 acromion. Rotator cuff: There is no muscular atrophy. There is moderate distal supraspinatus, infraspinatus, and subscapularis tendinopathy without full-thickness tear or retraction. The teres minor appearsintact. Labrum: The labrum appears intact. Biceps tendon: The biceps tendon is present in the biceps tendon groove, with intact anchors. Effusion: There is fluid in the subacromial subdeltoid bursa, with bursitis. There is no significant effusion. MRI/Upper Ext Joint Only(Routine) IMPRESSION: There is moderate distal supraspinatus, infraspinatus, and subscapularis tendinopathy without full-thickness tear or retraction. There is fluid in the subacromial subdeltoid bursa, with bursitis. Reading Location: [facility] CC: Dr. Danay Abdalla MD; Dr. Arnoldo Wiseman MD ~ Change Control Coordinator: Signed [facility] Upper Ext Joint Only(Routine )on 04-11-2025 Upper Ext Joint Only(Routine) [facility] [facility] [address] [place] [address] Upper Ext Joint Only(Routine) MR#: [id number] Acct: [id number] Name: RENETTA GILL Rep #: [id number] : 1960 F 64 From: Brian Morse MD PCP: Dr. Danay Abdalla MD Status: REG CLI Study: Upper Ext Joint Only(Routine) Date of Exam: 0 04/11/25 Exam# [id number] Ordering Dr: Arnoldo Wiseman MD PROCEDURE: UPPER EXT JOINT ONLY(ROUTINE) 04/11/2025 REASON FOR EXAM: PULLING INJURY ON THE ARM TECHNIQUE: T1, T2, PD, UPPER EXT JOINT ONLY(right) multiplanar and multisequence images were obtained without IV contrast administration. COMPARISON: COMPARISON: February 04, 2025 x-ray FINDINGS: Bone Marrow: There is no bony contusion or occult fracture. AC joint: There is moderate AC joint hypertrophy without evidence of separation. There is a type 2 acromion. Rotator cuff: There is no muscular atrophy. There is moderate distal supraspinatus, infraspinatus, and subscapularis tendinopathy without full-thickness tear or retraction. The teres minor appears intact. Labrum: The labrum appears intact. Biceps tendon: The biceps tendon is present in the biceps tendon groove, with intact anchors. Effusion: There is fluid in the subacromial subdeltoid bursa, with bursitis. There is no significant effusion. MRI/Upper Ext Joint Only(Routine) IMPRESSION: There is moderate distal supraspinatus, infraspinatus, and subscapularis tendinopathy without full- thickness tear or retraction. There is fluid in the subacromial subdeltoid bursa, with bursitis. Reading Location: [facility] CC: Dr. Danay Abdalla MD; Dr. Arnoldo Wiseman MD Change Control Coordinator: Signed Normal [facility] Chest PA and Lateralon 03-17 Chest PA and Lateral [facility] [address] [place] [address] [id number] Chest PA and Lateral MR#: [id number] Acct: [id number] Name: RENETTA GILL Rep #: [id number] : 1960 F 64 From: Camilo Beasley MD PCP: Dr. Danay Abdalla MD Status: DEP AMB Study: Chest PA and Lateral Date of Exam: 03/17/25 Exam# [id number] Ordering Dr: Franky Rose PA PROCEDURE: CHEST PA AND LATERAL 03/17/2025 REASON FOR EXAM: COUGH TECHNIQUE: CHEST PA AND LATERAL FINDINGS: Hardware: None Heart: The heart size is normal. Mediastinum: The mediastinal contour is unremarkable. Lungs: The lungs are clear. Bones: Degenerative changes are identified within the thoracic spine. RAD/Chest PA and Lateral IMPRESSION: No acute pulmonary process Reading Location: [id number] CC: Dr. Danay Abdalla MD; CHIKA Saldaña Change Control Coordinator: Signed Normal [facility] Orthopedic Visit Reporton Orthopedic Visit Report [facility] [address] [place] [address] [address] [place] [address] OFFICE VISIT Date of Service: 03/17/25 MR#: [id number] Acct: [id number] Name: RENETTA GILL Rep #: [id number] : 1960 Provider: Dr. Arnoldo martinez MD Age/Sex: 64/F Location: [facility].ELIUD Status: Signed Intake Vital Signs 02/04/25 08:51 [...] but sometimes makes it worse. Supplemental Info [facility] Imaging Services [address] [place] [address] Shoulder min 2 Views MR#: [id number] Acct: [id number] Name: RENETTA GILL Rep #: [id number] : 1960 F 64 From: Etienne Fernando MD PCP: Dr. Danay Abdalla MD Status: DEP AMB Study: Shoulder min 2 Views Date of Exam: 02/04/25 Exam# [id number] Ordering Dr: Franky Rose PROCEDURE: SHOULDER MIN 2 VIEWS 02/04/2025 REASON [...] MD o (more content not included)... Normal [facility] Urgent Care Visit Reporton 0 03-17-2025 Urgent Care Visit Report [facility] [address], [address] [place] [address] OFFICE VISIT Date of Service: 03/17/25 MR#: [id number] Acct: [id number] Name: RENETTA GILL Rep #: [id number] : 1960 Provider: CHIKA Saldaña Age/Sex: 64/F Location: [facility]NOW Status: Signed Intake Vital Signs 03/17/25 08:35 [...] Patient states she has lots of mucus. [facility] Medical History Calcific tendinitis of right shoulder [...] for f/u of 02/23/2025 evaluation at the [facility] for approximately 1-month history of persistent sinus [...] Throat: posterio (more content not included)... Normal [facility] Urgent Care Visit Reporton 0 02-23-2025 Urgent Care Visit Report [facility] [address], [address] [place] [address] OFFICE VISIT Date of Service: 02/23/25 MR#: [id number] Acct: [id number] Name: RENETTA GILL Rep #: [id number] : 1960 Provider: CHIKA Saldaña Age/Sex: 64/F Location: [facility] Status: Signed Intake Vital Signs 02/04/25 08:51 [...] this has been going on since sun. [facility] Medical History (Updated 02/04/25 @ 09:17 by [...] able t (more content not included)... Normal [facility] Inital Evaluation (1) - PTon 02-05-2025 Inital Evaluation (1) - PT [facility] Physical Therapy [facility] [address] [place] [address] / REHABILITATION SERVICES INITIAL EVALUATION MR#: [id number] Acct: [id number] Name: RENETTA GILL Rep #: [id number] : 1960 64 From: Major Ervin DPT Referring Dr.: CHIKA Saldaña Status: REG R CR Insurance: [employer] MEDICARE SELF PAY INSURANCE Patient's Visit Information Visit Information Visit Information: RENETTA GILL is a 64 year old F referred to Physical Therapy by CHIKA Saldaña with a diagnosis of R shoulder strain. Date of Evaluation: 02/05/25 Physical Therapist: Major Ervin DPT Visit Plan Frequency: 2x /Week Duration: 4 Weeks Plan: 1) wand/anahy AAROM progressing to AROM 2) US to anterior [...] Test - Labrum/Biceps: Positive Comments: + horn blowers Balance/Special Test Scores Quick DASH Score: [phone] [...] to be FAXED BACK to us at [phone] for Medicare purposes. For Medicare only, by signing this I certify the plan of care. Please let me know if there are questions or concerns r (more content not included)... Normal [facility] Shoulder min 2 Viewson 02-04 Shoulder min 2 Views [facility] Imaging Services [address] [place] [address] Shoulder min 2 Views MR#: [id number] Acct: [id number] Name: RENETTA GILL Rep #: [id number] : 1960 F 64 From: Etienne ballard MD PCP: Dr. Danay Abdalla MD Status: DEP AMB Study: Shoulder min 2 Views Date of Exam: 02/04/25 Exam# [id number] Ordering Dr: Franky Rose PROCEDURE: SHOULDER MIN 2 VIEWS 02/04/2025 REASON FOR EXAM: SHOULDER INJURY, DOG PULLED ON ARM WHILE WALKING ON A LEASH TECHNIQUE: Four views of the right shoulder were obtained. COMPARISON: None FINDINGS: Bones: No fracture. Joints: Unremarkable Soft tissues: There is evidence of calcific tendinitis overlying the greater tuberosity of the proximal humerus. Other: RAD/Shoulder min 2 Views IMPRESSION: Calcific tendinitis. Reading Location: [facility] CC: Dr. Danay Abdalla MD; CHIKA Saldaña Change Control Coordinator: Signed Normal [facility] Urgent Care Visit Reporton 0 02-04-2025 Urgent Care Visit Report [facility] [address] , [address] [place] [address] OFFICE VISIT Date of Service: 02/04/25 MR#: [id number] Acct: [id number] Name: RENETTA GILL Rep #: [id number] : 1960 Provider: CHIKA Saldaña Age/Sex: 64/F Location: [facility] Status: Signed Intake Vital Signs 12/05/24 10:47 [...] SHOULDER PAIN Chief Complaint: right shoulder injury Yarn Weigher Required: No Is patient in pain?: Yes Allergies Sulfa (Sulfonamide Antibiotics) Allergy (Mild, Verified 02/04/25 09:07) Rash Is last menstrual period known: No Post menopausal: Yes Patient : No Have you fallen in the past year?: Yes Nurse's Note: dragged by dog 2 weeks ago injuring right shoulder. pain worsening since that time. decreased ROM d/t pain. denies hx injury, denies additional injuries. [facility] Medical History (Updated 02/04/25 @ 09:17 by [...] here for further evaluation. She has taken rard-uxq-cttxjai products to assist with symptoms. Sfhbd-wjth-bcbilway. PMH NC. No cervical or right elbow [...] placed to (more content not included)... Normal [facility] Internal Medicine Office Vis itogabriella 12-05-2024 Internal Medicine Office Visit [facility] [address] [place] [address] OFFICE VISIT Date of Service: 12/05/24 MR#: [id number] Acct: [id number] Name: RENETTA GILL Rep #: [id number] : 1960 Provider: Dr. Danay stockton MD Age/Sex: 64/F Location: [facility] Status: Signed Intake Vital Signs 09/05/24 10:48 12/05/24 10:47 Height 5 ft 5 ft Weight: 194 lb BMI 37.8 BP 104/66 Blood Pressure Location Lt brachial Position Sitting Respiration 16 Pulse 89 Pulse Source Monitor Temp 96.5 F L Temp Source Temporal Pulse Oximetry (%) 96 Oxygen Delivery Method room air Intake Visit Reasons: 3 M FU Chief Complaint: Follow-up chronic conditions Yarn Weigher Required: No Accompanied by: Self Is patient [...] and stiffness (more content not included)... Normal [facility] Basic Metabolic Profile (BMP )on 09-05-2024 BUN/CRE 16.1 RATIO Normal 07-06 [facility] Comment on above: Performed By: #### L 500.2500, L500.4100 ####[facility] [address] [place], [address] CA,Total 9.6 mg/dL Normal 8.5-10.1 [facility] Comment on above: Performed By: #### L 500.2500, L500.4100 ####[facility] [address] [place], [address] Chloride [Moles/Vol] 106 mmol/L Normal 98-107 [facility] Comment on above: Performed By: #### L 500.2500, L500.4100 ####[facility] [address] [place], [address] CO2 [Moles/Vol] 27.0 mmol/L Normal 21.0-32.0 [facility] Comment on above: Performed By: #### L 500.2500, L500.4100 ####[facility] [address] [place], [address] Creatinine [Mass/Vol] 0.62 mg/dL Normal 0.55-1.02 [facility] Comment on above: Result Comment: The validity of the calculated GFR GFRAA in patients over 70 years has not been determined. Clinical correlation is essential. Performed By: #### L 500.2500, L500.4100 ####[facility] [address] [place], [address] EST GFR - AA 124 mL/min Normal >60 [facility] Comment on above: Result Comment: Afri can Ukrainian GFR Calc Performed By: #### L 500.2500, L500.4100 ####[facility] [address] [place], [address] GAP 5 Normal 5-15 [facility] Comment on above: Performed By: #### L 500.2500, L500.4100 ####[facility] [address] [place], [address] GFR/1.73 sq M.predicted among non-blacks MDRD (S/P/Bld) [Vol rate/Area] 102 mL/min/{1.73_m2} Normal >60 [facility] Comment on above: Result Comment: Non- GFR Calc Performed By: #### L 500.2500, L500.4100 ####[facility] [address] [place], [address] Glucose [Mass/Vol] 85 mg/dL Normal 74-106 [facility] Comment on above: Performed By: #### L 500.2500, L500.4100 ####[facility] [address] [place], [address] Potassium [Moles/Vol] 4.0 mmol/L Normal 3.5-5.1 [facility] Comment on above: Performed By: #### L 500.2500, L500.4100 ####[facility] [address] [place], [address] Sodium [Moles/Vol] 138 mmol/L Normal 136-145 [facility] Comment on above: Performed By: #### L 500.2500, L500.4100 ####[facility] [address] [place], [address] Urea nitrogen [Mass/Vol] 10 mg/dL Normal 7-18 [facility] Comment on above: Performed By: #### L 500.2500, L500.4100 ####[facility] [address] [place], [address] Comprehensive Metabolic Prof ilon 09-05-2024 ALB Normal 3.2-5.0 [facility] Comment on above: Result Comment: ERRO R Performed By: #### L 500.4050 #### [facility] [address] [place], [address] ALK P Normal 45-117 [facility] Comment on above: Result Comment: ERRO R Performed By: #### L 500.4050 #### [facility] [address] [place], [address] ALT Normal 13-56 [facility] Comment on above: Result Comment: ERRO R Performed By: #### L 500.4050 #### [facility] [address] [place], [address] AST Normal 15-37 [facility] Comment on above: Result Comment: ERRO R Performed By: #### L 500.4050 #### [facility] [address] [place], [address] BUN Normal 7-18 [facility] Comment on above: Result Comment: ERRO R Performed By: #### L 500.4050 #### [facility] [address] [place], [address] BUN/CRE Normal 10-20 [facility] Comment on above: Result Comment: ERRO R Performed By: #### L 500.4050 #### [facility] [address] [place], [address] CA,Total Normal 8.5-10.1 [facility] Comment on above: Result Comment: ERRO R Performed By: #### L 500.4050 #### [facility] [address] [place], [address] CL Normal 98-107 [facility] Comment on above: Result Comment: ERRO R Performed By: #### L 500.4050 #### [facility] [address] [place], [address] CO2 Normal 21.0-32.0 [facility] Comment on above: Result Comment: ERRO R Performed By: #### L 500.4050 #### [facility] [address] [place], [address] CREAT,SERUM Normal 0.55-1.02 [facility] Comment on above: Result Comment: ERRO R Performed By: #### L 500.4050 #### [facility] [address] [place], [address] EST GFR Normal >60 [facility] Comment on above: Result Comment: ERRO R Performed By: #### L 500.4050 #### [facility] [address] [place], [address] EST GFR - AA Normal >60 [facility] Comment on above: Result Comment: ERRO R Performed By: #### L 500.4050 #### [facility] [address] [place], [address] GAP Normal 5-15 [facility] Comment on above: Result Comment: ERRO R Performed By: #### L 500.4050 #### [facility] [address] [place], [address] GLU Normal 74-106 [facility] Comment on above: Result Comment: ERRO R Performed By: #### L 500.4050 #### [facility] [address] [place], [address] Potassium Normal 3.5-5.1 [facility] Comment on above: Result Comment: ERRO R Performed By: #### L 500.4050 #### [facility] [address] [place], [address] T BILI Normal 0.20-1.00 [facility] Comment on above: Result Comment: ERRO R Performed By: #### L 500.4050 #### [facility] [address] [place], [address] T PROT Normal 6.4-8.2 [facility] Comment on above: Result Comment: ERRO R Performed By: #### L 500.4050 #### [facility] [address] [place], [address] Comprehensive Metabolic Profil Normal 136-145 [facility] Comment on above: Result Comment: ERRO R Performed By: #### L 500.4050 #### [facility] [address] [place], [address] Internal Medicine Office Vis itogabriella 09-05-2024 Internal Medicine Office Visit [facility] [address] [place] [address] [place] [address] OFFICE VISIT Date of Service: 09/05/24 MR#: [id number] Acct: [id number] Name: RENETTA GILL Rep #: [id number] : 1960 Provider: Dr. Danay stockton MD Age/Sex: 63/F Location: [facility]IM Status: Signed Intake Vital Signs 05/09/24 13:48 [...] states that weeks ago, she had a click and the pain resolved. Has had no [...] cramps, ne (more content not included)... Normal [facility] Lipid Profileon 09-05-2024 Cholesterol [Mass/Vol] 217 mg/dL High 200 [facility] Comment on above: Result Comment: <200 mg/dL Desirable 200-240 mg/dL Borderline >240 mg/dL High Risk Performed By: #### L 500.2500, L500.4100 ####[facility] [address] [place], [address] Cholesterol in HDL [Mass/Vol] 62 mg/dL Normal [facility] Comment on above: Result Comment: The drugs N-Acetylcysteine and Metamizole may falsely depress this assay. Reference Range HDL <40 mg/dL Low HDL Cholesterol HDL >or= 60 mg/dL High HDL Cholesterol Performed By: #### L 500.2500, L500.4100 ####[facility] [address] [place], [address] Cholesterol in LDL [Mass/Vol] 132 mg/dL High 0-130 [facility] Comment on above: Performed By: #### L 500.2500, L500.4100 ####[facility] [address] [place], [address] Cholesterol in VLDL [Mass/Vol] 23 mg/dL Normal 5-40 [facility] Comment on above: Performed By: #### L 500.2500, L500.4100 ####[facility] [address] [place], [address] Triglyceride [Mass/Vol] 117 mg/dL Normal [facility] Comment on above: Result Comment: The drugs N-Acetylcysteine and Metamizole may falsely depress this assay. Serum Triglycerides Reference Interval Normal <150 mg/dL Borderline high 150 - 199 mg/dL High 200 - 499 mg/dL Very High > or = 500 mg/dL Performed By: #### L 500.2500, L500.4100 ####[facility] [address] [place], [address] SCRN MAMM (CAD)W/ELENITA BILATo n 08-08-2024 SCRN MAMM (CAD)W/ELENITA BILAT [facility] Imaging Services [address] [place] [address] SCRN MAMM (CAD)W/ELENITA BILAT MR#: [id number] Acct: [id number] Name: RENETTA GILL Rep #: [id number] : 1960 F 63 From: Etienne ballard MD PCP: Dr. Danay Abdalla MD Status: [facility] Study: SCRN MAMM (CAD)W/ELENITA BILAT Date of Exam: 07/19 11/10 Exam# [id number] Ordering [place]: [place] [id number] MAMMOGRAPHY - BILATERAL SCREENING REASON FOR EXAM: [...] delay biopsy of a clinically suspicious abnormality. [id number] Electronically Signed: Etienne Fernando MD at 14:09 EST Reading Location ID and State: [facility] / [place] , Service support , CC: Dr. Danay Abdalla MD Change Control Coordinator: Signed Normal [facility] CBC W/Diff, Automatedon 04-18 Absolute Lymph 1.77 X10 3/uL Normal 0.83-4.51 [facility] Comment on above: Performed By: #### L 500.4050, L500.4100, L100.0100 ####[facility] [address] [place], [address] Absolute Neut 3.1 X10 3/uL Normal 2.0-7.7 [facility] Comment on above: Performed By: #### L 500.4050, L500.4100, L100.0100 ####[facility] [address] [place], [address] Basophils/100 WBC (Bld) 0.9 % Normal 0-1 [facility] Comment on above: Performed By: #### L 500.4050, L500.4100, L100.0100 ####[facility] [address] [place], [address] Eosinophils/100 WBC (Bld) 2.2 % Normal 0-5 [facility] Comment on above: Performed By: #### L 500.4050, L500.4100, L100.0100 ####[facility] [address] [place], [address] Erythrocyte distribution width (RBC) [Ratio] 13.9 % Normal 11.6-14.6 [facility] Comment on above: Performed By: #### L 500.4050, L500.4100, L100.0100 ####[facility] [address] [place], [address] Hematocrit (Bld) [Volume fraction] 37.9 % Normal 37-47 [facility] Comment on above: Performed By: #### L 500.4050, L500.4100, L100.0100 ####[facility] [address] [place], [address] Hemoglobin (Bld) [Mass/Vol] 12.6 g/dL Normal 12.0-15.0 [facility] Comment on above: Performed By: #### L 500.4050, L500.4100, L100.0100 ####[facility] [address] [place], [address] IG% 0.200 Normal 0.0-0.9 [facility] Comment on above: Result Comment: IG% - Immature Granulocytes (promyelocytes, myelocytes and metamyelocytes) > 1% indicates that a LEFT SHIFT is Present. Performed By: #### L 500.4050, L500.4100, L100.0100 ####[facility] [address] [place], [address] Lymphocytes/100 WBC (Bld) 33.1 % Normal 19-41 [facility] Comment on above: Performed By: #### L 500.4050, L500.4100, L100.0100 ####[facility] [address] [place], [address] MCH (RBC) [Entitic mass] 30.2 pg Normal 27.0-32.0 [facility] Comment on above: Performed By: #### L 500.4050, L500.4100, L100.0100 ####[facility] [address] [place], [address] MCHC (RBC) [Mass/Vol] 33.2 g/dL Normal 32-36 [facility] Comment on above: Performed By: #### L 500.4050, L500.4100, L100.0100 ####[facility] [address] [place], [address] MCV (RBC) [Entitic vol] 90.9 fL Normal 81-99 [facility] Comment on above: Performed By: #### L 500.4050, L500.4100, L100.0100 ####[facility] [address] [place], [address] Monocytes/100 WBC (Bld) 6.4 % Normal 0-10 [facility] Comment on above: Performed By: #### L 500.4050, L500.4100, L100.0100 ####[facility] [address] [place], [address] Neutrophils/100 WBC (Bld) 57.2 % Normal 47-70 [facility] Comment on above: Performed By: #### L 500.4050, L500.4100, L100.0100 ####[facility] [address] [place], [address] Nucleated RBC (Bld) [#/Vol] 0 10*3/uL Normal 0-5 [facility] Comment on above: Performed By: #### L 500.4050, L500.4100, L100.0100 ####[facility] [address] [place], [address] Platelet mean volume (Bld) [Entitic vol] 9.4 fL Normal 6.2-12.0 [facility] Comment on above: Performed By: #### L 500.4050, L500.4100, L100.0100 ####[facility] [address] [place], [address] Platelets (Bld) [#/Vol] 248 10*3/uL Normal 150-450 [facility] Comment on above: Performed By: #### L 500.4050, L500.4100, L100.0100 ####[facility] [address] [place], [address] RBC (Bld) [#/Vol] 4.17 10*6/uL Low 4.2-5.4 [facility] Comment on above: Performed By: #### L 500.4050, L500.4100, L100.0100 ####[facility] [address] [place], [address] RDW SD 46.5 fl High 35.1-43.9 [facility] Comment on above: Performed By: #### L 500.4050, L500.4100, L100.0100 ####[facility] [address] [place], [address] WBC (Bld) [#/Vol] 5.3 10*3/uL Normal 4.4-11.0 [facility] Comment on above: Performed By: #### L 500.4050, L500.4100, L100.0100 ####[facility] [address] [place], [address] Comprehensive Metabolic Prof [facility] 05-09-2024 Albumin [Mass/Vol] 3.8 g/dL Normal 3.2-5.0 [facility] Comment on above: Performed By: #### L 500.4050, L500.4100, L100.0100 ####[facility] [address] [place], [address] Albumin/Globulin [Mass ratio] 1.0 {ratio} Normal 0.9-2.4 [facility] Comment on above: Performed By: #### L 500.4050, L500.4100, L100.0100 ####[facility] [address] [place], [address] ALK P 97 U/L Normal 45-117 [facility] Comment on above: Performed By: #### L 500.4050, L500.4100, L100.0100 ####[facility] [address] [place], [address] ALT [Catalytic activity/Vol] 36 U/L Normal 13-56 [facility] Comment on above: Performed By: #### L 500.4050, L500.4100, L100.0100 ####[facility] [address] [place], [address] AST [Catalytic activity/Vol] 17 U/L Normal 15-37 [facility] Comment on above: Performed By: #### L 500.4050, L500.4100, L100.0100 ####[facility] [address] [place], [address] Bilirubin [Mass/Vol] 0.30 mg/dL Normal 0.20-1.00 [facility] Comment on above: Result Comment: For patients on eltrombopag therapy, use of Dimension [place] TBIL is not recommended. Performed By: #### L 500.4050, L500.4100, L100.0100 ####[facility] [address] [place], [address] BUN/CRE 16.7 RATIO Normal 10-20 [facility] Comment on above: Performed By: #### L 500.4050, L500.4100, L100.0100 ####[facility] [address] [place], [address] CA,Total 9.4 mg/dL Normal 8.5-10.1 [facility] Comment on above: Performed By: #### L 500.4050, L500.4100, L100.0100 ####[facility] [address] [place], [address] Chloride [Moles/Vol] 106 mmol/L Normal 98-107 [facility] Comment on above: Performed By: #### L 500.4050, L500.4100, L100.0100 ####[facility] [address] [place], [address] CO2 [Moles/Vol] 26.0 mmol/L Normal 21.0-32.0 [facility] Comment on above: Performed By: #### L 500.4050, L500.4100, L100.0100 ####[facility] [address] [place], [address] Creatinine [Mass/Vol] 0.78 mg/dL Normal 0.55-1.02 [facility] Comment on above: Result Comment: The validity of the calculated GFR GFRAA in patients over 70 years has not been determined. Clinical correlation is essential. Performed By: #### L 500.4050, L500.4100, L100.0100 ####[facility] [address] [place], [address] EST GFR - AA 96 mL/min Normal >60 [facility] Comment on above: Result Comment: Afri can Ukrainian GFR Calc Performed By: #### L 500.4050, L500.4100, L100.0100 ####[facility] [address] [place], [address] GAP 7 Normal 5-15 [facility] Comment on above: Performed By: #### L 500.4050, L500.4100, L100.0100 ####[facility] [address] [place], [address] GFR/1.73 sq M.predicted among non-blacks MDRD (S/P/Bld) [Vol rate/Area] 79 mL/min/{1.73_m2} Normal >60 [facility] Comment on above: Result Comment: Non- GFR Calc Performed By: #### L 500.4050, L500.4100, L100.0100 ####[facility] [address] [place], [address] Globulin (S) [Mass/Vol] 3.9 g/dL Normal 2.2-4.2 [facility] Comment on above: Performed By: #### L 500.4050, L500.4100, L100.0100 ####[facility] [address] [place], [address] Glucose [Mass/Vol] 111 mg/dL High 74-106 [facility] Comment on above: Result Comment: Fast ing Glucose result from 100 to 125 mg/dL suggests IMPAIRED HOMEOSTASIS per A.D.A. criteria. Performed By: #### L 500.4050, L500.4100, L100.0100 ####[facility] [address] [place], [address] Potassium [Moles/Vol] 4.0 mmol/L Normal 3.5-5.1 [facility] Comment on above: Performed By: #### L 500.4050, L500.4100, L100.0100 ####[facility] [address] [place], [address] Sodium [Moles/Vol] 139 mmol/L Normal 136-145 [facility] Comment on above: Performed By: #### L 500.4050, L500.4100, L100.0100 ####[facility] [address] [place], [address] T PROT 7.7 g/dL Normal 6.4-8.2 [facility] Comment on above: Performed By: #### L 500.4050, L500.4100, L100.0100 ####[facility] [address] [place], [address] Urea nitrogen [Mass/Vol] 13 mg/dL Normal 7-18 [facility] Comment on above: Performed By: #### L 500.4050, L500.4100, L100.0100 ####[facility] [address] [place], [address] Internal Medicine Office Vis iton 05-09-2024 Internal Medicine Office Visit [facility] [address] [place] [address] [place] [address] OFFICE VISIT Date of Service: 05/09/24 MR#: [id number] Acct: [id number] Name: RENETTA GLIL Rep #: [id number] : 1960 Provider: Dr. Danay stockton MD Age/Sex: 63/F Location: [facility] Status: Signed Intake Vital Signs 12/26/23 09:08 [...] abnormal h (more content not included)... Normal [facility] Lipid Profileon 05-09-2024 Cholesterol [Mass/Vol] 224 mg/dL High 200 [facility] Comment on above: Result Comment: <200 mg/dL Desirable 200-240 mg/dL Borderline >240 mg/dL High Risk Performed By: #### L 500.4050, L500.4100, L100.0100 ####[facility] [address] [place], [place], [phone]) Cholesterol in HDL [Mass/Vol] 61 mg/dL Normal [facility] Comment on above: Result Comment: The drugs N-Acetylcysteine and Metamizole may falsely depress this assay. Reference Range HDL <40 mg/dL Low HDL Cholesterol HDL >or= 60 mg/dL High HDL Cholesterol Performed By: #### L 500.4050, L500.4100, L100.0100 ####[facility] [address] [place], [address] Cholesterol in LDL [Mass/Vol] 109 mg/dL Normal 0-130 [facility] Comment on above: Performed By: #### L 500.4050, L500.4100, L100.0100 ####[facility] [address] [place], [address] Cholesterol in VLDL [Mass/Vol] 54 mg/dL High 5-40 [facility] Comment on above: Performed By: #### L 500.4050, L500.4100, L100.0100 ####[facility] [address] [place], [address] Triglyceride [Mass/Vol] 268 mg/dL High [facility] Comment on above: Result Comment: The drugs N-Acetylcysteine and Metamizole may falsely depress this assay. Serum Triglycerides Reference Interval Normal <150 mg/dL Borderline high 150 - 199 mg/dL High 200 - 499 mg/dL Very High > or = 500 mg/dL Performed By: #### L 500.4050, L500.4100, L100.0100 ####[facility] [address] [place], [address] ANES POSTPROC EVALon 024 ANES POSTPROC EVAL HNO ID: [id number] Author: BRODY DAMON DO Service: Anesthesiology Author Type: Anesthesiologist Type: Anesthesia Postprocedure Evaluation Filed: 12/27/2023 14:04 Note Text: POST ANESTHESIA EVALUATION NOTE : 1960 Procedure Summary Date: 12/27/23 Room / Location: [facility] - ENDO Anesthesia Start: 1318 Anesthesia Stop: 1355 Procedure: EGD - THERAPEUTIC, EUS, OR TUBE INTERVENTIONS Diagnosis: Gastric polyp Scheduled Providers: Tricia Zamora MD; Nadia Martínez APRN.SHIPMASTER; Brody Damon DO Responsible Provider: Brody Damon [...] December 27, 2023 TIME: 2:03 PM CSN: [id number] Normal [facility] ANES PRE-OPon 12-27-2023 ANES PRE-OP HNO ID: [id number] Author: BRODY DAMON DO Service: Anesthesiology Author Type: Anesthesiologist Type: Anesthesia Preprocedure Evaluation Filed: 12/27/2023 13:12 Note Text: ANESTHESIOLOGY DAY OF SURGERY NOTE : 1960 Procedure Information Date/Time: 12/27/23 1330 Scheduled providers: Tricia Zamora MD; Nadia Martínez APRN.SHIPMASTER; Brody Damon DO Procedure: EGD - THERAPEUTIC, EUS, OR TUBE INTERVENTIONS Location: [facility] - ENDO Estimated body mass index [...] and consent discussed: yes. Patient / Responsible Libertarian agrees to proceed: yes Patient / Surrogate [...] December 27, 2023 TIME: 1:11 PM CSN: [id number] [facility] EGD Study observation Narrat iveon 12-27-2023 [facility] NURSING PROGon 12-27-2023 NURSING PROG HNO ID: [id number] Author: JAMEE LOPEZ RN Service: Nursing Author [...] REFERRAL (RECOMMENDATION): None Electronically Signed By: Jamee Tejedachad [facility] NURSING PROG HNO ID: [id number] Author: AILEEN MALHOTRA RN Service: Nursing Author [...] (RECOMMENDATION): None Electronically Signed By: Aileen Malhotra [facility] Upper EUSon 12-27-2023 Upper EUS [facility] Gastrointestinal Endoscopy Patient Name: Renetta Gill Procedure Date: 12/27/2023 1:05 PM Date of : 1960 Admit Type: Outpatient Age: 63 Room: [place] [address] Gender: Female Note Status: Finalized Attending MD: Tricia Zamora MD, [id number] Procedure: Upper EUS Indications: Suspected gastric neoplasm, [...] therapeutic intervention. Procedure Code(s): --- Professional --- 07954, Esophagogastroduodenosc opy, flexible, transoral; with endoscopic ultrasound examination limited to the esophagus, stomach or duodenum, and adjacent structures Diagnosis Code(s): --- Professional --- K31.89, Other diseases of stomach and duodenum R16.0, Hepatomegaly, not elsewhere classified K92.9, Disease of digestive system, unspecified CPT copyright 2020 [employer]. All rights reserved. The codes documented in this report are preliminary and upon environment friendly landscape designer review may be revised to meet current compliance requirements. Attending Participation: I personally performed the entire procedure. Scope In: 1:26:33 PM Scope Out: 1:44:36 PM MD Tricia Dunlap MD 12/27/2023 2:07:06 PM This report has been signed electronically by Tricia Zamora MD Number of Addenda: 0 Note Initiated On: 12/27/2023 1:05 PM Estimated Blood Loss: Estimated blood loss: none. [facility] RENETTA GILL ([id number]) 1960 F Date Time Provider Department 12/04/23 [...] her procedure in 1 month. MD David Mancini, Lorin II 12/04/2023 11:49 AM Signed Spoke with patient rescheduled EUS for , 01/17/2024 at [facility]. Went over prep and sent via my chart. Lorin Tyson Asst II Allergies As of Date: 12/04/2023 Noted Allergy Reaction SULFA (SULFONAMIDE ANTIBIOTICS) 08/25/2010 4 - Hives Date Reviewed: 11/29/2023 Reviewed by: Aileen Malhotra, RN - Fully Assessed Reason for Visit: Procedure [88] Cmt: Needs to reschedule EGD and EUS Primary Visit Diagnosis:Gastric polyp [K31.7] Order(s):EGD - THERAPEUTIC, EUS, OR TUBE INTERVENTIONS [GI2] Order #: [id number] FUTURE Prescriptions as of 12/04/2023 - amlodipine [...] by LORIN ROSS II on 12/04/23 [facility] Basophil percentageOrdered B y: Lonny Montano on 12-03-2023 Basophil percentage < 1.0 mg/dL 0.55-1.02 [facility] No Panel InformationOrdered By: Lonny Montano on 12-03-2023 Bedside Estimated GFR (eGFR) > 60.0000 mL/min >60 [facility] HISTORY PHYSICALon HISTORY PHYSICAL HNO ID: [id number] Author: TRICIA ZAMORA MD Service: Gastroenterology Author [...] 2009 uterine ablation for heavy bleeding at [facility] TOOTH EXTRACTION x4 of 3rd molar TREATMENT [...] November 29, 2023 TIME: 2:23 PM Normal [facility] NURSING PROGon 11-29-2023 NURSING PROG HNO ID: [id number] Author: OLIVIA TORRES RN Service: ? Author [...] (RECOMMENDATION): None Electronically Signed By: Olivia Torres [facility] - Microbiology an d Antimicrobial susceptibilityon 11-13-2023 SARS-CoV-2 (COVID-19) RNA LORA+probe Ql (Unsp spec) Not detected [facility] No Panel Informationon 11-13 Influenza Types A,B Rapid (Clinic) Not detected [facility] Absolute lymphocyte countOrd ered By: Lonny Montano on 09-19-2023 Lymphocytes Auto (Unsp spec) [#/Vol] 1.84 10*3/uL 0.83-4.51 [facility] Basophil percentageOrdered B y: Lonny Montano on 09-19-2023 Amylase [Catalytic activity/Vol] 26 U/L 25-115 [facility] Basophils/100 WBC (Bld) 0.8 % 0-1 [facility] Bilirubin [Mass/Vol] 0.50 mg/dL 0.20-1.00 [facility] Comment on above: For patients on eltr ombopag therapy, use of Dimension [place] TBIL is not recommended. Chloride [Moles/Vol] 106 mmol/L 98-107 [facility] Eosinophils/100 WBC (Bld) 2.2 % 0-5 [facility] Glucose [Mass/Vol] 99 mg/dL 74-106 [facility] Neutrophils (Bld) [#/Vol] 3.5 10*3/uL 2.0-7.7 [facility] Neutrophils/100 WBC (Bld) 59.2 % 47-70 [facility] Potassium [Moles/Vol] 4.0 mmol/L 3.5-5.1 [facility] Protein [Mass/Vol] 7.7 g/dL 6.4-8.2 [facility] Sodium [Moles/Vol] 138 mmol/L 136-145 [facility] WBC (Bld) [#/Vol] 5.9 10*3/uL 4.4-11.0 [facility] Blood erythrocytes count (nu mber/volume)Ordered By: Lonny Montano on 09-19-2023 RBC (Bld) [#/Vol] 4.56 10*6/uL 4.2-5.4 [facility] Blood hemoglobin measurement (mass/volume)Ordered By: Lonny Montano on 09-19-2023 Hemoglobin (Bld) [Mass/Vol] 13.4 g/dL 12.0-15.0 [facility] Blood lymphocytes/100 leukoc ytesOrdered By: Lonny Montano on 09-19-2023 Lymphocytes/100 WBC (Bld) 31.0 % 19-41 [facility] Blood monocytes/100 leukocyt esOrdered By: Lonny Montano on 09-19-2023 Monocytes/100 WBC (Bld) 6.6 % 0-10 [facility] Blood platelet mean volumeOr dered By: Lonny Montano on 09-19-2023 Platelet mean volume (Bld) [Entitic vol] 9.6 fL 6.2-12.0 [facility] Determination of erythrocyte mean corpuscular volume (MCV)Ordered By: Lonny Montano on 09-19-2023 MCV (RBC) [Entitic vol] 90.1 fL 81-99 [facility] Erythrocyte sedimentation ra teOrdered By: Lonny Montano on 09-19-2023 ESR (Bld) [Velocity] 15 mm/h 0-30 [facility] Hematocrit Auto (Bld) [Volum e fraction]Ordered By: Lonny Montano on 09-19-2023 Hematocrit (Bld) [Volume fraction] 41.1 % 37-47 [facility] Laboratory - Chemistry and C hemistry - challengeOrdered By: Lonny Montano on 09-19-2023 ALP [Catalytic activity/Vol] 98 U/L 45-117 [facility] ALT [Catalytic activity/Vol] 36 U/L 13-56 [facility] CO2 [Moles/Vol] 26.0 mmol/L 21.0-32.0 [facility] Globulin (S) [Mass/Vol] 3.9 g/dL 2.2-4.2 [facility] Urea nitrogen/Creatinine [Mass ratio] 19.0 mg/mg 10-20 [facility] - Hematology and Cell countsOrdered By: Lonny Montano on 09-19-2023 Erythrocyte distribution width (RBC) [Entitic vol] 44.0 fL 35.1-43.9 [facility] Erythrocyte distribution width (RBC) [Ratio] 13.4 % 11.6-14.6 [facility] Immature granulocytes/100 WBC (Bld) 0.200 % 0.0-0.9 [facility] Comment on above: IG% - Immature Granu locytes (promyelocytes, myelocytes and metamyelocytes) > 1% indicates that a LEFT SHIFT is Present. MCH (RBC) [Entitic mass] 29.4 pg 27.0-32.0 [facility] Nucleated RBC/100 WBC (Bld) [Ratio] 0 % 0-5 [facility] MCHC Auto (RBC) [Mass/Vol]Or dered By: Lonny Montano on 09-19-2023 MCHC (RBC) [Mass/Vol] 32.6 g/dL 32-36 [facility] No Panel InformationOrdered By: Lonny Montano on 09-19-2023 Estimated GFR (MDRD) Amer 111 mL/min >60 [facility] Comment on above: GFR Calc Estimated GFR (MDRD) Non-Af Amer 92 mL/min >60 [facility] Comment on above: Non- GFR Calc Platelets bldOrdered By: Prakash Montano on 09-19-2023 Platelets (Bld) [#/Vol] 296 10*3/uL 150-450 [facility] Serum or plasma albumin jena urement (mass/volume)Ordered By: Lonny Montano on 09-19-2023 Albumin [Mass/Vol] 3.8 g/dL 3.2-5.0 [facility] Serum or plasma albumin/glob ulin mass ratioOrdered By: Lonny Montano on 09-19-2023 Albumin/Globulin [Mass ratio] 1.0 {ratio} 0.9-2.4 [facility] Serum or plasma calcium jena urement (mass/volume)Ordered By: Lonny Montano on 09-19-2023 Calcium [Mass/Vol] 9.6 mg/dL 8.5-10.1 [facility] Serum or plasma creatinine m easurement (mass/volume)Ordered By: Lonny Montano on 09-19-2023 Creatinine [Mass/Vol] 0.68 mg/dL 0.55-1.02 [facility] Comment on above: The validity of the calculated GFR & GFRAA in patients over 70 years has not been determined. Clinical correlation is essential. Serum or plasma urea nitroge n measurement (mass/volume)Ordered By: Lonny Montano on 09-19-2023 Urea nitrogen [Mass/Vol] 13 mg/dL 7-18 [facility] Thin prep Papanicolaou smear with manual screeningOrdered By: Lonny Montano on 09-19-2023 Thin prep Papanicolaou smear with manual screening 18 U/L 15-37 [facility] Thin prep Papanicolaou smear with manual screening 6 5-15 [facility] CNPNon 09-14-2023 DYLANN Telephone (GASTNO) RENETTA GILL ([id number]) 1960 F Date Time Provider Department 09/14/23 TRICIA ZAMORA During your visit today, we recorded the following information about you: Lisa Harman 09/14/2023 12:13 PM Signed Voicemail received from patient to schedule her EUS with Dr. Zamora. Please call her at [phone]. Lorin Ross II 09/21/2023 10:36 AM Signed Linette, Do you have any information on this patient for EUS from Dr. Montano office? Lorin Tyson Assbrooks II Linette Nugent, RN 09/21/2023 2:38 PM Signed Pt referred for [...] for patient to call back to schedule. Lisa Tolbert II 11/08/2023 2:58 PM Signed Spoke to patient, appointment scheduled. Instructions sent on [employer]. Allergies As of Date: 09/14/2023 Noted Allergy Reaction SULFA (SULFONAMIDE ANTIBIOTICS) 08/25/2010 4 - Hives Date Reviewed: 02/21/2021 Reviewed by: Lisa Navas APRN.V BELT FINISHER - Fully Assessed Reason for Visit: Appointment [186] Cmt: EUS Primary Visit Diagnosis:Gastric polyp [K31.7] Order(s):EGD - THERAPEUTIC, EUS, OR TUBE INTERVENTIONS [GI2] Order #: [id number] FUTURE Prescriptions as of 11/08/2023 - triamterene-hydroCHLORO [...] Status:Closed by LISA HARMAN on 11/08/23 Normal [facility] Absolute lymphocyte countOrd ered By: Dr. Abdalla on 10-25-2022 Lymphocytes Auto (Unsp spec) [#/Vol] 1.42 10*3/uL 0.83-4.51 [facility] Basophil percentageOrdered B y: Dr. Abdalla on 10-25-2022 Basophils/100 WBC (Bld) 1.0 % 0-1 [facility] Chloride [Moles/Vol] 106 mmol/L 98-107 [facility] Eosinophils/100 WBC (Bld) 2.0 % 0-5 [facility] Glucose [Mass/Vol] 102 mg/dL 74-106 [facility] Comment on above: Fasting Glucose resu lt from 100 to 125 mg/dL suggests IMPAIRED HOMEOSTASIS per A.D.A. criteria. Neutrophils (Bld) [#/Vol] 3.1 10*3/uL 2.0-7.7 [facility] Neutrophils/100 WBC (Bld) 62.0 % 47-70 [facility] Potassium [Moles/Vol] 4.2 mmol/L 3.5-5.1 [facility] Sodium [Moles/Vol] 139 mmol/L 136-145 [facility] WBC (Bld) [#/Vol] 5.0 10*3/uL 4.4-11.0 [facility] Blood erythrocytes count (nu mber/volume)Ordered By: Dr. Abdalla on 10-25-2022 RBC (Bld) [#/Vol] 4.59 10*6/uL 4.2-5.4 [facility] Blood hemoglobin measurement (mass/volume)Ordered By: Dr. Abdalla on 10-25-2022 Hemoglobin (Bld) [Mass/Vol] 13.9 g/dL 12.0-15.0 [facility] Blood lymphocytes/100 leukoc ytesOrdered By: Dr. Abdalla on 10-25-2022 Lymphocytes/100 WBC (Bld) 28.7 % 19-41 [facility] Blood monocytes/100 leukocyt esOrdered By: Dr. Abdalla on 10-25-2022 Monocytes/100 WBC (Bld) 6.1 % 0-10 [facility] Blood platelet mean volumeOr dered By: Dr. Abdalla on 10-25-2022 Platelet mean volume (Bld) [Entitic vol] 9.2 fL 6.2-12.0 [facility] Determination of erythrocyte mean corpuscular volume (MCV)Ordered By: Dr. Abdalla on 10-25-2022 MCV (RBC) [Entitic vol] 91.7 fL 81-99 [facility] Hematocrit Auto (Bld) [Volum e fraction]Ordered By: Dr. Abdalla on 10-25-2022 Hematocrit (Bld) [Volume fraction] 42.1 % 37-47 [facility] Laboratory - Chemistry and C hemistry - challengeOrdered By: Dr. Abdalla on 10-25-2022 CO2 [Moles/Vol] 27.0 mmol/L 21.0-32.0 [facility] Urea nitrogen/Creatinine [Mass ratio] 19.1 mg/mg 10-20 [facility] - Hematology and Cell countsOrdered By: Dr. Abdalla on 10-25-2022 Erythrocyte distribution width (RBC) [Entitic vol] 45.8 fL 35.1-43.9 [facility] Erythrocyte distribution width (RBC) [Ratio] 13.4 % 11.6-14.6 [facility] Immature granulocytes/100 WBC (Bld) 0.200 % 0.0-0.9 [facility] Comment on above: IG% - Immature Granu locytes (promyelocytes, myelocytes and metamyelocytes) > 1% indicates that a LEFT SHIFT is Present. MCH (RBC) [Entitic mass] 30.3 pg 27.0-32.0 [facility] Nucleated RBC/100 WBC (Bld) [Ratio] 0 % 0-5 [facility] MCHC Auto (RBC) [Mass/Vol]Or dered By: Dr. Abdalla on 10-25-2022 MCHC (RBC) [Mass/Vol] 33.0 g/dL 32-36 [facility] No Panel InformationOrdered By: Dr. Abdalla on 10-25-2022 Estimated GFR (MDRD) Amer 103 mL/min >60 [facility] Comment on above: GFR Calc Estimated GFR (MDRD) Non-Af Amer 85 mL/min >60 [facility] Comment on above: Non- GFR Calc Platelets bldOrdered By: Dr. Abdalla on 10-25-2022 Platelets (Bld) [#/Vol] 277 10*3/uL 150-450 [facility] Serum or plasma calcium jena urement (mass/volume)Ordered By: Dr. Abdalla on 10-25-2022 Calcium [Mass/Vol] 9.7 mg/dL 8.5-10.1 [facility] Serum or plasma creatinine m easurement (mass/volume)Ordered By: Dr. Abdalla on 10-25-2022 Creatinine [Mass/Vol] 0.73 mg/dL 0.55-1.02 [facility] Comment on above: The validity of the calculated GFR & GFRAA in patients over 70 years has not been determined. Clinical correlation is essential. Serum or plasma urea nitroge n measurement (mass/volume)Ordered By: Dr. Adballa on 10-25-2022 Urea nitrogen [Mass/Vol] 14 mg/dL 7-18 [facility] Thin prep Papanicolaou smear with manual screeningOrdered By: Dr. Abdalla on 10-25-2022 Thin prep Papanicolaou smear with manual screening 6 5-15 [facility] CNTHERAPYon 10-19-2022 CNTHERAPY OT/PT/Speech Visit ([facility]) RENETTA GILL ([id number]) 1960 F Date Time Provider Department 10/19/22 1:00 PM LAITH MCKENZIE [facility] Date Time Provider Department Center 10/19/2022 1:00 PM [id number] [facility] Reason for Visit: Speech Instrumental Swallow Eval [3660] Speech Discharge [3488] Primary Visit Diagnosis:Dysphagia, unspecified type [R13.10] Allergies As of Date: 10/19/2022 Noted Allergy Reaction SULFA (SULFONAMIDE ANTIBIOTICS) 08/25/2010 4 - Hives Date Reviewed: 02/21/2021 Reviewed by: Lisa Navas APRN.V BELT FINISHER - Fully Assessed Prescriptions as of 10/19/2022 [...] tablet by mouth once daily. Letter Text Normal [facility] XR ESOPHAGRAMon 10-19-2022 XR ESOPHAGRAM * * [...] or gastroesophageal reflux is noted. IMPRESSION: Negative. Change Control Coordinator: LUIS DANIEL Transcribe Date/Time: Oct 19 2022 3:36P Dictated by : ABDULAZIZ NUNES MD This examination was interpreted and the report reviewed and electronically signed by: ABDULAZIZ NUNES MD on Oct 19 2022 3:40PM EST [id number] [facility] XR MOD BARIUM SWALLOW W SPEE [...] pathology notes. IMPRESSION: See speech pathology notes. Change Control Coordinator: [facility] HOSPITALOsei Transcribe Date/Time: Oct 19 2022 3:35P Dictated by : ABDULAZIZ NUNES MD This examination was interpreted and the report reviewed and electronically signed by: ABDULAZIZ NUNES MD on Oct 19 2022 3:36PM EST [id number] [facility] XR MODIFIED BARIUM SWALLOW W SPEECH THERAPYon 10-19-2022 [facility] Basophil percentageOrdered B y: Dr. Abdalla on 08-07-2022 Basophil percentage Not Reportable [facility] - Chemistry and C hemistry - challengeOrdered By: Dr. Abdalla on 08-07-2022 Free T4 [Mass/Vol] 1.00 ng/dL 0.76-1.46 [facility] No Panel InformationOrdered By: Dr. Abdalla on 08-07-2022 Anti-Nuclear Antibody Screen Negative Negative [facility] Comment on above: Performed at: [address] [id number] Director: Delonte Diggs PhD, Phone: [phone] [employer] B Antibody Not Reportable [facility] EMERGENCY PLANNER Antibody Not Reportable [facility] Thyroid Stimulating Hormone (TSH) 2.22 uIU/mL 0.358-3.74 [facility] Serum DNA double strand anti body assay (units/volume)Ordered By: Dr. Abdalla on 08-07-2022 DNA double strand Ab Qn (S) Not Reportable [facility] Serum Briseida-1 antibody assay (u nits/volume)Ordered By: Dr. Abdalla on 08-07-2022 Briseida-1 extractable nuclear Ab Qn (S) Not Reportable [facility] Serum Scl-70 extractable nuc lear antibody assay (units/volume)Ordered By: Dr. Abdalla on 08-07-2022 SCL-70 extractable nuclear Ab Qn (S) Not Reportable [facility] Serum Marinelli extractable nucl ear antibody detectionOrdered By: Dr. Abdalla on 08-07-2022 Marinelli extractable nuclear Ab Ql (S) Not Reportable [facility] Absolute lymphocyte counton 06-14-2022 Lymphocytes Auto (Unsp spec) [#/Vol] 1.65 10*3/uL 0.83-4.51 [facility] Work Phone: Basophil percentageon 2021 Basophils/100 WBC (Bld) 1.0 % 0-1 [facility] Work Phone: Bilirubin [Mass/Vol] 0.50 mg/dL 0.20-1.00 [facility] Work Phone: Comment on above: For patients on eltr ombopag therapy, use of Dimension [place] TBIL is not recommended. Chloride [Moles/Vol] 104 mmol/L 98-107 [facility] Work Phone: Cholesterol [Mass/Vol] 235 mg/dL <200 [facility] Work Phone: Comment on above: <200 mg/dL Desirable 200-240 mg/dL Borderline >240 mg/dL High Risk Eosinophils/100 WBC (Bld) 2.4 % 0-5 [facility] Work Phone: [phone] Glucose [Mass/Vol] 98 mg/dL 74-106 [facility] Work Phone: [phone] Neutrophils (Bld) [#/Vol] 2.9 10*3/uL 2.0-7.7 [facility] Work Phone: Neutrophils/100 WBC (Bld) 56.8 % 47-70 [facility] Work Phone: [phone] Potassium [Moles/Vol] 4.3 mmol/L 3.5-5.1 [facility] Work Phone: [phone] Protein [Mass/Vol] 8.1 g/dL 6.4-8.2 [facility] Work Phone: [phone] Sodium [Moles/Vol] 139 mmol/L 136-145 [facility] Work Phone: [phone] Triglyceride [Mass/Vol] 175 mg/dL <199 [facility] Work Phone: [phone] Comment on above: The drugs N-Acetylcy steine and Metamizole may falsely depress this assay.Serum Triglycerides Reference Interval Normal <150 mg/dL Borderline high 150 - 199 mg/dL High 200 - 499 mg/dL Very High > or = 500 mg/dL WBC (Bld) [#/Vol] 5.0 10*3/uL 4.4-11.0 [facility] Work Phone: Blood erythrocytes count (nu mber/volume)on 06-14-2022 RBC (Bld) [#/Vol] 4.63 10*6/uL 4.2-5.4 [facility] Work Phone: [phone] Blood hemoglobin measurement (mass/volume)on 06-14-2022 Hemoglobin (Bld) [Mass/Vol] 14.2 g/dL 12.0-15.0 [facility] Work Phone: Blood lymphocytes/100 leukoc yteson 06-14-2022 Lymphocytes/100 WBC (Bld) 32.8 % 19-41 [facility] Work Phone: Blood monocytes/100 leukocyt eson 06-14-2022 Monocytes/100 WBC (Bld) 6.6 % 0-10 [facility] Work Phone: [phone] Blood platelet mean volumeon 06-14-2022 Platelet mean volume (Bld) [Entitic vol] 9.2 fL 6.2-12.0 [facility] Work Phone: Determination of erythrocyte mean corpuscular volume (MCV)on 06-14-2022 MCV (RBC) [Entitic vol] 92.4 fL 81-99 [facility] Work Phone: [phone] Hematocrit Auto (Bld) [Volum e fraction]on 06-14-2022 Hematocrit (Bld) [Volume fraction] 42.8 % 37-47 [facility] Work Phone: Laboratory - Chemistry and C hemistry - challengeon 06-14-2022 ALP [Catalytic activity/Vol] 94 U/L 45-117 [facility] Work Phone: ALT [Catalytic activity/Vol] 35 U/L 13-56 [facility] Work Phone: CO2 [Moles/Vol] 27.0 mmol/L 21.0-32.0 [facility] Work Phone: Globulin (S) [Mass/Vol] 4.2 g/dL 2.2-4.2 [facility] Work Phone: Urea nitrogen/Creatinine [Mass ratio] 14.7 mg/mg 10-20 [facility] Work Phone: [phone] Laboratory - Hematology and Cell countson 06-14-2022 Erythrocyte distribution width (RBC) [Entitic vol] 46.7 fL 35.1-43.9 [facility] Work Phone: [phone] Erythrocyte distribution width (RBC) [Ratio] 13.9 % 11.6-14.6 [facility] Work Phone: Immature granulocytes/100 WBC (Bld) 0.400 % 0.0-0.9 [facility] Work Phone: Comment on above: IG% - Immature Granu locytes (promyelocytes, myelocytes and metamyelocytes) > 1% indicates that a LEFT SHIFT is Present. MCH (RBC) [Entitic mass] 30.7 pg 27.0-32.0 [facility] Work Phone: [phone] Nucleated RBC/100 WBC (Bld) [Ratio] 0 % 0-5 [facility] Work Phone: [phone] MCHC Auto (RBC) [Mass/Vol]on 06-14-2022 MCHC (RBC) [Mass/Vol] 33.2 g/dL 32-36 [facility] Work Phone: No Panel Informationon 06-14 Estimated GFR (MDRD) Amer 112 mL/min >60 [facility] Work Phone: [phone] Comment on above: GFR Calc Estimated GFR (MDRD) Non-Af Amer 93 mL/min >60 [facility] Work Phone: [phone] Comment on above: Non- GFR Calc Platelets bldon 06-14-2022 Platelets (Bld) [#/Vol] 257 10*3/uL 150-450 [facility] Work Phone: [phone] Serum or plasma albumin jena urement (mass/volume)on 06-14-2022 Albumin [Mass/Vol] 3.9 g/dL 3.2-5.0 [facility] Work Phone: [phone] Serum or plasma albumin/glob ulin mass ratioon 06-14-2022 Albumin/Globulin [Mass ratio] 0.9 {ratio} 0.9-2.4 [facility] Work Phone: [phone] Serum or plasma calcium jena urement (mass/volume)on 06-14-2022 Calcium [Mass/Vol] 9.9 mg/dL 8.5-10.1 [facility] Work Phone: [phone] Serum or plasma cholesterol in HDL measurement (mass/volume)on 06-14-2022 Cholesterol in HDL [Mass/Vol] 60 mg/dL >40 [facility] Work Phone: Comment on above: The drugs N-Acetylcy steine and Metamizole may falsely depress this assay. Reference Range HDL <40 mg/dL Low HDL Cholesterol HDL >or= 60 mg/dL High HDL Cholesterol Serum or plasma cholesterol in VLDL measurement (mass/volume)on 06-14-2022 Cholesterol in VLDL [Mass/Vol] 35 mg/dL 5-40 [facility] Work Phone: Serum or plasma creatinine m easurement (mass/volume)on 06-14-2022 Creatinine [Mass/Vol] 0.68 mg/dL 0.55-1.02 [facility] Work Phone: Comment on above: The validity of the calculated GFR & GFRAA in patients over 70 years has not been determined. Clinical correlation is essential. Serum or plasma low density lipoprotein (LDL) cholesterol measurement (mass/volume)on 06-14-2022 Cholesterol in LDL [Mass/Vol] 140 mg/dL 0-130 [facility] Work Phone: Serum or plasma urea nitroge n measurement (mass/volume)on 06-14-2022 Urea nitrogen [Mass/Vol] 10 mg/dL 7-18 [facility] Work Phone: Thin prep Papanicolaou smear with manual screeningon 06-14-2022 Thin prep Papanicolaou smear with manual screening 12 U/L 15-37 [facility] Work Phone: [phone] Thin prep Papanicolaou smear with manual screening 8 5-15 [facility] Work Phone: Celiac Comp Panelon 05-18-20 19 Gliad Deamidated IgA NOTI Normal <20 [facility] Comment on above: Performed By: #### C BCDIF, WSR, AMYL, CMP #### [facility] Routine Lab [address] [place] [address] #### CELCMP #### See report for performing lab information. Gliad Deamidated IgG NOTI Normal <20 [facility] Comment on above: Performed By: #### C BCDIF, WSR, AMYL, CMP #### [facility] Routine Lab [address] [place] [address] #### CELCMP #### See report for performing lab information. Transglutaminase IgG NOTI Normal <20 [facility] Comment on above: Performed By: #### C BCDIF, WSR, AMYL, CMP #### [facility] Routine Lab [address] [place] [address] #### CELCMP #### See report for performing lab information. Endomysial IgA Abs NOTI Abnormal <1:10 [facility] Comment on above: Performed By: #### C BCDIF, WSR, AMYL, CMP #### [facility] Routine Lab [address] [place] [address] #### CELCMP #### See report for performing lab information. Transglutaminase IgA 9 Units Normal <20 [facility] Comment on above: Performed By: #### C BCDIF, WSR, AMYL, CMP #### [facility] Routine Lab [address] [place] [address] #### CELCMP #### See report for performing lab information. Amylaseon 05-16-2019 Amylase [Catalytic activity/Vol] 41 U/L Normal 30-104 [facility] Comment on above: Performed By: #### C BCDIF, WSR, AMYL, CMP #### [facility] Routine Lab [address] [place] [address] #### CELCMP #### See report for performing lab information. CBC and Differentialon 05-16 Abs Baso 0.05 k/uL Normal <0.11 [facility] Comment on above: Performed By: #### C BCDIF, WSR, AMYL, CMP #### [facility] Routine Lab [address] [place] [address] #### CELCMP #### See report for performing lab information. Abs Larue 0.31 k/uL Normal <0.87 [facility] Comment on above: Performed By: #### C BCDIF, WSR, AMYL, CMP #### [facility] Routine Lab [address] [place] [address] #### CELCMP #### See report for performing lab information. Abs Neut 3.05 k/uL Normal 1.45-7.50 [facility] Comment on above: Performed By: #### C BCDIF, WSR, AMYL, CMP #### [facility] Routine Lab [address] [place] [address] #### CELCMP #### See report for performing lab information. Absolute nRBC <0.01 Normal <0.01 [facility] Comment on above: Performed By: #### C BCDIF, WSR, AMYL, CMP #### [facility] Routine Lab [address] [place] [address] #### CELCMP #### See report for performing lab information. Basophils/100 WBC (Bld) 0.9 % Normal [facility] Comment on above: Performed By: #### C BCDIF, WSR, AMYL, CMP #### [facility] Routine Lab [address] [place] [address] #### CELCMP #### See report for performing lab information. DTYPE ADIFF Normal [facility] Comment on above: Performed By: #### C BCDIF, WSR, AMYL, CMP #### [facility] Routine Lab [address] [place] [address] #### CELCMP #### See report for performing lab information. Eosinophils (Bld) [#/Vol] 0.11 10*3/uL Normal <0.46 [facility] Comment on above: Performed By: #### C BCDIF, WSR, AMYL, CMP #### [facility] Routine Lab [address] [place] [address] #### CELCMP #### See report for performing lab information. Eosinophils/100 WBC (Bld) 2.1 % Normal [facility] Comment on above: Performed By: #### C BCDIF, WSR, AMYL, CMP #### [facility] Routine Lab [address] [place] [address] #### CELCMP #### See report for performing lab information. Erythrocyte distribution width (RBC) [Ratio] 13.6 % Normal 11.5-15.0 [facility] Comment on above: Performed By: #### C BCDIF, WSR, AMYL, CMP #### [facility] Routine Lab [address] [place] [address] #### CELCMP #### See report for performing lab information. Hematocrit (Bld) [Volume fraction] 42.2 % Normal 36.0-46.0 [facility] Comment on above: Performed By: #### C BCDIF, WSR, AMYL, CMP #### [facility] Routine Lab [address] [place] [address] #### CELCMP #### See report for performing lab information. Hemoglobin (Bld) [Mass/Vol] 13.6 g/dL Normal 11.5-15.5 [facility] Comment on above: Performed By: #### C BCDIF, WSR, AMYL, CMP #### [facility] Routine Lab [address] [place] [address] #### CELCMP #### See report for performing lab information. Lymphocytes (Bld) [#/Vol] 1.81 10*3/uL Normal 1.00-4.00 [facility] Comment on above: Performed By: #### C BCDIF, WSR, AMYL, CMP #### [facility] Routine Lab [address] [place], [place] [phone] #### CELCMP #### See report for performing lab information. Lymphocytes/100 WBC (Bld) 33.9 % Normal [facility] Comment on above: Performed By: #### C BCDIF, WSR, AMYL, CMP #### [facility] Routine Lab [address] [place] [address] #### CELCMP #### See report for performing lab information. MCH (RBC) [Entitic mass] 29.2 pG Normal 26.0-34.0 [facility] Comment on above: Performed By: #### C BCDIF, WSR, AMYL, CMP #### [facility] Routine Lab [address] [place] [address] #### CELCMP #### See report for performing lab information. MCHC (RBC) [Mass/Vol] 32.2 g/dL Normal 30.5-36.0 [facility] Reference Lab Comment on above: Performed By: #### C BCDIF, WSR, AMYL, CMP #### [facility] Routine Lab [address] [place] [address] #### CELCMP #### See report for performing lab information. MCV (RBC) [Entitic vol] 90.8 fL Normal 80.0-100.0 [facility] Comment on above: Performed By: #### C BCDIF, WSR, AMYL, CMP #### [facility] Routine Lab [address] [place], [place] [address] #### CELCMP #### See report for performing lab information. Monocytes/100 WBC (Bld) 5.8 % Normal [facility] Comment on above: Performed By: #### C BCDIF, WSR, AMYL, CMP #### [facility] Routine Lab [address] [place], [place] [address] #### CELCMP #### See report for performing lab information. Neutrophils/100 WBC (Bld) 57.3 % Normal [facility] Comment on above: Performed By: #### C BCDIF, WSR, AMYL, CMP #### [facility] Routine Lab [address] [place] [phone] #### CELCMP #### See report for performing lab information. NRBCs 0.0 /100 WBC Normal 0 [facility] Comment on above: Performed By: #### C BCDIF, WSR, AMYL, CMP #### [facility] Routine Lab [address] [place] [address] #### CELCMP #### See report for performing lab information. Platelet mean volume (Bld) [Entitic vol] 9.9 fL Normal 9.0-12.7 [facility] Comment on above: Performed By: #### C BCDIF, WSR, AMYL, CMP #### [facility] Routine Lab [address] [place] [address] #### CELCMP #### See report for performing lab information. Platelets (Bld) [#/Vol] 265 10*3/uL Normal 150-400 [facility] Comment on above: Performed By: #### C BCDIF, WSR, AMYL, CMP #### [facility] Routine Lab [address] [place] [address] #### CELCMP #### See report for performing lab information. RBC (Bld) [#/Vol] 4.65 10*6/uL Normal 3.90-5.20 [facility] Reference Lab Comment on above: Performed By: #### C BCDIF, WSR, AMYL, CMP #### [facility] Routine Lab [address] [place] [address] #### CELCMP #### See report for performing lab information. WBC (Bld) [#/Vol] 5.34 10*3/uL Normal 3.70-11.00 [facility] Reference Lab Comment on above: Performed By: #### C BCDIF, WSR, AMYL, CMP #### [facility] Routine Lab [address] [place] [address] #### CELCMP #### See report for performing lab information. Celiac Comp Panelon 05-16-20 19 IgA [Mass/Vol] 333 mg/dL Normal 78-391 [facility] Lab Comment on above: Performed By: #### C BCDIF, WSR, AMYL, CMP #### [facility] Routine Lab [address] [place] [address] #### CELCMP #### See report for performing lab information. Celiac Category PENDING Normal [facility] Lab Comment on above: Performed By: #### C BCDIF, WSR, AMYL, CMP #### [facility] Routine Lab [address] [place] [address] #### CELCMP #### See report for performing lab information. CELIAC PANEL COMMENT PENDING Normal [facility] Lab Comment on above: Performed By: #### C BCDIF, WSR, AMYL, CMP #### [facility] Routine Lab [address] [place] [address] #### CELCMP #### See report for performing lab information. CELIAC PANEL INTRP PENDING Normal [facility] Lab Comment on above: Performed By: #### C BCDIF, WSR, AMYL, CMP #### [facility] Routine Lab [address] [place] [address] #### CELCMP #### See report for performing lab information. Celiac RiskHaplotype PENDING Normal Negative [facility] Lab Comment on above: Performed By: #### C BCDIF, WSR, AMYL, CMP #### [facility] Routine Lab [address] [place] [address] #### CELCMP #### See report for performing lab information. HLA-DQA1 Genotype PENDING Normal [facility] Reference Lab Comment on above: Performed By: #### C BCDIF, WSR, AMYL, CMP #### [facility] Routine Lab [address] [place] [phone] #### CELCMP #### See report for performing lab information. HLA-DQB1 Genotype PENDING Normal [facility] Reference Lab Comment on above: Performed By: #### C BCDIF, WSR, AMYL, CMP #### [facility] Routine Lab [address] [place] [phone] #### CELCMP #### See report for performing lab information. Comp Metabolic Panelon 05-16 Albumin [Mass/Vol] 4.3 g/dL Normal 3.9-4.9 [facility] Lab Comment on above: Performed By: #### C BCDIF, WSR, AMYL, CMP #### [facility] Routine Lab [address] [place] [phone] #### CELCMP #### See report for performing lab information. ALP [Catalytic activity/Vol] 93 U/L Normal 34-123 [facility] Lab Comment on above: Performed By: #### C BCDIF, WSR, AMYL, CMP #### [facility] Routine Lab [address] [place] [phone] #### CELCMP #### See report for performing lab information. ALT [Catalytic activity/Vol] 58 U/L High 7-38 [facility] Lab Comment on above: Performed By: #### C BCDIF, WSR, AMYL, CMP #### [facility] Routine Lab [address] [place] [phone] #### CELCMP #### See report for performing lab information. Anion gap [Moles/Vol] 12 mmol/L Normal 9-18 [facility] Reference Lab Comment on above: Performed By: #### C BCDIF, WSR, AMYL, CMP #### [facility] Routine Lab [address] [place] [address] #### CELCMP #### See report for performing lab information. AST [Catalytic activity/Vol] 36 U/L High 13-35 [facility] Lab Comment on above: Performed By: #### C BCDIF, WSR, AMYL, CMP #### [facility] Routine Lab [address] [place] [address] #### CELCMP #### See report for performing lab information. Bilirubin Ql (U) 0.2 mg/dL Normal 0.2-1.3 [facility] Reference Lab Comment on above: Performed By: #### C BCDIF, WSR, AMYL, CMP #### [facility] Routine Lab [address] [place] [address] #### CELCMP #### See report for performing lab information. Calcium [Mass/Vol] 10.1 mg/dL Normal 8.5-10.2 [facility] Comment on above: Performed By: #### C BCDIF, WSR, AMYL, CMP #### [facility] Routine Lab [address] [place] [address] #### CELCMP #### See report for performing lab information. Chloride [Moles/Vol] 101 mmol/L Normal 97-105 [facility] Reference Lab Comment on above: Performed By: #### C BCDIF, WSR, AMYL, CMP #### [facility] Routine Lab [address] [place] [address] #### CELCMP #### See report for performing lab information. CO2 [Moles/Vol] 27 mmol/L Normal 22-30 [facility] Lab Comment on above: Performed By: #### C BCDIF, WSR, AMYL, CMP #### [facility] Routine Lab [address] [place] [phone] #### CELCMP #### See report for performing lab information. Creatinine [Mass/Vol] 0.71 mg/dL Normal 0.58-0.96 [facility] Reference Lab Comment on above: Performed By: #### C BCDIF, WSR, AMYL, CMP #### [facility] Routine Lab [address] [place] [address] #### CELCMP #### See report for performing lab information. eGFR- Amer. >60 Normal [facility] Lab Comment on above: Performed By: #### C BCDIF, WSR, AMYL, CMP #### [facility] Routine Lab [address] [place] [address] #### CELCMP #### See report for performing lab information. GFR/1.73 sq M predicted among non-blacks MDRD (S/P/Bld) [Vol rate/Area] mL/min/{1.73_m2} Normal [facility] Lab Comment on above: Performed By: #### C BCDIF, WSR, AMYL, CMP #### [facility] Routine Lab [address] [place] [address] #### CELCMP #### See report for performing lab information. Glucose [Mass/Vol] 103 mg/dL High 74-99 [facility] Comment on above: Performed By: #### C BCDIF, WSR, AMYL, CMP #### [facility] Routine Lab [address] [place] [address] #### CELCMP #### See report for performing lab information. Potassium [Moles/Vol] 4.3 mmol/L Normal 3.7-5.1 [facility] Lab Comment on above: Performed By: #### C BCDIF, WSR, AMYL, CMP #### [facility] Routine Lab [address] [place] [address] #### CELCMP #### See report for performing lab information. Protein [Mass/Vol] 7.2 g/dL Normal 6.3-8.0 [facility] Comment on above: Performed By: #### C BCDIF, WSR, AMYL, CMP #### [facility] Routine Lab [address] [place] [phone] #### CELCMP #### See report for performing lab information. Sodium [Moles/Vol] 140 mmol/L Normal 136-144 [facility] Comment on above: Performed By: #### C BCDIF, WSR, AMYL, CMP #### [facility] Routine Lab [address] [place], [place] [phone] #### CELCMP #### See report for performing lab information. Urea nitrogen [Mass/Vol] 15 mg/dL Normal 7-21 [facility] Lab Comment on above: Performed By: #### C BCDIF, WSR, AMYL, CMP #### [facility] Routine Lab [address] [place] [phone] #### CELCMP #### See report for performing lab information. Sed Rate Westergrenon 2018 Sed Rate Westergren 10 mm/hr Normal 0-20 [facility] Reference Lab Comment on above: Performed By: #### C BCDIF, WSR, AMYL, CMP #### [facility] Routine Lab [address] [place] [address] #### CELCMP #### See report for performing lab information. CT CARDIAC SCORINGon 019 CT CARDIAC SCORING Patient Name: RENETTA BERMUDEZ STUDY: CT CARDIAC SCORING; 01/01/2019 8:51 am INDICATION: Z13.6 Encounter for screening for cardiovascular disorders. COMPARISON: CT chest 03/17/2011 ACCESSION NUMBER(S): [id number] ORDERING CLINICIAN: MARS RUIZ TECHNIQUE: Using prospective [...] coronary heart disease events. According to the [employer] Clinical Expert Consensus [...] modify other non-lipid coronary risk factors. Reference: [place] P et al. Circulation. 2007; 115:402-426 Electronically signed by: DO Sveta GARCIA [facility] DIGITAL MAMM SCREENING W/ MARGE Dimas 07-27-2017 [...] Screening.Patient letter sent SNORM Electronically signed by: AUBRIE GREEN MD [facility] Vital Signs Date Time Vital Sign Value Performing Clinician Lisa kingsley 04-22-2025 07:59-0400 Body height 152.[address] Danay Abdalla MD Work Phone: [facility] 04-22-2025 07:59-0400 Body mass index (BMI) [Ratio] 38 kg/m2 Dr. Danay Abdalla MD Work Phone: [facility] 04-22-2025 07:59-0400 Body weight 88.[address] Danay Abdalla MD Work Phone: [facility] 03-17-2025 09:04-0400 Body height 152.[address] Danay Abdalla MD Work Phone: [facility] 03-17-2025 08:57-0400 Body temperature 97.8 [degF] Dr. Danay Abdalla MD Work Phone: [facility] 03-17-2025 08:57-0400 Diastolic blood pressure 76 mm[Hg] Dr. Danay Abdalla MD Work Phone: [facility] 03-17-2025 08:57-0400 Heart rate 91 /min Dr. Danay Abdalla MD Work Phone: [facility] 03-17-2025 08:57-0400 Respiratory rate 18 /min Dr. Danay Abdalla MD Work Phone: [facility] 03-17-2025 08:57-0400 SaO2% (BldA) [Mass fraction] 96 % Dr. Danay Abdalla MD Work Phone: [facility] 03-17-2025 08:57-0400 Systolic blood pressure 122 mm[Hg] Dr. Danay Abdalla MD Work Phone: [facility] 03-17-2025 08:35-0400 Body height 152.[address] Danay Abdalla MD Work Phone: [facility] 03-17-2025 08:35-0400 Body mass index (BMI) [Ratio] 37.5 kg/m2 Dr. Danay Abdalla MD Work Phone: [facility] 03-17-2025 08:35-0400 Body weight 87.[address] Danay Abdalla MD Work Phone: [facility] 02-23-2025 08:46-0400 Body temperature 98.4 [degF] Dr. Danay Abdalla MD Work Phone: [facility] 02-23-2025 08:46-0400 Diastolic blood pressure 80 mm[Hg] Dr. Danay Abdalla MD Work Phone: [facility] 02-23-2025 08:46-0400 Heart rate 98 /min Dr. Danay Abdalla MD Work Phone: [facility] 02-23-2025 08:46-0400 SaO2% (BldA) [Mass fraction] 97 % Dr. Danay Abdalla MD Work Phone: [facility] 02-23-2025 08:46-0400 Systolic blood pressure 122 mm[Hg] Dr. Danay Abdalla MD Work Phone: [facility] 02-04-2025 09:06-0400 Body temperature 98.4 [degF] Dr. Danay Abdalla MD Work Phone: [facility] 02-04-2025 09:06-0400 Diastolic blood pressure 68 mm[Hg] Dr. Danay Abdalla MD Work Phone: [facility] 02-04-2025 09:06-0400 Heart rate 90 /min Dr. Danay Abdalla MD Work Phone: [facility] 02-04-2025 09:06-0400 Respiratory rate 15 /min Dr. Danay Abdalla MD Work Phone: [facility] 02-04-2025 09:06-0400 SaO2% (BldA) [Mass fraction] 97 % Dr. Danay Abdalla MD Work Phone: [facility] 02-04-2025 09:06-0400 Systolic blood pressure 122 mm[Hg] Dr. Danay Abdalla MD Work Phone: [facility] 02-04-2025 08:51-0400 Body height 152.[address] Danay Abdalla MD Work Phone: [facility] 12-05-2024 10:47-0400 Body mass index (BMI) [Ratio] 37.8 kg/m2 Dr. Danay Abdalla MD Work Phone: [facility] 12-05-2024 10:47-0400 Body temperature 96.5 [degF] Dr. Danay Abdalla MD Work Phone: [facility] 12-05-2024 10:47-0400 Body weight 87.[address] Danay Abdalla MD Work Phone: [facility] 12-05-2024 10:47-0400 Diastolic blood pressure 66 mm[Hg] Dr. Danay Abdalla MD Work Phone: [facility] 12-05-2024 10:47-0400 Heart rate 89 /min Dr. Danay Abdalla MD Work Phone: [facility] 12-05-2024 10:47-0400 Respiratory rate 16 /min Dr. Danay Abdalla MD Work Phone: [facility] 12-05-2024 10:47-0400 SaO2% (BldA) [Mass fraction] 96 % Dr. Danay Abdalla MD Work Phone: [facility] 12-05-2024 10:47-0400 Systolic blood pressure 104 mm[Hg] Dr. Danay Abdalla MD Work Phone: [facility] 12-27-2023 14:30-0400 Diastolic blood pressure 80 mm[Hg] Tricia Zamora MD Work Phone: [facility] 12-27-2023 14:30-0400 Heart rate 84 /min Tricia Zamora MD Work Phone: [facility] 12-27-2023 14:30-0400 Respiratory rate 15 /min Tricia Zamora MD Work Phone: [facility] 12-27-2023 14:30-0400 SaO2% (BldA) [Mass fraction] 97 % Tricia Zamora MD Work Phone: [facility] 12-27-2023 14:30-0400 Systolic blood pressure 115 mm[Hg] Tricia Zamora MD Work Phone: [facility] 12-27-2023 13:55-0400 Body temperature 96.8 [degF] Tricia Zamora MD Work Phone: [facility] 11-29-2023 14:20-0400 Body temperature 96.8 [degF] Tricia Zamora MD Work Phone: [facility] 11-29-2023 14:20-0400 Diastolic blood pressure 84 mm[Hg] Tricia Zamora MD Work Phone: [facility] 11-29-2023 14:20-0400 Heart rate 100 /min Tricia Zamora MD Work Phone: [facility] 11-29-2023 14:20-0400 Respiratory rate 17 /min Tricia Zamora MD Work Phone: [facility] 11-29-2023 14:20-0400 SaO2% (BldA) [Mass fraction] 96 % Tricia Zamora MD Work Phone: [facility] 11-29-2023 14:20-0400 Systolic blood pressure 134 mm[Hg] Tricia Zamora MD Work Phone: [facility] 11-13-2023 08:36-0500 Body height 152.[address] Danay Abdalla Work Phone: [facility] 11-13-2023 08:36-0500 Body mass index (BMI) [Ratio] 39 kg/m2 Dr. Danay Abdalla Work Phone: [facility] 11-13-2023 08:36-0500 Body temperature 97.9 [degF] Dr. Danay Abdalla Work Phone: [facility] 11-13-2023 08:36-0500 Body weight 90.[address] Danay Abdalla Work Phone: [facility] 11-13-2023 08:36-0500 Diastolic blood pressure 90 mm[Hg] Dr. Danay Abdalla Work Phone: [facility] 11-13-2023 08:36-0500 Heart rate 113 /min Dr. Danay Abdalla Work Phone: [facility] 11-13-2023 08:36-0500 Respiratory rate 14 /min Dr. Danay Abdalla Work Phone: [facility] 11-13-2023 08:36-0500 SaO2% (BldA) [Mass fraction] 96 % Dr. Danay Abdalla Work Phone: [facility] 11-13-2023 08:36-0500 Systolic blood pressure 132 mm[Hg] Dr. Danay Abdalla Work Phone: [facility] 09-24-2023 08:06-0500 Body mass index (BMI) [Ratio] 39.4 kg/m2 Dr. Danay Abdalla Work Phone: [facility] 09-24-2023 08:06-0500 Body temperature 97.4 [degF] Dr. Danay Abdalla Work Phone: [facility] 09-24-2023 08:06-0500 Body weight 91.[address] Danay Abdalla Work Phone: [facility] 09-24-2023 08:06-0500 Diastolic blood pressure 82 mm[Hg] Dr. Danay Abdalla Work Phone: [facility] 09-24-2023 08:06-0500 Heart rate 102 /min Dr. Danay Abdalla Work Phone: [facility] 09-24-2023 08:06-0500 Respiratory rate 18 /min Dr. Danay Abdalla Work Phone: [facility] 09-24-2023 08:06-0500 SaO2% (BldA) [Mass fraction] 98 % Dr. Danay Abdalla Work Phone: [facility] 09-24-2023 08:06-0500 Systolic blood pressure 112 mm[Hg] Dr. Danay Abdalla Work Phone: [facility] 02-23-2023 08:19-0400 Body height 1676.[address] Danay Abdalla Work Phone: [facility] 02-23-2023 08:19-0400 Body mass index (BMI) [Ratio] 0.3 kg/m2 Dr. Danay Abdalla Work Phone: [facility] 02-23-2023 08:19-0400 Body temperature 96.7 [degF] Dr. Danay Abdalla Work Phone: [facility] 02-23-2023 08:19-0400 Body weight 89.[address] Danay Abdalla Work Phone: [facility] 02-23-2023 08:19-0400 Diastolic blood pressure 76 mm[Hg] Dr. Danay Abdalla Work Phone: [facility] 02-23-2023 08:19-0400 Heart rate 97 /min Dr. Danay Abdalla Work Phone: [facility] 02-23-2023 08:19-0400 Respiratory rate 18 /min Dr. Danay Abdalla Work Phone: [facility] 02-23-2023 08:19-0400 SaO2% (BldA) [Mass fraction] 97 % Dr. Danay Abdalla Work Phone: [facility] 02-23-2023 08:19-0400 Systolic blood pressure 104 mm[Hg] Dr. Danay Abdalla Work Phone: [facility] 01-31-2023 09:43-0400 Body temperature 97.4 [degF] Dr. Danay Abdalla Work Phone: [facility] 01-31-2023 09:43-0400 Diastolic blood pressure 78 mm[Hg] Dr. Danay Abdalla Work Phone: [facility] 01-31-2023 09:43-0400 Heart rate 110 /min Dr. Danay Abdalla Work Phone: [facility] 01-31-2023 09:43-0400 Respiratory rate 16 /min Dr. Danay Abdalla Work Phone: [facility] 01-31-2023 09:43-0400 SaO2% (BldA) [Mass fraction] 96 % Dr. Danay Abdalla Work Phone: [facility] 01-31-2023 09:43-0400 Systolic blood pressure 128 mm[Hg] Dr. Danay Abdalla Work Phone: [facility] 10-25-2022 08:17-0500 Body height 165.[address] Danay Abdalla Work Phone: [facility] 10-25-2022 08:17-0500 Body mass index (BMI) [Ratio] 32.1 kg/m2 Dr. Danay Abdalla Work Phone: [facility] 10-25-2022 08:17-0500 Body temperature 97.1 [degF] Dr. Danay Abdalla Work Phone: [facility] 10-25-2022 08:17-0500 Body weight 87.[address] Danay Abdalla Work Phone: [facility] 10-25-2022 08:17-0500 Diastolic blood pressure 82 mm[Hg] Dr. Danay Abdalla Work Phone: [facility] 10-25-2022 08:17-0500 Heart rate 98 /min Dr. Danay Abdalla Work Phone: [facility] 10-25-2022 08:17-0500 Respiratory rate 16 /min Dr. Danay Abdalla Work Phone: [facility] 10-25-2022 08:17-0500 SaO2% (BldA) [Mass fraction] 98 % Dr. Danay Abdalla Work Phone: [facility] 10-25-2022 08:17-0500 Systolic blood pressure 114 mm[Hg] Dr. Danay Abdalla Work Phone: [facility] 08-07-2022 08:11-0500 Body height 165.[address] Danay Abdalla Work Phone: [facility] Work Phone: 08-07-2022 08:11-0500 Body mass index (BMI) [Ratio] 32.4 kg/m2 Dr. Danay Abdalla Work Phone: [facility] 08-07-2022 08:11-0500 Body temperature 96.9 [degF] Dr. Danay Abdalla Work Phone: [facility] 08-07-2022 08:11-0500 Body weight 88.[address] Danay Abdalla Work Phone: [facility] 08-07-2022 08:11-0500 Diastolic blood pressure 90 mm[Hg] Dr. Danay Abdalla Work Phone: [facility] 08-07-2022 08:11-0500 Heart rate 93 /min Dr. Danay Abdalla Work Phone: [facility] 08-07-2022 08:11-0500 Respiratory rate 16 /min Dr. Danay Abdalla Work Phone: [facility] 08-07-2022 08:11-0500 SaO2% (BldA) [Mass fraction] 99 % Dr. Danay Abdalla Work Phone: [facility] 08-07-2022 08:11-0500 Systolic blood pressure 118 mm[Hg] Dr. Danay Abdalla Work Phone: [facility] 06-14-2022 09:30-0400 Body height 165.[address] Danay Abdalla Work Phone: [facility] Work Phone: 06-14-2022 09:30-0400 Body mass index (BMI) [Ratio] 32.1 kg/m2 Dr. Danay Abdalla Work Phone: [facility] Work Phone: 06-14-2022 09:30-0400 Body temperature 97.6 [degF] Dr. Danay Abdalla Work Phone: [facility] Work Phone: 06-14-2022 09:30-0400 Body weight 87.[address] Danay Abdalla Work Phone: [facility] Work Phone: 06-14-2022 09:30-0400 Diastolic blood pressure 84 mm[Hg] Dr. Danay Abdalla Work Phone: [facility] Work Phone: 06-14-2022 09:30-0400 Heart rate 91 /min Dr. Danay Abdalla Work Phone: [facility] Work Phone: 06-14-2022 09:30-0400 Respiratory rate 18 /min Dr. Danay Abdalla Work Phone: [facility] Work Phone: 06-14-2022 09:30-0400 SaO2% (BldA) [Mass fraction] 98 % Dr. Danay Abdalla Work Phone: [facility] Work Phone: 06-14-2022 09:30-0400 Systolic blood pressure 130 mm[Hg] Dr. Danay Abdalla Work Phone: [facility] Work Phone: 02-28-2022 09:19-0400 Body mass index (BMI) [Ratio] 32.4 kg/m2 Dr. Danay Abdalla Work Phone: [facility] Work Phone: 02-28-2022 09:19-0400 Body temperature 98.2 [degF] Dr. Danay Abdalla Work Phone: [facility] Work Phone: 02-28-2022 09:19-0400 Body weight 88.[address] Danay Abdalla Work Phone: [facility] Work Phone: 02-28-2022 09:19-0400 Diastolic blood pressure 72 mm[Hg] Dr. Danay Abdalla Work Phone: [facility] Work Phone: 02-28-2022 09:19-0400 Heart rate 82 /min Dr. Danay Abdalla Work Phone: [facility] Work Phone: 02-28-2022 09:19-0400 Respiratory rate 14 /min Dr. Danay Abdalla Work Phone: [facility] Work Phone: 02-28-2022 09:19-0400 SaO2% (BldA) [Mass fraction] 99 % Dr. Danay Abdalla Work Phone: [facility] Work Phone: 02-28-2022 09:19-0400 Systolic blood pressure 110 mm[Hg] Dr. Danay Abdalla Work Phone: [facility] Work Phone: 11-22-2021 07:38-0500 Body height 165.[address] Danay Abdalla Work Phone: [facility] Work Phone: 11-22-2021 07:38-0500 Body mass index (BMI) [Ratio] 32.8 kg/m2 Dr. Danay Abdalla Work Phone: [facility] Work Phone: 11-22-2021 07:38-0500 Body temperature 96.4 [degF] Dr. Danay Abdalla Work Phone: [facility] Work Phone: 11-22-2021 07:38-0500 Body weight 89.[address] Danay Abdalla Work Phone: [facility] Work Phone: 11-22-2021 07:38-0500 Diastolic blood pressure 70 mm[Hg] Dr. Danay Abdalla Work Phone: [facility] Work Phone: 11-22-2021 07:38-0500 Heart rate 102 /min Dr. Danay Abdalla Work Phone: [facility] Work Phone: 11-22-2021 07:38-0500 Respiratory rate 16 /min Dr. Danay Abdalla Work Phone: [facility] Work Phone: 11-22-2021 07:38-0500 SaO2% (BldA) [Mass fraction] 96 % Dr. Danay Abdalla Work Phone: [facility] Work Phone: 11-22-2021 07:38-0500 Systolic blood pressure 102 mm[Hg] Dr. Danay Abdalla Work Phone: [facility] Work Phone: Encounters Encounter Date Encounter Type Care Provider Facility Start: 04-22-2025 End: 04-22-[address] Cristino Mccallum MD -[facility] Start: 04-22-2025 End: 04-22-[address] Danay Abdalla MD Work Phone: -[facility] Start: 04-17-2025 End: 04-17-[address] Arnoldo Wiseman MD -[facility] Work Phone: Start: 04-17-2025 End: 04-17-[address] Danay Abdalla MD Work Phone: -[facility] Start: 04-11-2025 End: 04-11-[address] Danay Abdalla MD Work Phone: -[facility] Start: 04-11-2025 End: 04-11-[address] Arnoldo Wiseman MD -[facility] Work Phone: Start: 04-11-2025 End: 04-11-2025 ambulatory Arnoldo Wiseman Facility:[facility] Start: 03-17-2025 End: 03-17-[address] Arnoldo Wiseman MD -[facility] Work Phone: Start: 03-17-2025 End: 03-17-[address] Danay Abdalla MD Work Phone: -[facility] Start: 03-03-2025 ambulatory Franky Rose Facility :[facility] Start: 03-03-2025 Registered Recurring Franky Rose PA -Physical Therapy Work Phone: Start: 02-23-2025 End: 02-23-2025 Patient encounter procedure Franky FARR [facility] Work Phone: Start: 02-23-2025 End: 02-23-[address] Danay Abdalla MD Work Phone: [facility] Work Phone: Start: 02-13-2025 Registered Recurring Franky Rose PA -Physical Therapy Work Phone: Start: 02-04-2025 End: 02-04-[address] Cristino Mccallum MD -[facility] Start: 02-04-2025 End: 02-04-[address] Danay Abdalla MD Work Phone: [facility] Work Phone: Start: 12-05-2024 End: 12-05-[address] Danay Abdalla MD -[facility] Work Phone: Start: 12-05-2024 End: 12-05-2024 [facility] Start: 09-05-2024 End: 09-05-2024 ambulatory [facility] Facility:[facility] Start: 09-05-2024 End: 09-05-2024 ambulatory [facility] Facility:[facility] Start: 08-08-2024 End: 08-08-2024 ambulatory [facility] Facility:[facility] Start: 05-09-2024 Encounter for genera l adult medical examination without abnormal findings [facility] Start: 05-09-[address] Danay Abdalla MD Work Phone: [facility] Start: 05-09-2024 End: 05-09-2024 ambulatory Danay Abdalla Facility:[facility] Start: 05-09-2024 End: 05-09-2024 ambulatory Danay Abdalla Facility:[facility] Start: 12-27-2023 ambulatory [facility] Faci lity:[facility] Start: 12-27-2023 End: 12-27-2023 Subsequent hospital visit by physician Tricia Zamora MD Work Phone: [facility] - ENDO Comment on above: Gastric polyp [K31.7 ] Start: 12-04-2023 Telephone encounter Tricia jaime MD Work Phone: Gastroenterology Comment on above: Procedure (Needs to reschedule EGD and EUS) Start: 12-03-2023 End: 12-03-[address] Danay Abdalla Work Phone: [facility] Work Phone: Start: 12-03-2023 End: 12-03-[address] Danay Abdalla Work Phone: [facility] Work Phone: Start: 11-29-2023 ambulatory [facility] ity:[facility] Start: 11-29-2023 End: 11-29-2023 Subsequent hospital visit by physician Tricia Zamora MD Work Phone: [facility] - ENDO Comment on above: Canceled (Pt cx: Res cheduled) Start: 11-22-2023 ambulatory Tricia Zamora MD Work Phone: [facility] - ENDO Start: 11-13-2023 End: 11-13-[address] Danay Abdalla Work Phone: [facility] Work Phone: Start: 09-24-2023 End: 09-24-[address] Danay Abdalla Work Phone: [facility] Internal Medicine Work Phone: Start: 09-19-2023 End: 09-19-[address] Danay Abdalla Work Phone: [facility] Work Phone: Start: 09-14-2023 Telephone encounter Tricia jaime MD Work Phone: Gastroenterology Comment on above: Appointment (EUS ) Start: 03-15-2023 End: 03-15-[address] Danay Abdalla Work Phone: [facility] Work Phone: Start: 03-15-2023 End: 03-15-[address] Danay Abdalla Work Phone: [facility]-Outpatient Bone Densitometry Work Phone: Start: 02-23-2023 End: 02-23-[address] Danay Abdalla Work Phone: [facility] Internal Medicine Work Phone: Start: 01-31-2023 End: 01-31-[address] Danay Abdalla Work Phone: [facility] Work Phone: Start: 10-25-2022 End: 10-25-[address] Danay Abdalla Work Phone: [facility] Work Phone: Start: 10-25-2022 End: 10-25-[address] Danay Abdalla Work Phone: [facility] Internal Medicine Start: 10-19-2022 End: 10-20-2022 ambulatory Laith Rdzryan [facility] Work Phone: [facility] Comment on above: Dysphagia, unspecifi ed type (Primary Dx) Start: 10-19-2022 End: 10-19-2022 Subsequent hospital visit by physician Gi/Gu [facility] Work Phone: Radiology Comment on above: Dysphagia, unspecifi ed [R13.10] Start: 08-07-2022 End: 08-07-[address] Danay Abdalla Work Phone: [facility] Work Phone: Start: 08-07-2022 End: 08-07-[address] Danay Abdalla Work Phone: [facility] Internal [facility] Start: 06-14-2022 End: 06-14-[address] Danay Abdalla Work Phone: [facility] Work Phone: Start: 06-14-2022 End: 06-14-[address] Danay Abdalla Work Phone: [facility] Internal [facility] Start: 02-28-2022 End: 02-28-[address] Danay Abdalla Work Phone: [facility] Internal [facility] Start: 01-25-2022 End: 01-25-[address] Danay Abdalla Work Phone: [facility]-Outpatient Breast Imaging Start: 11-22-2021 End: 11-22-[address] Danay Abdalla Work Phone: [facility] Internal Medicine Start: 01-01-2019 Patient encounter procedure Mars Ruiz Facility:[facility] Start: 07-27-2017 Ambulatory Amanda Alvarado Facility:[id number] Procedures Date Procedure Procedure Detail Performing Clinician Start: 04-11-2025 MRI of joint of lowe r extremity Dr. Danay Abdalla MD Work Phone: Start: 03-17-2025 X-ray of chest, PA a [...] Work Phone: Start: 10-23-2019 Mammography Laith Dumont [facility] Work Phone: Start: 06-04-2019 Colonoscopy Laith Dumont [facility] Work Phone: Start: 03-31-2017 Lipid 1996 panel - S seda or Plasma Tricia Zamora MD Work Phone: Plan of Treatment Date Care Activity Detail Author Start: 08-12-2028 Urine microalbumin profile [facility] Start: 04-22-2025 X-ray of knee, four or more views Knee 4 or More Views [facility] Start: 04-22-2025 XR Knee GE 4 Views [facility] Start: 04-19-2025 HPV TESTING HPV TESTING [facility] Start: 04-19-2025 Screening for malign ant neoplasm of cervix HPV Testing [facility] Start: 03-17-2025 X-ray of chest, PA a nd lateral views Chest PA and Lateral [facility] Start: 03-17-2025 XR Chest PA and Lateral [facility] Start: 02-04-2025 Patient referral [facility] Work Phone: Start: 02-04-2025 Plain X-ray of shoulder Shoulder min 2 Views [facility] Start: 02-04-2025 XR Shoulder GE 2 Views [facility] Start: 09-24-2023 Patient referral [facility] Work Phone: Start: 05-18-2023 Covid-19 Vaccine ( season) Covid-19 Vaccine () [facility] Start: 05-18-2023 Influenza vaccination Influenza Vacc ine (#1) [facility] Start: 04-19-2023 PAP TESTING PAP TESTING [facility] Start: 04-19-2023 Screening for malign ant neoplasm of cervix Pap Testing [facility] Start: 06-04-2022 Colonoscopy COLONOSCOPY [facility] Start: 06-04-2022 COLORECTAL CANCER SCREENING COLORECTAL CANCER SCREENING [facility] Start: 06-04-2022 Screening for malign ant neoplasm of colon [facility] Start: 05-18-2022 Influenza vaccination INFLUENZA (#1) [facility] Start: 05-16-2022 DIABETES SCREEN DIABETES SCREEN [facility] Start: 05-16-2022 Diabetes Screening Diabetes Screenin g [facility] Start: 03-31-2022 Lipid panel Lipid Screening [facility] Start: 03-31-2022 LIPID SCREEN LIPID SCREEN [facility] Start: 10-23-2021 Mammography MAMMOGRAM [facility] Start: 10-23-2021 Screening for malign ant neoplasm of breast Mammogram Screening [facility] Start: 2019 RSV Vaccine (1 - 1-d ose 60+ series) RSV Vaccine (1 - 1-dose 60+ series) [facility] Start: 2009 SHINGRIX VACCINE (1 of 2) SHINGRIX VACCINE (1 of 2) [facility] Start: 2004 COLOGUARD (FIT-DNA) COLOGUARD (FIT-D NA) [facility] Start: [address] COLONOGRAPHY [facility] Start: 2004 FECAL OCCULT BLOOD FECAL OCCULT BLOO D [facility] Start: 2004 Screening for malign ant neoplasm of colon [facility] Start: 2004 SIGMOIDOSCOPY SIGMOIDOSCOPY [facility] Start: 1977 HIV SCREENING HIV SCREENING [facility] Start: 1977 HIV screening HIV Screening [facility] CBC W Auto Different ial panel - Blood [facility] Comprehensive metabo lic 1999 panel - Serum or Plasma [facility] End: 09-24-2024 EGD - THERAPEUTIC, EUS, OR TUBE INTERVENTIONS EGD - THERAPEUTIC, EUS, OR TUBE INTERVENTIONS Endoscopy Routine Gastric polyp 1 Occurrences starting 09/24/2023 until 09/24/2024 [facility] Work Phone: Comment on above: 1 Occurrences starti ng 09/24/2023 until 09/24/2024 End: 12-03-2024 EGD - THERAPEUTIC, EUS, OR TUBE INTERVENTIONS EGD - THERAPEUTIC, EUS, OR TUBE INTERVENTIONS Endoscopy Routine Gastric polyp 1 Occurrences starting 12/04/2023 until 12/03/2024 [facility] Work Phone: Comment on above: 1 Occurrences starti ng 12/04/2023 until 12/03/2024 Lipid 1996 panel - Serum or Plasma [facility] Lipid 1995 panel - Serum or Plasma [facility] MR Lower Extremity Joint [facility] Patient referral [facility] Work Phone: PCR test for SARS [facility] Immunizations Immunization Date Immunization Notes Care Provider Latisha reed 06-20-2023 influenza, injectabl e, quadrivalent, preservative free Dr. Danay Abdalla Work Phone: [facility] 08-22-2020 influenza virus vacc ine, unspecified formulation Tricia Zamora MD Work Phone: [facility] 08-12-2018 influenza, injectabl e, quadrivalent, contains preservative Laith Alexis Gilbert [facility] Work Phone: [facility] 08-12-2018 tetanus toxoid, redu nghia diphtheria toxoid, and acellular pertussis vaccine, adsorbed Laith Dumont [facility] Work Phone: [facility] 12-28-2011 hepatitis B vaccine, adult dosage Laith Dumont [facility] Work Phone: [facility] Work Phone: 08-17-2009 pneumococcal polysaccharide vaccine, 23 valent Laith Dumont [facility] Work Phone: [facility] Work Phone: 09-17-2007 hepatitis A vaccine, pediatric/adolescent dosage, 2 dose schedule Laith Dumont [facility] Work Phone: [facility] Work Phone: 09-17-2007 hepatitis B vaccine, adult dosage Laith Dumont [facility] Work Phone: [facility] Work Phone: Payers Date Payer Category Payer Medicare [id number] 2024 Self-pay [id number] 2022 Private Health Insurance [facility] [id number] 2022-2023 [address] [place] [address] EPO [id number] 2020 Unknown [id number] 2020 Unknown [employer] PPO [id number] 2020-Present [phone] [address] [place] [address] PPO [id number] 1960 Unknown [id number] [id number]. 2.356 Medicare [id number] Private Health Insurance [facility] [id number] Unknown [id number] Unknown [id number] Unknown [id number] [id number]. 2.462 Unknown [id number] 2.16840.1.549414.3.579. 2.462 Unknown [id number] 2.16.840.1.010607.3.579. 2.462 Unknown [id number] 2.16840.1.242411.3.579. 2.462 Unknown [id number] 2.16.840.1.924076.3.579. 2.462 Unknown [id number] 2.16.840.1.977427.3.579. 2.462 Unknown [id number] 2.16.840.1.417524.3.579. 2.462 Unknown [id number] 2.16.840.1.140297.3.579. 2.462 Unknown [id number] 2.16.840.1.354784.3.579. 2.462 Unknown [id number] 2.16.840.1.685973.3.579. 2.462 Unknown [id number] 2.16.840.1.297684.3.579. 2.462 Unknown [id number] 2.16.840.1.889622.3.579. 2.462 Unknown [id number] 2.16.840.1.491268.3.579. 2.462 Unknown [id number] 2.16.840.1.065274.3.579. 2.462 Unknown [id number] 2.16.840.1.408147.3.579. 2.462 Unknown [id number] 2.16.840.1.844926.3.579. 2.462 Unknown [id number] 2.16.840.1.660657.3.579. 2.462 Social History Date Type Detail Facility Start: 11-22-2021 End: 11-13-2023 Tobacco smoking status PRIS Unknown if ever smoked [facility] Start: 1960 Sex Assigned At Female [facility] Start: 05-02-2019 End: 03-17-2025 Tobacco smoking status PRIS Ex-smoker [facility] Work Phone: End: 09-17-1977 History of tobacco use Current smoker [facility] Work Phone: End: 09-17-1977 History of tobacco use Cigarette Smoker [facility] Work Phone: Start: 05-02-2019 Tobacco use and exposure Smokeless tobacco non-user [facility] Work Phone: Start: 09-07-2020 Alcohol intake Current drinke r of alcohol (finding) [facility] Start: 05-02-2019 Tobacco Comment 1/2 year in her teen s [facility] Start: 04-11-2011 Alcohol Comment social [facility] Start: 1960 Sex Assigned At Not on file [facility] Start: 08-21-2020 End: 09-07-2020 History of Social function [facility] Start: 08-21-2020 End: 09-07-2020 Tobacco use panel [facility] Adult Depression Screening Assessment 0 [facility] Start: 06-07-2020 Sexual orientation Heterosexual (erik stubbs) [facility] Clinical Notes 08-12-2018 to 04-17-2025 Note Date & Type Note Facility 04-17-2025 Progress note [facility] 04-17-2025 Progress note Note Date/Time April 17, 2025 8:34am [facility] [address] [place] [address] [place] [address] OFFICE VISIT Date of Service: 04/17/25 MR#: [id number] Acct: [id number] Name: RENETTA GILL Rep #: [id number] : 1960 Provider: Dr. Albaro Wiseman MD Age/Sex: 64/F Location: [facility] Status: Signed Intake Vital Signs 03/17/25 09:04 Height 5 ft Intake Visit Reasons: RIGHT SHOULDER Chief Complaint: right shoulder injury Accompanied by: Self Allergies Sulfa (Sulfonamide Antibiotics) Allergy (Mild, Verified 04/17/25 08:21) Rash Medications ?Medication ?Instructions ?Recorded ?Confirmed ?Type albuterol sulfate 90 mcg/actuation 2 inh inhalation Q6 H PRN shortness 03/09/21 04/17/25 Rx breath activated powder inhaler of breath #1 ea pantoprazole 20 mg tablet,delayed 40 mg PO BID 2 04/17/25 History release sertraline 100 mg tablet 100 mg PO DAILY #90 tabs 09/0904/17/25 Rx hyoscyamine sulfate 0.375 mg 0.375 mg PO QDAY 12/05/24 04/17/25 History tablet,extended release,12 hr trazodone 50 mg tablet 50 mg PO DAILY PRN insomnia #90 01/05/25 04/17/25 Rx tabs lisinopril 20 mg tablet 20 mg PO DAILY #90 tabs 01/1604/17/25 Rx albuterol sulfate 90 mcg/actuation 2 puff inhalation Q 6H PRN 02/23/25 04/17/25 Rx aerosol inhaler (Ventolin HFA) shortness of breath or wheezing #8.5 grams levofloxacin 500 mg tablet 500 mg PO Q24H #7 tabs 07/0 10/1104/17/25 Rx amlodipine 5 mg tablet 5 mg PO DAILY #90 tabs 04/0604/17/25 Rx Have you fallen in the past year?: Yes PFSH Medical History Bursitis of right shoulder Impingement of right shoulder Tendinosis of right rotator cuff Calcific tendinitis of right shoulder Right shoulder [...] made by me, Dr. Arnoldo Wiseman MD 04/17/25 0811. Part of today?s visit was documented by [ ], acting as scribe. RENETTA GILL is a 64 year old F here today for FU R shoulder MRI. Supplemental Info [facility] Services [address] [place] [id number] Upper Ext Joint Only(Routine) MR#: [id number] Acct: [id number] Name: RENETTA GILL Rep #: [id number] : 1960 F 64 From: Brian Morse MD PCP: Dr. Danay Abdalla MD Status: REG CLI Study: Upper Ext Joint Only(Routine) Date of Exam: 04/11/25 Exam# [id number] Ordering Dr: Arnoldo Wiseman MD PROCEDURE: UPPER EXT JOINT ONLY(ROUTINE) 04/11/2025 REASON FOR EXAM: PULLING INJURY ON THE ARM TECHNIQUE: T1, T2, PD, UPPER EXT JOINT ONLY(right) multiplanar and multisequence images were obtained without IV contrast administration. COMPARISON: COMPARISON: February 04, 2025 x-ray FINDINGS: Bone Marrow: There is no bony contusion or occult fracture. AC joint: There is moderate AC joint hypertrophy without evidence of separation. There is a type 2 acromion. Rotator cuff: There is no muscular atrophy. There is moderate distal supraspinatus, infraspinatus, and subscapularis tendinopathy without full-thickness tear or retraction. The teres minor appearsintact. Labrum: The labrum appears intact. Biceps tendon: The biceps tendon is present in the biceps tendon groove, with intact anchors. Effusion: There is fluid in the subacromial subdeltoid bursa, with bursitis. There is no significant effusion. MRI/Upper Ext Joint Only(Routine) IMPRESSION: There is moderate distal supraspinatus, infraspinatus, and subscapularis tendinopathy without full-thickness tear or retraction. There is fluid in the subacromial subdeltoid bursa, with bursitis. Reading Location: [facility] independently reviewed the imaging. Concur with radiologist report. Coding Level of Care Code Attention Certified Art Therapist Diagnoses Right shoulder pain M25.511 Calcific tendinitis of right shoulder M75.31 Tendinosis of right rotator cuff M67.813 Impingement of right shoulder M25.811 Bursitis of right shoulder M75.51 Comment 46512 and CPT inject major joint Assessment and Plan Assessment and Plan (1) Right shoulder pain: Status: Acute Plan: 64-year-old female follow-up right shoulder MRI showing no tears tendinosis of the tendon is bursitis and joint syndrome. Patient has tried physical therapy already and wants to try cortisone injection today. We also discussed the surgical option for this which would be right shoulder arthroscopy subacromial decompression debridement bursectomy. They would like to try some further conservative management and follow-up in 3 months time or as needed. Pros and cons risks and benefits of a right shoulder subacromial steroid injection were discussed. Patient wished to proceed. Risks include but not limited to infection, pain, stiffness, damage to other structures, neurovascularinjury, wear further tear of the tendon and other structures such as the skin, bleeding, allergic reaction, acute flare reaction and other risks. Obtained informed consent for injection. Posterior lateral aspect of the shoulder was prepped with chlorhexidine solutionallowed to thoroughly dry over 3 minutes. Used Gebauer spray per bottle instructions. Using sterile technique, injected the right subacromial joint with a 4cc 0.25% bupivacaine and 2cc 40 mg/mL kenalog. Bandage placed. The patient tolerated the injection well without any noted complication. Red flag symptoms were discussed such as redness, swelling, discharge, drainage, pain worsens or if they have any concerns to present to the ED or to call the clinic immediately. Patient counselled on non-operative and operative means [...] blood flow before exercises. 4. Anti-Inflammatory Medications: Vebk-ked-vsnykml medications like ibuprofen ornaproxen can help reduce [...] and promote healing by stimulating nerves. (2) Calcific tendinitis of right shoulder: Status: Acute (3) Tendinosis of right rotator cuff: Status: Acute (4) Impingement of right shoulder: Status: Acute (5) Bursitis of right shoulder: Status: Acute Clinical Quality Measures Falls Risk Screening/Assistive Devices Have you fallen in the past year?: Yes Ortho Exam General General: Yes no acute distress Neurologic: Yes alert and Yes oriented x3 Psychologic: Yes reasonable and appropriate Right Shoulder Skin/Wound: Yes CDI, No ecchymosis, No erythema and No swelling 04/17/25 0834 <Electronically signed by Arnoldo quiroz MD> Date _ Arnoldo Ricardo Signature: Date (if applicable) CC: ~ [facility] Work Phone: 1(549) 761-588107-01-2025 Progress [facility] [address] [place] [address] OFFICE VISIT Date of Service: 03/17/25 MR#: [id number] Acct: [id number] Name: RENETTA GILL Rep #: [id number] : 1960 Provider: Dr. Albaro Wiseman MD Age/Sex: 64/F Location: [facility] Status: Signed Intake Vital Signs 02/04/25 08:51 [...] and the decisions made by me, Dr. Tasneem MD 03/17/25 0806. Part of today?s visit [...] but sometimes makes it worse. Supplemental Info [facility] Services [address] [place], [place] [address] Shoulder min 2 Views MR#: [id number] Acct: [id number] Name: RENETTA GILL Rep #: [id number] : 1960 F 64 From: Etienne Fernando MD PCP: Dr. Danay Abdalla MD Status: DEP AMB Study: Shoulder min 2 Views Date of Exam: 02/04/25 Exam# [id number] Ordering Dr: Franky Rose PROCEDURE: SHOULDER MIN 2 VIEWS 02/04/2025 REASON FOR EXAM: SHOULDER INJURY, DOG PULLED ON ARM WHILE WALKING ON A LEASH TECHNIQUE: Four views of the right shoulder were obtained. COMPARISON: None FINDINGS: Bones: No fracture. Joints: Unremarkable Soft tissues: There is evidence of calcific tendinitis overlying the greater tuberosity of the proximal humerus. Other: RAD/Shoulder min 2 Views IMPRESSION: Calcific tendinitis. Reading Location: [facility]- I independently reviewed the imaging. Concur [...] injury. Will order an MRI of the [facility], FU after that. Declined an injection and [...] shoulder can help reduce swelling and pain, especiallyafter activity. Heat can be helpful to relax tense muscles and improve blood flow before exercises. 4. Anti-Inflammatory Medications: Alpe-zcu-jottnml medications like ibuprofen ornaproxen can help reduce [...] M25.511 - Pain in right shoulder, M75.31 - Calcific tendinitis of right shoulder, S46.911A - Strain [...] normal; Negative TTP AC Joint, Drop Arm, Brook[place], cross arm or scapular winging SHOULDER: normal motor and sens to ax nerve, and MRU and AIN/PIN strength in fe 4+, er 4. 03/17/25 0851 n MD> Date _ Arnoldo Wiseman MD Cosigner Signature: Date (if applicable) CC: ~ [facility]07-01-2025 Progress note Author Arnoldo Wiseman [facility] Note Date/Time March 17, 2025 8:51a [facility] [address] [place] [address] OFFICE VISIT Date of Service: 03/17/25 MR#: [id number] Acct: [id number] Name: RENETTA GILL Rep #: [id number] : 1960 Provider: Dr. Albaro Wiseman MD Age/Sex: 64/F Location: [facility] Status: Signed Intake Vital Signs 02/04/25 08:51 [...] but sometimes makes it worse. Supplemental Info [facility] [address] [place], [place] [address] Shoulder min 2 Views MR#: [id number] Acct: [id number] Name: RENETTA GILL Rep #: [id number] : 1960 F 64 From: Etienne Fernando MD PCP: Dr. Danay Abdalla MD Status: DEP AMB Study: Shoulder min 2 Views Date of Exam: 02/04/25 Exam# [id number] Ordering Dr: Franky Rose PROCEDURE: SHOULDER MIN 2 VIEWS 02/04/2025 REASON FOR EXAM: SHOULDER INJURY, DOG PULLED ON ARM WHILE WALKING ON A LEASH TECHNIQUE: Four views of the right shoulder were obtained. COMPARISON: None FINDINGS: Bones: No fracture. Joints: Unremarkable Soft tissues: There is evidence of calcific tendinitis overlying the greater tuberosity of the proximal humerus. Other: RAD/Shoulder min 2 Views IMPRESSION: Calcific tendinitis. Reading Location: [facility]-1 I independently reviewed the imaging. Concur with [...] blood flow before exercises. 4. Anti-Inflammatory Medications: Nyxc-yxj-ourdtpi medications like ibuprofen ornaproxen can help reduce [...] normal; Negative TTP AC Joint, Drop Arm, Brookings, cross arm or scapular winging SHOULDER: normal motor and sens to ax nerve, and MRU and AIN/PIN strength in fe 4+, er 4. 03/17/25 0851 <Electronically signed by Arnoldo quiroz MD> Date _ Arnoldo Leonardo Signature: Date (if applicable) CC: ~ [facility] Work Phone: 1(762) 856-543805-21-2025 Evaluation note* Diagnosis Onset Date Resolution Status Admit Date Right shoulder strain acute February 04, 2025 8:47am Strain of right biceps acute 2024 8:47am Calcific tendinitis of right shoulder acute March 17, 2025 8 :25am Right shoulder pain acute March 17, 2025 8:25am Right shoulder strain acute Mar 8:25am [facility] Work Phone: 1(969) 718-950805-21-2025 Evaluation note* Diagnosis Onset Date Resolution Status Admit Date Right shoulder strain acute February 04, 2025 8:47am Strain of right biceps acute 2024 8:47am Calcific tendinitis of right shoulder acute March 17, 2025 8 :25am Right shoulder pain acute March 17, 2025 8:25am Right shoulder strain acute Mar 8:25am Bursitis of right shoulder acute April 17, 2025 8:16am Calcific tendinitis of right shoulder acute April 17, 2025 8:16am Impingement of right shoulder acute April 17, 2025 8:16am Right shoulder pain acute Aug2024 8:16am Tendinosis of right rotator cuff acu te April 17, 2025 8:16am [facility] Work Phone: 1(727) 385-787503-21-2025 Evaluation note* Diagnosis Onset Date Resolution Status Admit Date Anxiety and depression chronic [facility] 2024 10:38am Back pain chronic December 05 10:38am Woodall's esophagus chronic December 05, 2024 10:38am Fatty liver chronic December 05, 2 025 10:38am Hyperlipidemia chronic November 10:38am Hypertension chronic December 05, 2024 10:38am GERMAIN (obstructive sleep apnea) chroni c December 05, 2024 10:38am [facility] Work Phone: 1(788) 161-537803-21-2025 Evaluation note* Diagnosis Onset Date Resolution Status Admit Date Anxiety and depression chronic [facility] 2024 10:38am Back pain chronic December 05 10:38am Woodall's esophagus chronic December 05, 2024 10:38am Fatty liver chronic December 05, 025 10:38am Hyperlipidemia chronic November 10:38am Hypertension chronic December 05, 2024 10:38am GERMAIN (obstructive sleep apnea) chroni c December 05, 2024 10:38am Right shoulder strain acute February 04, 2025 8:47am Strain of right biceps acute 2024 8:47am [facility] Work Phone: 1(721) 625-201403-21-2025 Evaluation note* Diagnosis Onset Date Resolution Status Admit Date Anxiety and depression chronic [facility] 2024 10:38am Back pain chronic December 05 [...] 8:25am Right shoulder strain acute Mar 8:25am [facility] Work Phone: 1(109) 585-474404-11-2024 Nurse Note* Jamee Lopez RN - 12/27/2023 [...] None REFERRAL (RECOMMENDATION): None documented [facility] History and physical note * Tricia Zamora [...] 2017 menopause age 49 after ablation 07/2010 07/2018 high FSH and E2 under 25 Migraines [...] 2009 uterine ablation for heavy bleeding at [facility] TOOTH EXTRACTION x4 of 3rd molar TREATMENT [...] 2009 uterine ablation for heavy bleeding at [facility] TOOTH EXTRACTION x4 of 3rd molar TREATMENT [...] 2023 TIME: 2:23 PM documented in this encounterPro[facility]03-19-2024 Miscellaneous Notes* Telephone Encounter - Lorin Rsos II - 12/04/2023 11:49 AM EDT Spoke with patient rescheduled EUS for , 01/17/2024 at [facility]. Went over prep and sent via my chart. Lorin Castro II * Telephone Encounter - Linette Nugent [...] month. Tricia Zamora MD documented in this encounterPro[facility]03-14-2024 History and physical note * Tricia Zamora [...] 2009 uterine ablation for heavy bleeding at [facility] TOOTH EXTRACTION x4 of 3rd molar TREATMENT [...] 2023 TIME: 2:23 PM documented in this encounterPro[facility]03-14-2024 Nurse Note* Olivia Torres RN - 11/29/2023 [...] None REFERRAL (RECOMMENDATION): None documented in this encounterProtest[facility]02-22-2024 Miscellaneous Notes* Telephone Encounter - Lisa Harman - 11/08/2023 2:57 PM EST Spoke to patient, appointment scheduled. Instructions sent on [employer]. * Telephone Encounter - David Tyson AsstLorin II - 10/18/2023 11:17 AM EST [...] regarding EUS. Thank you, Linette Nugent, RN * Telephone Encounter - David Adm CastroLorin II - 09/21/2023 10:36 AM EST Linette, Do you have any information on this patient for EUS from Dr. Montano office? Lorin Hernandez Adm Asst II * Telephone Encounter - Lisa Harman - 09/14/2023 12:12 PM EST Voicemail received from patient to schedule her EUS with Dr. Zamora. Please call her at [phone]. documented in this encounterProtest[facility]02-02-2023 NoteHNO ID: [id number] Author: RT Jorge(R) Service: Radiology Author Type: [...] BY: RT Jorge(R) October 19, 2022 3:02 [id number] NoteHNO ID: [id number] Author: Laith Dumont CCC-SUPERVISOR REFINING Service: ? Author Type: Speech Language Pathologist Type: Progress Notes Filed: 10/19/2022 1:57 PM Note Text: Start of Care Date: 10/19/22 Onset Date: 09/17/22 Patient Identified by Name and Date of : Yes [facility] MODIFIED BARIUM [...] States/Identifies TREATMENT: Performed Modified Barium Swallowing Study (17583). -Education regarding findings from today's Modified Barium Swallowing study (fluoroscopic study) were provided to the patient through verbal / written instruction, images and/or demonstration. Patient appeared to be able to demonstrate understanding of education provided this date. Billing: Modified Barium Swallow ([id number]) Total time: 30 minutes Laith Dumont, [facility]02-02-2023 History of Present illness Narrative* RT Jorge(R) - 10/19/2022 1:00 PM EST Radiology Service [...] 19, 2022 3:02 PM documented in this encounterProtest[facility]02-02-2023 History of Present illness Narrative* Laith Dumont, [facility]-SUPERVISOR REFINING - 10/19/2022 12:59 PM EST Start of Care Date: 10/19/22 Onset Date: 09/17/22 Patient Identified by Name and Date of : Yes [facility] MODIFIED BARIUM [...] States/Identifies TREATMENT: Performed Modified Barium Swallowing Study (71867). -Education regarding findings from today's Modified Barium Swallowing study (fluoroscopic study) were provided to the patient through verbal / written instruction, images and/or demonstration. Patient appeared to be able to demonstrate understanding of education provided this date. Billing: Modified Barium Swallow ([id number]) Total time: 30 minutes Laith Dumont CCC-SUPERVISOR REFINING documented in this encounterProtest[facility]11-26-2018 History of Past illness Narrative* Problem Noted Date Resolved Date Hormone replacement therapy (HRT) 08/12/2018 03/25/2019 Pain in joint, pelvic region and thigh 5 11/05/2014 Hypercholesteremia 08/12/2018 Symptomatic menopausal or female climacteric sta delroy 08/12/2018 documented as of this encounter (statuses as of 10/19/2022) [facility] History of Past illness Narrative* Problem Noted Date Resolved Date Hormone replacement therapy (HRT) 08/12/2018 03/25/2019 Pain in joint, pelvic region and thigh 5 11/05/2014 Hypercholesteremia 08/12/2018 Symptomatic menopausal or female climacteric sta delroy 08/12/2018 documented as of this encounter (statuses as of 10/20/2022) [facility] History of Past illness Narrative* Problem Noted Date Diagnosed Date Resolved Date Hormone replacement therapy (HRT) 08/12/2018 03/25/2019 Pain in joint, pelvic region and thigh 10/19/2014 11/05/2014 Hypercholesteremia 8 Symptomatic menopausal or fe male climacteric states 08/12/2018 documented as of this encounter (statuses as of 11/08/2023) [address]26-2018 History of Past illness Narrative* Problem Noted Date Diagnosed Date Resolved Date Hormone replacement therapy (HRT) 08/12/2018 03/25/2019 Pain in joint, pelvic region and thigh 10/19/2014 11/05/2014 Hypercholesteremia 8 Symptomatic menopausal or fe male climacteric states 08/12/2018 documented as of this encounter (statuses as of 11/22/2023) [address]26-2018 History of Past illness Narrative* Problem Noted Date Diagnosed Date Resolved Date Hormone replacement therapy (HRT) 08/12/2018 03/25/2019 Pain in joint, pelvic region and thigh 10/19/2014 11/05/2014 Hypercholesteremia 8 Symptomatic menopausal or fe male climacteric states 08/12/2018 documented as of this encounter (statuses as of 11/30/2023) [address]26-2018 History of Past illness Narrative* Problem Noted Date Diagnosed Date Resolved Date Hormone replacement therapy (HRT) 08/12/2018 03/25/2019 Pain in joint, pelvic region and thigh 10/19/2014 11/05/2014 Hypercholesteremia 8 Symptomatic menopausal or fe male climacteric states 08/12/2018 documented as of this encounter (statuses as of 12/04/2023) [address]26-2018 History of Past illness Narrative* Problem Noted Date Diagnosed Date Resolved Date Hormone replacement therapy (HRT) 08/12/2018 03/25/2019 Pain in joint, pelvic region and thigh 10/19/2014 11/05/2014 Hypercholesteremia 8 Symptomatic menopausal or fe male climacteric states 08/12/2018 documented as of this encounter (statuses as of 12/28/2023) [facility]* Diagnosis Onset Date Resolution Status Breast cancer screening acut e Abdominal pain chronic Woodall's esophagus chronic Hypertension chronic [facility] Work Phone: Evaluation note* Diagnosis Onset Date Resolution Status Woodall's esophagus chronic Hypertension chronic IBS (irritable bowel syndrome) chronic GERMAIN (obstructive sleep apnea) chronic Contact dermatitis, allergic chronic Hypertension chronic IBS (irritable bowel syndrome) chronic [facility] Work Phone: Evaluation note* Diagnosis Onset Date Resolution Status Contact dermatitis, allergic chronic Hypertension chronic IBS (irritable bowel syndrome) chronic Back pain acute Screening for thyroid disorder acute Swallowing problem acute Woodall's esophagus chronic Dry skin chronic Hyperlipidemia chronic Hypertension chronic [facility] Work Phone: Evaluation note* Diagnosis Dysphagia, unspecified type- Primary documented in this encounter [facility] note* Diagnosis Onset Date Resolution Status Back pain acute Screening for thyroid disorder acute Woodall's esophagus chronic Dry skin chronic Hyperlipidemia chronic Hypertension chronic Swallowing problem chronic Abnormal colonoscopy acute Hypertension chronic GERMAIN (obstructive sleep apnea) chronic Swallowing problem chronic [facility] Work Phone: Evaluation note* Diagnosis Onset Date Resolution Status Acute maxillary sinusitis, unspecified acute Breast cancer screening acut e Sinusitis acute Hyperlipidemia chronic Hypertension chronic GERMAIN (obstructive sleep apnea) [facility] [facility] Work Phone: Evaluation note* Diagnosis Gastric polyp- Primary Benign neoplasm of stomach documented in this encounter [facility] note* Diagnosis Gastric polyp Benign neoplasm of stomach documented in this encounter [facility] note* Diagnosis Gastric polyp- Primary Benign neoplasm of stomach documented in this encounter [facility] note* Diagnosis Onset Date Resolution Status Anxiety and depression chron ic Attention deficit chronic Woodall's esophagus chronic Hypertension chronic IBS (irritable bowel syndrome) chronic Left hip pain chronic [facility] Work Phone: Evaluation note* Diagnosis Gastric polyp Benign neoplasm of stomach documented in this encounter [facility] for referral (narrative)* Outpatient Procedure (Routine) - Pending Review Specialty Diagnoses / Procedures Referred By Contac t Referred To Contact [facility] Diagnoses Gastric polyp Procedures EGD - THERAPEUTIC, EUS, OR TUBE INTERVENTIONS EDG US EXAM SURGICAL ALTER STOM DUODENUM/[place] [address] [place] [address] [facility] [address] [place] [address] Referral ID Status Reason Start Date Expiration Date Visits Requested Visits Authorized [id number] Pending Review Auto-Generat ed Referral 09/24/2023 09/24/2024 1 1 [facility] for referral (narrative)* Outpatient Procedure (Routine) - Authorized Specialty Diagnoses / Procedures Referred By Contac t Referred To Contact [facility] Diagnoses Gastric polyp Procedures EGD - THERAPEUTIC, EUS, OR TUBE INTERVENTIONS EDG US EXAM SURGICAL ALTER STOM DUODENUM/[place] [address] [place] [id number] [place] [id number] Referral ID Status Reason Start Date Expiration Date Visits Requested Visits Authorized [id number] Authorized Auto-Generat ed Referral 12/04/2023 12/03/2024 1 1 [facility] for referral (narrative)* Outpatient Procedure (Routine) - Closed Specialty Diagnoses / Procedures Referred By Contac t Referred To Contact [facility] Diagnoses Gastric polyp Procedures EGD - THERAPEUTIC, EUS, OR TUBE INTERVENTIONS EDG US EXAM SURGICAL ALTER STOM DUODENUM/[place]UNUM Tricia [place] [address] [id number] [place] [phone] Referral ID Status Reason Start Date Expiration Date V isits Requested Visits Authorized [id number] Closed Auto-Generate d Referral 12/04/2023 12/03/2024 1 1 T [facility] for referral (narrative)No reason for referral [facility] Narrative* Outpatient Procedure (Routine) - Authorized Specialty Diagnoses / Procedures Referred By Contac t Referred To Contact [facility] Diagnoses Gastric polyp Procedures EGD - THERAPEUTIC, EUS, OR TUBE INTERVENTIONS EDG US EXAM SURGICAL ALTER STOM DUODENUM/[place] [address] [place] [phone] [facility] [address] [place] [address] Referral ID Status Reason Start Date Expiration Date Visits Requested Visits Authorized [id number] Authorized Auto-Generat ed Referral 11/10/2023 09/16/2024 1 [facility] Procedure (Routine) - Closed Specialty Diagnoses / Procedures Referred By Contac t Referred To Contact [facility] Diagnoses Gastric polyp Procedures EGD - THERAPEUTIC, EUS, OR TUBE INTERVENTIONS EDG US EXAM SURGICAL ALTER STOM DUODENUM/[place] [address] [address] [place] [phone] [facility] [address] [place] [address] Referral ID Status Reason Start Date Expiration Date V isits Requested Visits Authorized [id number] Closed Auto-Generate d Referral 12/04/2023 12/03/2024 1 1 [facility] Summary Purpose Family History No Family [...] 47am Calcific tendinitis of right shoulder Ju ly 2024 8:25am Right shoulder pain March 17, [...] m XRAY March 17, 2025 9:04a m Chief Complaint Admit Date R SHOULDER PAIN February 04, 2025 8:47a m XRAY February 04, 2025 8:51a m Cough February 23, 2025 8:17a m RT SHLD PAIN/RX HERE March 03, 2025 9:0 0am RIGHT SHOULDER March 17, 2025 8:25a m DEEP Cough March 17, 2025 8:56a m XRAY March 17, 2025 9:04a m PULLING INJURY ON ARM April 11, 2025 7: 59am Reason for Visit Admit Date Right shoulder strain February 04, 2025 8:4 7am Strain of right biceps February 04, 2025 8: 47am Calcific tendinitis of right shoulder Ju ly 2024 8:25am Right shoulder pain March 17, 2025 8:25a m Right shoulder strain March 17, 2025 8:2 5am Chief Complaint Admit Date R SHOULDER PAIN February 04, 2025 8:47a m XRAY February 04, 2025 8:51a m Cough February 23, 2025 8:17a m RT SHLD PAIN/RX HERE March 03, 2025 9:0 0am RIGHT SHOULDER March 17, 2025 8:25a m DEEP Cough March 17, 2025 8:56a m XRAY March 17, 2025 9:04a m PULLING INJURY ON ARM April 11, 2025 7: 59am RIGHT SHOULDER April 17, 2025 8:1 6am Reason for Visit Admit Date Right shoulder strain February 04, 2025 8:4 7am Strain of right biceps February 04, 2025 8: 47am Calcific tendinitis of right shoulder Ju 2024 8:25am Right shoulder pain March 17, 2025 8:25a m Right shoulder strain March 17, 2025 8:2 5am Bursitis of right shoulder April 17 025 8:16am Calcific tendinitis of right shoulder Au 2024 8:16am Impingement of right shoulder April 8:16am Right shoulder pain April 17, 2025 8:1 6am Tendinosis of right rotator cuff April 17, 2025 8:16am Chief Complaint Admit Date R SHOULDER PAIN February 04, 2025 8:47a m XRAY February 04, 2025 8:51a m Cough February 23, 2025 8:17a m RT SHLD PAIN/RX HERE March 03, 2025 9:0 0am RIGHT SHOULDER March 17, 2025 8:25a m DEEP Cough March 17, 2025 8:56a m XRAY March 17, 2025 9:04a m PULLING INJURY ON ARM April 11, 2025 7: 59am RIGHT SHOULDER April 17, 2025 8:1 6am RIGHT KNEE April 22, 2025 7:5 6am room 4 April 22, 2025 8:2 7am Additional Source Comments INFORMATION SOURCE (unrecogn ized section and content) DATE CREATED AUTHOR 03/12/[address] [facility] DATE CREATED AUTHOR AUTHOR'S ORGANIZ ATION 01/13/2019 [facility] DATE CREATED AUTHOR AUTHOR'S ORGANIZ ATION 06/21/2019 [facility] DATE CREATED AUTHOR AUTHOR'S ORGANIZ ATION 10/20/2022 [facility] DATE CREATED AUTHOR AUTHOR'S ORGANIZ ATION 12/05/2023 [facility] DATE CREATED AUTHOR AUTHOR'S ORGANIZ ATION 12/28/2023 [facility] DATE CREATED AUTHOR AUTHOR'S ORGANIZ ATION 04/23/2025 [facility] Goals (unrecognized section and content) Goals [...] or prosecute any alcohol or drug abuse patient.[facility] the event this information is protected by the Federal Confidentiality of Alcohol and Drug Abuse Patient Records regulations: The Federal rules restrict any use of the information to criminally investigate or prosecute any alcohol or drug abuse patient.[facility] the event this information is protected by the Federal Confidentiality of Alcohol and Drug Abuse Patient Records regulations: The Federal rules restrict any use of the information to criminally investigate or prosecute any alcohol or drug abuse patient.[facility] the event this information is protected by the Federal Confidentiality of Alcohol and Drug Abuse Patient Records regulations: The Federal rules restrict any use of the information to criminally investigate or prosecute any alcohol or drug abuse patient.[facility] the event this information is protected by the Federal Confidentiality of Alcohol and Drug Abuse Patient Records regulations: The Federal rules restrict any use of the information to criminally investigate or prosecute any alcohol or drug abuse patient.[facility] the event this information is protected by the Federal Confidentiality of Alcohol and Drug Abuse Patient Records regulations: The Federal rules restrict any use of the information to criminally investigate or prosecute any alcohol or drug abuse patient.[facility] the event this information is protected by the Federal Confidentiality of Alcohol and Drug Abuse Patient Records regulations: The Federal rules restrict any use of the information to criminally investigate or prosecute any alcohol or drug abuse patient.[facility] Reason for Visit (unrecogniz ed section and content) Reason Comments Speech Instrumental Swallow Eval Speech Discharge Specialty Diagnoses / Procedures Referred By Contac t Referred To Contact Radiology / SPEECH THERAPY Diagnoses MODIFIED BARIUM SWALLOW W SPEECH, Procedures TX SPEECH LANG VOICE COMMJ &/AUDITORY PROC IND SPEECH THERAPISTS Lonny Jefferson MD [address] [place] [address] [facility], [place] [address] [place] [address] Referral ID Status Reason Start Date Expiration Date V isits Requested Visits Authorized [id number] Authorized 10/19/2022 09/16/2023 60 60 Reason Comments Appointment EUS Reason Comments Procedure Needs to reschedule EGD and EUS Care Teams (unrecognized sec tion and content) Computer Programming Professor Relationship Specialty Start Date End Date Danay Abdalla MD [address] [place], [place] [address] PCP - General Internal Medicine 08/16/21 Computer Programming Professor Relationship Specialty Start Date End Date Danay Abdalla MD [address] [place], [place] [id number] PCP - General Internal Medicine 08/16/21 Team Status: Active Member Role Status Dates Dr. Danay Abdalla MD Primary Care Provider Active Team Status: Inactive Member Role Status Dates Dr. Danay Abdalla MD Primary Care eSra austin, Attending Provider, Referring Provider Active Team Status: Inactive Member Role Status Dates Dr. Danay Abdalla MD Primary Care Provider, Atten ding Provider Active Team Status: Inactive Member Role Status Dates Dr. Danay Abdalla MD Primary Care Provider, Refer ring Provider Active Franky FARR, PA Attending Provider Active Computer Programming Professor Relationship Specialty Start Date End Date Danay Abdalla MD [address] [place] [address] PCP - General Internal Medicine 08/16/21 Computer Programming Professor Relationship Specialty Start Date End Date Danay Abdalla MD [address] [place] [address] PCP - General Internal Medicine 08/16/21 Computer Programming Professor Relationship Specialty Start Date End Date Danay Abdalla MD [address] [place] [address] PCP - General Internal Medicine 08/16/21 Computer Programming Professor Relationship Specialty Start Date End Date Danay Abdalla MD [address] [place] [address] PCP - General Internal Medicine 08/16/21 Team Status: Inactive Member Role Status Dates Dr. Danay Abdalla MD Primary Care Provider Active Dr. Lonny Montano MD Attending Provider, Referring Pro vider Active Computer Programming Professor Relationship Specialty Start Date End Date Danay Abdalla MD [address] [place] [address] PCP - General Internal Medicine 08/16/21 Team [...] Provider Active Start: February 04, 2025 Franky FARR PA Attending [...] Care Provider Active Start: March 03, 2025 Franky FARR PA Attending Provider Active Start: March 03, 2025 Franky FARR PA Referring Provider Active Start: March 03, 2025 [...] Referring Provider Active Start: March 17, 2025 Franky FARR PA Attending Provider Active Start: March 17, 2025 [...] March 17, 2025 End: March 17, 2025 Franky FARR PA Attending Provider Active Start: March 17, 2025 [...] Care Provider Active Start: March 03, 2025 Franky FARR PA Attending Provider Active Start: March 03, 2025 Franky FARR PA Referring Provider Active Start: March 03, 2025 [...] March 17, 2025 End: March 17, 2025 Franky Rose PA, PA Attending Provider Active Start: March 17, 2025 [...] Abdalla MD Primary Care Provider Active Start: April 11, 2025 End: April 11, 2025 Arnoldo Wiseman MD Attending Provider Active St art: April 11, 2025 End: April 11, 2025 Arnoldo Wiseman MD Referring Provider Active St art: April 11, 2025 End: April 11, 2025 Team Status: Inactive Member Role/Relationship Status Dates Dr. Danay Abdalla MD Primary Care Provider Active Start: April 17, 2025 End: April 17, 2025 Dr. Danay Abdalla MD Referring Provider Active Start: April 17, 2025 End: April 17, 2025 Arnoldo Wiseman MD Attending Provider Active St art: April 17, 2025 End: April 17, 2025 Team Status: Active Member Role/Relationship Status Dates Dr. Danay Abdalla MD Primary Care Provider Active Start: April 22, 2025 Dr. Danay Abdalla MD Referring Provider Active Start: April 22, 2025 MAYTE Barakat Attending Provider Active Start: April 22, 2025 Team Status: Inactive Member Role/Relationship Status Dates Dr. Danay Abdalla MD Primary Care Provider Active Start: April 22, 2025 End: April 22, 2025 Dr. Cristino Mccallum MD Attending Provider Active S tart: April 22, 2025 End: April 22, 2025 Team Status: Inactive Member Role/Relationship Status Dates Dr. Danay Abdalla MD Primary Care Provider Active Start: April 22, 2025 End: April 22, 2025 Dr. Danay Abdalla MD Referring Provider Active Start: April 22, 2025 End: April 22, 2025 MAYTE Barakat Attending Provider Active Start: April 22, 2025 End: April 22, 2025 FOR RECORDS PERTAINING TO PATIENTS WHO [...] BE BASED ON THE PRIMARY CLINICAL RECORDS. [facility] [employer] [facility]. provides no warranty or guarantee of the accuracy or completeness of information in this document.
[2025-04-29 11:05] LABS: AST(SGOT) 23 U/L (<=31); Alanine Aminotransfer ALT/SGPT 27 U/L (<=34); Albumin, Serum 4.2 g/dL (3.4-4.8); Alkaline Phosphatase 85 U/L (35-104); Anion Gap 11 (5-15); BUN 15 mg/dL (4-19); BUN/Creat Ratio 24.6 RATIO (10-20); Calcium,Total 9.6 mg/dL (7.6-11.0); Carbon Dioxide 24.8 mmol/L (21.0-32.0); Chloride 104 mmol/L (98-108); Cholesterol 204 mg/dL (<=200); Globulin 3.1 g/dL (2.2-4.2); Glucose 86 mg/dL (70-99); Low Density Lipoprotein Calc. 106 mg/dL; Potassium 4.1 mmol/L (3.3-5.1); Triglycerides 68 mg/dL; Very Low Density Lipoprotein 14 mg/dL (5-40); cholesterol:hdl ratio screen 2.43
== END | disposition home or self-care (01) ==
LOC: MTLAB 08:48
PROVIDERS: PCP Internal Medicine; Referring Provider Internal Medicine; Visit Provider Internal Medicine
DX: E78.5 Hyperlipidemia, unspecified (principal)
CPT/HCPCS: 36415; 80053; 80061

== ENCOUNTER → 2025-08-10 | Outpatient (CLI) | payer MEDICARE, SELFPAY ==
--- NOTE | 2025-08-10 11:00 | BI_ITS ---
EXAM: SCRN MAMM (CAD)W/ELENITA BILAT DATE: 08/10/2025 CLINICAL HISTORY: F, Age 64 y/o , BREAST CANCER SCREENING TECHNIQUE: Procedure Code: [id number] Modality: MG Procedure: SCRN MAMM (CAD)W/ELENITA BILAT COMPARISON: Prior exam(s) dated 08/08/2024, 03/15/2023, and 01/25/2022. FINDINGS: TISSUE DENSITY: The breasts are heterogeneously dense, which may obscure small masses. Bilateral Breast Mammographic Findings: No significant masses, calcifications or other abnormalities are identified. Benign-appearing round microcalcifications and macrocalcifications are seen in both breasts. BI/SCRN MAMM (CAD)W/ELENITA BILAT IMPRESSION: Benign screening mammogram. OVERALL FINAL ASSESSMENT BI-RADS 2: BENIGN RECOMMENDATION: Routine annual follow-up in 1 Year Additional Recommendation none A letter with findings and recommendations will be mailed to the patient. Reading Location: [id number]
== END | disposition home or self-care (01) ==
LOC: OPBI 10:53
PROVIDERS: PCP Internal Medicine; Referring Provider Internal Medicine; Visit Provider Internal Medicine
DX: Z12.31 Encounter for screening mammogram for malignant neoplasm of breast (principal)
CPT/HCPCS: 77063; 77067